=== PATIENT | male | born 1955 | race Caucasian/White ===

== ENCOUNTER 2017-08-04 11:46 | Day surgery (SDC) | payer OTHER ==
[2017-08-02 15:36] VITALS: BMI 43.5
[~2017-08-04 11:46] MED LIST: LACTATED RINGERS 1,000 ML IV SCH
[2017-08-04 12:13] VITALS: RESP 16; TEMP 98.7
--- NOTE | 2017-08-04 13:11 | P.OP ---
Date of Procedure: 08/04/17 Preoperative Diagnosis: Screening. Change in bowel habits. Rectal bleeding. Postoperative Diagnosis: 1 proximal descending colon polyp. 2 Mid ascending colon polyps 2. 3 sigmoid polyp at 50 cm from the anal verge.4 sigmoid polyp at the verge.5 mild internal hemorrhoids. Procedure(s) Performed: Colonoscopy and snare polypectomy 5 Anesthesia: MAC Estimated Blood Loss (ml): 0 Pathology: other (Colon polyps 5) Condition: stable Disposition: same day Indications for Procedure: Screening. Occasional bright red blood per rectum. Constipation. Operative Findings: Descending colon polyp about 3 mm in diameter. Mid ascending colon polyps 2 each about 2 mm in diameter. Sigmoid colon polyp at the 50 cm from the anal verge about 3 mm in diameter. Sigmoid colon polyp at 40 cm from anal verge about 3 mm in diameter. Mild diverticulosis. Mild internal hemorrhoids. Description of Procedure: With the patient in the left lateral position rectal digital examination was normal. There were no palpable masses. No prostatic masses. The video colonoscope was inserted transanally and advanced all the way to the cecum which was entered without visualized as was the ileocecal valve and appendiceal orifice. The mucosa were thoroughly examined. 5. Polyps were encountered as described above and all of which were removed with the snare cautery with good hemostasis. The patient tolerated procedure well without any evident complication. 1. High fiber diet. Follow-up colonoscopy in about 3 years in view of multiple polyps. Conservative Treatment for the hemorrhoids unless he gets more symptomatic.
--- NOTE | 2017-08-04 13:11 | P.DS ---
Providers Attending physician: Bo Tierney Primary care physician: Stated None Plan - Discharge Summary New Discharge Prescriptions: No Action fluvoxaMINE [Luvox] 150 mg PO DAILY [place] Carbonate 300 mg PO TID Lisinopril [Zestril] 20 mg PO DAILY Multivitamins, Thera [Multivitamin (formulary)] 0.5 each PO DAILY Albuterol Inhaler [Ventolin Hfa Inhaler] 1 puff IH DAILY PRN PRN Reason: sob Ibuprofen 400 mg PO DAILY PRN PRN Reason: Pain Discharge Medication List Albuterol Inhaler [Ventolin Hfa Inhaler] 1 puff IH DAILY PRN 08/02/17 [History] Ibuprofen 400 mg PO DAILY PRN 08/02/17 [History] Lisinopril [Zestril] 20 mg PO DAILY 08/02/17 [History] [place] Carbonate 300 mg PO TID 08/02/17 [History] Multivitamins, Thera [Multivitamin (formulary)] 0.5 each PO DAILY 08/02/17 [ History] fluvoxaMINE [Luvox] 150 mg PO DAILY 08/02/17 [History] Follow up Appointment(s)/Referral(s): Bo Tierney MD [STAFF PHYSICIAN] - 08/03/20 Patient Instructions/Handouts: Colonoscopy (DC) Discharge Disposition: HOME SELF-CARE
[2017-08-04 13:41] VITALS: BP 130/76; PULSE 54
== END 2017-08-04 14:03 | disposition home or self-care (01) ==
LOC: ORWHC2ENDO 11:46
PROVIDERS: ATTEND Surgery
DX: D12.2 Benign neoplasm of ascending colon (principal); K63.5 Polyp of colon; K57.30 Diverticulosis of large intestine without perforation or abscess without bleeding; K64.8 Other hemorrhoids; Z80.0 Family history of malignant neoplasm of digestive organs; I10 Essential (primary) hypertension; E78.00 Pure hypercholesterolemia, unspecified; G47.30 Sleep apnea, unspecified; M19.90 Unspecified osteoarthritis, unspecified site; F31.9 Bipolar disorder, unspecified; Z79.899 Other long term (current) drug therapy
CPT/HCPCS: 45385; 88305

== ENCOUNTER → 2019-01-28 | Outpatient (CLI) | payer OTHER ==
--- NOTE | 2019-01-28 17:13 | CT ---
EXAMINATION TYPE: CT thoracic spine wo con DATE OF EXAM: 01/28/2019 COMPARISON: None HISTORY: Parethesia fourth and fifth digits-bilaterally CT DLP: 3562.30 mGycm Automated exposure control for dose reduction was used. FINDINGS: CT of the thorax is performed on a spiral scan at 3 mm thick sections. Bone and soft tissue windows a re performed. Sagittal and coronal reconstructed images are reviewed on the computer. Degenerative disc changes are in the thoracolumbar junction. Vacuum disc phenomenon is present. Thoracic vertebral body heights are preserved. No significant focal disc herniation or significant di sc bulge is evident. No spinal canal stenosis or neural foraminal stenosis is present. Vertebral body heights are preserved. At the upper images include the lower thoracic spine. Posterior endplate spur ring with mild to moderate anterior thecal sac compression is present. Some uncovertebral joint hyper trophy is contributing to severe foraminal narrowing upper cervical spine. Please see CT cervical spi ne same date. IMPRESSION: 1. DEGENERATIVE DISC CHANGES LOWER THORACIC UPPER LUMBAR SPINE. 2. UPPER THORACIC SPINE VISUALIZED APPEARS WITHIN NORMAL LIMITS 3. LOWER CERVICAL SPINE WITH DEGENERATIVE DISC CHANGES AND ENDPLATE CHANGES.
--- NOTE | 2019-01-28 17:16 | CT ---
EXAMINATION TYPE: CT cervical spine wo con DATE OF EXAM: 01/28/2019 COMPARISON: None HISTORY: Parethesia fourth and fifth digits-bilaterally CT DLP: 857.90 mGycm CONTRAST: None CT of the cervical spine is performed in the axial plane at 2 mm thick sections. Reconstructed image s in the coronal, and sagittal plane are reviewed on the computer. No acute fractures are evident. There is a cervical kyphosis present. There is diffuse loss of disc height through the cervical spine greatest at C4-5 C5-6 C6-7. Vertebral body heights are preserved. No spinal canal stenosis is evident There are uncovertebral joint hypertrophy is present C2-C3 on the right with mild foraminal narrowing . Facet degenerative changes are present. Uncovertebral joint hypertrophy is present with moderate ri ght and more severe left foraminal stenosis at C4-5 and C5-6. Some endplate spurring at C5-6 is mild anterior thecal sac compression. Uncovertebral joint hypertrophy and endplate spurring is present C6- 7 with mild to moderate anterior thecal sac compression and severe bilateral foraminal stenosis. IMPRESSIONS: 1. Uncovertebral joint hypertrophy with endplate spurring in the lower cervical spine has severe bi lateral foraminal stenosis C6-7 and to a lesser degree C5-6. Endplate spurring at these levels have a nterior thecal sac compression. 2. More moderate foraminal stenosis due to uncovertebral joint hypertrophy is present C2-3 C4-5 discu ssed above.
== END | disposition home or self-care (01) ==
LOC: RADCTMAIN 14:17
PROVIDERS: ATTEND Family Medicine
DX: M51.35 Other intervertebral disc degeneration, thoracolumbar region (principal); M48.02 Spinal stenosis, cervical region; M50.30 Other cervical disc degeneration, unspecified cervical region
CPT/HCPCS: 72125; 72128

== ENCOUNTER → 2019-03-27 | Outpatient (CLI) | payer OTHER | END | disposition home or self-care (01) | LOC: LABWHC1 17:17 | PROVIDERS: ATTEND Psychiatry & Neurology Psychiatry | DX: Z51.81 Encounter for therapeutic drug level monitoring (principal); Z79.899 Other long term (current) drug therapy | CPT/HCPCS: 36415; 80178 ==

== ENCOUNTER → 2019-04-08 | Outpatient (CLI) | payer OTHER ==
[2019-04-02 15:59] VITALS: BMI 43.6
[2019-04-08 13:50] VITALS: BP 122/56; PULSE 66; RESP 22
--- NOTE | 2019-04-08 15:12 | P.PAINCN ---
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 Denies any change in the bowel movement or urination Past Medical History Past Medical History: Diabetes Mellitus, GERD/Reflux, Hyperlipidemia, Hypertension, Osteoarthritis (OA), Sleep Apnea/CPAP/BIPAP Additional Past Medical History / Comment(s): seizure two yrs ago from major depressive disorder, hermorrhoids, herniated disk, History of Any Multi-Drug Resistant Organisms: None Reported Past Surgical History: Adenoidectomy, Hernia Repair, Tonsillectomy Additional Past Surgical History / Comment(s): . Past Anesthesia/Blood Transfusion Reactions: No Reported Reaction Past Psychological History: Depression Additional Psychological History / Comment(s): "OK now" Smoking Status: Never smoker Past Alcohol Use History: Rare Past Drug Use History: None Reported Additional Drug Use History / Comment(s): no current use - Past Family History Mother Family Medical History: No Reported History Medications and Allergies Home Medications Medication Instructions Recorded Confirmed Type Albuterol Inhaler [Ventolin Hfa 1 puff IH DAILY PRN 08/02/17 04/02/19 History Inhaler] Ibuprofen 400 mg PO DAILY PRN 08/02/17 04/02/19 History Lisinopril [Zestril] 20 mg PO DAILY 08/02/17 04/02/19 History [place] Carbonate 1,200 mg PO HS 08/02/17 04/02/19 History Multivitamins, Thera [Multivitamin 0.5 each PO BID 08/02/17 04/02/19 History (formulary)] fluvoxaMINE [Luvox] 150 mg PO QAM 08/02/17 04/02/19 History metFORMIN HCL [Glucophage] 500 mg PO BID 02/14/18 04/02/19 History Cholecalciferol (Vitamin D3) 5,000 unit PO DAILY 04/02/19 04/02/19 History [Vitamin D3] Docusate [Colace] 100 mg PO TID 04/02/19 04/02/19 History Losartan [Cozaar] 25 mg PO DAILY 04/02/19 04/02/19 History Allergies Allergy/AdvReac Type Severity Reaction Status Date / Time No Known Allergies Allergy Verified 04/02/19 15:42 Physical Exam Vitals: Vital Signs Pulse Resp BP Pulse Ox 04/08/19 13:43 66 22 122/56 95 Physical Examinations : -Constitutiona : Cooperative , not in acute distress . -HEENT : nech : supple , no Lymphadenopathy , normal thyroid size . eyes : no ptosis , no icterus, no photophobia . ENT : normal of hearing , normal oropharynx , no Thrush . - Respiratory : Chest clear to auscultations Bilaterally , no wheezing , no Rhonchi . - Cardiovascula : regular rate and rhythem , S1 , S2 , no S3 , no S4. - Gastrointestina : abdomen soft no tenderness , bowel sounds , no organomegally . - Genitourinary : Defferred . - neurologic : Cranial nerve II to XII intact , no focal neurological deffecit . -psychatric : alert , oriented X 3 , appropriate affect , intact judgment and insight . -Lymphatic : no Lymphadenopathy . - musculoskeltal : Cervical Spine motor stregnth in the deltoid and biceps, normal right side , normal Left side motor stregnth biceps and the wrist extensors normal right side , decreased left side . motor stregnth in the triceps muscle . normal Right side , decreased Left side deep tendon reflexes normal at the biceps , normal at Brachioradialis , normal at triceps. cervical facet loading test: Negative Bilaterally Spurling test negative bilaterally. Neck distraction test negative bilaterally. Nargis sign negative bilaterally. Lumber spine moter stegnth lower extremities ,thigh and legs 5/5 Right side , 5/5 Left side Results Comments: Computed tomography scan of the cervical spine= severe bilateral foraminal stenosis at C5 6 and C6 7, and multilevel uncovertebral joint hypertrophy Assessment and Plan Plan: Assessment and plan=1-cervical radiculopathy. 2-cervical foraminal stenosis. Patient could benefit from cervical epidural steroid injections at C7 T1 levels (left paramedian approach ) Time with Patient: Greater than 30 PQRS Measure Charge Sheet Measure #130: Documentation of Current Meds in Medical Chart: Patient's medications documented in chart Measure #226: Tobacco Use: Screen & Cessation Intervention: Pt not a tobacco user Measure #111: Pneumonia Vaccination: Pneumococcal vaccine NOT administered or previously given Measure #47: Advance Care Plan: Advance care planning discussed & documented, pt chose/unable to give Measure #412: Opioid Treatment Agreement: No documentation of signed opioid treatment agreement Measure #408: Opioid Therapy Follow-up Evaluation: Patient had NO f/u eval minimum every 3 months during opioid therapy Measure #317: Preventitive Care & Scrn High Bld Press & F/U: Normal blood pressure, f/u not required Measure #128: Body Mass Index (BMI) Screening & Follow-up: BMI documented ABOVE normal parameters - f/u documented Measure #131: Pain Assessment & Follow-up: Pain positive & plan documented, Follow-up scheduled Measure #431: Unhealthy Alcohol Use Preventative Care & Scrn: Patient not identified as an unhealthy alcohol user PQRS Narrative: Smoking Status Never smoker Blood Pressure 122/56 Pain Intensity [Left Hand] 0 Scale Used Numeric (1 - 10) Hx Alcohol Use (MH) Yes: occasionally Home Medications: Ambulatory Orders Albuterol Inhaler [Ventolin Hfa Inhaler] 1 puff IH DAILY PRN 08/02/17 Ibuprofen 400 mg PO DAILY PRN 08/02/17 Lisinopril [Zestril] 20 mg PO DAILY 08/02/17 [place] Carbonate 1,200 mg PO HS 08/02/17 Multivitamins, Thera [Multivitamin (formulary)] 0.5 each PO BID 08/02/17 fluvoxaMINE [Luvox] 150 mg PO QAM 08/02/17 metFORMIN HCL [Glucophage] 500 mg PO BID 02/14/18 Cholecalciferol (Vitamin D3) [Vitamin D3] 5,000 unit PO DAILY 04/02/19 Docusate [Colace] 100 mg PO TID 04/02/19 Losartan [Cozaar] 25 mg PO DAILY 04/02/19
== END ==
LOC: PNWHC3 12:51
PROVIDERS: ATTEND Specialist
DX: M48.02 Spinal stenosis, cervical region (principal); M54.12 Radiculopathy, cervical region; E11.9 Type 2 diabetes mellitus without complications; E78.5 Hyperlipidemia, unspecified; K21.9 Gastro-esophageal reflux disease without esophagitis; I10 Essential (primary) hypertension; Z79.899 Other long term (current) drug therapy; Z79.1 Long term (current) use of non-steroidal anti-inflammatories (NSAID); Z79.84 Long term (current) use of oral hypoglycemic drugs
CPT/HCPCS: 99211

== ENCOUNTER 2019-05-07 07:56 | Day surgery (SDC) | payer OTHER ==
[2019-05-06 12:00] VITALS: BMI 43.6
[2019-05-07 08:25] VITALS: TEMP 95.8
[2019-05-07] MEDS ORDERED: LIDOCAINE 1% 20 ML VIAL (10MG/ML) FOR IV START INTRADERMA ONE (08:31)
[2019-05-07 08:34] LABS: Glucose,Whole Blood 118 mg/dL (75-99)
--- NOTE | 2019-05-07 09:03 | P.PCN ---
Date of Procedure: 05/07/19 Procedure(s) Performed: . PROCEDURE 1. Cervical epidural steroid injection under fluoroscopic guidance, C6-7 (fluoroscopy images available in the radiology department ) 2. Cervical epidurogram. PREOPERATIVE DIAGNOSIS: 1- Cervical radiculopathy., 3-cervical spinal stenosis POSTOPERATIVE DIAGNOSIS: : 1- Cervical radiculopathy. 2-,cervical spinal stenosis ANESTHESIA: Local anesthesia with lidocaine 1 % , and moderate sedation, with Versed 2 mg and Fentanyl 50 mcg. EBL 0 PROCEDURE INDICATION: The patient with neck pain and radiculitis unresponsive to conservative treatment consents for procedure. PROCEDURE DESCRIPTION / TECHNIQUE: The patient was seen and identified in the preoperative area. Risks, benefits, complications, including but not limited to infections ,bleeding , allergic reactions to the medications ,and not complete pain releife, and alternatives were discussed with the patient, the patient agreed to proceed with the procedure and signed the consent. Patient was taken to the OR and time out was completed. The patient was placed in the prone position on the procedure table. A pillow was placed under the patients chest to increase the cervical interlaminar space. The cervical area was prepped and draped in the usual sterile fashion. Vital signs were closely monitored during the procedure. Conscious sedation was used during the procedure to decrease patients anxiety. Using anterior-posterior fluoroscopy, the C6-7 interlaminar space was identified and the skin over this site was marked and then infiltrated with 1% lidocaine subcutaneously. Subsequently, a 20-gauge 3-1/2-inch Tuohy epidural needle was inserted and advanced toward the epidural space by means of the ``hanging-drop technique and guided by AP and lateral fluoroscopy. The correct needle position in the epidural space was verified with the injection of 2 mL of the water soluble contrast dye Isovue-200 and observing an excellent epidurogram with the epidural spread of the dye, after negative aspiration for blood and CSF and in the absence of paresthesias. Again after negative aspiration, mixture containing 40 mg Depo-medrol , and 2 ml of preservative-free normal saline injected and a washout of epidurogram was seen. Needle was withdrawn intact, skin was cleansed, and bandages were applied. Complications= none. Disposition= patient was placed in supine position and transferred to the recovery room area in stable condition and there was no evidence of upper or lower extremity motor or sensory deficit after the procedure patient was discharged from recovery room after discharge criteria met and home discharge instructions was given by the staff and patient will follow with the pain clinic in 2-4 weeks
[2019-05-07 09:14] VITALS: RESP 18
[2019-05-07] MEDS ORDERED: LACTATED RINGERS 1,000 ML IV ONE (09:32)
[2019-05-07 09:34] VITALS: BP 130/75; PULSE 60
--- NOTE | 2019-05-07 09:36 | FL ---
EXAMINATION TYPE: FL guided pain mgmt statistic DATE OF EXAM: 05/07/2019 CLINICAL HISTORY: Neck pain. TECHNIQUE: Fluoroscopy. COMPARISON: None. FINDINGS: Fluoroscopic guidance was provided during pain relief procedure performed by Dr. Cunningham . A total of 2 seconds of fluoroscopic time was utilized during the procedure and two spot images ar e acquired. Images acquired shows needle localization of the cervical spine. IMPRESSION: As Above.
== END 2019-05-07 09:53 | disposition home or self-care (01) ==
LOC: ORPAIN 07:56
PROVIDERS: ATTEND Specialist
DX: M48.02 Spinal stenosis, cervical region (principal); M54.12 Radiculopathy, cervical region; F32.9 Major depressive disorder, single episode, unspecified; E11.9 Type 2 diabetes mellitus without complications; E78.5 Hyperlipidemia, unspecified; I10 Essential (primary) hypertension; M19.90 Unspecified osteoarthritis, unspecified site; G47.30 Sleep apnea, unspecified; Z99.89 Dependence on other enabling machines and devices; Z79.84 Long term (current) use of oral hypoglycemic drugs; Z79.899 Other long term (current) drug therapy
CPT/HCPCS: 62321; J2250; J1030; J3010; Q9966

== ENCOUNTER 2019-05-21 07:55 | Day surgery (SDC) | payer OTHER ==
[2019-05-20 10:26] VITALS: BMI 44.5
[2019-05-21 08:13] VITALS: TEMP 97.8
[2019-05-21] MEDS ORDERED: LACTATED RINGERS 1,000 ML IV ONE (08:14)
[2019-05-21] MEDS ORDERED: LIDOCAINE 1% 20 ML VIAL (10MG/ML) FOR IV START INTRADERMA ONE (08:14)
[2019-05-21 08:31] LABS: Glucose,Whole Blood 114 mg/dL (75-99)
--- NOTE | 2019-05-21 09:08 | P.PCN ---
Date of Procedure: 05/21/19 Procedure(s) Performed: PROCEDURE 1. Cervical epidural steroid injection under fluoroscopic guidance, C6-7 (fluoroscopy images available in the radiology department) ( Left paramedial approache ) 2. Cervical epidurogram. PREOPERATIVE DIAGNOSIS: 1- Cervical radiculopathy., 3-cervical spinal stenosis POSTOPERATIVE DIAGNOSIS: : 1- Cervical radiculopathy. 2-,cervical spinal stenosis ANESTHESIA: Local anesthesia with lidocaine 1 % , and moderate sedation, with Versed 2 mg and Fentanyl 50 mcg. EBL 0 PROCEDURE INDICATION: The patient with neck pain and radiculitis unresponsive to conservative treatment consents for procedure. PROCEDURE DESCRIPTION / TECHNIQUE: The patient was seen and identified in the preoperative area. Risks, benefits, complications, including but not limited to infections ,bleeding , allergic reactions to the medications ,and not complete pain releife, and alternatives were discussed with the patient, the patient agreed to proceed with the procedure and signed the consent. Patient was taken to the OR and time out was completed. The patient was placed in the prone position on the procedure table. A pillow was placed under the patients chest to increase the cervical interlaminar space. The cervical area was prepped and draped in the usual sterile fashion. Vital signs were closely monitored during the procedure. Conscious sedation was used during the procedure to decrease patients anxiety. Using anterior-posterior fluoroscopy, the C6-7 interlaminar space was identified and the skin over this site was marked and then infiltrated with 1% lidocaine subcutaneously. Subsequently, a 20-gauge 3-1/2-inch Tuohy epidural needle was inserted and advanced toward the epidural space by means of the ``hanging-drop technique and guided by AP and lateral fluoroscopy. The correct needle position in the epidural space was verified with the injection of 2 mL of the water soluble contrast dye Isovue-200 and observing an excellent epidurogram with the epidural spread of the dye, after negative aspiration for blood and CSF and in the absence of paresthesias. Again after negative aspiration, mixture containing 20 mg Dexamethason , and 2 ml of preservative-free normal saline injected and a washout of epidurogram was seen. Needle was withdrawn intact, skin was cleansed, and bandages were applied. Complications= none. Disposition= patient was placed in supine position and transferred to the recovery room area in stable condition and there was no evidence of upper or lower extremity motor or sensory deficit after the procedure patient was discharged from recovery room after discharge criteria met and home discharge instructions was given by the staff and patient will follow with the pain clinic in 2-4 weeks
[2019-05-21] MEDS ORDERED: IV FLUID CONTINUATION 700 ML IV ONE (09:11)
[2019-05-21 09:15] VITALS: PULSE 66; RESP 16
[2019-05-21 09:28] VITALS: BP 100/52
--- NOTE | 2019-05-21 09:53 | FL ---
Fluoroscopy HISTORY: Pain 4 seconds fluoroscopy time supplied to the referring clinician. 1 intraoperative C-arm images docume nt the procedure. See dictated report from anesthesia.
== END 2019-05-21 09:42 | disposition home or self-care (01) ==
LOC: ORPAIN 07:55
PROVIDERS: ATTEND Specialist
DX: M48.02 Spinal stenosis, cervical region (principal); M54.12 Radiculopathy, cervical region; I10 Essential (primary) hypertension; E11.9 Type 2 diabetes mellitus without complications; R56.9 Unspecified convulsions
CPT/HCPCS: 62321; J2250; J1100; J3010; Q9966

== ENCOUNTER → 2019-08-05 | Outpatient (CLI) | payer OTHER ==
[2019-08-05 12:30] VITALS: BP 103/57; PULSE 72; RESP 20
--- NOTE | 2019-08-07 12:24 | P.PAINPG ---
Subjective Progress Note Date: 08/05/19 This is a follow-up visit for this 64 years old male who was diagnosed with cervical radiculopathy, cervical foraminal stenosis, he underwent cervical epidural steroid injections at C6-7 2 on 05/07/2019 and 05/21/2019. He returns today for follow-up. He reports that he had good benefit following these 2 procedures, he would like to be scheduled for repeat procedure. Pain is rated as 4/10 today, located in primarily in left arm. 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 Denies any change in the bowel movement or urination Review of systems is negative for chest pain, shortness of breath, new onset weakness, numbness/tingling, abdominal pain, malaise, fever, night sweats, chills, homicidal or suicidal ideation, or bowel or bladder incontinence. Physical Exam Physical exam: Vitals: Reviewed in EMR GENERAL: Well appearing, in no acute distress, morbidly obese PSYCH: Mood and affect is appropriate. Awake, alert, and oriented SKIN: Skin color, texture, turgor normal, no rashes or lesions HEENT: Normocephalic, atraumatic. EOM intact CV: No pedal edema RESP: Respirations are unlabored, no audible wheezing GI: Abdomen non-distended MUSCULOSKELETAL: Bilateral upper extremity strength is normal and symmetric. No atrophy or tone abnormalities are noted. Neck: No pain to palpation over the cervical paraspinous muscles. Spurling negative, Axial Loading Test negative, Coffey's sign negative. No pain with neck flexion, extension, or lateral flexion. No obvious deformity or signs of trauma. Normal cervical lordotic curve and normal cervical spine range of motion Extremities: Peripheral joint ROM is full and pain free without obvious instability or laxity in all four extremities. No edema or skin discolorations noted. Gait: Gait is normal NEUR: Bilateral upper extremity coordination and muscle stretch reflexes are physiologic and symmetric. Loss of sensation to light touch noted along left pinky and medial aspect of left ring finger. Results Comments: Computed tomography scan of the cervical spine= severe bilateral foraminal stenosis at C5 6 and C6 7, and multilevel uncovertebral joint hypertrophy Assessment and Plan Plan: Assessment and plan=1-cervical radiculopathy. 2-cervical foraminal stenosis. Patient could benefit from repeat cervical epidural steroid injections at C6-7 levels (left paramedian approach ) Patient was counseled on the importance of weight loss and exercise, he was given a prescription for neck physical therapy with neck traction. PQRS Measure Charge Sheet Measure #130: Documentation of Current Meds in Medical Chart: Patient's medications documented in chart Measure #226: Tobacco Use: Screen & Cessation Intervention: Pt not a tobacco user Measure #111: Pneumonia Vaccination: Pneumococcal vaccine NOT administered or previously given Measure #47: Advance Care Plan: Advance care planning discussed & documented, pt chose/unable to give Measure #412: Opioid Treatment Agreement: No documentation of signed opioid treatment agreement Measure #408: Opioid Therapy Follow-up Evaluation: Patient had NO f/u eval minimum every 3 months during opioid therapy Measure #317: Preventitive Care & Scrn High Bld Press & F/U: Normal blood pressure, f/u not required Measure #128: Body Mass Index (BMI) Screening & Follow-up: BMI documented ABOVE normal parameters - f/u documented Measure #131: Pain Assessment & Follow-up: Pain positive & plan documented, Follow-up scheduled Measure #431: Unhealthy Alcohol Use Preventative Care & Scrn: Patient not identified as an unhealthy alcohol user PQRS Measure Charge Sheet PQRS Narrative: Smoking Status Never smoker Hx Alcohol Use (MH) Yes: occasionally Home Medications: Ambulatory Orders Ibuprofen 400 mg PO DAILY PRN 08/02/17 Lisinopril [Zestril] 20 mg PO DAILY 08/02/17 [place] Carbonate 1,200 mg PO HS 08/02/17 Multivitamins, Thera [Multivitamin (formulary)] 0.5 each PO BID 08/02/17 fluvoxaMINE [Luvox] 150 mg PO QAM 08/02/17 metFORMIN HCL [Glucophage] 1,000 mg PO BID 02/14/18 Cholecalciferol (Vitamin D3) [Vitamin D3] 5,000 unit PO DAILY 04/02/19 Docusate [Colace] 100 mg PO TID 04/02/19 Losartan [Cozaar] 25 mg PO DAILY 04/02/19 Acetaminophen-Codeine 300-30mg [Tylenol w/codeine #3] 1 tab PO BID 08/05/19 Naproxen Sodium [Aleve] 1 tab PO DIRECTED PRN 08/05/19 Controlled Substance Measures - Controlled Substance Measures Is patient prescribed a controlled substance at discharge?: No
== END | disposition home or self-care (01) ==
LOC: PNWHC3 11:39
PROVIDERS: ATTEND Anesthesiology
DX: M54.12 Radiculopathy, cervical region (principal); M48.02 Spinal stenosis, cervical region; Z79.891 Long term (current) use of opiate analgesic; Z79.899 Other long term (current) drug therapy; Z79.84 Long term (current) use of oral hypoglycemic drugs; Z79.52 Long term (current) use of systemic steroids
CPT/HCPCS: 99211

== ENCOUNTER 2019-08-18 14:00 | Emergency (ER) | payer OTHER ==
[2019-08-18] MEDS ORDERED: PIPERACILLIN-TAZOBACTAM 3.375 GM in SODIUM CHLORIDE 0.9% 100 ML IVPB STA (14:36)
[2019-08-18] MEDS ORDERED: DEXAMETHASONE SOD PHOSPHATE 10 MG/ML 1 ML VIAL IV STA (14:36)
[2019-08-18] MEDS ORDERED: VANCOMYCIN IV PER PHARMACY 1 EACH MISC MISCELLANE PRN (14:40)
[2019-08-18] MEDS ORDERED: VANCOMYCIN 2,250 MG in SODIUM CHLORIDE 0.9% 500 ML 500 ML IVPB STA (14:44)
--- NOTE | 2019-08-18 15:03 | ED ---
ENT HPI - General Source: patient, RN notes reviewed, old records reviewed Mode of arrival: ambulatory Limitations: no limitations <Nilda Ramirez - Last Filed: 08/18/19 17:42> <Gabriella Sullivan - Last Filed: 08/20/19 16:46> - General Chief complaint: Dental/Oral Stated complaint: Dental pain Time Seen by Provider: 08/18/19 14:33 - History of Present Illness Initial comments: This Patient is a 64-year-old male who presents emergency department today for evaluation for neck swelling. and difficulty in breathing. He reports that he is currently having infection in his lower teeth. He states that he was completed on antibiotics and finished them approximately 4 days ago. He states he was still worried about having can infection and swelling into his jaw but was unable to restart antibiotics. He was initially started on amoxicillin. Patient reports that his speech seems to be garbled due to the swelling. Patient states that the swelling seems to be acutely worse in his speech having more troubles over the past 8 hours. He denies any specific fever. He reports he does have some redness and swelling extending into the anterior chest wall. He reports that he also does have hyperhidrosis. (Nilda Ramirez) - Related Data Home Medications Medication Instructions Recorded Confirmed Ibuprofen 400 mg PO DAILY PRN 08/02/17 08/05/19 Lisinopril [Zestril] 20 mg PO DAILY 08/02/17 08/05/19 [place] Carbonate 1,200 mg PO HS 08/02/17 08/05/19 Multivitamins, Thera [Multivitamin 0.5 each PO BID 08/02/17 08/05/19 (formulary)] fluvoxaMINE [Luvox] 150 mg PO QAM 08/02/17 08/05/19 metFORMIN HCL [Glucophage] 1,000 mg PO BID 02/14/18 08/05/19 Cholecalciferol (Vitamin D3) 5,000 unit PO DAILY 04/02/19 08/05/19 [Vitamin D3] Docusate [Colace] 100 mg PO TID 04/02/19 08/05/19 Losartan [Cozaar] 25 mg PO DAILY 04/02/19 08/05/19 Acetaminophen-Codeine 300-30mg 1 tab PO BID 08/05/19 08/05/19 [Tylenol w/codeine #3] Naproxen Sodium [Aleve] 1 tab PO DIRECTED PRN 08/05/19 08/05/19 Allergies Allergy/AdvReac Type Severity Reaction Status Date / Time No Known Allergies Allergy Verified 08/05/19 12:12 Review of Systems ROS Other: All systems not noted in ROS Statement are negative. <Nilda Ramirez - Last Filed: 08/18/19 17:42> ROS Other: All systems not noted in ROS Statement are negative. <Gabriella Sullivan - Last Filed: 08/20/19 16:46> ROS Statement: Those systems with pertinent positive or pertinent negative responses have been documented in the HPI. Past Medical History Past Medical History: Diabetes Mellitus, GERD/Reflux, Hyperlipidemia, Hypertension, Osteoarthritis (OA), Sleep Apnea/CPAP/BIPAP Additional Past Medical History / Comment(s): seizure two yrs ago from major depressive disorder, hemorrhoids, herniated disc, TOOTH ACHE AT PRESENT History of Any Multi-Drug Resistant Organisms: None Reported Past Surgical History: Adenoidectomy, Hernia Repair, Tonsillectomy Additional Past Surgical History / Comment(s): epidurals Past Anesthesia/Blood Transfusion Reactions: No Reported Reaction Past Psychological History: Depression Smoking Status: Never smoker Past Alcohol Use History: Rare Past Drug Use History: None Reported - Past Family History Mother Family Medical History: No Reported History <Nilda Ramirez - Last Filed: 08/18/19 17:42> General Exam Limitations: no limitations General appearance: alert, in no apparent distress Head exam: Present: atraumatic, normocephalic, normal inspection Eye exam: Present: normal appearance, PERRL, EOMI. Absent: scleral icterus, conjunctival injection, periorbital swelling ENT exam: Present: normal exam, mucous membranes moist, other (Garbled speech. Patient significant edema from the anterior neck extending into the anterior chest wall around clavicle. Some surrounding erythema to neck and chest. Patient does have swelling underneath his tongue. Unable to swallow secretions. ) Neck exam: Present: normal inspection. Absent: tenderness, meningismus, lymphadenopathy Respiratory exam: Absent: respiratory distress, wheezes, rales, rhonchi, stridor Cardiovascular Exam: Present: regular rate, normal rhythm, normal heart sounds. Absent: systolic murmur, diastolic murmur, rubs, gallop, clicks GI/Abdominal exam: Present: soft, normal bowel sounds. Absent: distended, tenderness, guarding, rebound, rigid Extremities exam: Present: normal inspection, full ROM, normal capillary refill. Absent: tenderness, pedal edema, joint swelling, calf tenderness Back exam: Present: normal inspection Neurological exam: Present: alert, oriented X3, CN II-XII intact Psychiatric exam: Present: normal affect, normal mood Skin exam: Present: warm, dry, intact, normal color. Absent: rash <Nilda Ramirez - Last Filed: 08/18/19 17:42> ENT exam: Present: other. Absent: normal exam <Gabriella Sullivan - Last Filed: 08/20/19 16:46> - General Exam Comments Initial Comments: His is a 64-year-old male. Patient is diaphoretic. Appears in moderate distress. is able to breathe. He does have a suction removing saliva from his mouth. Garbled speech noted. (Nilda Ramirez) Course Vital Signs 08/18/19 08/18/19 08/18/19 14:02 14:55 14:57 Temperature 98.9 F Pulse Rate 94 79 Respiratory 16 24 Rate Blood Pressure 160/66 140/66 O2 Sat by Pulse 98 96 96 Oximetry 08/18/19 08/18/19 08/18/19 15:00 15:04 15:10 Temperature Pulse Rate 80 75 Respiratory 23 21 Rate Blood Pressure 140/66 115/67 O2 Sat by Pulse 94 L 95 95 Oximetry 08/18/19 08/18/19 08/18/19 15:16 15:20 15:25 Temperature Pulse Rate 75 77 84 Respiratory 25 H 18 Rate Blood Pressure 115/52 115/52 O2 Sat by Pulse 100 Oximetry 08/18/19 08/18/19 08/18/19 15:30 15:32 15:40 Temperature Pulse Rate 79 84 85 Respiratory 13 21 Rate Blood Pressure 112/63 120/66 O2 Sat by Pulse 99 98 Oximetry 08/18/19 08/18/19 08/18/19 15:50 16:00 16:10 Temperature Pulse Rate 76 74 73 Respiratory 12 12 12 Rate Blood Pressure 110/60 101/61 101/61 O2 Sat by Pulse 93 L 99 99 Oximetry 08/18/19 08/18/1920 16:20 16:30 16:40 Temperature Pulse Rate 67 Respiratory 16 Rate Blood Pressure 93/57 87/60 87/60 O2 Sat by Pulse 99 Oximetry 08/18/19 08/18/19 08/18/19 17:00 17:10 17:20 Temperature Pulse Rate 69 69 69 Respiratory 16 16 16 Rate Blood Pressure 100/54 97/58 109/64 O2 Sat by Pulse 99 99 99 Oximetry 08/18/19 08/18/19 08/18/19 17:26 17:30 17:34 Temperature 98.7 F Pulse Rate 68 66 Respiratory 16 Rate Blood Pressure 106/63 106/63 O2 Sat by Pulse 100 Oximetry 08/18/19 08/18/19 08/18/19 17:40 17:50 18:00 Temperature Pulse Rate 67 72 68 Respiratory 16 16 15 Rate Blood Pressure 108/64 101/62 107/71 O2 Sat by Pulse 99 98 100 Oximetry 08/18/19 08/18/19 08/18/19 18:10 18:20 18:30 Temperature Pulse Rate 68 70 68 Respiratory 16 10 L 18 Rate Blood Pressure 100/63 120/59 103/60 O2 Sat by Pulse 99 100 98 Oximetry 08/18/19 08/18/19 08/18/19 18:40 18:50 19:00 Temperature Pulse Rate 70 72 70 Respiratory 15 20 15 Rate Blood Pressure 113/69 102/67 104/66 O2 Sat by Pulse 99 99 100 Oximetry 08/18/19 19:10 Temperature 98 F Pulse Rate 72 Respiratory 15 Rate Blood Pressure 106/76 O2 Sat by Pulse 99 Oximetry Medical Decision Making - Lab Data Result diagrams: 08/18/19 14:35 08/18/19 14:35 <Nilda Ramirez - Last Filed: 08/18/19 17:42> - Lab Data Result diagrams: 08/18/19 14:35 08/18/19 14:35 <Gabriella Sullivan - Last Filed: 08/20/19 16:46> - Medical Decision Making 64-year-old male with worsening neck swelling, difficulty in breathing and trouble swallowing over the past 8 hours. This has some garbled speech. Being treated for dental infection but has been off of his antibiotics for 4 days. Is also diabetic. On clinical exam Patient has significant edema of his neck and extending into the chest wall. He does have significant edema underneath his tongue pushing the tongue forward, unable to tolerate secretions. Initial concern for Niraj angina. I consult to Dr. Sullivan right away. Patient started on IV Decadron, and Zosyn and vancomycin. Blood cultures are completed. Dr. Sullivan took over case and will establish airway before complete compromise. Consulted oncall Anesthesia for possible difficult intubation. Dr. Sullivan will proceed with intubating the Patient will get a CT of the neck, and taking over patient care. (Nilda Ramirez) I was called by the nurse practitioner after she quickly evaluated the patient. She was concerned for Niraj angina. I do evaluate the patient and his physical exam is very concerning for this. Peripheral IV had already been established. The patient was already receiving Vanco and Zosyn. We immediately placed the patient in the trauma bay 2. We discussed intubation of the patient prior to his loss of airway. Sister and brother are at bedside. The patient does agree to intubation and signs written consent. I called and discussed the case with Dr. Mueller who presents to the emergency department. Awake fiber- optic intubation was performed without complication by anesthesia. The patient was then sedated with Propofol. Laboratory studies were reviewed which demonstrated white blood for count 26.5. Glucose is 122. Eraxis and clindamycin were added. CT demonstrates subcutaneous emphysema within multiple deep and superficial spaces of the left neck extending into the mediastinum resulting in pneumomediastinum. Pronounced phlegmonous changes and soft tissue swelling at the base of the tongue, shifted trachea and enteric tube to the right. No well-formed abscess. I discussed this with the patient's family. I also discussed it with the buffing machine operator semiautomatic, Dr. Tian and hospitalist, Dr. Lozano. They both agree that the patient requires higher level of care. The patient will be transferred to [facility]. Original call was placed at 1734. I do attempt direct admission however we're unsuccessful. Accepting ER doctor is Dr. Green. The patient will be transported priority one via [facility]. (Gabriella Norton) - Lab Data Lab Results 08/18/19 08/18/19 08/18/19 Range/Units 14:35 14:35 14:35 WBC 26.5 H (3.8-10.6) k/uL RBC 4.38 (4.30-5.90) m/uL Hgb 13.2 (13.0-17.5) gm/dL Hct 41.2 (39.0-53.0) % MCV 94.1 (80.0-100.0) fL MCH 30.1 (25.0-35.0) pg MCHC 32.0 (31.0-37.0) g/dL RDW 13.3 (11.5-15.5) % Plt Count 510 H (150-450) k/uL Neutrophils % 93 % Lymphocytes % 3 % Monocytes % 3 % Eosinophils % 0 % Basophils % 0 % Neutrophils # 24.5 H (1.3-7.7) k/uL Lymphocytes # 0.7 L (1.0-4.8) k/uL Monocytes # 0.8 (0-1.0) k/uL Eosinophils # 0.1 (0-0.7) k/uL Basophils # 0.1 (0-0.2) k/uL PT (9.0-12.0) sec INR (<1.2) APTT (22.0-30.0) sec Sample Site ABG pH (7.35-7.45) ABG pCO2 (35-45) mmHg ABG pO2 (83-108) mmHg ABG HCO3 (21-25) mmol/L ABG Total CO2 (19-24) mmol/L ABG O2 Saturation (94-97) % ABG Base Excess mmol/L Olman Test FiO2 % Sodium 138 (137-145) mmol/L Potassium 4.8 (3.5-5.1) mmol/L Chloride 104 (98-107) mmol/L Carbon Dioxide 25 (22-30) mmol/L Anion Gap 9 mmol/L BUN 21 H (9-20) mg/dL Creatinine 0.84 (0.66-1.25) mg/dL Est GFR (CKD-EPI)AfAm >90 (>60 ml/min/1.73 sqM) Est GFR (CKD-EPI)NonAf >90 (>60 ml/min/1.73 sqM) Glucose 122 H (74-99) mg/dL Plasma Lactic Acid Javier 1.7 (0.7-2.0) mmol/L Calcium 9.1 (8.4-10.2) mg/dL Total Bilirubin 0.9 (0.2-1.3) mg/dL AST 30 (17-59) U/L ALT 21 (4-49) U/L Alkaline Phosphatase 88 (38-126) U/L Total Protein 6.4 (6.3-8.2) g/dL Albumin 3.2 L (3.5-5.0) g/dL 08/18/19 08/18/19 Range/Units 14:35 18:29 WBC (3.8-10.6) k/uL RBC (4.30-5.90) m/uL Hgb (13.0-17.5) gm/dL Hct (39.0-53.0) % MCV (80.0-100.0) fL MCH (25.0-35.0) pg MCHC (31.0-37.0) g/dL RDW (11.5-15.5) % Plt Count (150-450) k/uL Neutrophils % % Lymphocytes % % Monocytes % % Eosinophils % % Basophils % % Neutrophils # (1.3-7.7) k/uL Lymphocytes # (1.0-4.8) k/uL Monocytes # (0-1.0) k/uL Eosinophils # (0-0.7) k/uL Basophils # (0-0.2) k/uL PT 10.3 (9.0-12.0) sec INR 1.0 (<1.2) APTT 28.6 (22.0-30.0) sec Sample Site r rad ABG pH 7.37 (7.35-7.45) ABG pCO2 42 (35-45) mmHg ABG pO2 >400 H (83-108) mmHg ABG HCO3 24 (21-25) mmol/L ABG Total CO2 25 H (19-24) mmol/L ABG O2 Saturation 99.9 H (94-97) % ABG Base Excess -1.4 mmol/L Olman Test Yes FiO2 100 % Sodium (137-145) mmol/L Potassium (3.5-5.1) mmol/L Chloride (98-107) mmol/L Carbon Dioxide (22-30) mmol/L Anion Gap mmol/L BUN (9-20) mg/dL Creatinine (0.66-1.25) mg/dL Est GFR (CKD-EPI)AfAm (>60 ml/min/1.73 sqM) Est GFR (CKD-EPI)NonAf (>60 ml/min/1.73 sqM) Glucose (74-99) mg/dL Plasma Lactic Acid Javier (0.7-2.0) mmol/L Calcium (8.4-10.2) mg/dL Total Bilirubin (0.2-1.3) mg/dL AST (17-59) U/L ALT (4-49) U/L Alkaline Phosphatase (38-126) U/L Total Protein (6.3-8.2) g/dL Albumin (3.5-5.0) g/dL - EKG Data EKG Comments: EKG demonstrates a normal sinus rhythm with a ventricular rate of 83. QRS 86. QTC of 408. No acute ST segment elevations or depressions concerning for ischemic changes. (Gabriella Sullivan) Critical Care Time Critical Care Time: Yes <Gabriella Sullivan - Last Filed: 08/20/19 16:46> Critical Care Time: 76 minutes - critical care time for rapid evaluation of the patient and placement into trauma bay. I discussed the case with SALES ASSISTANT [employer]STIT[employer] and anesthesiologist Dr. Mueller. Patient was directly observed by myself until anesthesia arrived at bedside. I assisted with intubation and updated family multiple times. I discussed the case with buffing machine operator semiautomatic and hospitalist who agreed that patient needed higher level of care. I discussed the case with [facility] who accepted the transferred but requested direct admission. The patient remained in our ER during the delay in transfer, during this time he required close observation and assessments. The propofol caused a drop in blood pressure therefore it was turned off. We performed push doses of versed and fentanyl. Versed drip ordered. We received a call back from [facility] stating that direct admission was refused and the patient needed to go to the ER. He was sent priority one to [facility]. Family updated for a 3rd time as to patients transfer. (Gabriella Sullivan) Disposition <Nilda Ramirez - Last Filed: 08/18/19 17:42> Is patient prescribed a controlled substance at d/c from ED?: No - Out of Hospital Transfer - Req. Specs Out of Hospital Transfer - Requested Specifics: Other Emergency Center ([facility]) <Gabriella Sullivan - Last Filed: 08/20/19 16:46> Clinical Impression: Ludwigs angina, Pneumomediastinum, Dental caries, Dental abscess, Leukocytosis, Ventilator dependent Disposition: DISCH/TRANS TO A [facility] Condition: Critical [facility]errals: [facility] [Primary Care Provider] - 1-2 days
[2019-08-18 15:15] LABS: Basophils # (A) 0.1 k/uL (0-0.2); Basophils % (A) 0 %; Eosinophils # (A) 0.1 k/uL (0-0.7); Eosinophils % (A) 0 %; HCT 41.2 % (39.0-53.0); HGB 13.2 gm/dL (13.0-17.5); Lymphocytes # (A) 0.7 k/uL (1.0-4.8); Lymphocytes % (A) 3 %; MCH 30.1 pg (25.0-35.0); MCV 94.1 fL (80.0-100.0); Mean Platelet Volume 7.4; Monocytes # (A) 0.8 k/uL (0-1.0); Monocytes % (A) 3 %; Neutrophils # (A) 24.5 k/uL (1.3-7.7); Neutrophils % (A) 93 %; Platelet Count 510 k/uL (150-450); RBC 4.38 m/uL (4.30-5.90); RDW 13.3 % (11.5-15.5); WBC 26.5 k/uL (3.8-10.6)
[2019-08-18 15:20] LABS: ALT 21 U/L (4-49); AST 30 U/L (17-59); African American GFR (CKD) >90 (>60 ml/min/1.73 sqM); Albumin 3.2 g/dL (3.5-5.0); Alkaline Phosphatase 88 U/L (38-126); Anion Gap 9 mmol/L; Blood Urea Nitrogen 21 mg/dL (9-20); Calcium 9.1 mg/dL (8.4-10.2); Carbon Dioxide 25 mmol/L (22-30); Chloride 104 mmol/L (98-107); Glucose 122 mg/dL (74-99); Non-African American GFR(CKD) >90 (>60 ml/min/1.73 sqM); Partial Thromboplastin Time 28.6 sec (22.0-30.0); Potassium 4.8 mmol/L (3.5-5.1); Prothrombin Time 10.3 sec (9.0-12.0); Sodium 138 mmol/L (137-145); Total Bilirubin 0.9 mg/dL (0.2-1.3); Total Protein 6.4 g/dL (6.3-8.2)
[2019-08-18] MEDS ORDERED: PROPOFOL 100 ML IV ONE (15:39)
[2019-08-18] MEDS ORDERED: RX INFO: IV CONTRAST WAS GIVEN 1 EACH MISC MISCELLANE PRN (15:48)
[2019-08-18] MEDS ORDERED: fentaNYL (PF) 50 MCG/ML 2 ML AMP ONE (15:48)
[2019-08-18] MEDS ORDERED: fentaNYL (PF) 50 MCG/ML 2 ML AMP IVP STA (16:02)
--- NOTE | 2019-08-18 16:02 | P.PN ---
Progress Note - Text Progress Note Date: 08/18/19 (4403) Called in emergently to help with intubation. Upon arrival, found mr hendrix sitting up in bed with a NRB on. 115/52 75 24 100% NRB. Received pt history of ludwigs angina. Garbled speech. Visible neck reddness and edema. 154kg. D/w patient options and the need for awake fiberoptic intubation. Described the procedure in detail. Consented. Lidocaine updraft ordered. 3cc 4% lidocaine neb. Upon completetion, ovasapian airway was placed. Fiberoptic bronchoscope was then used with a styletted 7.5ett over it to visualize the vocal cords in one attempt. Patient then coughed and I was able to pass the fiberoptic past the vocal cords, 7.5 ett was then passes over the FOB into the trachea in one attempt. ETCO2 confirmed and etomidate 20mg was then pushed. Left in care of the ER physician. VS remained stable and within normal limits A: Airway compromise P: Awake fiberoptic intubation - done
[2019-08-18] MEDS ORDERED: PROPOFOL 1,000 MG in EMPTY BAG 1 BAG IV ONE (16:04)
--- NOTE | 2019-08-18 16:18 | XR ---
EXAMINATION TYPE: XR chest 1V DATE OF EXAM: 08/18/2019 COMPARISON: 06/23/2015 HISTORY: Tube placement TECHNIQUE: Single frontal view of the chest is obtained. FINDINGS: Enteric tube and endotracheal tube have been placed. Distal aspect of the enteric tube is not well seen at the exam is underpenetrated. Endotracheal tuber cephalad in position and could be ad vanced 2 to 3 cm for optimal placement. Left basilar airspace disease is new. IMPRESSION: 1. Cephalad placement of the endotracheal tube that could be advanced 2-3 years for optimal placement . 2. Suboptimal visualization of the enteric tube given exam technique. 3. New left basilar opacity, possible effusion and atelectasis or pneumonia.
[2019-08-18] MEDS ORDERED: MIDAZOLAM 1 MG/ML 5 ML VIAL IV STA (17:10)
--- NOTE | 2019-08-18 17:15 | CT ---
EXAMINATION TYPE: CT neck chest w con DATE OF EXAM: 08/18/2019 4:57 PM COMPARISON: CT cervical spine and thoracic spine dated 01/28/2019 HISTORY: Swelling, dental pain. CT DLP: 2850.1 mGycm Automated exposure control for dose reduction was used. CONTRAST: CT scan of the neck is performed following with IV Contrast, patient injected with 100 mL of Isovue 3 00. Axial images are obtained, coronal and sagittal reformatted images are reviewed. FINDINGS: Airway: Tracheal and esophageal deviation to the right as described below Parotid/submandibular glands: No gross abnormality seen. Carotid/Vascular Structures: There is some fluid surrounding the aortic arch, which can be physiologi c extending upward from the aortic recess. The common carotid arteries appear patent in their cervica l portions. The vertebral arteries are diminutive in caliber in portions but grossly patent. Osseous Structures: Secretions in the nasopharynx from nasogastric tube insertion. Moderate mucosal t hickening in the ethmoid sinuses inferiorly. Reversal of the usual cervical lordosis may be on the ba sis of patient positioning. Small multilevel posterior disc osteophyte complexes. Moderate degenerati ve change of the spine. Grade 1 anterolisthesis of C2 on C3 is likely degenerative as there is facet arthropathy. Other: Laceration is suspected over the left lateral mandible as foci of subcutaneous emphysema are s een in axial image 40 and 41 extending posteriorly on image 38 and 20-L planes and surrounding the mu scles of mastication on the left. Subcutaneous emphysema extends into the fascial planes of the anter ior neck and left lateral neck as well as into the mediastinum left lateral to the aortic arch and de scending thoracic aorta. Soft tissue swelling is seen of the entirety of the neck greater on the left than right. Subcutaneous emphysema is also seen near the left pterygoid musculature and in the carot id space on the left. There is pronounced soft tissue swelling at the tongue base particularly on the left creating rightward tracheal deviation and esophageal deviation as the endotracheal tube and ent nas tubes are shifted to the right of midline. No enhancing abscess is seen. Fat stranding is presen t in the left superficial mucosal space and surrounding the left-sided muscles of mastication. There are bilateral enlarged lymph nodes particularly at level 2 measuring up to 1.2 cm in short axis on axial image 36 left. Enlarged lymph nodes are also seen anterior to the left submandibular gland. There is some mediastinal fat stranding. The lungs demonstrate bibasilar atelectasis and subpleural deposition of fat. Solitary left basilar g ranuloma is seen. The liver is low-attenuation and slightly lobular in contour. Correlate for underly ing hepatocellular disease. Small splenule seen adjacent to the spleen. Heart is mildly enlarged. No sizable pericardial effusion. Redemonstration of pneumomediastinum. Enteric tube should be advanced a pproximately 6 cm for optimal placement. Endotracheal tube is slightly cephalad in position and could be advanced 2 cm. IMPRESSION: 1. Subcutaneous emphysema within multiple deep and superficial spaces of the left neck extending into the mediastinum resulting in pneumomediastinum. Extensive soft tissue swelling of the neck (greater on the left than the right) extending into the mediastinum. Pronounced phlegmonous changes and soft t issue swelling near the base of the tongue shifted trachea and enteric tube to the right. No well-for med abscess. Findings may be posttraumatic or infectious from gas producing organism. Correlate with patient history. 2. Cervical adenopathy is likely reactive. 3. Bibasilar atelectasis. 4. Cephalad placement of the enteric tube, and advancement of approximately 6 cm is recommended and s light cephalad placement of the endotracheal tube, which could be advanced 2 cm.
[2019-08-18] MEDS ORDERED: ANIDULAFUNGIN 200 MG in SODIUM CHLORIDE 0.9% 200 ML IVPB ONE (17:30)
[2019-08-18] MEDS ORDERED: MIDAZOLAM HCL 50 MG in SODIUM CHLORIDE 0.9% 40 ML IV SCH (17:30)
[2019-08-18] MEDS: CLINDAMYCIN 600 MG in DEXTROSE 5% IN WATER 50 ML IVPB STA ×2 (18:12)
[2019-08-18 18:36] LABS: ABG Base Excess -1.4 mmol/L; ABG HCO3 24 mmol/L (21-25); ABG Oxygen Saturation 99.9 % (94-97); ABG PCO2 42 mmHg (35-45); ABG PH 7.37 (7.35-7.45); ABG PO2 >400 mmHg (83-108); ABG TCO2 25 mmol/L (19-24); Allen Test Performed? Yes
[2019-08-18] MEDS ORDERED: fentaNYL (PF) 50 MCG/ML 2 ML AMP IV PRN (19:13)
[2019-08-18 19:21] VITALS: BP 106/76; PULSE 72; RESP 15; TEMP 98
[2019-08-19] MEDS ORDERED: VANCOMYCIN 2,250 MG in SODIUM CHLORIDE 0.9% 500 ML 500 ML IVPB SCH (06:00)
== END 2019-08-18 19:27 ==
LOC: EC 14:00
DX: K12.2 Cellulitis and abscess of mouth (principal); J98.2 Interstitial emphysema; K04.7 Periapical abscess without sinus; K02.9 Dental caries, unspecified; D72.829 Elevated white blood cell count, unspecified; E11.9 Type 2 diabetes mellitus without complications; E78.5 Hyperlipidemia, unspecified; I10 Essential (primary) hypertension; M19.90 Unspecified osteoarthritis, unspecified site; G47.30 Sleep apnea, unspecified; Z99.89 Dependence on other enabling machines and devices; Z90.89 Acquired absence of other organs; Z99.11 Dependence on respirator [ventilator] status; Z79.84 Long term (current) use of oral hypoglycemic drugs; Z79.1 Long term (current) use of non-steroidal anti-inflammatories (NSAID); Z79.899 Other long term (current) drug therapy
CPT/HCPCS: 99291 ×2; 99292 ×2; 31500 ×2; 96365 ×2; 96366 ×3; 96367 ×3; 96368 ×2; 96375 ×2; 36415; 94640; 36600; 93005; 80053; 82805; 83605; 85025; 85610; 85730; 87040; 71045; 70491; 71260; J2543; J3370; J1100; J2250 ×2; J3010; J2704; Q9967; J0348; 94002

== ENCOUNTER → 2019-10-22 | Outpatient (CLI) | payer OTHER ==
[2019-10-22 13:40] VITALS: BP 152/80; PULSE 63; RESP 16; TEMP 98.5
== END | disposition home or self-care (01) ==
LOC: PROCWHC3 13:24
PROVIDERS: ATTEND Nurse Practitioner Family
DX: A41.9 Sepsis, unspecified organism (principal)
CPT/HCPCS: 99213

== ENCOUNTER → 2020-03-27 | Outpatient (CLI) | payer OTHER ==
[2020-03-28 02:01] LABS: ALT 39 U/L (10-49); AST 30 U/L (14-35); African American GFR (CKD) 81.8 (60.0-200.0); Albumin/Globulin Ratio 1.96 (1.60-3.17); Alkaline Phosphatase 66 U/L (41-126); Bilirubin, Conjugated <0.20 mg/dL (0.20-0.40); Globulin 2.3 g/dL (1.6-3.3); Lithium 0.3 mmol/L (0.5-1.2); Non-African American GFR(CKD) 70.6 (60.0-200.0); Total Bilirubin 0.4 mg/dL (0.3-1.2); Total Protein 6.8 g/dL (6.2-8.2)
== END | disposition home or self-care (01) ==
LOC: LABWHC1 15:30
PROVIDERS: ATTEND Psychiatry & Neurology Psychiatry
DX: Z51.81 Encounter for therapeutic drug level monitoring (principal); Z79.899 Other long term (current) drug therapy
CPT/HCPCS: 36415; 80076; 80178; 82565; 84439; 84443; 84520

== ENCOUNTER → 2020-10-13 | Outpatient (CLI) | payer OTHER | END | disposition home or self-care (01) | LOC: LABPAT 15:01 | PROVIDERS: ATTEND Student in an Organized Health Care Education/Training Program | DX: Z01.812 Encounter for preprocedural laboratory examination (principal); Z20.822 Contact with and (suspected) exposure to COVID-19 | CPT/HCPCS: U0003; C9803 ==

== ENCOUNTER 2020-10-20 10:14 | Day surgery (SDC) | payer OTHER ==
[2020-10-16 08:47] VITALS: BMI 44.9
[~2020-10-20 10:14] MED LIST changes: +LIDOCAINE 1% (10MG/ML) FOR IV START INTRADERMA PRN
[2020-10-20 10:45] VITALS: TEMP 93.8
[2020-10-20 11:06] LABS: Glucose,Whole Blood 127 mg/dL (75-99)
[2020-10-20] MEDS ORDERED: fentaNYL (PF) 50 MCG/ML 2 ML AMP ONE (11:09)
[2020-10-20] MEDS ORDERED: PROPOFOL 10 MG/ML 20 ML VIAL IV ONE (11:09)
[2020-10-20] MEDS ORDERED: LIDOCAINE 1% INJ 10MG/ML (20 ML MDV) ONE (11:09)
[2020-10-20] MEDS ORDERED: IV FLUID CONTINUATION 450 ML IV ONE (11:38)
--- NOTE | 2020-10-20 11:40 | P.OP ---
Date of Procedure: 10/20/20 Preoperative Diagnosis: History of polyps screening colonoscopy Postoperative Diagnosis: Descending colon polyp Diverticulosis Poor prep Procedure(s) Performed: Colonoscopy with hot snare polypectomy Anesthesia: JULY Surgeon: Kendell Dodge Estimated Blood Loss (ml): 2 Condition: stable Disposition: PACU Description of Procedure: Patient brought Endo suite placed in left lateral decubitus position and sedation per department of anesthesia timeout performed correct patient correct site verified.Rectal exam was performed no gross abnormalities were noted the scope was passed from the rectum to the cecum with the slowly withdrawn being sure to visualize all jordan of the colon on the way out. There was some poor prep noted approximately two thirds of the colon wall was visible there was a descending colon polyp noted this was removed via hot snare polypectomy. There is no other large polyps or tumors noted. There were sigmoid diverticuli noted the scope was withdrawn to the rectum and no gross abnormalities were noted there the scope was withdrawn and patient tolerated the procedure well no apparent complications plan for repeat colonoscopy in 5 years.
[2020-10-20 11:42] VITALS: BP 119/65; PULSE 58; RESP 16
== END 2020-10-20 12:12 | disposition home or self-care (01) ==
LOC: ORWHC2ENDO 10:14
PROVIDERS: ATTEND Student in an Organized Health Care Education/Training Program
DX: Z12.11 Encounter for screening for malignant neoplasm of colon (principal); D12.4 Benign neoplasm of descending colon; K57.30 Diverticulosis of large intestine without perforation or abscess without bleeding; Z86.010 Personal history of colon polyps; I10 Essential (primary) hypertension; J45.909 Unspecified asthma, uncomplicated; E11.9 Type 2 diabetes mellitus without complications; E07.9 Disorder of thyroid, unspecified; F31.9 Bipolar disorder, unspecified; Z86.718 Personal history of other venous thrombosis and embolism; Z79.84 Long term (current) use of oral hypoglycemic drugs; Z79.01 Long term (current) use of anticoagulants; Z79.899 Other long term (current) drug therapy
CPT/HCPCS: 88305; 45385; J2001; J3010; J2704

== ENCOUNTER → 2021-04-21 | Outpatient (CLI) | payer OTHER ==
[2021-04-21 16:27] LABS: Albumin 4.4 g/dL (3.5-5.0); Globulin 2.6 g/dL
[2021-04-21 16:28] LABS: Albumin/Globulin Ratio 1.7; Bilirubin,Unconjugated 0.3 mg/dL (0.0-1.1); Lithium 0.7 mmol/L; Total Bilirubin 0.6 mg/dL (0.2-1.3)
[2021-04-21 16:44] LABS: T4, Free (Free Thyroxine) 0.98 ng/dL (0.78-2.19)
== END | disposition home or self-care (01) ==
LOC: LABWHC1 15:36
PROVIDERS: ATTEND Psychiatry & Neurology Psychiatry
DX: Z79.899 Other long term (current) drug therapy (principal)
CPT/HCPCS: 36415; 80076; 80178; 82565; 84439; 84443; 84520

== ENCOUNTER 2021-07-22 13:13 | Emergency (ER) | payer OTHER ==
[2021-07-22 13:57] VITALS: BP 130/73; PULSE 74; RESP 22; TEMP 98.2
--- NOTE | 2021-07-22 14:36 | XR ---
EXAMINATION TYPE: XR knee complete LT DATE OF EXAM: 07/22/2021 COMPARISON: None HISTORY: 66-year-old male pain after injury TECHNIQUE: AP, oblique, and lateral views FINDINGS: No knee joint effusion. Mild anterior soft tissue swelling. Extensor mechanism appears intact. A coup le posterior loose bodies measuring up to 8 mm. No acute fracture, subluxation, or dislocation. IMPRESSION: No acute osseous abnormality seen. A couple posterior loose bodies measuring up to 8 mm. Mild anterio r soft tissue swelling.
--- NOTE | 2021-07-22 15:45 | ED ---
Lower Extremity Injury HPI - General Chief Complaint: Extremity Injury, Lower Stated Complaint: lt Knee injury Time Seen by Provider: 07/22/21 15:06 Source: patient, RN notes reviewed Mode of arrival: ambulatory Limitations: no limitations - History of Present Illness Initial Comments: This a 66-year-old male presents emergency Department with chief complaint of left knee pain. Patient states that he stepping up into a bus states he started having some discomfort. He states he felt they may have twisted his knee a pop or any clicking sensation at this time. no prior knee surgeries. he did state that he's been elevating it, has been taking ibuprofen which has been helping. patient states that he has no paresthesias no weakness no hip or ankle pain. Patient offers no complaints. - Related Data Home Medications Medication Instructions Recorded Confirmed Ibuprofen 400 mg PO TID PRN 08/02/17 10/20/20 [place] Carbonate 300 mg PO QAM 08/02/17 10/20/20 fluvoxaMINE [Luvox] 150 mg PO QAM 08/02/17 10/20/20 lisinopriL [Zestril] 20 mg PO DAILY 08/02/17 10/20/20 metFORMIN HCL [Glucophage] 1,000 mg PO BID 02/14/18 10/20/20 Cholecalciferol (Vitamin D3) 5,000 unit PO DAILY 04/02/19 10/20/20 [Vitamin D3] Docusate [Colace] 100 mg PO TID 04/02/19 10/20/20 Losartan [Cozaar] 25 mg PO DAILY 04/02/19 10/20/20 Acetaminophen [Tylenol Extra 500 mg PO DIRECTED PRN 10/16/20 10/20/20 Strength] Apixaban [Eliquis] 5 mg PO BID 10/16/20 10/20/20 [place] Carbonate 600 mg PO HS 10/16/20 10/20/20 Multivit-Min/Folic/Vit K/Lycop 1 each PO DAILY 10/16/20 10/20/20 [Men's Multivitamin Tablet] Allergies Allergy/AdvReac Type Severity Reaction Status Date / Time No Known Allergies Allergy Verified 07/22/21 13:56 Review of Systems ROS Statement: Those systems with pertinent positive or pertinent negative responses have been documented in the HPI. ROS Other: All systems not noted in ROS Statement are negative. Past Medical History Past Medical History: Atrial Fibrillation, Diabetes Mellitus, GERD/Reflux, Hyperlipidemia, Hypertension, Osteoarthritis (OA), Sleep Apnea/CPAP/BIPAP Additional Past Medical History / Comment(s): seizure two yrs ago from major depressive disorder, hemorrhoids, herniated disc, TOOTH ACHE AT PRESENT Cellulitis and abscess of mouth. Mediastinitis secondary to mouth abscess; IV antibiotic therapy History of Any Multi-Drug Resistant Organisms: None Reported Past Surgical History: Adenoidectomy, Hernia Repair, Tonsillectomy Additional Past Surgical History / Comment(s): epidural. Abscessed teeth pulled at [place] 2019. Chest tube drain. Past Anesthesia/Blood Transfusion Reactions: No Reported Reaction Past Psychological History: Depression Smoking Status: Current some day smoker Past Alcohol Use History: Rare Past Drug Use History: None Reported - Past Family History Mother Family Medical History: No Reported History General Exam Limitations: no limitations General appearance: alert, in no apparent distress Head exam: Present: atraumatic, normocephalic, normal inspection Respiratory exam: Present: normal lung sounds bilaterally. Absent: respiratory distress, wheezes, rales, rhonchi, stridor Cardiovascular Exam: Present: regular rate, normal rhythm, normal heart sounds. Absent: systolic murmur, diastolic murmur, rubs, gallop, clicks Extremities exam: Present: other (Left knee there is mild swelling, neurovascular intact no erythema equal pulses full range of motion no laxity) Course Vital Signs 07/22/21 13:53 Temperature 98.2 F Pulse Rate 74 Respiratory 22 Rate Blood Pressure 130/73 O2 Sat by Pulse 96 Oximetry Medical Decision Making - Medical Decision Making X-ray does not show an acute fracture. Patient will be discharged in stable condition patient symptoms already improving was secondary to knee sprain. Disposition Clinical Impression: Left knee sprain Disposition: HOME SELF-CARE Condition: Stable Instructions (If sedation given, give patient instructions): Knee Sprain (ED), Knee Pain (ED) Additional Instructions: Please return to the Emergency Department if symptoms worsen or any other concerns. Is patient prescribed a controlled substance at d/c from ED?: No [facility] - 1-2 days Chase Obrien MD [STAFF PHYSICIAN] - 1-2 days Time of Disposition: 15:45
== END 2021-07-22 16:07 | disposition home or self-care (01) ==
LOC: EC 13:13
DX: S83.92XA Sprain of unspecified site of left knee, initial encounter (principal); I48.91 Unspecified atrial fibrillation; E11.9 Type 2 diabetes mellitus without complications; K21.9 Gastro-esophageal reflux disease without esophagitis; E78.5 Hyperlipidemia, unspecified; I10 Essential (primary) hypertension; M19.90 Unspecified osteoarthritis, unspecified site; F32.A Depression, unspecified; F17.200 Nicotine dependence, unspecified, uncomplicated; Z79.84 Long term (current) use of oral hypoglycemic drugs; Z79.01 Long term (current) use of anticoagulants; X50.0XXA Overexertion from strenuous movement or load, initial encounter
CPT/HCPCS: 99283

== ENCOUNTER → 2022-03-30 | Outpatient (CLI) | payer MEDICARE, OTHER ==
--- NOTE | 2022-03-30 15:17 | XR ---
EXAMINATION TYPE: XR Hip Bilateral Complete DATE OF EXAM: 03/30/2022 3:02 PM INDICATION: Patient age:Male; 66 years old; Reason for study: M25.551, M25.552 Bilateral Pain in Hips; COMPARISON: None. TECHNIQUE: The bilateral hips were examined in the frontal and lateral projections . FINDINGS: Mild osteophyte formation of the acetabulum bilaterally.. No evidence for acute process, rebecca int dislocation or significant soft tissue swelling. Surgical clips project over the right lower abdo men. Multiple pelvic phlebolith are present. IMPRESSION: 1. No acute process. 2. Mild bilateral osteoarthrosis of the hips.
== END | disposition home or self-care (01) ==
LOC: RADXRMAIN 14:43
PROVIDERS: ATTEND Nurse Practitioner
DX: M16.0 Bilateral primary osteoarthritis of hip (principal)
CPT/HCPCS: 73521

== ENCOUNTER → 2022-08-04 | Outpatient (CLI) | payer MEDICARE, OTHER ==
--- NOTE | 2022-08-05 07:17 | XR ---
EXAMINATION TYPE: XR knee complete LT DATE OF EXAM: 08/04/2022 COMPARISON: Left knee radiograph 07/22/2021 HISTORY: Pain TECHNIQUE: 3 views of the left knee are submitted for evaluation. FINDINGS: No acute fracture or dislocation. Increased tricompartmental joint space narrowing with ost eophytosis. Cortical irregularity involving the medial femoral condyle articular surface. Similar pos terior loose bodies measuring up to 6 mm. No joint effusion. Anterior knee subcutaneous edema. IMPRESSION: 1. No evidence for acute fracture. 2. Cortical irregularity involving the medial femoral condyle articular surface and loose bodies whic h could be seen with osteochondral defects. Further evaluation with knee MRI is recommended. 3. Osteoarthritic changes. 4. Anterior knee subcutaneous edema.
== END | disposition home or self-care (01) ==
LOC: RADXRMAIN 16:06
PROVIDERS: ATTEND Nurse Practitioner
DX: M17.12 Unilateral primary osteoarthritis, left knee (principal); M24.19 Other articular cartilage disorders, other specified site; R60.0 Localized edema

== ENCOUNTER → 2022-10-18 | Outpatient (CLI) | payer MEDICARE, OTHER ==
[2022-10-19 01:39] LABS: ALT 37 U/L (10-49); AST 34 U/L (14-35); African American GFR (CKD) 83.8 (60.0-200.0); Albumin 4.4 g/dL (3.8-4.9); Albumin/Globulin Ratio 1.78 (1.60-3.17); Alkaline Phosphatase 65 U/L (41-126); Bilirubin, Conjugated <0.20 mg/dL (0.20-0.40); Blood Urea Nitrogen 18.1 mg/dL (9.0-27.0); Globulin 2.5 g/dL (1.6-3.3); Non-African American GFR(CKD) 72.3 (60.0-200.0); Total Protein 6.9 g/dL (6.2-8.2)
== END | disposition home or self-care (01) ==
LOC: LABWHC1 15:18
PROVIDERS: ATTEND Psychiatry & Neurology Psychiatry
DX: F33.2 Major depressive disorder, recurrent severe without psychotic features (principal); Z79.899 Other long term (current) drug therapy
CPT/HCPCS: 36415; 80076; 80178; 82565; 84443; 84520

== ENCOUNTER → 2022-11-04 | Outpatient (CLI) | payer MEDICARE, OTHER ==
--- NOTE | 2022-11-04 19:15 | MR ---
EXAMINATION TYPE: MR knee LT wo con DATE OF EXAM: 11/04/2022 COMPARISON: None HISTORY: Left knee weak and unsteady, Sprain lt knee 14 mo ago, Pain Lt knee TECHNIQUE: Multiplanar, multisequence imaging of the left knee is performed without IV contrast. FINDINGS: MEDIAL MENISCUS: No normal medial meniscus is identified. LATERAL MENISCUS: Suspect radial tear posterior horn lateral meniscus. Myxoid degeneration anterior h orn. CRUCIATE LIGAMENTS: Marked thinning of the CVL. Tear is difficult to exclude. PCL is intact. COLLATERAL LIGAMENTS: Abnormal signal medial collateral ligament may reflect partial tear or strain. Lateral collateral ligament is intact. EXTENSOR MECHANISM: Visualized quadriceps and patellar tendons are intact. EFFUSION: Small joint effusion noted. POPLITEAL CYST: No popliteal/rodríguez cyst. TRICOMPARTMENT SPACES: Severe narrowing involving the medial tibiofemoral joint space with moderate n arrowing noted involving the lateral tibiofemoral joint space and severe narrowing of the patellofemo ral joint space. Spur formation noted about the margins of the femoral condyles, tibial plateaus, int ercondylar regions and patellar poles. CARTILAGE: Subchondral defect medial tibial plateau anteriorly. Rodríguez's cyst noted measuring 5.3 x 1. 5 cm. BONE MARROW SIGNAL: No focal abnormal marrow signal is appreciated. OTHER: No additional significant abnormality is appreciated. IMPRESSION: 1. Advanced changes of osteoarthritis. 2. Normal-appearing medial meniscus is not visualized. Radial tear posterior horn lateral meniscus. 3. Rodríguez's cyst. 4.Marked subchondral defect medial tibial plateau..
== END | disposition home or self-care (01) ==
LOC: RADMRIMAIN 17:25
PROVIDERS: ATTEND Internal Medicine
DX: M17.12 Unilateral primary osteoarthritis, left knee (principal); S83.282A Other tear of lateral meniscus, current injury, left knee, initial encounter; M71.22 Synovial cyst of popliteal space [Baker], left knee

== ENCOUNTER → 2023-01-31 | Outpatient (CLI) | payer MEDICARE, OTHER ==
--- NOTE | 2023-01-31 16:26 | NM ---
EXAMINATION TYPE: NM stress cardiolite complete DATE OF EXAM: 01/31/2023 COMPARISON: NONE HISTORY: 67-year-old male abnormal EKG TECHNIQUE: After the intravenous administration of 10.7 mCi Tc 99m Sestamibi - Cardiolite resting SP ECT images acquired 45 minutes post injection. The patient received 0.4mg Lexiscan, 25.9 mCi Tc 99m S estamibi - Stress images obtained 45 minutes post injection FINDINGS: Review of stress and rest SPECT images demonstrates fixed decreased perfusion along the anterior and basal jordan though to a greater extent on stress. Gated analysis shows normal wall motion with an est imated left ventricular ejection fraction of 57 %. TID is calculated high at 1.29. IMPRESSION: Patchy decreased perfusion especially along the anterior and inferior jordan though more p ronounced on stress. Given an elevated TID value (which can be seen in the setting of multivessel/gl obal inducible ischemia) further workup and evaluation is recommended.
--- NOTE | 2023-02-01 08:28 | CA ---
Lexiscan Nuclear Stress Test Report Name: Nando Dunn Exam Date: 01/31/2023 10:32 Exam Location: [place] Stress Ht (in): 74 Wt (lb): 340 BSA: 2.72 Ordering Phys: Jayce Donald MD Referring Phys: JAYCE DONALD,, Technologist: Gagan Diop Age: 67 Gender: M : 1955 Procedure CPT: Indications: R94.31 ICD-10 Codes: Patient History: Medications: Meds past 24 hrs: Pretest Chest Pain: STRESS TEST Lexiscan Protocol Exercise Duration (min:sec): 02:[address] Depressions (mm): Angina Score: Orta Score: Resting HR (bpm): 55 Peak HR (bpm): 66 Resting BP (mmHg): 126 / 54 Peak BP (mmHg): 130 / 53 MPHR: 153 Target HR: 130 % MPHR: 43 METS: 1.0 Total Dose: Peak Dose: Atropine: Double Product: 8580 BP Response: Stress Termination: PROTOCOL COMPLETE Stress Symptoms: NO SYMPTOMS Stress Summary: ECG ANALYSIS Resting ECG: Stress ECG: CONCLUSIONS Resting EKG: Normal sinus rhythm with no significant ST or T- wave changes. Heart rate 52 beats a minute Patient recieved IV infusion of Lexiscan 0.4mg and at peak infusion Stress EKG showed: No significant ST or T-wave changes diagnostic for ischemia Arrythmias: No ectopic beats or sustained arrhythmias appreciated during the study Conclusions: 1. Normal resting EKG 2. Normal EKG response to lexiscan infusion 3. For nuclear perfusion imaging is reported separately by the radiology team. Please refer to the report for complete interpretation of the study. Dr Reggie Pelaez (Electronically Signed) Final Date: 31 January 2023 13:21
== END | disposition home or self-care (01) ==
LOC: RADNMMAIN 08:48
PROVIDERS: ATTEND Family Medicine
DX: R94.31 Abnormal electrocardiogram [ECG] [EKG] (principal)
CPT/HCPCS: 93017; 78452; A9500

== ENCOUNTER → 2023-02-20 | Outpatient (CLI) | payer MEDICARE, OTHER ==
[2023-02-20 19:56] LABS: INR <0.93 sec (0.93-1.11); Prothrombin Time 10.2 sec (9.9-11.9)
[2023-02-20 20:09] LABS: Basophils # (A) 0.03 X 10*3/uL (0.00-0.10); Basophils % (A) 0.3 %; Eosinophils # (A) 0.14 X 10*3/uL (0.04-0.35); Eosinophils % (A) 1.5 %; HCT 43.4 % (39.6-50.0); HGB 14.6 d/dL (13.0-17.0); Lymphocytes # (A) 1.48 X 10*3/uL (0.90-5.00); Lymphocytes % (A) 15.6 %; MCH 32.1 pg (27.0-32.0); MCHC 33.6 d/dL (32.0-37.0); MCV 95.4 FL (80.0-97.0); Mean Platelet Volume 10.6 FL (9.5-12.2); Monocytes % (A) 10.6 %; NRBC Per 100 WBC 0 X 10*3/uL (0.00-0.01); Neutrophils # (A) 6.77 X 10*3/uL (1.80-7.70); Neutrophils % (A) 71.5 %; Platelet Count 258 X 10*3/uL (140-440); RBC 4.55 X 10*6/uL (4.40-5.60); RDW 14.1 % (11.5-14.5); WBC 9.47 X 10*3/uL (4.50-10.00)
[2023-02-20 20:56] LABS: BUN/Creat Ratio 18.73 Ratio (12.00-20.00); Blood Urea Nitrogen 20.6 mg/dL (9.0-27.0); Calcium 9.1 mg/dL (8.7-10.3); Carbon Dioxide 24.2 mmol/L (21.6-31.8); Chloride 100 mmol/L (96-109); Glucose 150 mg/dL (70-110); Potassium 4.3 mmol/L (3.5-5.5); Sodium 138 mmol/L (135-145)
== END | disposition home or self-care (01) ==
LOC: LABWHC1 14:09
PROVIDERS: ATTEND Orthopaedic Surgery
DX: Z01.812 Encounter for preprocedural laboratory examination (principal); Z22.322 Carrier or suspected carrier of Methicillin resistant Staphylococcus aureus; M17.12 Unilateral primary osteoarthritis, left knee
CPT/HCPCS: 36415; 80048; 85025; 85610; 87070

== ENCOUNTER → 2023-03-22 | Outpatient (CLI) | payer MEDICARE, OTHER | END | disposition home or self-care (01) | LOC: LABPAT 16:32 | PROVIDERS: ATTEND Orthopaedic Surgery | DX: Z53.9 Procedure and treatment not carried out, unspecified reason (principal) ==

== ENCOUNTER → 2023-03-22 | Outpatient (CLI) | payer MEDICARE, OTHER ==
[2023-03-23 02:28] LABS: Basophils # (A) 0.07 X 10*3/uL (0.00-0.10); Basophils % (A) 0.6 %; Eosinophils # (A) 0.21 X 10*3/uL (0.04-0.35); Eosinophils % (A) 1.7 %; HCT 48.2 % (39.6-50.0); HGB 15.8 d/dL (13.0-17.0); Lymphocytes # (A) 1.95 X 10*3/uL (0.90-5.00); Lymphocytes % (A) 15.9 %; MCH 31.3 pg (27.0-32.0); MCHC 32.8 d/dL (32.0-37.0); MCV 95.4 FL (80.0-97.0); Mean Platelet Volume 10.8 FL (9.5-12.2); Monocytes # (A) 1.18 X 10*3/uL (0.20-1.00); Monocytes % (A) 9.6 %; NRBC Per 100 WBC 0 X 10*3/uL (0.00-0.01); Neutrophils # (A) 8.79 X 10*3/uL (1.80-7.70); Neutrophils % (A) 71.8 %; Platelet Count 309 X 10*3/uL (140-440); RBC 5.05 X 10*6/uL (4.40-5.60); RDW 13.6 % (11.5-14.5); WBC 12.25 X 10*3/uL (4.50-10.00)
[2023-03-23 02:57] LABS: BUN/Creat Ratio 14.57 Ratio (12.00-20.00); Blood Urea Nitrogen 20.4 mg/dL (9.0-27.0); Calcium 9.8 mg/dL (8.7-10.3); Carbon Dioxide 26.1 mmol/L (21.6-31.8); Chloride 101 mmol/L (96-109); Glucose 107 mg/dL (70-110); Potassium 4.3 mmol/L (3.5-5.5); Sodium 141 mmol/L (135-145)
[2023-03-23 03:58] LABS: INR <0.93 sec (0.93-1.11); Prothrombin Time 10.3 sec (9.9-11.9)
== END | disposition home or self-care (01) ==
LOC: LABPAT 16:37
PROVIDERS: ATTEND Orthopaedic Surgery
DX: Z01.812 Encounter for preprocedural laboratory examination (principal); M17.12 Unilateral primary osteoarthritis, left knee
CPT/HCPCS: 80048; 85025; 85610

== ENCOUNTER 2023-03-27 09:42 | Day surgery (SDC) | payer MEDICARE, OTHER ==
--- NOTE | 2023-03-26 23:49 | HP ---
HISTORY AND PHYSICAL DATE OF SURGERY: 03/27/2023. HISTORY OF PRESENT ILLNESS: Nando Dunn is a 67-year-old gentleman seen with symptomatic left knee osteoarthritis. We discussed options for treatment. He elected to proceed with left total knee arthroplasty. Consent regarding the procedure was obtained. Preoperative clearance was provided by Dr. Cooper Donald. PAST MEDICAL HISTORY: Hypertension, hjq-wkqyxay-ukpyomgvf diabetes. SURGICAL HISTORY: Herniorrhaphy, tonsillectomy. DAILY MEDICATIONS: 1. Cozaar. 2. Eliquis. 3. Hydrochlorothiazide. 4. Kasson. 5. Metformin. 6. Motrin. ALLERGIES: None. SOCIAL HISTORY: Denies tobacco use. PHYSICAL EVALUATION OF THE LEFT KNEE: Range of motion is 0 to 125 degrees. Mild effusion. Tenderness, medial joint line. Pain with patellofemoral compression. Crepitus along the medial patellofemoral compartments with range of motion. Genu varum deformity. Ligaments stable. Hip rotation without pain. RADIOGRAPHS: Radiographs of the left knee reveal severe osteoarthritic changes. IMPRESSION: 1. Left knee osteoarthritis. 2. Hypertension. 3. Gma-qzkpvdk-aayjlkoql diabetes. 4. History of deep vein thrombosis. PLAN: Left total knee arthroplasty. MMODL / IJN: [id number] /
[~2023-03-27 09:42] MED LIST changes: +ACETAMINOPHEN TAB 500 MG TAB PO PRN; +DEXAMETHASONE SOD PHOSPHATE 4 MG/ML 1 ML VIAL IV ONE; +HYDROmorphone 0.5 MG/0.5 ML SYRINGE IVP PRN; -LACTATED RINGERS 1,000 ML IV SCH; +MELOXICAM 7.5 MG TAB PO PRN; +MIDAZOLAM 2 MG/2 ML VIAL IV PRN; +TRANEXAMIC 1,000 MG/100ML-NACL 1,000 MG in SALINE 1 100ML.BAG IVPB PRN
[2023-03-27] MEDS: LACTATED RINGERS 1,000 ML IV SCH (10:40)
[2023-03-27 10:43] LABS: Glucose,Whole Blood 119 mg/dL (70-110)
[2023-03-27] MEDS: ONDANSETRON 4 MG/2 ML VIAL IVP ONE ×2 (10:50→18:24)
[2023-03-27] MEDS ORDERED: MIDAZOLAM 2 MG/2 ML VIAL IVP ONE (10:50)
[2023-03-27] MEDS ORDERED: PROPOFOL 10 MG/ML 20 ML VIAL IV ONE (12:25)
[2023-03-27] MEDS ORDERED: TRANEXAMIC 1,000 MG/100ML-NACL PREMIX BAG ONE (12:25)
[2023-03-27] MEDS ORDERED: MIDAZOLAM 2 MG/2 ML VIAL ONE (12:25)
[2023-03-27] MEDS ORDERED: ROPIVACAINE 5 MG/ML 30 ML VIAL ONE (12:25)
[2023-03-27] MEDS ORDERED: SODIUM CHLORIDE 0.9% (PF) 10 ML VIAL ONE (12:25)
[2023-03-27] MEDS ORDERED: DEXAMETHASONE SOD PHOSPHATE 4 MG/ML 1 ML VIAL ONE (12:25)
[2023-03-27] MEDS ORDERED: ceFAZolin 1,000 MG in SODIUM CHLORIDE 0.9% 1,000 ML IRRIGATION ONE (12:57)
[2023-03-27] MEDS ORDERED: ACETAMINOPHEN TAB 325 MG TAB PO PRN (13:25)
[2023-03-27] MEDS ORDERED: NALOXONE 0.4 MG/ML 1 ML VIAL IV PRN (13:25)
[2023-03-27] MEDS ORDERED: HYDROcodone/APAP 10-325MG 1 EACH TAB PO PRN (13:25)
[2023-03-27] MEDS ORDERED: traMADol 50 MG TAB PO PRN (13:25)
[2023-03-27] MEDS ORDERED: HYDROmorphone 0.5 MG/0.5 ML SYRINGE IVP PRN ×2 (13:25)
[2023-03-27] MEDS ORDERED: MAGNESIUM HYDROXIDE 2,400 MG/30 ML CUP PO PRN (13:25)
[2023-03-27] MEDS ORDERED: HYDROcodone/APAP 5-325MG 1 EACH TAB PO PRN (13:25)
[2023-03-27] MEDS ORDERED: HYDROcodone/APAP 7.5-325MG 1 EACH TAB PO PRN (13:25)
[2023-03-27] MEDS ORDERED: ONDANSETRON 4 MG/2 ML VIAL IVP PRN (13:25)
--- NOTE | 2023-03-27 13:40 | P.ANPRN ---
Procedure Note - Anesthesia - Nerve Block Performed Left Adductor Canal Infusion Date of Procedure: 03/27/23 Procedure Start Time: 10:55 Procedure Stop Time: 11:06 Indication: Acute Post-Operative Pain, Requested by Surgeon Sedation Type: Sedate with meaningful contact maintained Preparation: Sterile Prep, Sterile Dressing Position: Supine Catheter: Indwelling Needle Types: Eric Needle Gauge: 18 Ultrasound used to visualize needle placement: Yes Ultrasound used to observe medication spread: Yes Injectate: 0.5% Ropivacaine (see comment for volume) (15 mls+ 10 mls of NS) Blood Aspirated: No Pain Paresthesia on Injection Noted: No Resistance on Injection: Normal
--- NOTE | 2023-03-27 13:43 | P.ANPRN ---
Procedure Note - Anesthesia - Nerve Block Performed Left Teddy Single Date of Procedure: 03/27/23 Procedure Start Time: 10:49 Procedure Stop Time: 10:54 Indication: Requested by Surgeon Sedation Type: Sedate with meaningful contact maintained Preparation: Sterile Prep Position: Supine Needle Types: Facet Needle Gauge: 21 Ultrasound used to visualize needle placement: Yes Ultrasound used to observe medication spread: Yes Injectate: 0.5% Ropivacaine (see comment for volume) Blood Aspirated: No Pain Paresthesia on Injection Noted: No Resistance on Injection: Normal Image Stored and Saved: Yes Events: Uneventful and Well Tolerated (15 mls +10 mls NS+ Decadron 4 mls)
[2023-03-27] MEDS ORDERED: LACTATED RINGERS 1,000 ML IV ONE (14:35)
[2023-03-27] MEDS ORDERED: ROPIVACAINE 1,100 MG, SODIUM CHLORIDE 0.9% 500 ML 330 ML, EMPTY PAIN BALL 1 EACH MISCELLANE PRN ×2 (14:46)
--- NOTE | 2023-03-27 14:47 | P.OP ---
Date of Procedure: 03/27/23 Preoperative Diagnosis: Left knee osteoarthritis Postoperative Diagnosis: Left knee osteoarthritis Procedure(s) Performed: Left total knee arthroplasty Implants: 1. Depuy attune size 8 left cruciate retaining femur 2. Depuy attune size 8 fixed bearing cemented tibial baseplate 3. Depuy attune size 8 fixed bearing cruciate retaining 7 mm polyethylene tibial insert 4. Depuy attune 41 mm all polyethylene cemented patella Anesthesia: regional (Adductor canal catheter, Ipack block), spinal Surgeon: Norman Reynolds Deputy Sheriff [id number] Handler #1: Can Amin Estimated Blood Loss (ml): 40 Pathology: none sent Condition: stable Disposition: PACU Indications for Procedure: 67-year-old patient seen with symptomatic left knee osteoarthritis. After having treatment options discussed, he elected to proceed with total knee arthroplasty. Operative Findings: See description of procedure Description of Procedure: Patient was taken to the operative suite after having an adductor canal catheter placed by the department of anesthesia. Patient underwent a spinal anesthetic by the department of anesthesia. Patient was given preoperative IV intake antibiotics and TXA. A well-padded tourniquet was placed about the left lower extremity. The lower extremity was then prepped and draped in the normal sterile orthopedic fashion. The extremity was elevated, a tourniquet was insufflated to 300. A standard anterior incision was made sharply through skin. Dissection was taken down through the subcutaneous soft tissues down to the extensor mechanism. A medial arthrotomy was performed, patella was everted and knee was flexed. There was advanced osteoarthritis noted. I introduced my distal intramedullary femoral drill. I then introduced the distal femoral cutting jig. Can SPENCE secured the cutting jig with 2 pins. I held retractors in position while Can SPENCE performed the distal femoral resection through the guide area we now removed her distal femoral cutting guide. We now placed our 4-in-1 femoral cutting block and positioned and it was secured with 2 pins by Raymundo SPENCE while I held the block in position. The distal femoral finishing was now completed. A proximal tibial cutting guide was positioned. I held the guide in the appropriate position with both hands while Can SPENCE inserted stabilizing pins into the guide. Proximal tibial cut was made. We now placed a trial femoral component into position, along with an appropriate size tibial tray and insert. We now took the knee through range of motion and had full extension good flexion and good overall soft tissue balance noted. The patella was everted and stabilized with 2 towel clips held by Can SPENCE while I performed a flush with patellar quad tendon utilizing a fresh sawblade. We templated the patella, appropriate drill holes were made. An appropriate trial patella was positioned, knee was taken through full range of motion with the patella tracking very nicely. The trial patella was removed. Drill holes were made through the femoral component. All trial components were removed after marking off the appropriate rotation of the tibia. Retractors were now positioned along the proximal tibia. An appropriate keel punch was made with the appropriate size tibial guide by myself while Can SPENCE assisted by holding retractors. At this point appropriate size implants were chosen and opened. The joint was irrigated copiously with pulse lavage mechanical irrigation. The posterior capsule was infiltrated with local analgesic. The wound was irrigated with pulse lavage mechanical irrigation. We mixed antibiotic methylmethacrylate. We placed the knee into flexion. We placed multiple retractors assisted by Can SPENCE to expose the proximal tibia. Once the methyl methacrylate was ready, the tibial component was cemented into place removing any excess methylmethacrylate form by both myself and Can SPENCE. The femoral component was cemented into place removing the removing any excess methylmethacrylate performed by both myself and Can SPENCE. We then inserted the appropriate size polyethylene tibial insert. We made sure that it was locked into position. We took the knee into full extension, and then back in a flexion making sure we had removed any excess methylmethacrylate. The patellar component was then cemented down and secured with clamp. Excess methylmethacrylate removed. We kept the knee in full extension, patellar clamp in position until methylmethacrylate had hardened. Once it had hardened the patellar clamp was removed. The knee was taken through full range of motion. The patella tracked nicely. There was good soft tissue balancing. The tourniquet was now released. Additional hemostasis was achieved via electrocautery. A second gram of TXA was given. The wound again was irrigated with pulse lavage mechanical irrigation. The extensor mechanism was repaired with Ethibond suture. We checked the repair with range of motion and it was stable. The subcutaneous soft tissues were repaired with Vicryl in layers. The skin was approximated with pernio/Dermabond. Sterile dressings were applied followed by loose web roll and Bienvenido bandage. The patient was transferred to a bed, and taken to recovery in stable and satisfactory condition. Can SPENCE assisted with this complex procedure.
[2023-03-27 15:07] LABS: Glucose,Whole Blood 121 mg/dL (70-110)
--- NOTE | 2023-03-27 16:04 | XR ---
EXAMINATION TYPE: XR knee limited LT DATE OF EXAM: 03/27/2023 3:47 PM INDICATION: Patient age:Male; 67 years old; Reason for study: s/p left total knee arthroplasty; [facility]. COMPARISON: Left knee radiograph 11/16/2022, 08/04/2022 TECHNIQUE: The Left knee(s) was examined in Frontal and crosstable lateral FINDINGS: Postsurgical changes from left knee arthroplasty with distal femoral and proximal tibial co mponents. Hardware appears intact with appropriate alignment. There is associated soft tissue edema a nd gas. No acute fracture or dislocation. IMPRESSION: Postsurgical changes from left knee arthroplasty. Hardware appears intact with appropriate alignment.
[2023-03-27] MEDS: ceFAZolin 3 GM in SODIUM CHLORIDE 0.9% 100 ML IVPB SCH (20:26)
[2023-03-27] MEDS: HYDROmorphone 1 MG/ML 1 ML SYRINGE IVP PRN (20:26)
[2023-03-27] MEDS ORDERED: ceFAZolin 3 GM in SODIUM CHLORIDE 0.9% 100 ML IVPB SCH (20:30)
[2023-03-27] MEDS ORDERED: SENNOSIDES-DOCUSATE SODIUM 1 EACH TAB PO SCH (21:00)
[2023-03-28] MEDS: HYDROmorphone 1 MG/ML 1 ML SYRINGE IVP PRN (01:43)
[2023-03-28] MEDS: LACTATED RINGERS 1,000 ML IV SCH (07:19)
[2023-03-28] MEDS: ceFAZolin 3 GM in SODIUM CHLORIDE 0.9% 100 ML IVPB SCH (07:19)
--- NOTE | 2023-03-28 07:27 | P.PN ---
Progress Note - Text Progress Note Date: 03/28/23 The patient is doing well status post total knee replacement. Pain is well con trolled by a combination of local anesthetic infusion through the adductor canal catheter and oral analgesics. There are no signs of infection around the catheter skin entry site. The local anesthetic infusion will be continued as per protocol.
[2023-03-28 08:19] VITALS: BP 125/74; PULSE 64; RESP 23; TEMP 98.1
[2023-03-28] MEDS ORDERED: APIXABAN 5 MG TAB PO SCH (09:00)
[2023-03-28] MEDS ORDERED: metFORMIN 500 MG TAB PO SCH (09:00)
[2023-03-28] MEDS ORDERED: LITHIUM CARBONATE 300 MG CAP PO SCH ×2 (09:00→21:00)
[2023-03-28] MEDS ORDERED: LOSARTAN 25 MG TAB PO SCH (09:00)
--- NOTE | 2023-03-28 09:29 | P.DS ---
Providers Date of admission: 03/27/2023 Expected date of discharge: 03/28/23 Attending physician: Norman Reynolds Consults: 03/27/23 13:25 Consult Physician Routine Consulting Provider: Cooper Donald Consult Reason/Comments: medical management Do you want consulting provider notified?: Yes Primary care physician: Cooper Donald MD Hospital Course: Date of admission: 03/27/2023 Date of discharge: 03/28/2023 Admission diagnosis: Left knee osteoarthritis Discharge diagnosis: Same Attending physician: Dr. Reynolds Surgical procedures: Left total knee arthroplasty Brief history: Patient is a 67-year-old male with a history of progressive primary left knee osteoarthritis. At this point patient has failed conservative treatment measures and has opted to proceed with a elective left total knee arthroplasty. Hospital course: Details of patient's surgery can be found in operative report. Patient tolerated the procedure well and was subsequently transported to orthopedic floor. Patient's orthopeidc and medical care was provided daily. Patient had daily laboratory tests performed for evaluation of overall blood counts. Patient had daily physical therapy to include strengthening range of motion as well as education with walker ambulation. Patient was treated with Lovenox for their postoperative DVT prophylaxis during their inpatient stay. Patient was noted to have a relatively uneventful postoperative course. Patient reported satisfactory pain control with oral pain medications by postoperative day 1. Patient showed satisfactory progress with physical therapy. Patient moved steadily through the program and had no difficulty meeting the goals by postoperative day 1. Given patient's otherwise satisfactory course and having met physical therapy goals, plan is to discharge patient home with health services on postoperative day 1. Discharge condition/disposition: Patient will be discharged home with health services in stable condition. Discharge medications: Instructions are given on resumption of patient's normal daily medications per primary care recommendation, in addition patient will be prescribed [place]; senna; resume Eliquis 5 mg twice a day once home. Discharge instructions: 1. Wound care and infection precautions, keep incision dry and covered while showering, no lotions, creams, moisturizers. No soaking, tubs, pools, hottubs. Do not scrub over the incision. 2. Weight-bear as tolerated with walker / cane until follow-up. 3. Ice and elevate when necessary. Do not exceed 20 minutes per hour with ice pack. 4. Utilize compression sleeve until seen at first follow up appointment. 5. Visiting nursing care. 6. Home physical therapy including home CPM. 7. Pain meds and anticoagulants per prescription. 8. Pain medication has potential to cause constipation. Increase oral fluid and fiber intake. Contact primary care provider if you have not had a bowel movement within 48 hours after discharge 9. No anti-inflammatory medication until discussed at first post operative visit, this including Motrin, Aleve, Mobic, Diclofenac. 10. Follow up in office at 2 weeks postop with Raymundo oMraes PA-C / Can Amin PA-C 11. Follow up with your primary care doctor 7-10 days after discharge. 12. Contact [facility] with any questions, . Assessment: Left knee osteoarthritis Procedures: Left total knee arthroplasty Patient Condition at Discharge: Good Plan - Discharge Summary Discharge Rx Participant: Yes New Discharge Prescriptions: No Action fluvoxaMINE [Luvox] 150 mg PO QAM [place] Carbonate 300 mg PO QAM Ibuprofen 600 mg PO Q6H PRN PRN Reason: Pain metFORMIN HCL [Glucophage] 1,000 mg PO BID Cholecalciferol (Vitamin D3) [Vitamin D3] 4,000 unit PO QAM Docusate [Colace] 100 mg PO TID PRN PRN Reason: Constipation Acetaminophen [Tylenol Extra Strength] 650 mg PO DIRECTED PRN PRN Reason: Pain Apixaban [Eliquis] 5 mg PO BID Multivit-Min/Folic/Vit K/Lycop [Men's Multivitamin Tablet] 1 each PO QAM hydroCHLOROthiazide [Hydrodiuril] 25 mg PO QAM [place] Carbonate 600 mg PO HS Losartan Potassium [Cozaar] 25 mg PO QAM Fenofibrate 54 mg PO DAILY Discharge Medication List Ibuprofen 600 mg PO Q6H PRN 08/02/17 [History] [place] Carbonate 300 mg PO QAM 08/02/17 [History] fluvoxaMINE [Luvox] 150 mg PO QAM 08/02/17 [History] metFORMIN HCL [Glucophage] 1,000 mg PO BID 02/14/18 [History] Cholecalciferol (Vitamin D3) [Vitamin D3] 4,000 unit PO QAM 04/02/19 [History] Docusate [Colace] 100 mg PO TID PRN 04/02/19 [History] Acetaminophen [Tylenol Extra Strength] 650 mg PO DIRECTED PRN 10/16/20 [History] Apixaban [Eliquis] 5 mg PO BID 10/16/20 [History] [place] Carbonate 600 mg PO HS 10/16/20 [History] Multivit-Min/Folic/Vit K/Lycop [Men's Multivitamin Tablet] 1 each PO QAM 10/16/20 [History] Fenofibrate 54 mg PO DAILY 02/16/23 [History] Losartan Potassium [Cozaar] 25 mg PO QAM 02/16/23 [History] hydroCHLOROthiazide [Hydrodiuril] 25 mg PO QAM 02/16/23 [History] Follow up Appointment(s)/Referral(s): Can Amin, KATHERIN [PHYSICIAN AGRICULTURAL TECHNICIAN] - 2 Weeks Patient Instructions/Handouts: Knee Replacement (DC) Activity/Diet/Wound Care/Special Instructions: Orthopedic Discharge Instructions: 1. Wound care and infection precautions, keep incision dry and covered while showering, no lotions, creams, moisturizers. No soaking, pools, hot tubs. Do not scrub over incision. 2. Weight-bear as tolerated with walker / cane until follow-up. 3. Ice and elevate when necessary. Do not exceed 20 minutes per hour with ice pack. 4. Utilize compression sleeve until seen at first follow up appointment. 5. Pain meds and anticoagulants per prescription. 6. Pain medication has potential to cause constipation. Increase oral fluid and fiber intake. Contact primary care provider if you have not had a bowel movement within 48 hours after discharge. 7. No anti-inflammatory medication until discussed at first post operative visit, this including Motrin, Aleve, Mobic, Diclofenac 8. Follow up in office at 2 weeks postop with Raymundo Moraes PA-C/Can Amin PA-C 9. Follow up with your primary care doctor 7-10 days after discharge. 10. Contact [facility] with any questions, . Wound care instructions: 1. Okay to remove surgical dressing as of 04/03/2023 2. Okay to shower directly over the incision after removal of this
--- NOTE | 2023-03-28 11:02 | P.PN ---
Subjective Progress Note Date: 03/28/23 Principal diagnosis: Left knee osteoarthritis Patient was seen at bedside this morning lying semirecumbent position with dressing over left knee. Patient says he has urinated several times since surgery yesterday. Patient says he hasn't had bowel movement yet, however, patient says he has been passing gas. Patient says she does not have a walker at home. Patient states he has not been up much since surgery. Patient says he is looking forward to working with therapy later this morning. Patient denies any changes. Patient denies chest pain, fever, shortness of breath, nausea, vomiting, change in vision, loss of bowel/bladder control. Objective - Vital Signs Vital signs: Vital Signs Temp 98.1 F 03/28/23 08:00 Pulse 64 03/28/23 08:00 Resp 23 03/28/23 08:00 BP 125/74 03/28/23 08:00 Pulse Ox 95 03/28/23 08:00 FiO2 Intake & Output 03/27/23 03/28/23 03/28/23 18:59 06:59 18:59 Intake Total 1551 Output Total 40 Balance 1511 Weight 148.8 kg Intake: IV 1551 Output: Estimated Blood Loss 40 Other: # Voids 1 - Exam Left knee: Incision is clean, dry, and intact. The silver foam dressing is in good condition. There is minimal soft tissue swelling and ecchymosis surrounding the medial and lateral aspects of the incision. Calf is soft, no tenderness with palpation. Plantar flexion, dorsiflexion, EHL, FHL are intact. Sensory exam to light touch throughout the extremity is intact, dorsal pedis pulses 2+. - Labs Labs: Abnormal Lab Results - Last 24 Hours (Table) 03/27/23 03/27/23 Range/Units 10:38 15:06 POC Glucose (mg/dL) 119 H 121 H (70-110) mg/dL Assessment and Plan Assessment: 1. Left knee osteoarthritis - Postop day 1 status post left total knee arthroplasty Plan: 1. Left knee osteoarthritis - left total knee arthroplasty performed yesterday, 03/27/2023. Patient stable at bedside this morning. Pending evaluation with physical therapy, plan for discharge home today with health services. Prescription for walker was signed. 2. Appreciate medical management 3. Pain management - [place] 4. DVT prophylaxis - Lovenox in hospital. Patient to resume Eliquis 5 minus twice a day once home 5. GI prophylaxis - senna 6. PT/OT - weightbearing as tolerated w/walker 7. Encourage incentive spirometer use 8. Discharge planning - home today with health services Time with Patient: Less than 30
[2023-03-28 11:12] LABS: Glucose,Whole Blood 173 mg/dL (70-110)
[2023-03-28 12:39] VITALS: BMI 42.1
== END 2023-03-28 14:39 | disposition home health service (06) ==
LOC: OR 09:42 → 4SSUR 13:56 → OR 03-28 14:39
PROVIDERS: ATTEND Orthopaedic Surgery
DX: M17.12 Unilateral primary osteoarthritis, left knee (principal); G89.18 Other acute postprocedural pain; I10 Essential (primary) hypertension; E11.9 Type 2 diabetes mellitus without complications; Z79.84 Long term (current) use of oral hypoglycemic drugs; Z90.89 Acquired absence of other organs; Z79.01 Long term (current) use of anticoagulants; Z79.899 Other long term (current) drug therapy; Z86.718 Personal history of other venous thrombosis and embolism
CPT/HCPCS: 73560; 27447; 64448; 64999; J2250; J0690 ×2; J2405; J1170; J2795

== ENCOUNTER → 2023-04-03 | Outpatient (CLI) | payer MEDICARE ==
--- NOTE | 2023-04-03 16:19 | US ---
EXAMINATION TYPE: US venous doppler duplex LE LT DATE OF EXAM: 04/03/2023 4:05 PM COMPARISON: NONE CLINICAL INDICATION: Male, 67 years old with history of M79.662,R22.42 PAIN AND SWELLING; Left knee r eplacement 03/27/23. Pain and edema left leg SIDE PERFORMED: left TECHNIQUE: The lower extremity deep venous system is examined utilizing real time linear array sonog shanell with graded compression, doppler sonography and color-flow sonography. VESSELS IMAGED: Common Femoral Vein Deep Femoral Vein Greater Saphenous Vein * Femoral Vein Popliteal Vein Small Saphenous Vein * Proximal Calf Veins (* superficial vessels) Left Leg: Technical limitations due to patient's body habitus, limited mobility, and bandages, fishman ited evaluation of popliteal vein. no evidence of DVT as visualized IMPRESSION: Grayscale, color doppler, spectral doppler imaging performed of the deep veins of the lo wer extremities. There is normal flow, compressibility, vascular waveforms.
== END | disposition home or self-care (01) ==
LOC: RADUSWWP 15:34
PROVIDERS: ATTEND Family Medicine
DX: M79.662 Pain in left lower leg (principal); R22.42 Localized swelling, mass and lump, left lower limb

== ENCOUNTER → 2024-06-18 | Outpatient (CLI) | payer MEDICARE, OTHER ==
--- NOTE | 2024-06-18 14:35 | CT ---
EXAMINATION TYPE: CT lumbar spine wo con CT DLP: 2672.3 mGycm, Automated exposure control for dose reduction was used. DATE OF EXAM: 06/18/2024 1:39 PM COMPARISON: CT thoracic spine 01/28/2019. CLINICAL INDICATION:Male, 69 years old with history of M54.50 low back pain; PHH, chronic back pain TECHNIQUE: Multiple axial images were obtained from the midportion of T11 through the sacroiliac anil nts. Soft tissue and bone windows in coronal and sagittal planes were obtained and reviewed. Contrast used: none. Oral contrast used: none. FINDINGS: Alignment: There are 5 lumbar type vertebral bodies. Grade 1 anterolisthesis of L3 on L4 with bilater al pars defects. Bone: Multilevel anterior osteophytosis. No evidence of fracture is identified. Benign vertebral kia ngioma involving the L3 vertebral body. Again changes of the bilateral SI joints with anterior bridgi ng. Discs: T12-L1: Broad-based disc bulge with mild effacement of the anterior thecal sac. Bilateral facet arthr opathy. No significant neural foraminal stenosis. L1-L2: Broad-based disc bulge with mild effacement of the anterior thecal sac. Bilateral facet arthro hiram. Mild bilateral neural foraminal stenosis. L2-L3: Minimal broad-based disc bulge without significant effacement of the anterior thecal sac. Bila teral ligament flavum buckling with bilateral facet arthropathy. No significant neural foraminal sten osis. L3-L4: Grade 1 anterolisthesis with uncovering of the disc. No significant spinal canal stenosis. Eduard ateral facet arthropathy with moderate bilateral neuroforaminal stenosis. L4-L5: Broad-based disc bulge and ligamentum flavum buckling and bilateral facet arthropathy contribu te to moderate central canal stenosis. Severe bilateral neuroforaminal stenosis. L5-S1: No spinal canal stenosis is identified. Bilateral facet arthropathy with moderate right and se billy left neural foraminal stenosis. Other: None IMPRESSION: 1. No evidence for acute spinal fracture. 2. Moderate multilevel degenerative disc disease and facet arthropathy as described above. 3. Grade 1 anterolisthesis of L3 on L4 with bilateral pars defects. [facility], , 06/18/2024 2:33 PM
== END | disposition home or self-care (01) ==
LOC: RADCTMAIN 12:57
PROVIDERS: ATTEND Orthopaedic Surgery
DX: M51.16 Intervertebral disc disorders with radiculopathy, lumbar region (principal); M47.26 Other spondylosis with radiculopathy, lumbar region; M43.16 Spondylolisthesis, lumbar region
CPT/HCPCS: 72131

== ENCOUNTER → 2024-06-29 | Outpatient (CLI) | payer MEDICARE, OTHER ==
--- NOTE | 2024-06-30 05:52 | MR ---
EXAMINATION TYPE: MR lumbar spine wo con DATE OF EXAM: 06/29/2024 3:07 PM COMPARISON: CT 06/18/2024 CLINICAL INDICATION: Male, 69 years old with history of M47.816 SPONDYLOSIS W/O MYELOPATHY O M54.16 M 62.81, NO prior MR , prior CT on synapse, hard to walk and weight bear, difficulty with urination and incontinence RLE radiculopathy, no trauma, no sx ,no CA TECHNIQUE: Multiplanar, multisequence images of the lumbar spine were acquired. FINDINGS: Cord ends at the T12-L1 L5-S1: There is loss of disc height at this level. Mild disc bulge has anterior thecal sac contact. N o spinal canal stenosis is present. Moderate left and right foraminal narrowing is present. L4-L5: Disc desiccation is present. No focal disc herniation is evident. Moderate to severe bilateral foraminal narrowing is present. No significant disc bulge. Some facet degenerative change is present . L3-L4: There is a grade 1 spondylolisthesis of L3 anteriorly on L4. Disc narrowing is present. Facet hypertrophy is present with ligamentum flavum laxity. The lateral canal narrowing. Severe right and m oderate to severe left foraminal stenosis is present. Correlate for left L4 radicular symptoms L2-L3: No focal disc herniation or significant disc bulge. No spinal canal stenosis. Neural foramen are patent. L1-L2: Vacuum disc phenomenon may be present. There is disc space narrowing. Mild anterior thecal sac flattening be present. Moderate to severe bilateral foraminal narrowing is present. T12-L1: Mild disc bulge present. No spinal canal stenosis or neural foraminal stenosis evident. Comparison: Findings appear similar to the CT examination results. IMPRESSION: 1. Grade 1 spondylolisthesis of L3 anterior to L4. Disc uncovering is present. 2. Moderate foraminal narrowing bilaterally L5-S1, moderate to severe bilateral foraminal narrowing f rom facet hypertrophy L4-5. Severe right and moderate to severe left foraminal stenosis present at L3 -4. Correlate with radicular symptoms. 3. Degenerative disc change L3-4 and to a lesser degree L1-L4 5 and L5-S1 with vacuum phenomenon. [facility], , 06/30/2024 5:50 AM
[2024-07-01 11:06] LABS: Glucose,Whole Blood 147 mg/dL (70-110)
== END | disposition home or self-care (01) ==
LOC: RADMRIMAIN 13:08
PROVIDERS: ATTEND Orthopaedic Surgery
DX: M47.26 Other spondylosis with radiculopathy, lumbar region (principal); M43.16 Spondylolisthesis, lumbar region; M51.16 Intervertebral disc disorders with radiculopathy, lumbar region; M48.061 Spinal stenosis, lumbar region without neurogenic claudication; M51.17 Intervertebral disc disorders with radiculopathy, lumbosacral region
CPT/HCPCS: 72148

== ENCOUNTER 2024-07-01 06:08 | Inpatient (IN) | payer MEDICARE ==
[2024-07-01] MEDS: PANTOPRAZOLE 40 MG/10 ML VIAL IVP STA (06:33)
--- NOTE | 2024-07-01 06:40 | ED ---
General Adult HPI - General Source: patient, EMS, RN notes reviewed Mode of arrival: EMS Limitations: no limitations <Ar Corona - Last Filed: 07/01/24 07:25> <Roge Rodríguez - Last Filed: 07/01/24 10:53> - General Stated complaint: GI Bleed Time Seen by Provider: 07/01/24 06:12 - History of Present Illness Initial comments: 69-year-old male presents emerged part via EMS chief complaint of nausea vomiting diarrhea. Patient states that around 4 PM last night he started having dark emesis in which she states its brown to blackish in which she states later on he developed stool similar color. Patient states he did have some upset stomach that he noticed. Patient does admit that he has a history of A-fib is on Eliquis along with he takes meloxicam for joint pain. Patient states he has no history of peptic ulcer disease denies any prior GI bleed denies being alcoholic. Patient has noted some exertional dyspnea over the last week or so states been very difficult to go short distances. Patient has no prior history of anemia (Ar Corona) - Related Data Home Medications Medication Instructions Recorded Confirmed [place] Carbonate 1,200 mg PO HS 08/02/17 07/01/24 Apixaban [Eliquis] 5 mg PO BID 10/16/20 07/01/24 Losartan/Hydrochlorothiazide 1 tab PO DAILY 07/01/24 07/01/24 [Hyzaar 100-12.5 Tablet] Meloxicam [Mobic] 15 mg PO DAILY 07/01/24 07/01/24 OLANZapine [ZyPREXA] 7.5 mg PO HS 07/01/24 07/01/24 Venlafaxine HCl [Effexor XR] 225 mg PO DAILY 07/01/24 07/01/24 Allergies Allergy/AdvReac Type Severity Reaction Status Date / Time No Known Allergies Allergy Verified 07/01/24 10:06 Review of Systems ROS Other: All systems not noted in ROS Statement are negative. <Ar Corona - Last Filed: 07/01/24 07:25> ROS Other: All systems not noted in ROS Statement are negative. <Roge Rodríguez - Last Filed: 07/01/24 10:53> ROS Statement: Those systems with pertinent positive or pertinent negative responses have been documented in the HPI. Past Medical History Past Medical History: Atrial Fibrillation, Diabetes Mellitus, GERD/Reflux, Hyperlipidemia, Hypertension, Osteoarthritis (OA), Sleep Apnea/CPAP/BIPAP Additional Past Medical History / Comment(s): seizure two yrs ago from major depressive disorder, hemorrhoids, herniated disc, TOOTH ACHE AT PRESENT Cellulitis and abscess of mouth. Mediastinitis secondary to mouth abscess; IV antibiotic therapy History of Any Multi-Drug Resistant Organisms: None Reported Past Surgical History: Adenoidectomy, Hernia Repair, Tonsillectomy Additional Past Surgical History / Comment(s): epidural. Abscessed teeth pulled at [place] [id number]. Chest tube drain. Past Anesthesia/Blood Transfusion Reactions: No Reported Reaction Past Psychological History: Depression Smoking Status: Current some day smoker Past Alcohol Use History: Rare Past Drug Use History: None Reported - Past Family History Mother Family Medical History: No Reported History <Ar Corona M - Last Filed: 07/01/24 07:25> General Exam Limitations: no limitations General appearance: alert, in no apparent distress Head exam: Present: atraumatic, normocephalic, normal inspection Eye exam: Present: normal appearance, PERRL, EOMI. Absent: scleral icterus, conjunctival injection, periorbital swelling ENT exam: Present: mucous membranes moist Respiratory exam: Present: normal lung sounds bilaterally. Absent: respiratory distress, wheezes, rales, rhonchi, stridor Cardiovascular Exam: Present: tachycardia, irregular rhythm, normal heart sounds. Absent: regular rate, normal rhythm, systolic murmur, diastolic murmur, rubs, gallop, clicks GI/Abdominal exam: Present: soft, normal bowel sounds. Absent: distended, tenderness, guarding, rebound, rigid Neurological exam: Present: alert, oriented X3, CN II-XII intact, reflexes normal. Absent: motor sensory deficit Skin exam: Present: warm, dry, intact. Absent: normal color (pale), rash <Ar Corona - Last Filed: 07/01/24 07:25> Course <Roge Rodríguez - Last Filed: 07/01/24 10:53> Vital Signs 07/01/24 07/01/24 07/01/24 06:19 06:42 06:46 Temperature 95.9 F L Pulse Rate 133 H 100 Respiratory 37 H 16 Rate Blood Pressure 70/46 68/44 O2 Sat by Pulse 100 100 Oximetry 07/01/24 07/01/24 07/01/24 06:55 07:03 07:12 Temperature 96.1 F L 95.5 F L 96.3 F L Pulse Rate 112 H 114 H 130 H Respiratory 16 26 H 24 Rate Blood Pressure 70/48 78/30 89/50 O2 Sat by Pulse 97 98 Oximetry 07/01/24 07/01/24 07/01/24 07:27 07:32 07:45 Temperature 96.6 F L Pulse Rate 119 H 128 H 129 H Respiratory 26 H 24 24 Rate Blood Pressure 93/38 94/49 106/59 O2 Sat by Pulse 98 99 Oximetry 07/01/24 07/01/24 07/01/24 08:01 08:23 08:39 Temperature 96.4 F L 96.8 F L 94.6 F L Pulse Rate 128 H 126 H 134 H Respiratory 24 22 22 Rate Blood Pressure 109/97 92/57 88/62 O2 Sat by Pulse 97 100 97 Oximetry 07/01/24 07/01/24 07/01/24 09:00 09:18 09:32 Temperature 36.1 F L Pulse Rate 125 H 122 H 128 H Respiratory 20 20 20 Rate Blood Pressure 97/54 105/75 106/70 O2 Sat by Pulse 98 97 Oximetry 07/01/24 07/01/24 07/01/24 10:00 10:34 10:43 Temperature 97.9 F 98.1 F Pulse Rate 140 H 135 H 130 H Respiratory 20 20 20 Rate Blood Pressure 114/61 106/54 107/60 O2 Sat by Pulse 96 98 98 Oximetry - Reevaluation(s) Reevaluation #1: 07/01/24 08:04 Patient seen and evaluated the bedside. Briefly, patient 69-year-old male presents with life-threatening GI bleed. He has had coffee-ground emesis and vomiting along with melanotic stool. Vital signs upon arrival shows hypotension. Central venous catheter line was placed in right femoral groin. (Roge Rodríguez) EKG Findings - EKG Comments: EKG Findings:: EKG performed at 6:29 A-fib RVR with a rate of 131 QRS 97 QT/QTc 310/387 - EKG Results: EKG: interpreted by ANDREW <Ar Corona - Last Filed: 07/01/24 07:25> Procedures - Central Line Placement Right Femoral Consent Obtained: verbal consent, emergent situation Patient Placed on Monitor/Pulse Ox: Yes MD Prep: mask, gown, gloves Central Line Prep: Chlorhexidine scrub Ultrasound Used for Placement: Yes Central Line Lumen Inserted: triple Bloods Obtained for Lab: Yes Central Line Position: good blood return, all ports aspirated, flushed, capped, sutured in place with 3-0 nylon Dressing Applied: Tegaderm Patient Tolerated Procedure: well Complications: none - Sepsis Sepsis Focused Exam #1 Time Sepsis Criteria Met: Sepsis Focused Exam Date: 07/01/24 Sepsis Focused Exam Time: Sepsis Focused Exam Complete: Yes Vital Signs & RN Notes Reviewed: Yes Capillary Refill: > 2 Seconds: Fingers, Toes Peripheral Pulses: Weak: Radial (R), Radial (L), Posterior Tibialis (R), Posterior Tibialis (L), Dorsalis Pedis (R), Dorsalis Pedis (L) Skin Color: Pallor Respiratory Exam: normal lung sounds Cardiovascular Exam: tachycardia <Roge Rodríguez - Last Filed: 07/01/24 10:53> Medical Decision Making - Lab Data Result diagrams: 07/01/24 06:22 07/01/24 06:22 <Ar Corona - Last Filed: 07/01/24 07:25> - Lab Data Result diagrams: 07/01/24 06:22 07/01/24 06:22 <Roge Rodríguez - Last Filed: 07/01/24 10:53> - Medical Decision Making Was pt. sent in by a medical professional or institution (, PA, COMMUNITY ENGAGEMENT LEADER, urgent care, hospital, or residential...) When possible be specific @ -No Did you speak to anyone other than the patient for history (EMS, parent, family, police, friend...)? What history was obtained from this source @ -No Did you review nursing and triage notes (agree or disagree)? Why? @ -I reviewed and agree with nursing and triage notes Were old charts reviewed (outside hosp., previous admission, EMS record, old E KG, old radiological studies, urgent care reports/EKG's, residential records)? Report findings @ -No old charts were reviewed Differential Diagnosis (chest pain, altered mental status, abdominal pain women, abdominal pain men, vaginal bleeding, musculoskeletal, weakness, fever, dyspnea, syncope, headache, dizziness, GI bleed, back pain, seizure, CVA, palpatations, mental health)? @ -Differential GI Bleed: Esophageal varices, aortoenteric fistula, Mana-Gautam, gastritis, peptic ulcer disease, diverticulosis, inflammatory bowel disease, hemorrhoids, fissure, colitis, malignancy, Meckel's diverticulum, this is not meant to be an all- inclusive list. EKG interpreted by me (3pts min.). @ -My EKG interpretation: Ventricular rate 131, A-fib with RVR, QRS 97, QTc 3 7. No HI QTC prolongation, no ST or T-wave changes noted. X-rays interpreted by me (1pt min.). @ -Chest x-ray shows basilar acute infiltrate CT interpreted by me (1pt min.). @ -None done U/S interpreted by me (1pt. min.). @ -None done What testing was considered but not performed or refused? (CT, X-rays, U/S, labs)? Why? @ -None What meds were considered but not given or refused? Why? @ -None Was smoking cessation discussed for >3mins.? @ -No Were there social determinants of health that impacted care today? How? (Homelessness, low income, unemployed, alcoholism, drug addiction, transportation, low edu. Level, literacy, decrease access to med. care, fpc, rehab)? @ -No Was there de-escalation of care discussed even if they declined (Discuss DNR or withdrawal of care, Hospice)? DNR status @ -No What co-morbidities impacted this encounter? (DM, HTN, Smoking, COPD, CAD, Cancer, CVA, ARF, Chemo, Hep., AIDS, mental health diagnosis, sleep apnea, morbid obesity)? @ -Meloxicam use, obesity, anticoagulation use Was patient admitted / discharged? Hospital course, mention meds given and route, prescriptions, significant lab abnormalities, going to OR and other pertinent info. @ -69-year-old male presents to the emergency department with GI bleed. This clinical presentation complicated by hypotension and tachycardia and hypothermia. Patient given IV fluids, Protonix. Started on pressors. Chest x- ray shows possible infiltrate given hypotension patient treated with antibiotics. Central venous catheter line was placed in the right femoral groin using ultrasound guidance. Please see procedure note for further detail. Case discussed with public policy professor and hospitalist for admission. Patient denies any alcohol Escobar abuse. No concern for esophageal bleeding. Likely secondary to peptic ulcer. Patient allegedly has been using meloxicam. He also uses anticoagulation medications for A-fib. Given hypotension along with tachycardia and pulmonary filtrate there is concern for pneumonia sepsis. Patient given antibiotics. Patient on pressors. Did you discuss the management of the patient with other professionals (professionals i.e. , PA, COMMUNITY ENGAGEMENT LEADER, lab, RT, psych nurse, social work manager, substance abuse specialist, teacher, field crop technical officer, patient case manager)? Give summary @ -See above Was critical care preformed (if so, how long)? @ -Yes, 77 minutes for management of unstable vital signs Undiagnosed new problem with uncertain prognosis? @ -No Drug Therapy requiring intensive monitoring for toxicity (Heparin, Nitro, Insulin, Cardizem)? @ -No Were any procedures done? @ -No Diagnosis/symptom? Acute, or Chronic, or Acute on Chronic? Uncomplicated (without systemic symptoms) or Complicated (systemic symptoms)? @ -Acute GI bleed, complicated by hypotension and lactic acidosis Side effects of treatment? @ -No Exacerbation, Progression, or Severe Exacerbation? @ -No Poses a threat to life or bodily function? How? (Chest pain, [place], [place], pneumonia, PE, COPD, DKA, ARF, appy, cholecystitis, CVA, Diverticulitis, Homicidal, Suicidal, threat to staff... and all critical care pts) @ -yes (Roge Rodríguez) - Lab Data Lab Results 07/01/24 07/01/24 07/01/24 Range/Units 06:22 06:22 06:22 WBC 21.2 H (3.8-10.6) k/uL RBC 3.14 L (4.30-5.90) m/uL Hgb 10.3 L (13.0-17.5) gm/dL Hct 31.6 L (39.0-53.0) % MCV 100.8 H (80.0-100.0) fL MCH 32.7 (25.0-35.0) pg MCHC 32.5 (31.0-37.0) g/dL RDW 13.8 (11.5-15.5) % Plt Count 273 (150-450) k/uL MPV 9.0 Neutrophils % 85 % Lymphocytes % 9 % Monocytes % 5 % Eosinophils % 0 % Basophils % 0 % Neutrophils # 18.0 H (1.3-7.7) k/uL Lymphocytes # 1.9 (1.0-4.8) k/uL Monocytes # 1.0 (0-1.0) k/uL Eosinophils # 0.1 (0-0.7) k/uL Basophils # 0.0 (0-0.2) k/uL Hypochromasia Slight Macrocytosis Slight PT 12.1 (10.0-12.5) sec INR 1.1 (<1.2) APTT 21.1 L (22.0-30.0) sec Sodium 136 L (137-145) mmol/L Potassium 5.8 H (3.5-5.1) mmol/L Chloride 100 (98-107) mmol/L Carbon Dioxide 20 L (22-30) mmol/L Anion Gap 16 mmol/L BUN 90 H (9-20) mg/dL Creatinine 1.82 H (0.66-1.25) mg/dL Est GFR (CKD-EPI)AfAm 43 (>60 ml/min/1.73 sqM) Est GFR (CKD-EPI)NonAf 37 (>60 ml/min/1.73 sqM) Glucose 189 H (74-99) mg/dL Lactic Ac Sepsis Rflx Plasma Lactic Acid Javier (0.7-2.0) mmol/L Calcium 8.4 (8.4-10.2) mg/dL Magnesium 1.9 (1.6-2.3) mg/dL Total Bilirubin 1.2 (0.2-1.3) mg/dL AST 35 (17-59) U/L ALT 25 (4-49) U/L Alkaline Phosphatase 32 L (38-126) U/L Troponin I (0.000-0.034) ng/mL Total Protein 5.6 L (6.3-8.2) g/dL Albumin 3.4 L (3.5-5.0) g/dL Lipase 45 (23-300) U/L [place] mmol/L Blood Type Blood Type Confirm Blood Type Recheck Bld Type Recheck Status Antibody Screen Crossmatch Spec Expiration Date 07/01/24 07/01/24 07/01/24 Range/Units 06:22 06:22 06:22 WBC (3.8-10.6) k/uL RBC (4.30-5.90) m/uL Hgb (13.0-17.5) gm/dL Hct (39.0-53.0) % MCV (80.0-100.0) fL MCH (25.0-35.0) pg MCHC (31.0-37.0) g/dL RDW (11.5-15.5) % Plt Count (150-450) k/uL MPV Neutrophils % % Lymphocytes % % Monocytes % % Eosinophils % % Basophils % % Neutrophils # (1.3-7.7) k/uL Lymphocytes # (1.0-4.8) k/uL Monocytes # (0-1.0) k/uL Eosinophils # (0-0.7) k/uL Basophils # (0-0.2) k/uL Hypochromasia Macrocytosis PT (10.0-12.5) sec INR (<1.2) APTT (22.0-30.0) sec Sodium (137-145) mmol/L Potassium (3.5-5.1) mmol/L Chloride (98-107) mmol/L Carbon Dioxide (22-30) mmol/L Anion Gap mmol/L BUN (9-20) mg/dL Creatinine (0.66-1.25) mg/dL Est GFR (CKD-EPI)AfAm (>60 ml/min/1.73 sqM) Est GFR (CKD-EPI)NonAf (>60 ml/min/1.73 sqM) Glucose (74-99) mg/dL Lactic Ac Sepsis Rflx Plasma Lactic Acid Javier 7.6 H* (0.7-2.0) mmol/L Calcium (8.4-10.2) mg/dL Magnesium (1.6-2.3) mg/dL Total Bilirubin (0.2-1.3) mg/dL AST (17-59) U/L ALT (4-49) U/L Alkaline Phosphatase (38-126) U/L Troponin I 0.022 (0.000-0.034) ng/mL Total Protein (6.3-8.2) g/dL Albumin (3.5-5.0) g/dL Lipase (23-300) U/L [place] mmol/L Blood Type A Positive Blood Type Confirm Blood Type Recheck No Previous Record Bld Type Recheck Status CABO Indicated Antibody Screen NEGATIVE Crossmatch See Detail Spec Expiration Date 07/04/2024 - 232107/01/24 07/01/24 07/01/24 Range/Units 06:22 07:00 07:12 WBC (3.8-10.6) k/uL RBC (4.30-5.90) m/uL Hgb (13.0-17.5) gm/dL Hct (39.0-53.0) % MCV (80.0-100.0) fL MCH (25.0-35.0) pg MCHC (31.0-37.0) g/dL RDW (11.5-15.5) % Plt Count (150-450) k/uL MPV Neutrophils % % Lymphocytes % % Monocytes % % Eosinophils % % Basophils % % Neutrophils # (1.3-7.7) k/uL Lymphocytes # (1.0-4.8) k/uL Monocytes # (0-1.0) k/uL Eosinophils # (0-0.7) k/uL Basophils # (0-0.2) k/uL Hypochromasia Macrocytosis PT (10.0-12.5) sec INR (<1.2) APTT (22.0-30.0) sec Sodium (137-145) mmol/L Potassium (3.5-5.1) mmol/L Chloride (98-107) mmol/L Carbon Dioxide (22-30) mmol/L Anion Gap mmol/L BUN (9-20) mg/dL Creatinine (0.66-1.25) mg/dL Est GFR (CKD-EPI)AfAm (>60 ml/min/1.73 sqM) Est GFR (CKD-EPI)NonAf (>60 ml/min/1.73 sqM) Glucose (74-99) mg/dL Lactic Ac Sepsis Rflx Y Plasma Lactic Acid Javier (0.7-2.0) mmol/L Calcium (8.4-10.2) mg/dL Magnesium (1.6-2.3) mg/dL Total Bilirubin (0.2-1.3) mg/dL AST (17-59) U/L ALT (4-49) U/L Alkaline Phosphatase (38-126) U/L Troponin I (0.000-0.034) ng/mL Total Protein (6.3-8.2) g/dL Albumin (3.5-5.0) g/dL Lipase (23-300) U/L [place] 0.8 mmol/L Blood Type Blood Type Confirm A Positive Blood Type Recheck Bld Type Recheck Status Antibody Screen Crossmatch Spec Expiration Date Disposition <Ar Corona - Last Filed: 07/01/24 07:25> Decision Time: 08:13 <Roge Rodríguez - Last Filed: 07/01/24 10:53> Clinical Impression: GI bleed, Hypotension Disposition: ADMITTED IP TO THIS HOSP Condition: Critical
--- NOTE | 2024-07-01 06:40 | XR ---
EXAMINATION TYPE: XR chest 1V portable DATE OF EXAM: 07/01/2024 COMPARISON: Chest x-ray and CT chest on August 18, 2019 CLINICAL INDICATION: Male, 69 years old with history of pain; TECHNIQUE: Single AP portable semiupright view of the chest is obtained. FINDINGS: There is suspected left basilar opacity. Right lung is clear. The cardiac silhouette size is upper limits of normal. Mild diffuse tracheal narrowing. The osseous structures are intact. IMPRESSION: Possible left basilar acute infiltrate and/or atelectasis. [facility], , 07/01/2024 6:38 AM
[2024-07-01] MEDS ORDERED: Kcentra / Balfaxar PER PHARMACY 1 EACH MISC MISCELLANE PRN (06:43)
[2024-07-01 06:54] LABS: Basophils % (A) 0 %; Eosinophils # (A) 0.1 k/uL (0-0.7); Eosinophils % (A) 0 %; HCT 31.6 % (39.0-53.0); HGB 10.3 gm/dL (13.0-17.5); Hypochromasia Slight; Lymphocytes # (A) 1.9 k/uL (1.0-4.8); Lymphocytes % (A) 9 %; MCH 32.7 pg (25.0-35.0); MCHC 32.5 g/dL (31.0-37.0); MCV 100.8 fL (80.0-100.0); Macrocytosis Slight; Monocytes % (A) 5 %; Neutrophils % (A) 85 %; Platelet Count 273 k/uL (150-450); RBC 3.14 m/uL (4.30-5.90); RDW 13.8 % (11.5-15.5); WBC 21.2 k/uL (3.8-10.6)
[2024-07-01 06:56] LABS: ALT 25 U/L (4-49); African American GFR (CKD) 43 (>60 ml/min/1.73 sqM); Albumin 3.4 g/dL (3.5-5.0); Anion Gap 16 mmol/L; Blood Urea Nitrogen 90 mg/dL (9-20); Calcium 8.4 mg/dL (8.4-10.2); Carbon Dioxide 20 mmol/L (22-30); Chloride 100 mmol/L (98-107); Glucose 189 mg/dL (74-99); Lipase 45 U/L (23-300); Non-African American GFR(CKD) 37 (>60 ml/min/1.73 sqM); Sodium 136 mmol/L (137-145); Total Bilirubin 1.2 mg/dL (0.2-1.3); Total Protein 5.6 g/dL (6.3-8.2)
[2024-07-01] MEDS: SODIUM CHLORIDE 0.9% 500 ML 500 ML IV ONE ×2 (07:00→07:40)
[2024-07-01 07:05] LABS: INR 1.1 (<1.2); Prothrombin Time 12.1 sec (10.0-12.5)
[2024-07-01] MEDS: HUMAN PROTHROMBN CMPL BALFAXAR IV ONE (07:05)
[2024-07-01 07:12] LABS: Magnesium 1.9 mg/dL (1.6-2.3); Potassium 5.8 mmol/L (3.5-5.1)
[2024-07-01 07:13] LABS: AST 35 U/L (17-59); Alkaline Phosphatase 32 U/L (38-126)
[2024-07-01] MEDS ORDERED: NOREPINEPHRINE 4 MG in SODIUM CHLORIDE 0.9% 250 ML IV SCH (07:30)
[2024-07-01] MEDS: MIDAZOLAM 1 MG/ML 5 ML VIAL IV STA (07:45)
[2024-07-01 07:54] LABS: Partial Thromboplastin Time 21.1 sec (22.0-30.0)
[2024-07-01] MEDS: NOREPINEPHRINE 32 MG in SODIUM CHLORIDE 0.9% 218 ML IV SCH (08:02)
[2024-07-01] MEDS ORDERED: NALOXONE 0.4 MG/ML 1 ML VIAL IV PRN (08:08)
--- NOTE | 2024-07-01 08:25 | XR ---
EXAMINATION TYPE: XR chest 1V confirm line [facility] DATE OF EXAM: 07/01/2024 COMPARISON: 07/01/2024 for earlier in the day. CLINICAL INDICATION: Male, 69 years old with history of NG tube; TECHNIQUE: Single frontal view of the chest is obtained. FINDINGS: NG tube is coiled within the esophagus and must be repositioned. Hyperinflation compatible COPD. Mild elevation left hemidiaphragm. No focal consolidation. IMPRESSION: Reposition NG tube [facility], , 07/01/2024 8:23 AM
[2024-07-01] MEDS: AMPICILLIN-SULBACTAM 3 GM in SODIUM CHLORIDE 0.9% 100 ML IVPB STA (09:08)
[2024-07-01] MEDS: SODIUM CHLORIDE 0.9% 1,000 ML IV SCH (09:09)
[2024-07-01 09:25] LABS: Appearance,Urine Cloudy (Clear); Bilirubin,Urine Negative (Negative); Blood,Urine Negative (Negative); Calcium Oxalate Crystals,Urine Rare /hpf; Color,Urine Light Yellow; Glucose,Urine (UA) Negative (Negative); Hyaline Casts,Urine 6 /lpf (0-2); Ketones,Urine Trace (Negative); Leukocyte Esterase,Urine Small (Negative); Mucus,Urine Rare /hpf; Nitrite,Urine Negative (Negative); Protein,Urine Negative (Negative); RBC,Urine 2 /hpf (0-5); Squamous Epithelial Cell,Urine 1 /hpf (0-4); Urobilinogen,Urine <2.0 mg/dL (<2.0); WBC,Urine 3 /hpf (0-5)
--- NOTE | 2024-07-01 11:01 | XR ---
EXAMINATION TYPE: XR chest 1V confirm line [facility] DATE OF EXAM: 07/01/2024 COMPARISON: 07/01/2024 CLINICAL INDICATION: Male, 69 years old with history of NG repositioned; TECHNIQUE: Single frontal view of the chest is obtained. FINDINGS: Distal portion of the NG tube is not appropriately visualized. IMPRESSION: As above [facility], , 07/01/2024 10:58 AM
--- NOTE | 2024-07-01 12:16 | P.CONS ---
History of Present Illness - Reason for Consult Consult date: 07/01/24 GI bleed Requesting physician: Roge Rodríguez - History of Present Illness This is a pleasant 69-year-old male with a past medical history including atrial fibrillation on Eliquis, diabetes mellitus, GERD, hyperlipidemia, hypertension, osteoarthritis and obstructive sleep apnea who had presented to the emergency department with complaints of nausea and vomiting and black stool. Patient is being seen in the emergency department awaiting a bed in the ICU. He states that he started having nausea and vomiting yesterday afternoon and had coffee- ground emesis. He also was complaining of weakness. He came in for further evaluation with concerns for possible GI bleed. He has no history of previous peptic ulcer disease, no history of GI bleed. He does take 8 Eliquis for his atrial fibrillation last dose was yesterday morning he also reports that he takes meloxicam daily as well as ibuprofen as needed. Last colonoscopy was done in October [address] Dodge for history of colon polyps. He was status post polypectomy also with findings of diverticulosis. On admission patient had a h emoglobin of 10.3 with coffee-ground emesis, NG tube was placed and there is maroon-colored blood in the tubing however nothing in the canister. Patient states he was also having some black stool. He denies any abdominal pain. Patient was hypotensive and was started on pressor support and is waiting a bed for the ICU. Patient is currently getting blood transfusion. Review of Systems REVIEW OF SYSTEMS: CARDIOPULMONARY: No chest pain or shortness of breath. Gastrointestinal: No abdominal pain. Nausea and vomiting with coffee-ground emesis. Black stool. GENITOURINARY: No dysuria or hematuria. MUSCULOSKELETAL: Reports normal range of motion., Joint pain. SKIN: No rashes. No jaundice. ENDOCRINE: No chills, fevers. No excessive weight gain or loss. No polydipsia or polyuria. PSYCHIATRIC: Unremarkable. NEUROLOGY: No change in mental status. Denies dizziness, headache. ENT: Vision unremarkable. CONSTITUTIONAL: No recent weight loss. No fever, chills, night sweats. Past Medical History Past Medical History: Atrial Fibrillation, Diabetes Mellitus, GERD/Reflux, Hyperlipidemia, Hypertension, Osteoarthritis (OA), Sleep Apnea/CPAP/BIPAP Additional Past Medical History / Comment(s): seizure two yrs ago from major depressive disorder, hemorrhoids, herniated disc, TOOTH ACHE AT PRESENT Cellulitis and abscess of mouth. Mediastinitis secondary to mouth abscess; IV antibiotic therapy History of Any Multi-Drug Resistant Organisms: None Reported Past Surgical History: Adenoidectomy, Hernia Repair, Tonsillectomy Additional Past Surgical History / Comment(s): epidural. Abscessed teeth pulled at [facility]. Chest tube drain. Past Anesthesia/Blood Transfusion Reactions: No Reported Reaction Past Psychological History: Depression Smoking Status: Current some day smoker Past Alcohol Use History: Rare Past Drug Use History: None Reported - Past Family History Mother Family Medical History: No Reported History Medications and Allergies Home Medications Medication Instructions Recorded Confirmed Type [place] Carbonate 1,200 mg PO HS 08/02/17 07/01/24 History Apixaban [Eliquis] 5 mg PO BID 10/16/20 07/01/24 History Losartan/Hydrochlorothiazide 1 tab PO DAILY 07/01/24 07/01/24 History [Hyzaar 100-12.5 Tablet] Meloxicam [Mobic] 15 mg PO DAILY 07/01/24 07/01/24 History OLANZapine [ZyPREXA] 7.5 mg PO HS 07/01/24 07/01/24 History Venlafaxine HCl [Effexor XR] 225 mg PO DAILY 07/01/24 07/01/24 History Allergies Allergy/AdvReac Type Severity Reaction Status Date / Time No Known Allergies Allergy Verified 07/01/24 10:06 Physical Exam Vitals: Vital Signs Temp Pulse Resp BP Pulse Ox 07/01/24 08:39 94.6 F L 134 H 22 88/62 97 07/01/24 08:23 96.8 F L 126 H 22 92/57 100 07/01/24 08:01 96.4 F L 128 H 24 109/97 97 07/01/24 07:45 129 H 24 106/59 99 07/01/24 07:32 96.6 F L 128 H 24 94/49 07/01/24 07:27 119 H 26 H 93/38 98 07/01/24 07:12 96.3 F L 130 H 24 89/50 07/01/24 07:03 95.5 F L 114 H 26 H 78/30 98 07/01/24 06:55 96.1 F L 112 H 16 70/48 97 07/01/24 06:46 95.9 F L 07/01/24 06:42 100 16 68/44 100 07/01/24 06:19 133 H 37 H 70/46 100 Intake and Output 06/30/24 07/01/24 07/01/24 22:59 06:59 14:59 Intake Total 0 Output Total 100 Balance -100 Intake: Blood Product 0 Rc As-1 Unit 0 [id number] Output: Urine 100 Uretheral (Telles) 100 Other: Weight 158.757 kg General appearance: The patient is alert, oriented, appears in no acute distress. HET: Head is normocephalic and atraumatic. Conjunctiva pink. Sclera anicteric. Neck: Supple without lymphadenopathy. Trachea midline. Heart: Regular. Lungs: Equal expansion, normal respiratory effort. Abdomen: Soft, nontender, nondistended. Skin: No rashes. No jaundice. Extremities: Normal skin color and turgor. No pedal edema. Neurological: No focal deficits. Alert and oriented x3. Results CBC & Chem 7: 07/01/24 06:22 07/01/24 06:22 Labs: Abnormal Lab Results - Last 24 Hours (Table) 07/01/24 07/01/24 07/01/24 Range/Units 06:22 06:22 06:22 WBC 21.2 H (3.8-10.6) k/uL RBC 3.14 L (4.30-5.90) m/uL Hgb 10.3 L (13.0-17.5) gm/dL Hct 31.6 L (39.0-53.0) % MCV 100.8 H (80.0-100.0) fL Neutrophils # 18.0 H (1.3-7.7) k/uL APTT 21.1 L (22.0-30.0) sec Sodium 136 L (137-145) mmol/L Potassium 5.8 H (3.5-5.1) mmol/L Carbon Dioxide 20 L (22-30) mmol/L BUN 90 H (9-20) mg/dL Creatinine 1.82 H (0.66-1.25) mg/dL Glucose 189 H (74-99) mg/dL Plasma Lactic Acid Javier (0.7-2.0) mmol/L Alkaline Phosphatase 32 L (38-126) U/L Total Protein 5.6 L (6.3-8.2) g/dL Albumin 3.4 L (3.5-5.0) g/dL Crossmatch 07/01/24 07/01/24 Range/Units 06:22 06:22 WBC (3.8-10.6) k/uL RBC (4.30-5.90) m/uL Hgb (13.0-17.5) gm/dL Hct (39.0-53.0) % MCV (80.0-100.0) fL Neutrophils # (1.3-7.7) k/uL APTT (22.0-30.0) sec Sodium (137-145) mmol/L Potassium (3.5-5.1) mmol/L Carbon Dioxide (22-30) mmol/L BUN (9-20) mg/dL Creatinine (0.66-1.25) mg/dL Glucose (74-99) mg/dL Plasma Lactic Acid Javier 7.6 H* (0.7-2.0) mmol/L Alkaline Phosphatase (38-126) U/L Total Protein (6.3-8.2) g/dL Albumin (3.5-5.0) g/dL Crossmatch See Detail Assessment and Plan (1) GI bleed Narrative/Plan: 69-year-old male on Eliquis for atrial fibrillation who also takes meloxicam for chronic back pain as well as ibuprofen as needed presenting with coffee-ground emesis and black stool. Patient with acute kidney injury and elevated BUN. Likely upper GI source need to consider possible peptic ulcer disease, esophagitis, gastritis, AVM or other possible etiologies. Patient with recent colonoscopy in the last 3 years for history of colon polyps. Recommend PPI, keep n.p.o. and will evaluate further with upper endoscopy. Current Visit: Yes Status: Acute Code(s): K92.2 - GASTROINTESTINAL HEMORRHAGE, UNSPECIFIED SNOMED Code(s): 48714139 (2) Symptomatic anemia Current Visit: Yes Status: Acute Code(s): D64.9 - ANEMIA, UNSPECIFIED SNOMED Code(s): 878986241 (3) Hypotension Current Visit: Yes Status: Acute Code(s): I95.9 - HYPOTENSION, UNSPECIFIED SNOMED Code(s): 25595933 (4) Atrial fibrillation Narrative/Plan: Hold Eliquis Current Visit: Yes Status: Acute Code(s): I48.91 - UNSPECIFIED ATRIAL FIBRILLATION SNOMED Code(s): 1955 Plan: 1. Continue symptomatic and supportive care 2. Hold Eliquis 3. Repeat CBC at 1400 4. Daily CBC, transfuse for hemoglobin less than 7 5. Keep NG tube in place 6. Protonix 40 mg twice daily 7. Avoid NSAIDs 8. Will plan for upper endoscopy today 9. 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 Dr. Ben Daniel I agree with the dictator's note, documented as a scribe by Elsi Milton.
--- NOTE | 2024-07-01 12:38 | P.CNPUL ---
History of Present Illness Consult date: 07/01/24 Chief complaint: GI bleeding History of present illness: This is a 69-year-old morbidly obese male patient with a body mass index of 44.9 who has been maintained on anticoagulation and the patient was taking Eliquis on outpatient basis for history of atrial fibrillation. The patient also has diabetes mellitus type 2, hypertension, hyperlipidemia and osteoarthritis for which she was taken anti-inflammatory medications in the form of meloxicam. The patient has obstructive sleep apnea in addition. He presented to the emergency department with hematemesis and passing out dark tarry stool. The patient stated that he was nauseous and he was having emesis and he was coughing up coffee-ground material. In the emergency department, the patient was quite tachycardic. He was also noted to be hypotensive. He was given 1 L normal saline bolus and started on normal saline at rate of 150 cc an hour. He was given a unit of packed RBC and NG tube was also inserted and the output is minimal at this point in time. His heart rate currently is in the 130 range and the patient is in atrial fibrillation with rapid ventricular response. In the emergency, the patient's anticoagulation was reversed and the patient was given Balfaxar. He was started also on IV Protonix. No abdominal pain. Abdominal tenderness. His last colonoscopy was done October 2020 and he was found to have colonic polyps and he has undergone polypectomy and is previous history of diverticulosis. His hemoglobin at time of admission was 10.3. In terms of his blood work, his white cell count is at 21.2 with a hemoglobin 10.3 and a platelet count of 273. Normal coagulation profile. BUN was 19 with a creatinine of 1.8 and a sodium level of 136 and a potassium level is at 5.8. Initial venous lactic acid level was at 7.6 dropped down to 1.5, troponins were negative, LFTs are within normal limits, lipase was 45. UA was essentially negative. He takes lithium for bipolar disorder and the patient's lithium level was at 0.8. He also takes a combination of Effexor and Zyprexa on an outpatient basis. GI services have been consulted. Review of Systems CARDIOPULMONARY: No chest pain or shortness of breath. Gastrointestinal: No abdominal pain. Nausea and vomiting with coffee-ground emesis. Black stool. GENITOURINARY: No dysuria or hematuria. MUSCULOSKELETAL: Reports normal range of motion., Joint pain. SKIN: No rashes. No jaundice. ENDOCRINE: No chills, fevers. No excessive weight gain or loss. No polydipsia or polyuria. PSYCHIATRIC: Unremarkable. NEUROLOGY: No change in mental status. Denies dizziness, headache. ENT: Vision unremarkable. CONSTITUTIONAL: No recent weight loss. No fever, chills, night sweats. Past Medical History Past Medical History: Atrial Fibrillation, Diabetes Mellitus, GERD/Reflux, Hyperlipidemia, Hypertension, Osteoarthritis (OA), Sleep Apnea/CPAP/BIPAP Additional Past Medical History / Comment(s): seizure two yrs ago from major depressive disorder, hemorrhoids, herniated disc, TOOTH ACHE AT PRESENT Cellulitis and abscess of mouth. Mediastinitis secondary to mouth abscess; IV antibiotic therapy History of Any Multi-Drug Resistant Organisms: None Reported Past Surgical History: Adenoidectomy, Hernia Repair, Tonsillectomy Additional Past Surgical History / Comment(s): epidural. Abscessed teeth pulled at [place] [id number]. Chest tube drain. Past Anesthesia/Blood Transfusion Reactions: No Reported Reaction Past Psychological History: Depression Smoking Status: Current some day smoker Past Alcohol Use History: Rare Past Drug Use History: None Reported - Past Family History Mother Family Medical History: No Reported History Medications and Allergies Home Medications Medication Instructions Recorded Confirmed Type [place] Carbonate 1,200 mg PO HS 08/02/17 07/01/24 History Apixaban [Eliquis] 5 mg PO BID 10/16/20 07/01/24 History Losartan/Hydrochlorothiazide 1 tab PO DAILY 07/01/24 07/01/24 History [Hyzaar 100-12.5 Tablet] Meloxicam [Mobic] 15 mg PO DAILY 07/01/24 07/01/24 History OLANZapine [ZyPREXA] 7.5 mg PO HS 07/01/24 07/01/24 History Venlafaxine HCl [Effexor XR] 225 mg PO DAILY 07/01/24 07/01/24 History Allergies Allergy/AdvReac Type Severity Reaction Status Date / Time No Known Allergies Allergy Verified 07/01/24 10:06 Physical Exam Vitals: Vital Signs Temp Pulse Resp BP Pulse Ox 07/01/24 12:15 152 H 20 91/69 94 L 07/01/24 12:00 137 H 22 84/33 98 07/01/24 11:45 140 H 16 95/59 99 07/01/24 11:30 11 L 103/74 98 07/01/24 11:24 98.4 F 134 H 21 96 07/01/24 11:00 99 07/01/24 10:43 130 H 20 107/60 98 07/01/24 10:34 98.1 F 135 H 20 106/54 98 07/01/24 10:00 97.9 F 140 H 20 114/61 96 07/01/24 09:32 36.1 F L 128 H 20 106/70 07/01/24 09:18 122 H 20 105/75 97 07/01/24 09:00 125 H 20 97/54 98 07/01/24 08:39 94.6 F L 134 H 22 88/62 97 07/01/24 08:23 96.8 F L 126 H 22 92/57 100 07/01/24 08:01 96.4 F L 128 H 24 109/97 97 07/01/24 07:45 129 H 24 106/59 99 07/01/24 07:32 96.6 F L 128 H 24 94/49 07/01/24 07:27 119 H 26 H 93/38 98 07/01/24 07:12 96.3 F L 130 H 24 89/50 07/01/24 07:03 95.5 F L 114 H 26 H 78/30 98 07/01/24 06:55 96.1 F L 112 H 16 70/48 97 07/01/24 06:46 95.9 F L 07/01/24 06:42 100 16 68/44 100 07/01/24 06:19 133 H 37 H 70/46 100 Intake and Output 06/30/24 07/01/24 07/01/24 22:59 06:59 14:59 Intake Total 322.887 Output Total 100 Balance 222.887 Intake: Intake, IV Titration 12.887 Amount Norepinephrine 32 mg In 12.887 Sodium Chloride 0.9% 218 ml @ 0.03 MCG/KG/MIN 2. 233 mls/hr IV .Q24H [facility] Rx#:[id number] Blood Product 310 Rc As-1 Unit 310 [id number] Output: Urine 100 Uretheral (Telles) 100 Other: Weight 158.757 kg 158.757 kg The patient appeared well nourished and normally developed. Vital signs as documented. The patient is morbidly obese with a BMI of 44.9. No significant respiratory distress. Head exam is unremarkable. No scleral icterus or corneal arcus noted. Neck is without jugular venous distension, thyromegaly, or carotid bruits. Carotid upstrokes are brisk bilaterally. Lungs are clear to auscultation and percussion. Cardiac exam reveals the PMI to be normally sized and situated. Rhythm is regular. First and second heart sounds normal. No murmurs, rubs or gallops. Abdominal exam reveals normal bowel sounds, no masses, no organomegaly and no aortic enlargement. Patient is obese. Abdomen cannot be accurately palpated. No direct tenderness no rebound tenderness or guarding Extremities are nonedematous and both femoral and pedal pulses are normal. Examination of the skin revealed no evidence of significant rashes, suspicious appearing nevi or other concerning lesions. Neurologically, the patient is awake and alert and the patient does not have any focal neurological deficit. Cranial nerves are essentially intact. Results - Laboratory Findings CBC and BMP: 07/01/24 06:22 07/01/24 06:22 PT/INR, D-dimer PT 12.1 sec (10.0-12.5) 07/01/24 06:22 INR 1.1 (<1.2) 07/01/24 06:22 Abnormal lab findings: Abnormal Labs 07/01/24 07/01/24 07/01/24 06:22 06:22 06:22 WBC 21.2 H RBC 3.14 L Hgb 10.3 L Hct 31.6 L MCV 100.8 H Neutrophils # 18.0 H APTT 21.1 L Sodium 136 L Potassium 5.8 H Carbon Dioxide 20 L BUN 90 H Creatinine 1.82 H Glucose 189 H Plasma Lactic Acid Javier Alkaline Phosphatase 32 L Total Protein 5.6 L Albumin 3.4 L Urine Ketones Ur Leukocyte Esterase Calcium Oxalate Crystal Hyaline Casts Urine Mucus Crossmatch 07/01/24 07/01/24 07/01/24 06:22 06:22 09:00 WBC RBC Hgb Hct MCV Neutrophils # APTT Sodium Potassium Carbon Dioxide BUN Creatinine Glucose Plasma Lactic Acid Javier 7.6 H* Alkaline Phosphatase Total Protein Albumin Urine Ketones Trace H Ur Leukocyte Esterase Small H Calcium Oxalate Crystal Rare H Hyaline Casts 6 H Urine Mucus Rare H Crossmatch See Detail - Diagnostic Findings Chest x-ray: image reviewed Assessment and Plan Plan: Acute GI bleeding, likely of a upper GI source as the patient has been having coffee-ground emesis along with melanotic black tarry stool. The patient has been anticoagulated with Eliquis and the patient has been taking meloxicam on outpatient basis. He is known to have previous history of colonic polyps and has undergone previous polypectomy back in 2020 and is also noted to have diverticulosis. Patient was given Balfaxar and is currently on IV Protonix. Acute hypovolemic hypotension, currently on IV fluids with normal saline at rate of 150s an hour and the patient was given a unit of packed RBC Symptomatic anemia with a hemoglobin of 10.3 at the time of admission Atrial fibrillation with rapid ventricular response secondary to hypovolemia and blood loss. The patient is known to have chronic atrial fibrillation Morbid obesity BMI 44.9 Obstructive sleep apnea Hypertension Hyperlipidemia Diabetes mellitus type 2 History of major depression/bipolar disorder Chronic back pain with herniated disks Acute lactic acidosis, improved with fluid resuscitation Acute leukocytosis, likely reactive Acute kidney injury and the creatinine is up to 1.8 from a normal baseline back in 2022 Plan Keep the patient n.p.o. for now. Patient has NG tube in place which will be attached to low intermittent suction. Monitor hemoglobin every 4 hours Transfuse should there be any drop in the hemoglobin Consult gastroenterology Hold anticoagulation and the patient was given Balfaxar Continue IV Protonix Normal saline at rate of 150 cc an hour Monitor renal function Monitor hemoglobin and the white cell count Hold all form of nonsteroidal anti-inflammatory medications Will monitor this patient in the intensive care unit. EGD as soon as possible to localize site of bleed.
[2024-07-01 13:05] LABS: Basophils % (A) 0 %; Eosinophils % (A) 0 %; HCT 30.9 % (39.0-53.0); HGB 10.2 gm/dL (13.0-17.5); Lymphocytes # (A) 1.6 k/uL (1.0-4.8); Lymphocytes % (A) 7 %; MCH 32.6 pg (25.0-35.0); MCV 98.7 fL (80.0-100.0); Mean Platelet Volume 8.8; Monocytes # (A) 1.2 k/uL (0-1.0); Monocytes % (A) 5 %; Neutrophils # (A) 20.1 k/uL (1.3-7.7); Neutrophils % (A) 87 %; Platelet Count 271 k/uL (150-450); RBC 3.13 m/uL (4.30-5.90); RDW 14.1 % (11.5-15.5); WBC 23.2 k/uL (3.8-10.6)
[2024-07-01] MEDS ORDERED: KETAMINE HCL IN 0.9 % NACL 50 MG/5 ML SYRINGE ONE (13:13)
[2024-07-01] MEDS ORDERED: PROPOFOL 10 MG/ML 20 ML VIAL IV ONE (13:13)
[2024-07-01] MEDS ORDERED: LIDOCAINE HCL/PF 20 MG/ML 10 ML AMP ONE (13:13)
[2024-07-01] MEDS ORDERED: GLYCOPYRROLATE 0.2 MG/ML 2 ML VIAL ONE (13:13)
--- NOTE | 2024-07-01 14:07 | P.PCN ---
Date of Procedure: 07/01/24 Procedure(s) Performed: BRIEF HISTORY: Patient is a 69-year-old, pleasant, white male present to the emergency room with multiple episodes of coffee-ground emesis and melena.. Hemoglobin was 10 g/dL. He has history of A-fib on Eliquis and the last dose was yesterday morning. He was hemodynamically stable hence received 1 unit of PRBC transfusion presently on IV pressors. He is scheduled for an upper endoscopy on an emergency basis in the intensive care unit PROCEDURE PERFORMED: Esophagogastroduodenoscopy biopsy. PREOPERATIVE DIAGNOSIS: Acute upper GI bleed. IV sedation per anesthesia. PROCEDURE: After informed consent was obtained, the patient was brought into the endoscopy unit. IV sedation was administered by Anesthesia under continuous monitoring. Initially the Olympus GIF-140 video endoscope was inserted into the mouth. Esophagus intubated without any difficulty. It was gradually advanced into the stomach and duodenum and carefully examined. The bulb and the second part of the duodenum appeared normal. The scope at this time was withdrawn to the stomach, adequately insufflated with air, and upon careful examination, mucosa of the antrum had 2 nonbleeding antral ulcers measuring 5 mm and 1 cm in size with a clean base and no stigmata of active bleed. Rest of the body, card ia and the fundus appeared normal. There were scattered antral erosions identified. Biopsies were done from this area to evaluate for H. pylori infection. The scope was then withdrawn into the esophagus. The GE junction was located at 39 cm from the incisors. The esophagus appeared normal. There were no erosions or ulcerations seen and the patient tolerated the procedure well. IMPRESSION: 1. 2 nonbleeding antral ulcers measuring between 5 mm and 1 cm in size with a clean base and no stigmata of active bleeding. 2. Antral erosive gastritis. RECOMMENDATIONS: The findings of this examination were discussed with the patient. He will be started on clear liquid diet. Continue with IV Protonix 40 mg to twice daily. Monitor CBC every 6 hours and transfuse as needed. Continue to have hold Eliquis for 2 more days.
--- NOTE | 2024-07-01 15:26 | P.HPIM ---
History of Present Illness H&P Date: 07/01/24 Chief Complaint: Acute GI bleed This is a 69-year-old gentleman with past medical history significant for atrial fibrillation, on Eliquis, diabetes mellitus, gastroesophageal reflux disease, hypertension, hyperlipidemia, osteoarthritis, morbid obesity, obstructive sleep apnea, chronic back pain-takes meloxicam daily as well as as needed ibuprofen ,seizures, major depressive disorder, bipolar disorder ,ongoing nicotine dependence multiple other medical issues presented to the ER with nausea, vomiting, coffee ground emesis and melena stools that began yesterday afternoon. Patient reports on Monday he was not feeling well and by Monday he felt wet and cold, developed nausea and vomiting of coffee ground emesis, developed dark brown/black diarrhea with minimal abdominal pain. On admission hemoglobin 10.3, platelets 273, coffee-ground emesis persisted, NG tube placed. Tachycardic, hypotensive, IV fluid resuscitation, Levophed initiated. Currently receiving 1 unit of packed RBCs. Core temperature on admission 36.1 Fahrenheit, wearing warming blanket. WBC 21.2, MCV 100.8, INR 1.1, sodium 136, potassium 5.8, bicarb 20, BUN 90, creatinine 1.82, glucose 189, lactic acid 7.6, corrected currently 1.5 with IV fluid resuscitation. Magnesium 1.9, alk phos 32, total protein 5.6, albumin 3.4, lipase 45. UA reports negative nitrates, small leukocytes, 3 WBCs, 6 hyaline casts. Pindall level 0.8 (therapeutic level 0.6- 1.2). Chest x-ray reports possible left basilar acute infiltrate and/or atelectasis. Troponin negative x 1, EKG reports atrial fibrillation with RVR. Review of Systems ROS Statement: Those systems with pertinent positive or pertinent negative responses have been documented in the HPI. ROS Other: All systems not noted in ROS Statement are negative. Past Medical History Past Medical History: Atrial Fibrillation, Diabetes Mellitus, GERD/Reflux, Hyperlipidemia, Hypertension, Osteoarthritis (OA), Sleep Apnea/CPAP/BIPAP Additional Past Medical History / Comment(s): seizure two yrs ago from major d epressive disorder, hemorrhoids, herniated disc, TOOTH ACHE AT PRESENT Cellulitis and abscess of mouth. Mediastinitis secondary to mouth abscess; IV antibiotic therapy History of Any Multi-Drug Resistant Organisms: None Reported Past Surgical History: Adenoidectomy, Hernia Repair, Tonsillectomy Additional Past Surgical History / Comment(s): epidural. Abscessed teeth pulled at [place] [id number]. Chest tube drain. Past Anesthesia/Blood Transfusion Reactions: No Reported Reaction Past Psychological History: Depression Smoking Status: Current some day smoker Past Alcohol Use History: Rare Past Drug Use History: None Reported - Past Family History Mother Family Medical History: No Reported History Medications and Allergies Home Medications Medication Instructions Recorded Confirmed Type Pindall Carbonate 1,200 mg PO HS 08/02/17 07/01/24 History Apixaban [Eliquis] 5 mg PO BID 10/16/20 07/01/24 History Losartan/Hydrochlorothiazide 1 tab PO DAILY 07/01/24 07/01/24 History [Hyzaar 100-12.5 Tablet] Meloxicam [Mobic] 15 mg PO DAILY 07/01/24 07/01/24 History OLANZapine [ZyPREXA] 7.5 mg PO HS 07/01/24 07/01/24 History Venlafaxine HCl [Effexor XR] 225 mg PO DAILY 07/01/24 07/01/24 History Allergies Allergy/AdvReac Type Severity Reaction Status Date / Time No Known Allergies Allergy Verified 07/01/24 10:06 Physical Exam Vitals: Vital Signs Temp Pulse Resp BP Pulse Ox 07/01/24 13:00 128 H 12 102/58 98 07/01/24 12:45 140 H 22 117/76 99 07/01/24 12:30 113 H 9 L 97/64 99 07/01/24 12:15 152 H 20 91/69 94 L 07/01/24 12:00 137 H 22 84/33 98 07/01/24 11:45 140 H 16 95/59 99 07/01/24 11:30 11 L 103/74 98 07/01/24 11:24 98.4 F 134 H 21 96 07/01/24 11:00 99 07/01/24 10:43 130 H 20 107/60 98 07/01/24 10:34 98.1 F 135 H 20 106/54 98 07/01/24 10:00 97.9 F 140 H 20 114/61 96 07/01/24 09:32 36.1 F L 128 H 20 106/70 07/01/24 09:18 122 H 20 105/75 97 07/01/24 09:00 125 H 20 97/54 98 07/01/24 08:39 94.6 F L 134 H 22 88/62 97 07/01/24 08:23 96.8 F L 126 H 22 92/57 100 07/01/24 08:01 96.4 F L 128 H 24 109/97 97 07/01/24 07:45 129 H 24 106/59 99 07/01/24 07:32 96.6 F L 128 H 24 94/49 07/01/24 07:27 119 H 26 H 93/38 98 07/01/24 07:12 96.3 F L 130 H 24 89/50 07/01/24 07:03 95.5 F L 114 H 26 H 78/30 98 07/01/24 06:55 96.1 F L 112 H 16 70/48 97 07/01/24 06:46 95.9 F L 07/01/24 06:42 100 16 68/44 100 07/01/24 06:19 133 H 37 H 70/46 100 Intake and Output 06/30/24 07/01/24 07/01/24 22:59 06:59 14:59 Intake Total 772.887 Output Total 425 Balance 347.887 Intake: IV 450 Sodium Chloride 0.9% 1, 450 000 ml @ 150 mls/hr IV . Q6H40M [facility]ES Rx#:[id number] Intake, IV Titration 12.887 Amount Norepinephrine 32 mg In 12.887 Sodium Chloride 0.9% 218 ml @ 0.03 MCG/KG/MIN 2. 233 mls/hr IV .Q24H [facility]ES Rx#:[id number] Blood Product 310 Rc As-1 Unit 310 [id number] Output: Urine 425 Uretheral (Telles) 100 Other: Weight 158.757 kg 158.757 kg PHYSICAL EXAM: VITAL SIGNS: [Reviewed] GENERAL: Alert and oriented x 3, obese, no acute distress. HEENT: Normocephalic, atraumatic, conjunctivae normal. eyes normal. Sclera icteric. NECK: Supple, no JVD. No thyroid enlargement. No LNs CARDIOVASCULAR: S1, S2 regular.. No murmur RESPIRATION: Unlabored, equal air entry, clear to auscultation , bilateral bases diminished. ABDOMEN: Soft, obese, nondistended, nontender . No guarding. No rebound tenderness. LEGS: No edema. no swelling NERVOUS SYSTEM: Cranial N 2-12 grossly normal. No focal deficits. Skin: No rash noted. Results CBC & Chem 7: 07/01/24 12:38 07/01/24 12:38 Labs: Abnormal Lab Results - Last 24 Hours (Table) 07/01/24 07/01/24 07/01/24 Range/Units 06:22 06:22 06:22 WBC 21.2 H (3.8-10.6) k/uL RBC 3.14 L (4.30-5.90) m/uL Hgb 10.3 L (13.0-17.5) gm/dL Hct 31.6 L (39.0-53.0) % MCV 100.8 H (80.0-100.0) fL Neutrophils # 18.0 H (1.3-7.7) k/uL Monocytes # (0-1.0) k/uL APTT 21.1 L (22.0-30.0) sec Sodium 136 L (137-145) mmol/L Potassium 5.8 H (3.5-5.1) mmol/L Carbon Dioxide 20 L (22-30) mmol/L BUN 90 H (9-20) mg/dL Creatinine 1.82 H (0.66-1.25) mg/dL Glucose 189 H (74-99) mg/dL Plasma Lactic Acid Javier (0.7-2.0) mmol/L Alkaline Phosphatase 32 L (38-126) U/L Total Protein 5.6 L (6.3-8.2) g/dL Albumin 3.4 L (3.5-5.0) g/dL Urine Ketones (Negative) Ur Leukocyte Esterase (Negative) Calcium Oxalate Crystal (None) /hpf Hyaline Casts (0-2) /lpf Urine Mucus (None) /hpf Crossmatch 07/01/24 07/01/24 07/01/24 Range/Units 06:22 06:22 09:00 WBC (3.8-10.6) k/uL RBC (4.30-5.90) m/uL Hgb (13.0-17.5) gm/dL Hct (39.0-53.0) % MCV (80.0-100.0) fL Neutrophils # (1.3-7.7) k/uL Monocytes # (0-1.0) k/uL APTT (22.0-30.0) sec Sodium (137-145) mmol/L Potassium (3.5-5.1) mmol/L Carbon Dioxide (22-30) mmol/L BUN (9-20) mg/dL Creatinine (0.66-1.25) mg/dL Glucose (74-99) mg/dL Plasma Lactic Acid Javier 7.6 H* (0.7-2.0) mmol/L Alkaline Phosphatase (38-126) U/L Total Protein (6.3-8.2) g/dL Albumin (3.5-5.0) g/dL Urine Ketones Trace H (Negative) Ur Leukocyte Esterase Small H (Negative) Calcium Oxalate Crystal Rare H (None) /hpf Hyaline Casts 6 H (0-2) /lpf Urine Mucus Rare H (None) /hpf Crossmatch See Detail 07/01/24 Range/Units 12:38 WBC 23.2 H (3.8-10.6) k/uL RBC 3.13 L (4.30-5.90) m/uL Hgb 10.2 L (13.0-17.5) gm/dL Hct 30.9 L (39.0-53.0) % MCV (80.0-100.0) fL Neutrophils # 20.1 H (1.3-7.7) k/uL Monocytes # 1.2 H (0-1.0) k/uL APTT (22.0-30.0) sec Sodium (137-145) mmol/L Potassium (3.5-5.1) mmol/L Carbon Dioxide (22-30) mmol/L BUN (9-20) mg/dL Creatinine (0.66-1.25) mg/dL Glucose (74-99) mg/dL Plasma Lactic Acid Javier (0.7-2.0) mmol/L Alkaline Phosphatase (38-126) U/L Total Protein (6.3-8.2) g/dL Albumin (3.5-5.0) g/dL Urine Ketones (Negative) Ur Leukocyte Esterase (Negative) Calcium Oxalate Crystal (None) /hpf Hyaline Casts (0-2) /lpf Urine Mucus (None) /hpf Crossmatch Thrombosis Risk Factor Assmnt - Choose All That Apply Each Factor Represents 1 point: Abnormal pulmonary function (COPD), Heart failure (<1month), Medical pt on bed rest, Obesity (BMI >25), Sepsis (< 1month), Swollen legs (current) Each Risk Factor Represents 2 Points: Age 61-74 years Thrombosis Risk Factor Assessment Total Risk Factor Score: 8 Thrombosis Risk Factor Assessment Level: High Risk Assessment and Plan Assessment: Acute GI bleed, coffee-ground emesis breath melena stools, in a patient with history of diverticulosis, on Eliquis, suspect upper GI source, EGD pending Symptomatic anemia Hypothermia on bear hugger Hypovolemic hypotension Acute renal failure, baseline creat 1.4 Acute lactic acidosis, resolved with fluid resuscitation Acute on chronic atrial fibrillation with RVR secondary to all the above Morbid obesity, BMI 45 Obstructive sleep apnea Hypertension Hyperlipidemia History of bipolar disorder, major depressive disorder Chronic back pain on Mobic's and as needed NSAIDs Plan: Continue on current medication regimen ,monitoring and symptomatic treatment. Eliquis on hold. No NSAIDs. GI prophylaxis with IV PPI twice daily ordered. Serial CBCs. Maintain NG tube, scheduled for EGD today with GI. ICU management/pressor support as per ticker wirer. The impression and plan of care has been dictated as directed. : I performed a history and examination of this patient, discussed the same with the dictator. I agree with the dictator's note ,documented as a scribe. Any additional findings or plans will be noted.
[2024-07-01] MEDS: DEXTROSE 5% IN WATER 100 ML with AMIODARONE 150 MG IV ONE (16:06)
[2024-07-01] MEDS: AMIODARONE 360 MG in DEXTROSE 5% IN WATER 200 ML IV ONE (16:37)
[2024-07-01 16:38] LABS: ABG Base Excess 2.7 mmol/L; ABG HCO3 27 mmol/L (21-25); ABG Oxygen Saturation 97.1 % (94-97); ABG PCO2 39 mmHg (35-45); ABG PH 7.45 (7.35-7.45); ABG PO2 83 mmHg (83-108); ABG TCO2 28 mmol/L (19-24); Allen Test Performed? Yes
[2024-07-01 16:56] LABS: Glucose,Whole Blood 172 mg/dL (70-110)
[2024-07-01] MEDS ORDERED: ZINC OXIDE PASTE (Z-GUARD) 1 APPLIC TOPICAL PRN (17:49)
[2024-07-01] MEDS: PANTOPRAZOLE 40 MG/10 ML VIAL IVP SCH (20:24)
[2024-07-01] MEDS: AMIODARONE 450 MG in DEXTROSE 5% IN WATER 250 ML IV SCH (22:12)
[2024-07-02 00:14] LABS: Glucose,Whole Blood 160 mg/dL (70-110)
[2024-07-02] MEDS: MELATONIN 5 MG TABLET PO SCH (00:26)
[2024-07-02 05:55] LABS: Glucose,Whole Blood 191 mg/dL (70-110)
[2024-07-02 06:18] LABS: Basophils % (A) 0 %; Eosinophils # (A) 0.1 k/uL (0-0.7); Eosinophils % (A) 0 %; HCT 26.8 % (39.0-53.0); HGB 8.9 gm/dL (13.0-17.5); Lymphocytes # (A) 1.2 k/uL (1.0-4.8); Lymphocytes % (A) 8 %; MCH 33.1 pg (25.0-35.0); MCHC 33.3 g/dL (31.0-37.0); MCV 99.6 fL (80.0-100.0); Macrocytosis Slight; Mean Platelet Volume 8.7; Monocytes # (A) 0.8 k/uL (0-1.0); Monocytes % (A) 5 %; Neutrophils # (A) 11.8 k/uL (1.3-7.7); Neutrophils % (A) 84 %; Platelet Count 213 k/uL (150-450); RDW 14.2 % (11.5-15.5)
[2024-07-02 06:38] LABS: ALT 21 U/L (4-49); AST 23 U/L (17-59); African American GFR (CKD) 80 (>60 ml/min/1.73 sqM); Albumin 2.8 g/dL (3.5-5.0); Alkaline Phosphatase 56 U/L (38-126); Anion Gap 2 mmol/L; Blood Urea Nitrogen 58 mg/dL (9-20); Calcium 7.9 mg/dL (8.4-10.2); Carbon Dioxide 31 mmol/L (22-30); Chloride 108 mmol/L (98-107); Glucose 163 mg/dL (74-99); Non-African American GFR(CKD) 69 (>60 ml/min/1.73 sqM); Potassium 4.5 mmol/L (3.5-5.1); Sodium 141 mmol/L (137-145); Total Bilirubin 0.6 mg/dL (0.2-1.3); Total Protein 4.8 g/dL (6.3-8.2)
[2024-07-02] MEDS: VENLAFAXINE HCL ER 75 MG CAP PO SCH (10:07)
[2024-07-02] MEDS: METOPROLOL TARTRATE 25 MG TAB PO SCH (10:15)
--- NOTE | 2024-07-02 11:57 | P.PN ---
Subjective Progress Note Date: 07/02/24 Principal diagnosis: GI bleed This is a pleasant 69-year-old male with a past medical history including atrial fibrillation on Eliquis, diabetes mellitus, GERD, hyperlipidemia, hypertension, osteoarthritis and obstructive sleep apnea who had presented to the emergency department with complaints of nausea and vomiting and black stool. Patient is being seen in the emergency department awaiting a bed in the ICU. He states that he started having nausea and vomiting yesterday afternoon and had coffee- ground emesis. He also was complaining of weakness. He came in for further evaluation with concerns for possible GI bleed. He has no history of previous peptic ulcer disease, no history of GI bleed. He does take 8 Eliquis for his atrial fibrillation last dose was yesterday morning he also reports that he takes meloxicam daily as well as ibuprofen as needed. Last colonoscopy was done in October [address] Dodge for history of colon polyps. He was status post polypectomy also with findings of diverticulosis. On admission patient had a hemoglobin of 10.3 with coffee-ground emesis, NG tube was placed and there is maroon-colored blood in the tubing however nothing in the canister. Patient states he was also having some black stool. He denies any abdominal pain. Patient was hypotensive and was started on pressor support and is waiting a bed for the ICU. Patient is currently getting blood transfusion. 07/02/2024 Patient seen and examined today as a follow-up. Yesterday he underwent an upper endoscopy with findings of 2 nonbleeding antral ulcers and antral erosive gastritis. Patient denies any bowel movements today no further coffee-ground emesis or hematemesis. He denies any abdominal pain. Hemoglobin stable at 8.9. BUN improving 58 down from 90 creatinine 1.09 Objective - Vital Signs Vital signs: Vital Signs Temp 99.3 F 07/02/24 04:00 Pulse 122 H 07/02/24 07:00 Resp 11 L 07/02/24 07:00 BP 97/62 07/02/24 07:00 Pulse Ox 98 07/02/24 07:00 FiO2 Intake & Output 07/01/24 07/02/24 07/02/24 18:59 06:59 18:59 Intake Total 2143.929 8575.030 91.66 Output Total 1650 2105 150 Balance 106.068 -471.970 -58.34 Weight 158.757 kg 157 kg Intake: IV 1399 1615.28 91.66 Amiodarone 360 mg In 99 132 Dextrose 5% in Water 200 ml @ 1 MG/MIN 33.333 mls/ hr IV .Q6H ONE Rx#: [id number] Amiodarone 450 mg In 0 133.28 16.66 Dextrose 5% in Water 250 ml @ 0.5 MG/MIN 16.667 mls/hr IV .Q15H [facility] Rx#: [id number] Dextrose 5% in Water 100 100 ml @ 618 mls/hr IV .Q10M ONE with Amiodarone 150 mg Rx#:[id number] Sodium Chloride 0.9% 1, 1200 1350 75 000 ml @ 75 mls/hr IV . [id number] [facility] Rx#:[id number] Intake, IV Titration 47.068 17.750 Amount Norepinephrine 32 mg In 47.068 17.750 Sodium Chloride 0.9% 218 ml @ 0.03 MCG/KG/MIN 2. 233 mls/hr IV .Q24H [facility] Rx#:[id number] Blood Product 310 Rc As-1 Unit 310 [id number] Output: Urine 1650 2105 150 Uretheral (Telles) 100 Other: # Bowel Movements 1 - Exam General appearance: The patient is alert, oriented, appears in no acute distress. Morbidly obese. HET: Head is normocephalic and atraumatic. Conjunctiva pink. Sclera anicteric. Neck: Supple without lymphadenopathy. Abdomen: Soft, nontender, nondistended. Extremities: Normal skin color and turgor. No pedal edema Skin: No rashes, no jaundice Neurological: No focal deficits. Alert and oriented. - Labs CBC & Chem 7: 07/02/24 05:23 07/02/24 05:23 Labs: Abnormal Lab Results - Last 24 Hours (Table) 07/01/24 07/01/24 07/01/24 Range/Units 06:22 09:00 12:38 WBC 23.2 H (3.8-10.6) k/uL RBC 3.13 L (4.30-5.90) m/uL Hgb 10.2 L (13.0-17.5) gm/dL Hct 30.9 L (39.0-53.0) % Neutrophils # 20.1 H (1.3-7.7) k/uL Monocytes # 1.2 H (0-1.0) k/uL ABG HCO3 (21-25) mmol/L ABG Total CO2 (19-24) mmol/L ABG O2 Saturation (94-97) % Hemoglobin (13.0-17.5) gm/dL Chloride (98-107) mmol/L Carbon Dioxide (22-30) mmol/L BUN (9-20) mg/dL Glucose (74-99) mg/dL POC Glucose (mg/dL) (70-110) mg/dL Calcium (8.4-10.2) mg/dL Total Protein (6.3-8.2) g/dL Albumin (3.5-5.0) g/dL Urine Ketones Trace H (Negative) Ur Leukocyte Esterase Small H (Negative) Calcium Oxalate Crystal Rare H (None) /hpf Hyaline Casts 6 H (0-2) /lpf Urine Mucus Rare H (None) /hpf Crossmatch See Detail 07/01/24 07/01/24 07/02/24 Range/Units 16:35 16:55 00:12 WBC (3.8-10.6) k/uL RBC (4.30-5.90) m/uL Hgb (13.0-17.5) gm/dL Hct (39.0-53.0) % Neutrophils # (1.3-7.7) k/uL Monocytes # (0-1.0) k/uL ABG HCO3 27 H (21-25) mmol/L ABG Total CO2 28 H (19-24) mmol/L ABG O2 Saturation 97.1 H (94-97) % Hemoglobin 10.2 L (13.0-17.5) gm/dL Chloride (98-107) mmol/L Carbon Dioxide (22-30) mmol/L BUN (9-20) mg/dL Glucose (74-99) mg/dL POC Glucose (mg/dL) 172 H 160 H (70-110) mg/dL Calcium (8.4-10.2) mg/dL Total Protein (6.3-8.2) g/dL Albumin (3.5-5.0) g/dL Urine Ketones (Negative) Ur Leukocyte Esterase (Negative) Calcium Oxalate Crystal (None) /hpf Hyaline Casts (0-2) /lpf Urine Mucus (None) /hpf Crossmatch 07/02/24 07/02/24 07/02/24 Range/Units 05:23 05:23 05:53 WBC 14.0 H (3.8-10.6) k/uL RBC 2.70 L (4.30-5.90) m/uL Hgb 8.9 L (13.0-17.5) gm/dL Hct 26.8 L (39.0-53.0) % Neutrophils # 11.8 H (1.3-7.7) k/uL Monocytes # (0-1.0) k/uL ABG HCO3 (21-25) mmol/L ABG Total CO2 (19-24) mmol/L ABG O2 Saturation (94-97) % Hemoglobin (13.0-17.5) gm/dL Chloride 108 H (98-107) mmol/L Carbon Dioxide 31 H (22-30) mmol/L BUN 58 H (9-20) mg/dL Glucose 163 H (74-99) mg/dL POC Glucose (mg/dL) 191 H (70-110) mg/dL Calcium 7.9 L (8.4-10.2) mg/dL Total Protein 4.8 L (6.3-8.2) g/dL Albumin 2.8 L (3.5-5.0) g/dL Urine Ketones (Negative) Ur Leukocyte Esterase (Negative) Calcium Oxalate Crystal (None) /hpf Hyaline Casts (0-2) /lpf Urine Mucus (None) /hpf Crossmatch Assessment and Plan (1) GI bleed Narrative/Plan: 69-year-old male on Eliquis for atrial fibrillation who also takes meloxicam for chronic back pain as well as ibuprofen as needed presenting with coffee-ground emesis and black stool. Patient with acute kidney injury and elevated BUN. Likely upper GI source need to consider possible peptic ulcer disease, esophagitis, gastritis, AVM or other possible etiologies. Patient with recent colonoscopy in the last 3 years for history of colon polyps. Patient is status post upper endoscopy with findings of 2 nonbleeding antral ulcers and antral erosive gastritis. Recommend Protonix twice daily. Continue to hold Eliquis. May resume Eliquis 07/04/2024 if no further bleeding. Current Visit: Yes Status: Acute Code(s): K92.2 - GASTROINTESTINAL HEMORRHAGE, UNSPECIFIED SNOMED Code(s): 66237892 (2) Symptomatic anemia Current Visit: Yes Status: Acute Code(s): D64.9 - ANEMIA, UNSPECIFIED SNOMED Code(s): 629538496 (3) Hypotension Current Visit: Yes Status: Acute Code(s): I95.9 - HYPOTENSION, UNSPECIFIED SNOMED Code(s): 39854429 (4) Atrial fibrillation Narrative/Plan: Hold Eliquis Current Visit: Yes Status: Acute Code(s): I48.91 - UNSPECIFIED ATRIAL FIBRILLATION SNOMED Code(s): 03977908 Plan: 1. Continue symptomatic and supportive care 2. Continue to hold Eliquis, may resume 07/04/2024 if no further bleeding 3. Daily CBC, transfuse for hemoglobin less than 7 4. May advance to full liquid diet 6. Protonix 40 mg twice daily 7. Avoid NSAIDs. This was discussed with patient to avoid NSAIDs secondary to risk of ulcers. Patient verbalized understanding. 8. Patient is status post upper endoscopy 9. Rest of medical management per ICU manager technical support/primary medical team Thank you for this consultation, we will continue to follow. Dr. Ben Daniel I agree with the dictator's note, documented as a scribe by Elsi Milton.
--- NOTE | 2024-07-02 16:33 | P.PN ---
Subjective Progress Note Date: 07/02/24 This is a 69-year-old morbidly obese male patient with a body mass index of 44.9 who has been maintained on anticoagulation and the patient was taking Eliquis on outpatient basis for history of atrial fibrillation. The patient also has diabetes mellitus type 2, hypertension, hyperlipidemia and osteoarthritis for which she was taken anti-inflammatory medications in the form of meloxicam. The patient has obstructive sleep apnea in addition. He presented to the emergency department with hematemesis and passing out dark tarry stool. The patient stated that he was nauseous and he was having emesis and he was coughing up coffee-ground material. In the emergency department, the patient was quite tachycardic. He was also noted to be hypotensive. He was given 1 L normal saline bolus and started on normal saline at rate of 150 cc an hour. He was given a unit of packed RBC and NG tube was also inserted and the output is minimal at this point in time. His heart rate currently is in the 130 range and the patient is in atrial fibrillation with rapid ventricular response. In the emergency, the patient's anticoagulation was reversed and the patient was given Balfaxar. He was started also on IV Protonix. No abdominal pain. Abdominal tenderness. His last colonoscopy was done October 2020 and he was found to have colonic polyps and he has undergone polypectomy and is previous history of diverticulosis. His hemoglobin at time of admission was 10.3. In terms of his blood work, his white cell count is at 21.2 with a hemoglobin 10.3 and a platelet count of 273. Normal coagulation profile. BUN was 19 with a creatinine of 1.8 and a sodium level of 136 and a potassium level is at 5.8. Initial venous lactic acid level was at 7.6 dropped down to 1.5, troponins were negative, LFTs are within normal limits, lipase was 45. UA was essentially negative. He takes lithium for bipolar disorder and the patient's lithium level was at 0.8. He also takes a combination of Effexor and Zyprexa on an outpatient basis. GI services have been consulted. On 07/02/2024, the patient is being seen for a follow-up. The patient was hospitalized for an acute GI bleed thought to be an upper GI bleeding. Noted the patient was taking anticoagulation with Eliquis and the patient was treated with Balfaxar and the patient received a total of 1 unit of packed RBC. Patient was also started on IV Protonix. The patient underwent a EGD by gastroenterology yesterday and the patient was found to have 2 nonbleeding antral ulcers measuring between 5 mm to 1 cm in size with a clean base and no stigmata for an active bleeding. There is also evidence of antral erosive russ ritis. Subsequently, overnight, the patient had 3 additional bowel movements that were bloody and the hemoglobin is currently down to 8.9. The patient denies having any nausea vomiting. No coffee-ground emesis for now. No reported abdominal pain. Hemodynamically, the patient is less tachycardic. The patient remains on IV fluids with normal saline at rate of 75 cc an hour. The creatinine is down to 1.09 and the BUN is down to 58. Rest of the electrolytes are stable and within normal limits. 1 seconds down to 14 and the most recent hemoglobin level is at 8.9. Platelet count is at 213. He remains atrial fibrillation. Remains on amiodarone drip at 0.5 mg/min for rate control. No anticoagulants for now. Will be started also on metoprolol for rate control. Patient is currently on no pressors. GI services remain on the case. Will continue the supportive care for now. Objective - Vital Signs Vital signs: Vital Signs Temp 99.3 F 07/02/24 04:00 Pulse 111 H 07/02/24 09:00 Resp 21 07/02/24 09:00 BP 106/91 07/02/24 09:00 Pulse Ox 100 07/02/24 09:00 FiO2 Intake & Output 07/01/24 07/02/24 07/02/24 18:59 06:59 18:59 Intake Total 2795.484 3410.030 91.66 Output Total 1650 2105 150 Balance 106.068 -471.970 -58.34 Weight 158.757 kg 157 kg Intake: IV 1399 1615.28 91.66 Amiodarone 360 mg In 99 132 Dextrose 5% in Water 200 ml @ 1 MG/MIN 33.333 mls/ hr IV .Q6H ONE Rx#: [id number] Amiodarone 450 mg In 0 133.28 16.66 Dextrose 5% in Water 250 ml @ 0.5 MG/MIN 16.667 mls/hr IV .Q15H ARIES Rx#: [id number] Dextrose 5% in Water 100 100 ml @ 618 mls/hr IV .Q10M ONE with Amiodarone 150 mg Rx#:[id number] Sodium Chloride 0.9% 1, 1200 1350 75 000 ml @ 75 mls/hr IV . [id number] [facility]ES Rx#:[id number] Intake, IV Titration 47.068 17.750 Amount Norepinephrine 32 mg In 47.068 17.750 Sodium Chloride 0.9% 218 ml @ 0.03 MCG/KG/MIN 2. 233 mls/hr IV .Q24H [facility]ES Rx#:[id number] Blood Product 310 Rc As-1 Unit 310 [id number] Output: Urine 1650 2105 150 Uretheral (Telles) 100 Other: # Bowel Movements 1 - Exam The patient appeared well nourished and normally developed. Vital signs as documented. The patient is morbidly obese with a BMI of 44.9. No significant respiratory distress. Head exam is unremarkable. No scleral icterus or corneal arcus noted. Neck is without jugular venous distension, thyromegaly, or carotid bruits. Carotid upstrokes are brisk bilaterally. Lungs are clear to auscultation and percussion. Cardiac exam reveals the PMI to be normally sized and situated. Irregular rhythm consistent with atrial fibrillation, rate is under better control . First and second heart sounds normal. No murmurs, rubs or gallops. Abdominal exam reveals normal bowel sounds, no masses, no organomegaly and no aortic enlargement. Patient is obese. Abdomen cannot be accurately palpated. No direct tenderness no rebound tenderness or guarding Extremities are nonedematous and both femoral and pedal pulses are normal. Examination of the skin revealed no evidence of significant rashes, suspicious appearing nevi or other concerning lesions. Neurologically, the patient is awake and alert and the patient does not have any focal neurological deficit. Cranial nerves are essentially intact. - Labs CBC & Chem 7: 07/02/24 05:23 07/02/24 05:23 Labs: Abnormal Lab Results - Last 24 Hours (Table) 07/01/24 07/01/24 07/01/24 Range/Units 06:22 09:00 12:38 WBC 23.2 H (3.8-10.6) k/uL RBC 3.13 L (4.30-5.90) m/uL Hgb 10.2 L (13.0-17.5) gm/dL Hct 30.9 L (39.0-53.0) % Neutrophils # 20.1 H (1.3-7.7) k/uL Monocytes # 1.2 H (0-1.0) k/uL ABG HCO3 (21-25) mmol/L ABG Total CO2 (19-24) mmol/L ABG O2 Saturation (94-97) % Hemoglobin (13.0-17.5) gm/dL Chloride (98-107) mmol/L Carbon Dioxide (22-30) mmol/L BUN (9-20) mg/dL Glucose (74-99) mg/dL POC Glucose (mg/dL) (70-110) mg/dL Calcium (8.4-10.2) mg/dL Total Protein (6.3-8.2) g/dL Albumin (3.5-5.0) g/dL Urine Ketones Trace H (Negative) Ur Leukocyte Esterase Small H (Negative) Calcium Oxalate Crystal Rare H (None) /hpf Hyaline Casts 6 H (0-2) /lpf Urine Mucus Rare H (None) /hpf Crossmatch See Detail 07/01/24 07/01/24 07/02/24 Range/Units 16:35 16:55 00:12 WBC (3.8-10.6) k/uL RBC (4.30-5.90) m/uL Hgb (13.0-17.5) gm/dL Hct (39.0-53.0) % Neutrophils # (1.3-7.7) k/uL Monocytes # (0-1.0) k/uL ABG HCO3 27 H (21-25) mmol/L ABG Total CO2 28 H (19-24) mmol/L ABG O2 Saturation 97.1 H (94-97) % Hemoglobin 10.2 L (13.0-17.5) gm/dL Chloride (98-107) mmol/L Carbon Dioxide (22-30) mmol/L BUN (9-20) mg/dL Glucose (74-99) mg/dL POC Glucose (mg/dL) 172 H 160 H (70-110) mg/dL Calcium (8.4-10.2) mg/dL Total Protein (6.3-8.2) g/dL Albumin (3.5-5.0) g/dL Urine Ketones (Negative) Ur Leukocyte Esterase (Negative) Calcium Oxalate Crystal (None) /hpf Hyaline Casts (0-2) /lpf Urine Mucus (None) /hpf Crossmatch 07/02/24 07/02/24 07/02/24 Range/Units 05:23 05:23 05:53 WBC 14.0 H (3.8-10.6) k/uL RBC 2.70 L (4.30-5.90) m/uL Hgb 8.9 L (13.0-17.5) gm/dL Hct 26.8 L (39.0-53.0) % Neutrophils # 11.8 H (1.3-7.7) k/uL Monocytes # (0-1.0) k/uL ABG HCO3 (21-25) mmol/L ABG Total CO2 (19-24) mmol/L ABG O2 Saturation (94-97) % Hemoglobin (13.0-17.5) gm/dL Chloride 108 H (98-107) mmol/L Carbon Dioxide 31 H (22-30) mmol/L BUN 58 H (9-20) mg/dL Glucose 163 H (74-99) mg/dL POC Glucose (mg/dL) 191 H (70-110) mg/dL Calcium 7.9 L (8.4-10.2) mg/dL Total Protein 4.8 L (6.3-8.2) g/dL Albumin 2.8 L (3.5-5.0) g/dL Urine Ketones (Negative) Ur Leukocyte Esterase (Negative) Calcium Oxalate Crystal (None) /hpf Hyaline Casts (0-2) /lpf Urine Mucus (None) /hpf Crossmatch Assessment and Plan Plan: Acute GI bleeding, likely of a upper GI source as the patient has been having coffee-ground emesis along with melanotic black tarry stool. The patient has been anticoagulated with Eliquis and the patient has been taking meloxicam on outpatient basis. He is known to have previous history of colonic polyps and has undergone previous polypectomy back in 2020 and is also noted to have diverticulosis. Patient was given Balfaxar and is currently on IV Protonix. The patient is status post EGD that was done on 07/01/2024 and the patient was found to have antral gastritis and small 5 to 10 mm antral ulcers with clean base without evidence of any acute bleeding. Blood loss anemia and hemoglobin is down to 8.9. The patient received a total of 1 unit of packed RBC during this current hospital admission. Acute hypovolemic hypotension, improved and the patient remains on normal saline at rate of 75 cc an hour Atrial fibrillation with rapid ventricular response secondary to hypovolemia and blood loss. The patient is known to have chronic atrial fibrillation. Rate is under better control. Morbid obesity BMI 44.9 Obstructive sleep apnea Hypertension Hyperlipidemia Diabetes mellitus type 2 History of major depression/bipolar disorder Chronic back pain with herniated disks Acute lactic acidosis, improved with fluid resuscitation Acute leukocytosis, likely reactive, improving Acute kidney injury and the creatinine is improving Plan Clear liquid diet NG tube has been removed Monitor hemoglobin Transfuse should there be any drop in the hemoglobin Hold anticoagulation and the patient was given Balfaxar Continue IV Protonix Normal saline at rate of 75 cc an hour Start the patient on metoprolol and discontinue the amiodarone drip Renal function is improving White cell count is improving Hold all form of nonsteroidal anti-inflammatory medications Will monitor this patient in the intensive care unit. Consider an RBC tagged scan should there be any recurrent GI bleed The patient will be monitored.
[2024-07-02] MEDS: LITHIUM CARBONATE 300 MG CAP PO SCH (20:26)
[2024-07-02] MEDS: OLANZapine 7.5 MG TAB PO SCH (20:26)
[2024-07-02 23:34] LABS: Glucose,Whole Blood 153 mg/dL (70-110)
[2024-07-03 05:59] LABS: Basophils % (A) 0 %; Eosinophils # (A) 0.2 k/uL (0-0.7); Eosinophils % (A) 2 %; HGB 8.7 gm/dL (13.0-17.5); Hypochromasia Moderate; Lymphocytes # (A) 1.2 k/uL (1.0-4.8); Lymphocytes % (A) 12 %; MCHC 33.3 g/dL (31.0-37.0); Macrocytosis Slight; Monocytes # (A) 0.6 k/uL (0-1.0); Monocytes % (A) 7 %; Neutrophils # (A) 7.2 k/uL (1.3-7.7); Neutrophils % (A) 77 %; Platelet Count 179 k/uL (150-450); RBC 2.55 m/uL (4.30-5.90); RDW 14.3 % (11.5-15.5); WBC 9.4 k/uL (3.8-10.6)
[2024-07-03 06:07] LABS: Glucose,Whole Blood 182 mg/dL (70-110)
[2024-07-03 06:21] LABS: African American GFR (CKD) >90 (>60 ml/min/1.73 sqM); Anion Gap -2 mmol/L; Blood Urea Nitrogen 32 mg/dL (9-20); Calcium 8.2 mg/dL (8.4-10.2); Carbon Dioxide 29 mmol/L (22-30); Chloride 111 mmol/L (98-107); Glucose 124 mg/dL (74-99); Non-African American GFR(CKD) >90 (>60 ml/min/1.73 sqM); Potassium 4.5 mmol/L (3.5-5.1); Sodium 138 mmol/L (137-145)
[2024-07-03] MEDS: METOPROLOL TARTRATE 50 MG TAB PO SCH (11:47)
[2024-07-03 11:48] LABS: Glucose,Whole Blood 194 mg/dL (70-110)
--- NOTE | 2024-07-03 11:59 | P.PN ---
Subjective Progress Note Date: 07/03/24 Principal diagnosis: GI bleed This is a pleasant 69-year-old male with a past medical history including atrial fibrillation on Eliquis, diabetes mellitus, GERD, hyperlipidemia, hypertension, osteoarthritis and obstructive sleep apnea who had presented to the emergency department with complaints of nausea and vomiting and black stool. Patient is being seen in the emergency department awaiting a bed in the ICU. He states that he started having nausea and vomiting yesterday afternoon and had coffee- ground emesis. He also was complaining of weakness. He came in for further evaluation with concerns for possible GI bleed. He has no history of previous peptic ulcer disease, no history of GI bleed. He does take 8 Eliquis for his atrial fibrillation last dose was yesterday morning he also reports that he takes meloxicam daily as well as ibuprofen as needed. Last colonoscopy was done in October [address] Dodge for history of colon polyps. He was status post polypectomy also with findings of diverticulosis. On admission patient had a hemoglobin of 10.3 with coffee-ground emesis, NG tube was placed and there is maroon-colored blood in the tubing however nothing in the canister. Patient states he was also having some black stool. He denies any abdominal pain. Patient was hypotensive and was started on pressor support and is waiting a bed for the ICU. Patient is currently getting blood transfusion. 07/02/2024 Patient seen and examined today as a follow-up. Yesterday he underwent an upper endoscopy with findings of 2 nonbleeding antral ulcers and antral erosive gastritis. Patient denies any bowel movements today no further coffee-ground emesis or hematemesis. He denies any abdominal pain. Hemoglobin stable at 8.9. BUN improving 58 down from 90 creatinine 1.09 07/03/2024 Patient seen and examined today as a follow-up. He has been tolerating his full liquid diet. Hemoglobin stable at 8.7. No reported bleeding. Denies any abdominal pain, nausea or vomiting. Objective - Vital Signs Vital signs: Vital Signs Temp 97.9 F 07/03/24 04:00 Pulse 110 H 07/03/24 07:00 Resp 14 07/03/24 07:00 BP 117/76 07/03/24 07:00 Pulse Ox 100 07/03/24 07:00 FiO2 Intake & Output 12/07/03/24 07/03/24 18:59 06:59 18:59 Intake Total 2138.60 1300 75 Output Total 1325 1160 Balance 813.60 140 75 Weight 154.2 kg Intake: IV 1066.60 900 75 Amiodarone 450 mg In 166.60 Dextrose 5% in Water 250 ml @ 0.5 MG/MIN 16.667 mls/hr IV .Q15H [facility] Rx#: [id number] Sodium Chloride 0.9% 1, 900 900 75 000 ml @ 75 mls/hr IV . [id number] [facility] Rx#:[id number] Intake, IV Titration 250 Amount Amiodarone 450 mg In 250 Dextrose 5% in Water 250 ml @ 0.5 MG/MIN 16.667 mls/hr IV .Q15H [facility] Rx#: [id number] Oral 822 400 Output: Urine 1325 1160 - Exam General appearance: The patient is alert, oriented, appears in no acute distress. Morbidly obese. HET: Head is normocephalic and atraumatic. Conjunctiva pink. Sclera anicteric. Neck: Supple without lymphadenopathy. Abdomen: Soft, nontender, nondistended. Extremities: Normal skin color and turgor. No pedal edema Skin: No rashes, no jaundice Neurological: No focal deficits. Alert and oriented. - Labs CBC & Chem 7: 07/03/24 05:13 07/03/24 05:13 Labs: Abnormal Lab Results - Last 24 Hours (Table) 07/02/24 07/03/24 07/03/24 Range/Units 23:32 05:13 05:13 RBC 2.55 L (4.30-5.90) m/uL Hgb 8.7 L (13.0-17.5) gm/dL Hct 26.0 L (39.0-53.0) % MCV 102.0 H (80.0-100.0) fL Chloride 111 H (98-107) mmol/L BUN 32 H (9-20) mg/dL Glucose 124 H (74-99) mg/dL POC Glucose (mg/dL) 153 H (70-110) mg/dL Calcium 8.2 L (8.4-10.2) mg/dL 07/03/24 Range/Units 06:06 RBC (4.30-5.90) m/uL Hgb (13.0-17.5) gm/dL Hct (39.0-53.0) % MCV (80.0-100.0) fL Chloride (98-107) mmol/L BUN (9-20) mg/dL Glucose (74-99) mg/dL POC Glucose (mg/dL) 182 H (70-110) mg/dL Calcium (8.4-10.2) mg/dL Microbiology - Last 24 Hours (Table) 07/01/24 09:05 Blood Culture - Preliminary Blood Assessment and Plan (1) GI bleed Narrative/Plan: 69-year-old male on Eliquis for atrial fibrillation who also takes meloxicam for chronic back pain as well as ibuprofen as needed presenting with coffee-ground e mesis and black stool. Patient with acute kidney injury and elevated BUN. Likely upper GI source need to consider possible peptic ulcer disease, esophagitis, gastritis, AVM or other possible etiologies. Patient with recent colonoscopy in the last 3 years for history of colon polyps. Patient is status post upper endoscopy with findings of 2 nonbleeding antral ulcers and antral erosive gastritis. Recommend Protonix twice daily. Continue to hold Eliquis. May resume Eliquis 07/04/2024 if no further bleeding. Current Visit: Yes Status: Acute Code(s): K92.2 - GASTROINTESTINAL HEMORRHAGE, UNSPECIFIED SNOMED Code(s): 82378319 (2) Symptomatic anemia Current Visit: Yes Status: Acute Code(s): D64.9 - ANEMIA, UNSPECIFIED SNOMED Code(s): 483708832 (3) Hypotension Current Visit: Yes Status: Acute Code(s): I95.9 - HYPOTENSION, UNSPECIFIED SNOMED Code(s): 60872591 (4) Atrial fibrillation Narrative/Plan: Hold Eliquis Current Visit: Yes Status: Acute Code(s): I48.91 - UNSPECIFIED ATRIAL FIBRILLATION SNOMED Code(s): 42608121 Plan: 1. Continue symptomatic and supportive care 2. Continue to hold Eliquis, may resume tomorrow 3. Daily CBC, transfuse for hemoglobin less than 7 4. Advance to regular diet 6. Protonix 40 mg twice daily 7. Avoid NSAIDs. This was discussed with patient to avoid NSAIDs secondary to risk of ulcers. Patient verbalized understanding. 8. Patient is status post upper endoscopy 9. Patient is cleared for discharge from gastroenterology once otherwise medically cleared. Thank you for this consultation, we will continue to follow. Dr. Ben Daniel I agree with the dictator's note, documented as a scribe by Elsi Milton.
[2024-07-03] MEDS ORDERED: DEXTROSE 50% SYRINGE 50 ML IVP PRN ×2 (13:41)
[2024-07-03] MEDS: INSULIN ASPART (NovoLOG) 100 UNIT/ML VIAL SQ SCH (13:48)
--- NOTE | 2024-07-03 15:03 | P.PN ---
Subjective Progress Note Date: 07/03/24 This is a 69-year-old morbidly obese male patient with a body mass index of 44.9 who has been maintained on anticoagulation and the patient was taking Eliquis on outpatient basis for history of atrial fibrillation. The patient also has diabetes mellitus type 2, hypertension, hyperlipidemia and osteoarthritis for which she was taken anti-inflammatory medications in the form of meloxicam. The patient has obstructive sleep apnea in addition. He presented to the emergency department with hematemesis and passing out dark tarry stool. The patient stated that he was nauseous and he was having emesis and he was coughing up coffee-ground material. In the emergency department, the patient was quite tachycardic. He was also noted to be hypotensive. He was given 1 L normal saline bolus and started on normal saline at rate of 150 cc an hour. He was given a unit of packed RBC and NG tube was also inserted and the output is minimal at this point in time. His heart rate currently is in the 130 range and the patient is in atrial fibrillation with rapid ventricular response. In the emergency, the patient's anticoagulation was reversed and the patient was given Balfaxar. He was started also on IV Protonix. No abdominal pain. Abdominal tenderness. His last colonoscopy was done October 2020 and he was found to have colonic polyps and he has undergone polypectomy and is previous history of diverticulosis. His hemoglobin at time of admission was 10.3. In terms of his blood work, his white cell count is at 21.2 with a hemoglobin 10.3 and a platelet count of 273. Normal coagulation profile. BUN was 19 with a creatinine of 1.8 and a sodium level of 136 and a potassium level is at 5.8. Initial venous lactic acid level was at 7.6 dropped down to 1.5, troponins were negative, LFTs are within normal limits, lipase was 45. UA was essentially negative. He takes lithium for bipolar disorder and the patient's lithium level was at 0.8. He also takes a combination of Effexor and Zyprexa on an outpatient basis. GI services have been consulted. On 07/02/2024, the patient is being seen for a follow-up. The patient was hospitalized for an acute GI bleed thought to be an upper GI bleeding. Noted the patient was taking anticoagulation with Eliquis and the patient was treated with Balfaxar and the patient received a total of 1 unit of packed RBC. Patient was also started on IV Protonix. The patient underwent a EGD by gastroenterology yesterday and the patient was found to have 2 nonbleeding antral ulcers measuring between 5 mm to 1 cm in size with a clean base and no stigmata for an active bleeding. There is also evidence of antral erosive russ ritis. Subsequently, overnight, the patient had 3 additional bowel movements that were bloody and the hemoglobin is currently down to 8.9. The patient denies having any nausea vomiting. No coffee-ground emesis for now. No reported abdominal pain. Hemodynamically, the patient is less tachycardic. The patient remains on IV fluids with normal saline at rate of 75 cc an hour. The creatinine is down to 1.09 and the BUN is down to 58. Rest of the electrolytes are stable and within normal limits. 1 seconds down to 14 and the most recent hemoglobin level is at 8.9. Platelet count is at 213. He remains atrial fibrillation. Remains on amiodarone drip at 0.5 mg/min for rate control. No anticoagulants for now. Will be started also on metoprolol for rate control. Patient is currently on no pressors. GI services remain on the case. Will continue the supportive care for now. 07/03/2024, patient is being seen for a follow-up. No further episodes of GI bleeding. The patient's hemoglobin stable at 8.7. The patient is a normal saline at rate of 75 cc an hour. The patient is on 3 L of oxygen by nasal cannula. IV fluids are KVO. Remains in atrial fibrillation. Slightly tachycar dic and the patient is on metoprolol 25 mg p.o. twice a day. Psychiatric medications have been resumed. White cell count of 9.4, platelet count is at 179, BUN 32 with a creatinine of 0.77 and sodium levels at 138 and a potassium level is at 4.5. Awake and alert and communicating. Denies having any shortness of breath. No nausea vomiting or emesis. Objective - Vital Signs Vital signs: Vital Signs Temp 98.8 F 07/03/24 08:00 Pulse 101 H 07/03/24 09:00 Resp 16 07/03/24 09:00 BP 109/79 07/03/24 09:00 Pulse Ox 100 07/03/24 09:00 FiO2 Intake & Output 07/02/24 07/03/24 07/03/24 18:59 06:59 18:59 Intake Total 2138.60 1300 225 Output Total 1325 1160 Balance 813.60 140 225 Weight 154.2 kg Intake: IV 1066.60 900 225 Amiodarone 450 mg In 166.60 Dextrose 5% in Water 250 ml @ 0.5 MG/MIN 16.667 mls/hr IV .Q15H [facility] Rx#: [id number] Sodium Chloride 0.9% 1, 900 900 225 000 ml @ 75 mls/hr IV . [id number] [facility] Rx#:[id number] Intake, IV Titration 250 Amount Amiodarone 450 mg In 250 Dextrose 5% in Water 250 ml @ 0.5 MG/MIN 16.667 mls/hr IV .Q15H [facility] Rx#: [id number] Oral 822 400 Output: Urine 1325 1160 - Exam The patient appeared well nourished and normally developed. Vital signs as documented. The patient is morbidly obese with a BMI of 44.9. No significant respiratory distress. Head exam is unremarkable. No scleral icterus or corneal arcus noted. Neck is without jugular venous distension, thyromegaly, or carotid bruits. Carotid upstrokes are brisk bilaterally. Lungs are clear to auscultation and percussion. Cardiac exam reveals the PMI to be normally sized and situated. Irregular rhythm consistent with atrial fibrillation, rate is under better control . First and second heart sounds normal. No murmurs, rubs or gallops. Abdominal exam reveals normal bowel sounds, no masses, no organomegaly and no a ortic enlargement. Patient is obese. Abdomen cannot be accurately palpated. No direct tenderness no rebound tenderness or guarding Extremities are nonedematous and both femoral and pedal pulses are normal. Examination of the skin revealed no evidence of significant rashes, suspicious appearing nevi or other concerning lesions. Neurologically, the patient is awake and alert and the patient does not have any focal neurological deficit. Cranial nerves are essentially intact. - Labs CBC & Chem 7: 07/03/24 05:13 07/03/24 05:13 Labs: Abnormal Lab Results - Last 24 Hours (Table) 07/02/24 07/03/24 07/03/24 Range/Units 23:32 05:13 05:13 RBC 2.55 L (4.30-5.90) m/uL Hgb 8.7 L (13.0-17.5) gm/dL Hct 26.0 L (39.0-53.0) % MCV 102.0 H (80.0-100.0) fL Chloride 111 H (98-107) mmol/L BUN 32 H (9-20) mg/dL Glucose 124 H (74-99) mg/dL POC Glucose (mg/dL) 153 H (70-110) mg/dL Calcium 8.2 L (8.4-10.2) mg/dL 07/03/24 Range/Units 06:06 RBC (4.30-5.90) m/uL Hgb (13.0-17.5) gm/dL Hct (39.0-53.0) % MCV (80.0-100.0) fL Chloride (98-107) mmol/L BUN (9-20) mg/dL Glucose (74-99) mg/dL POC Glucose (mg/dL) 182 H (70-110) mg/dL Calcium (8.4-10.2) mg/dL Microbiology - Last 24 Hours (Table) 07/01/24 09:05 Blood Culture - Preliminary Blood Assessment and Plan Plan: Acute GI bleeding, likely of a upper GI source as the patient has been having coffee-ground emesis along with melanotic black tarry stool. The patient has been anticoagulated with Eliquis and the patient has been taking meloxicam on outpatient basis. He is known to have previous history of colonic polyps and has undergone previous polypectomy back in 2020 and is also noted to have diverticulosis. Patient was given Balfaxar and is currently on IV Protonix. The patient is status post EGD that was done on 07/01/2024 and the patient was found to have antral gastritis and small 5 to 10 mm antral ulcers with clean base without evidence of any acute bleeding. No ongoing GI bleed over the past 24 hours and the patient's hemoglobin is stable for now at 8.7 Blood loss anemia and hemoglobin is down to 8.7, stable and the patient has received a unit of packed RBC during this current hospitalization Acute hypovolemic hypotension, improved and the patient remains on normal saline at rate of 75 cc an hour Atrial fibrillation with rapid ventricular response secondary to hypovolemia and blood loss. The patient is known to have chronic atrial fibrillation. Rate is under better control. Remains slightly tachycardic and the patient remains off anticoagulants. Morbid obesity BMI 44.9 Obstructive sleep apnea Hypertension Hyperlipidemia Diabetes mellitus type 2 History of major depression/bipolar disorder Chronic back pain with herniated disks Acute lactic acidosis, improved with fluid resuscitation Acute leukocytosis, likely reactive, improving Acute kidney injury and the creatinine is improving Plan Advance diet as tolerated Monitor hemoglobin Hold anticoagulation and the patient was given Balfaxar Continue IV Protonix Normal saline at rate of 75 cc an hour Increase the metoprolol to 50 mg p.o. twice a day Renal function is improving White cell count is improving Hold all form of nonsteroidal anti-inflammatory medications Will monitor this patient in the intensive care unit. The patient will be monitored. And the patient will be transferred out of the intensive care unit today.
[2024-07-03 16:51] LABS: Glucose,Whole Blood 151 mg/dL (70-110)
[2024-07-03 20:35] LABS: Glucose,Whole Blood 123 mg/dL (70-110)
[2024-07-04 06:25] LABS: Glucose,Whole Blood 112 mg/dL (70-110)
[2024-07-04 09:39] LABS: African American GFR (CKD) >90 (>60 ml/min/1.73 sqM); Anion Gap 1 mmol/L; Blood Urea Nitrogen 22 mg/dL (9-20); Calcium 8.7 mg/dL (8.4-10.2); Carbon Dioxide 34 mmol/L (22-30); Chloride 104 mmol/L (98-107); Glucose 114 mg/dL (74-99); Non-African American GFR(CKD) >90 (>60 ml/min/1.73 sqM); Potassium 4.1 mmol/L (3.5-5.1); Sodium 139 mmol/L (137-145)
--- NOTE | 2024-07-04 10:08 | P.PN ---
Subjective Progress Note Date: 07/02/24 H&P Date: 07/01/24 Chief Complaint: Acute GI bleed This is a 69-year-old gentleman with past medical history significant for atrial fibrillation, on Eliquis, diabetes mellitus, gastroesophageal reflux disease, hypertension, hyperlipidemia, osteoarthritis, morbid obesity, obstructive sleep apnea, chronic back pain-takes meloxicam daily as well as as needed ibuprofen ,seizures, major depressive disorder, bipolar disorder ,ongoing nicotine dependence multiple other medical issues presented to the ER with nausea, vomiting, coffee ground emesis and melena stools that began yesterday afternoon. Patient reports on Monday he was not feeling well and by Monday he felt wet and cold, developed nausea and vomiting of coffee ground emesis, developed dark brown/black diarrhea with minimal abdominal pain. On admission hemoglobin 10.3, platelets 273, coffee-ground emesis persisted, NG tube placed. Tachycardic, hypotensive, IV fluid resuscitation, Levophed initiated. Currently receiving 1 unit of packed RBCs. Core temperature on admission 36.1 Fahrenheit, wearing warming blanket. WBC 21.2, MCV 100.8, INR 1.1, sodium 136, potassium 5.8, bicarb 20, BUN 90, creatinine 1.82, glucose 189, lactic acid 7.6, corrected currently 1.5 with IV fluid resuscitation. Magnesium 1.9, alk phos 32, total protein 5.6, albumin 3.4, lipase 45. UA reports negative nitrates, small leukocytes, 3 WBCs, 6 hyaline casts. [place] level 0.8 (therapeutic level 0.6- 1.2). Chest x-ray reports possible left basilar acute infiltrate and/or atelectasis. Troponin negative x 1, EKG reports atrial fibrillation with RVR. 07/02/2024 maintained in ICU .completed EGD yesterday revealing 2 nonbleeding antral ulcers measuring between 5 mm to 1 cm in size with clean base, no stigmata of active bleeding, antral erosive gastritis. Eliquis remains on hold. Continues on PPI twice daily .tolerated procedure well. Denies no further bleeding, no nausea ,no vomiting. No bowel movement. Tolerating clear liquid diet .denies abdominal pain .hemoglobin stable 8.9. Renal function improving, decreased to 1.09. Currently on amiodarone drip, IV fluids of normal saline at 75 mL/h, blood pressure soft, Levophed weaned off. Telemetry atrial fibrillation with rate better controlled. Objective - Vital Signs Vital signs: Vital Signs Temp 97.4 F L 07/02/24 12:30 Pulse 102 H 07/02/24 17:00 Resp 16 07/02/24 17:00 BP 96/73 07/02/24 17:00 Pulse Ox 98 07/02/24 17:00 FiO2 Intake & Output 07/01/24 07/02/24 07/02/24 18:59 06:59 18:59 Intake Total 8029.579 9306.030 1863.60 Output Total 1650 2105 1225 Balance 106.068 -471.970 638.60 Weight 158.757 kg 157 kg Intake: IV 1399 1615.28 991.60 Amiodarone 360 mg In 99 132 Dextrose 5% in Water 200 ml @ 1 MG/MIN 33.333 mls/ hr IV .Q6H [facility] Rx#: [id number] Amiodarone 450 mg In 0 133.28 166.60 Dextrose 5% in Water 250 ml @ 0.5 MG/MIN 16.667 mls/hr IV .Q15H [facility] Rx#: [id number] Dextrose 5% in Water 100 100 ml @ 618 mls/hr IV .Q10M [facility] with Amiodarone 150 mg Rx#:[id number] Sodium Chloride 0.9% 1, 1200 1350 825 000 ml @ 75 mls/hr IV . [id number] [facility] Rx#:[id number] Intake, IV Titration 47.068 17.750 250 Amount Amiodarone 450 mg In 250 Dextrose 5% in Water 250 ml @ 0.5 MG/MIN 16.667 mls/hr IV .Q15H [facility] Rx#: [id number] Norepinephrine 32 mg In 47.068 17.750 Sodium Chloride 0.9% 218 ml @ 0.03 MCG/KG/MIN 2. 233 mls/hr IV .Q24H [facility] Rx#:[id number] Oral 622 Blood Product 310 Rc As-1 Unit 310 [id number] Output: Urine 1650 2105 1225 Uretheral ([place]) 100 Other: # Bowel Movements 1 - Exam PHYSICAL EXAM: VITAL SIGNS: [Reviewed] GENERAL: Morbidly obese, sitting up in bed, alert and oriented x 2, disoriented to time, no acute distress. HEENT: Normocephalic, atraumatic, conjunctivae normal. eyes normal. Sclera ict nas. NECK: Supple, no JVD. CARDIOVASCULAR: S1, S2. Irregular rhythm. no murmur RESPIRATION: Unlabored, equal air entry, clear to auscultation , bilateral bases diminished. ABDOMEN: Soft, obese, nondistended, nontender . No guarding. Positive bowel sounds LEGS: No edema. no swelling NERVOUS SYSTEM: Cranial N 2-12 grossly normal. No focal deficits. Skin: No rash noted. - Labs CBC & Chem 7: 07/03/24 05:13 07/04/24 07:46 Labs: Abnormal Lab Results - Last 24 Hours (Table) 07/02/24 07/02/24 07/02/24 Range/Units 00:12 05:23 05:23 WBC 14.0 H (3.8-10.6) k/uL RBC 2.70 L (4.30-5.90) m/uL Hgb 8.9 L (13.0-17.5) gm/dL Hct 26.8 L (39.0-53.0) % Neutrophils # 11.8 H (1.3-7.7) k/uL Chloride 108 H (98-107) mmol/L Carbon Dioxide 31 H (22-30) mmol/L BUN 58 H (9-20) mg/dL Glucose 163 H (74-99) mg/dL POC Glucose (mg/dL) 160 H (70-110) mg/dL Calcium 7.9 L (8.4-10.2) mg/dL Total Protein 4.8 L (6.3-8.2) g/dL Albumin 2.8 L (3.5-5.0) g/dL 07/02/24 Range/Units 05:53 WBC (3.8-10.6) k/uL RBC (4.30-5.90) m/uL Hgb (13.0-17.5) gm/dL Hct (39.0-53.0) % Neutrophils # (1.3-7.7) k/uL Chloride (98-107) mmol/L Carbon Dioxide (22-30) mmol/L BUN (9-20) mg/dL Glucose (74-99) mg/dL POC Glucose (mg/dL) 191 H (70-110) mg/dL Calcium (8.4-10.2) mg/dL Total Protein (6.3-8.2) g/dL Albumin (3.5-5.0) g/dL Microbiology - Last 24 Hours (Table) 07/01/24 09:05 Blood Culture - Preliminary Blood Assessment and Plan Assessment: Acute GI bleed, coffee-ground emesis breath melena stools, in a patient with history of diverticulosis, on Eliquis, suspect upper GI source, status post EGD reporting 2 nonbleeding antral ulcers and antral erosive gastritis. Symptomatic blood loss anemia secondary to the above status post 1 unit of packed RBCs Hypothermia on bear hugger Hypovolemic hypotension, post pressor support Acute renal failure, baseline creat 1.4 Acute lactic acidosis, resolved with fluid resuscitation Acute on chronic atrial fibrillation with RVR secondary to all the above, anticoagulation on hold Morbid obesity, BMI 45 Obstructive sleep apnea Hypertension Hyperlipidemia History of bipolar disorder, major depressive disorder Chronic back pain on Mobic's and as needed NSAIDs Plan: Continue on current medication regimen ,monitoring and symptomatic treatment. Continue holding Eliquis. Maintain PPI twice daily . Antiarrhythmics. close monitoring of CBC. ICU management/pressor support as per captain airline pilot. The impression and plan of care has been dictated as directed. : I performed a history and examination of this patient, discussed the same with the dictator. I agree with the dictator's note ,documented as a scribe. Any additional findings or plans will be noted.
[2024-07-04 10:19] LABS: HCT 25.7 % (39.0-53.0); HGB 8.4 gm/dL (13.0-17.5); Hypochromasia Slight; MCH 33.4 pg (25.0-35.0); MCHC 32.8 g/dL (31.0-37.0); MCV 101.7 fL (80.0-100.0); Macrocytosis Slight; Mean Platelet Volume 9.9; Platelet Count 173 k/uL (150-450); RBC 2.53 m/uL (4.30-5.90); RDW 14.1 % (11.5-15.5); WBC 8.1 k/uL (3.8-10.6)
[2024-07-04 11:44] LABS: Glucose,Whole Blood 145 mg/dL (70-110)
--- NOTE | 2024-07-04 14:12 | P.PN ---
Subjective Progress Note Date: 07/04/24 Principal diagnosis: GI bleed This is a pleasant 69-year-old male with a past medical history including atrial fibrillation on Eliquis, diabetes mellitus, GERD, hyperlipidemia, hypertension, osteoarthritis and obstructive sleep apnea who had presented to the emergency department with complaints of nausea and vomiting and black stool. Patient is being seen in the emergency department awaiting a bed in the ICU. He states that he started having nausea and vomiting yesterday afternoon and had coffee- ground emesis. He also was complaining of weakness. He came in for further evaluation with concerns for possible GI bleed. He has no history of previous peptic ulcer disease, no history of GI bleed. He does take 8 Eliquis for his atrial fibrillation last dose was yesterday morning he also reports that he takes meloxicam daily as well as ibuprofen as needed. Last colonoscopy was done in October [address] Dodge for history of colon polyps. He was status post polypectomy also with findings of diverticulosis. On admission patient had a hemoglobin of 10.3 with coffee-ground emesis, NG tube was placed and there is maroon-colored blood in the tubing however nothing in the canister. Patient states he was also having some black stool. He denies any abdominal pain. Patient was hypotensive and was started on pressor support and is waiting a bed for the ICU. Patient is currently getting blood transfusion. 07/02/2024 Patient seen and examined today as a follow-up. Yesterday he underwent an upper endoscopy with findings of 2 nonbleeding antral ulcers and antral erosive gastritis. Patient denies any bowel movements today no further coffee-ground emesis or hematemesis. He denies any abdominal pain. Hemoglobin stable at 8.9. BUN improving 58 down from 90 creatinine 1.09 07/03/2024 Patient seen and examined today as a follow-up. He has been tolerating his full liquid diet. Hemoglobin stable at 8.7. No reported bleeding. Denies any abdominal pain, nausea or vomiting. Of 1923 Patient seen and examined today as a follow-up. Tolerating regular diet. Hemoglobin stable. No further reported bleeding. Denies abdominal pain, nausea or vomiting. Objective - Vital Signs Vital signs: Vital Signs Temp 97.8 F 07/04/24 08:17 Pulse 105 H 07/04/24 08:17 Resp 20 07/04/24 08:17 BP 115/73 07/04/24 08:17 Pulse Ox 97 07/04/24 08:17 FiO2 Intake & Output 07/03/24 07/04/24 07/04/24 18:59 06:59 18:59 Intake Total 285 720 138 Output Total 705 600 Balance -420 120 138 Weight 154.5 kg Intake: IV 285 20 Invasive Line 1 10 Invasive Line 2 10 Sodium Chloride 0.9% 1, 285 000 ml @ 20 mls/hr IV . Q24H [facility] Rx#:[id number] Oral 720 118 Output: Urine 705 600 Other: Voiding Method Indwelling Catheter Indwelling Catheter # Bowel Movements 1 - Exam General appearance: The patient is alert, oriented, appears in no acute distress. Morbidly obese. HET: Head is normocephalic and atraumatic. Conjunctiva pink. Sclera anicteric. Neck: Supple without lymphadenopathy. Abdomen: Soft, nontender, nondistended. Extremities: Normal skin color and turgor. No pedal edema Skin: No rashes, no jaundice Neurological: No focal deficits. Alert and oriented. - Labs CBC & Chem 7: 07/04/24 10:03 07/04/24 07:46 Labs: Abnormal Lab Results - Last 24 Hours (Table) 07/03/24 07/03/24 07/03/24 Range/Units 11:47 16:50 20:32 Carbon Dioxide (22-30) mmol/L BUN (9-20) mg/dL Glucose (74-99) mg/dL POC Glucose (mg/dL) 194 H 151 H 123 H (70-110) mg/dL 07/04/24 07/04/24 Range/Units 06:17 07:46 Carbon Dioxide 34 H (22-30) mmol/L BUN 22 H (9-20) mg/dL Glucose 114 H (74-99) mg/dL POC Glucose (mg/dL) 112 H (70-110) mg/dL Microbiology - Last 24 Hours (Table) 07/01/24 09:05 Blood Culture - Preliminary Blood Assessment and Plan (1) GI bleed Narrative/Plan: 69-year-old male on Eliquis for atrial fibrillation who also takes meloxicam for chronic back pain as well as ibuprofen as needed presenting with coffee-ground emesis and black stool. Patient with acute kidney injury and elevated BUN. Likely upper GI source need to consider possible peptic ulcer disease, esophagitis, gastritis, AVM or other possible etiologies. Patient with recent colonoscopy in the last 3 years for history of colon polyps. Patient is status post upper endoscopy with findings of 2 nonbleeding antral ulcers and antral erosive gastritis. Recommend Protonix twice daily. Continue to hold Eliquis. May resume Eliquis 07/04/2024 if no further bleeding. Current Visit: Yes Status: Acute Code(s): K92.2 - GASTROINTESTINAL HEMORRHAGE, UNSPECIFIED SNOMED Code(s): 61011192 (2) Symptomatic anemia Current Visit: Yes Status: Acute Code(s): D64.9 - ANEMIA, UNSPECIFIED SNOMED Code(s): 392146846 (3) Hypotension Current Visit: Yes Status: Acute Code(s): I95.9 - HYPOTENSION, UNSPECIFIED SNOMED Code(s): 00628142 (4) Atrial fibrillation Narrative/Plan: May resume Eliquis Current Visit: Yes Status: Acute Code(s): I48.91 - UNSPECIFIED ATRIAL FIBRILLATION SNOMED Code(s): 68540961 Plan: 1. Continue symptomatic and supportive care 2. May resume Eliquis 3. Daily CBC, transfuse for hemoglobin less than 7 4. Advance to regular diet 6. Protonix 40 mg twice daily 7. Avoid NSAIDs. This was discussed with patient to avoid NSAIDs secondary to risk of ulcers. Patient verbalized understanding. 8. Patient is status post upper endoscopy 9. Patient is cleared for discharge from gastroenterology once otherwise m edically cleared. Thank you for this consultation, we will sign off at this time. Dr. Ben Daniel I agree with the dictator's note, documented as a scribe by Elsi Milton.
--- NOTE | 2024-07-04 14:51 | P.PN ---
Subjective Progress Note Date: 07/03/24 H&P Date: 07/01/24 Chief Complaint: Acute GI bleed This is a 69-year-old gentleman with past medical history significant for atrial fibrillation, on Eliquis, diabetes mellitus, gastroesophageal reflux disease, hypertension, hyperlipidemia, osteoarthritis, morbid obesity, obstructive sleep apnea, chronic back pain-takes meloxicam daily as well as as needed ibuprofen ,seizures, major depressive disorder, bipolar disorder ,ongoing nicotine dependence multiple other medical issues presented to the ER with nausea, vomiting, coffee ground emesis and melena stools that began yesterday afternoon. Patient reports on Monday he was not feeling well and by Monday he felt wet and cold, developed nausea and vomiting of coffee ground emesis, developed dark brown/black diarrhea with minimal abdominal pain. On admission hemoglobin 10.3, platelets 273, coffee-ground emesis persisted, NG tube placed. Tachycardic, hypotensive, IV fluid resuscitation, Levophed initiated. Currently receiving 1 unit of packed RBCs. Core temperature on admission 36.1 Fahrenheit, wearing warming blanket. WBC 21.2, MCV 100.8, INR 1.1, sodium 136, potassium 5.8, bicarb 20, BUN 90, creatinine 1.82, glucose 189, lactic acid 7.6, corrected currently 1.5 with IV fluid resuscitation. Magnesium 1.9, alk phos 32, total protein 5.6, albumin 3.4, lipase 45. UA reports negative nitrates, small leukocytes, 3 WBCs, 6 hyaline casts. [place] level 0.8 (therapeutic level 0.6- 1.2). Chest x-ray reports possible left basilar acute infiltrate and/or atelectasis. Troponin negative x 1, EKG reports atrial fibrillation with RVR. 07/02/2024 maintained in ICU .completed EGD yesterday revealing 2 nonbleeding antral ulcers measuring between 5 mm to 1 cm in size with clean base, no stigmata of active bleeding, antral erosive gastritis. Eliquis remains on hold. Continues on PPI twice daily .tolerated procedure well. Denies no further bleeding, no nausea ,no vomiting. No bowel movement. Tolerating clear liquid diet .denies abdominal pain .hemoglobin stable 8.9. Renal function improving, decreased to 1.09. Currently on amiodarone drip, IV fluids of normal saline at 75 mL/h, blood pressure soft, Levophed weaned off. Telemetry atrial fibrillation with rate better controlled. 07/03/2024 sitting up in bed, not yet been up in chair. IVS KVO'd.tolerating full liquid diet. Denies nausea, vomiting or diarrhea. Denies abdominal pain. Hemoglobin 8.7, platelets 179. Electrolytes stable. Renal function continues improving, bicarb 29, BUN 32, creatinine decreased to 0.77. Amiodarone drip discontinued yesterday, beta-rosanna initiated with telemetry atrial fibrilla tion, mild tachycardia. denies chest pain, palpitations or shortness of breath. Maintaining O2 sats in the high 90s on 3 L nasal cannula. Normal WBC. Denies lightheadedness, dizziness or focal deficits. Denies headache. Objective - Vital Signs Vital signs: Vital Signs Temp 98.8 F 07/03/24 08:00 Pulse 103 H 07/03/24 13:00 Resp 18 07/03/24 13:00 BP 120/76 07/03/24 13:00 Pulse Ox 100 07/03/24 13:00 FiO2 Intake & Output 07/02/24 07/03/24 07/03/24 18:59 06:59 18:59 Intake Total 2138.60 1300 265 Output Total 1325 1160 525 Balance 813.60 140 -260 Weight 154.2 kg Intake: IV 1066.60 900 265 Amiodarone 450 mg In 166.60 Dextrose 5% in Water 250 ml @ 0.5 MG/MIN 16.667 mls/hr IV .Q15H [facility] Rx#: [id number] Sodium Chloride 0.9% 1, 900 900 265 000 ml @ 20 mls/hr IV . Q24H [facility] Rx#:[id number] Intake, IV Titration 250 Amount Amiodarone 450 mg In 250 Dextrose 5% in Water 250 ml @ 0.5 MG/MIN 16.667 mls/hr IV .[facility] Rx#: [id number] Oral 822 400 Output: Urine 1325 1160 525 Other: Voiding Method Indwelling Catheter - Exam PHYSICAL EXAM: VITAL SIGNS: [Reviewed] GENERAL: Morbidly obese, sitting up in bed, alert and oriented x 3, no acute distress HEENT: Normocephalic, atraumatic, conjunctivae normal. eyes normal. Sclera icteric. NECK: Supple, no JVD. CARDIOVASCULAR: S1, S2. Irregular rhythm. no murmur RESPIRATION: Unlabored, equal air entry, clear to auscultation , bilateral bases diminished. ABDOMEN: Soft, obese, nondistended, nontender . No guarding. Positive bowel sounds LEGS: No edema. no swelling NERVOUS SYSTEM: Cranial N 2-12 grossly normal. No focal deficits. Skin: No rash noted. - Labs CBC & Chem 7: 07/04/24 10:03 07/04/24 07:46 Labs: Abnormal Lab Results - Last 24 Hours (Table) 07/02/24 07/03/24 07/03/24 Range/Units 23:32 05:13 05:13 RBC 2.55 L (4.30-5.90) m/uL Hgb 8.7 L (13.0-17.5) gm/dL Hct 26.0 L (39.0-53.0) % MCV 102.0 H (80.0-100.0) fL Chloride 111 H (98-107) mmol/L BUN 32 H (9-20) mg/dL Glucose 124 H (74-99) mg/dL POC Glucose (mg/dL) 153 H (70-110) mg/dL Calcium 8.2 L (8.4-10.2) mg/dL 07/03/24 07/03/24 Range/Units 06:06 11:47 RBC (4.30-5.90) m/uL Hgb (13.0-17.5) gm/dL Hct (39.0-53.0) % MCV (80.0-100.0) fL Chloride (98-107) mmol/L BUN (9-20) mg/dL Glucose (74-99) mg/dL POC Glucose (mg/dL) 182 H 194 H (70-110) mg/dL Calcium (8.4-10.2) mg/dL Microbiology - Last 24 Hours (Table) 07/01/24 09:05 Blood Culture - Preliminary Blood Assessment and Plan Assessment: Acute GI bleed, coffee-ground emesis breath melena stools, in a patient with history of diverticulosis, on Eliquis, suspect upper GI source, status post EGD reporting 2 nonbleeding antral ulcers and antral erosive gastritis. Symptomatic blood loss anemia secondary to the above status post 1 unit of packed RBCs Hypothermia on bear hugger Hypovolemic hypotension, post pressor support Acute renal failure, baseline creat 1.4 Acute lactic acidosis, resolved with fluid resuscitation Acute on chronic atrial fibrillation with RVR secondary to all the above, anticoagulation on hold Morbid obesity, BMI 45 Obstructive sleep apnea Hypertension Hyperlipidemia History of bipolar disorder, major depressive disorder Chronic back pain on Mobic's and as needed NSAIDs Plan: Continue on current medication regimen ,monitoring and symptomatic treatment. Continue holding Eliquis. Maintain beta-rosanna. PPI, close monitoring of CBC, renal function with repeat labs ordered for a.m. Cleared for transfer out of ICU. The impression and plan of care has been dictated as directed. : I performed a history and examination of this patient, discussed the same with the dictator. I agree with the dictator's note ,documented as a scribe. Any additional findings or plans will be noted.
--- NOTE | 2024-07-04 15:03 | P.PN ---
Subjective Progress Note Date: 07/04/24 H&P Date: 07/01/24 Chief Complaint: Acute GI bleed This is a 69-year-old gentleman with past medical history significant for atrial fibrillation, on Eliquis, diabetes mellitus, gastroesophageal reflux disease, hypertension, hyperlipidemia, osteoarthritis, morbid obesity, obstructive sleep apnea, chronic back pain-takes meloxicam daily as well as as needed ibuprofen ,seizures, major depressive disorder, bipolar disorder ,ongoing nicotine dependence multiple other medical issues presented to the ER with nausea, vomiting, coffee ground emesis and melena stools that began yesterday afternoon. Patient reports on Monday he was not feeling well and by Monday he felt wet and cold, developed nausea and vomiting of coffee ground emesis, developed dark brown/black diarrhea with minimal abdominal pain. On admission hemoglobin 10.3, platelets 273, coffee-ground emesis persisted, NG tube placed. Tachycardic, hypotensive, IV fluid resuscitation, Levophed initiated. Currently receiving 1 unit of packed RBCs. Core temperature on admission 36.1 Fahrenheit, wearing warming blanket. WBC 21.2, MCV 100.8, INR 1.1, sodium 136, potassium 5.8, bicarb 20, BUN 90, creatinine 1.82, glucose 189, lactic acid 7.6, corrected currently 1.5 with IV fluid resuscitation. Magnesium 1.9, alk phos 32, total protein 5.6, albumin 3.4, lipase 45. UA reports negative nitrates, small leukocytes, 3 WBCs, 6 hyaline casts. [place] level 0.8 (therapeutic level 0.6- 1.2). Chest x-ray reports possible left basilar acute infiltrate and/or atelectasis. Troponin negative x 1, EKG reports atrial fibrillation with RVR. 07/02/2024 maintained in ICU .completed EGD yesterday revealing 2 nonbleeding antral ulcers measuring between 5 mm to 1 cm in size with clean base, no stigmata of active bleeding, antral erosive gastritis. Eliquis remains on hold. Continues on PPI twice daily .tolerated procedure well. Denies no further bleeding, no nausea ,no vomiting. No bowel movement. Tolerating clear liquid diet .denies abdominal pain .hemoglobin stable 8.9. Renal function improving, decreased to 1.09. Currently on amiodarone drip, IV fluids of normal saline at 75 mL/h, blood pressure soft, Levophed weaned off. Telemetry atrial fibrillation with rate better controlled. 07/03/2024 sitting up in bed, not yet been up in chair. IVS KVO'd.tolerating full liquid diet. Denies nausea, vomiting or diarrhea. Denies abdominal pain. Hemoglobin 8.7, platelets 179. Electrolytes stable. Renal function continues improving, bicarb 29, BUN 32, creatinine decreased to 0.77. Amiodarone drip discontinued yesterday, beta-rosanna initiated with telemetry atrial fibrilla tion, mild tachycardia. denies chest pain, palpitations or shortness of breath. Maintaining O2 sats in the high 90s on 3 L nasal cannula. Normal WBC. Denies lightheadedness, dizziness or focal deficits. Denies headache. 07/04/2024 transferred out of ICU currently on stepdown unit. Denies chest p ain, palpitations or shortness of breath. Maintaining O2 sats in the 90s on 2 L nasal cannula. Denies further bleeding. hemoglobin stable, 8.4. Afebrile, normal WBC. Renal function stable. Tolerating consistent carb/heart healthy regular diet. Denies nausea vomiting or diarrhea. Has not yet ambulated or been up in chair. Objective - Vital Signs Vital signs: Vital Signs Temp 97.8 F 07/04/24 11:34 Pulse 118 H 07/04/24 11:34 Resp 18 07/04/24 11:34 BP 126/79 07/04/24 11:34 Pulse Ox 96 07/04/24 11:34 FiO2 Intake & Output 07/03/24 07/04/24 07/04/24 18:59 06:59 18:59 Intake Total 285 720 596 Output Total 705 600 350 Balance -420 120 246 Weight 154.5 kg Intake: IV 285 20 Invasive Line 1 10 Invasive Line 2 10 Sodium Chloride 0.9% 1, 285 000 ml @ 20 mls/hr IV . [facility] Rx#:[id number] Oral 720 576 Output: Urine 705 600 350 Other: Voiding Method Indwelling Catheter Indwelling Catheter Urinal Diaper # Bowel Movements 1 - Exam PHYSICAL EXAM: VITAL SIGNS: [Reviewed] GENERAL: Morbidly obese, sitting up in bed, alert and oriented x 3, no acute distress HEENT: Normocephalic, atraumatic, conjunctivae normal. eyes normal. Sclera icteric. NECK: Supple, no JVD. CARDIOVASCULAR: S1, S2. Irregular rhythm. no murmur RESPIRATION: Unlabored, equal air entry, clear to auscultation , bilateral bases diminished. ABDOMEN: Soft, nondistended, nontender. No guarding. Positive bowel sounds LEGS: No edema. no swelling, no calf tenderness. NERVOUS SYSTEM: Cranial N 2-12 grossly normal. No focal deficits. Skin: No rash noted. - Labs CBC & Chem 7: 07/04/24 10:03 07/04/24 07:46 Labs: Abnormal Lab Results - Last 24 Hours (Table) 07/03/24 07/03/24 07/04/24 Range/Units 16:50 20:32 06:17 RBC (4.30-5.90) m/uL Hgb (13.0-17.5) gm/dL Hct (39.0-53.0) % MCV (80.0-100.0) fL Carbon Dioxide (22-30) mmol/L BUN (9-20) mg/dL Glucose (74-99) mg/dL POC Glucose (mg/dL) 151 H 123 H 112 H (70-110) mg/dL Hemoglobin A1c (<=6.0) % 07/04/24 07/04/24 07/04/24 Range/Units 07:46 07:46 10:03 RBC 2.53 L (4.30-5.90) m/uL Hgb 8.4 L (13.0-17.5) gm/dL Hct 25.7 L (39.0-53.0) % MCV 101.7 H (80.0-100.0) fL Carbon Dioxide 34 H (22-30) mmol/L BUN 22 H (9-20) mg/dL Glucose 114 H (74-99) mg/dL POC Glucose (mg/dL) (70-110) mg/dL Hemoglobin A1c 6.4 H (<=6.0) % 07/04/24 Range/Units 11:43 RBC (4.30-5.90) m/uL Hgb (13.0-17.5) gm/dL Hct (39.0-53.0) % MCV (80.0-100.0) fL Carbon Dioxide (22-30) mmol/L BUN (9-20) mg/dL Glucose (74-99) mg/dL POC Glucose (mg/dL) 145 H (70-110) mg/dL Hemoglobin A1c (<=6.0) % Microbiology - Last 24 Hours (Table) 07/01/24 09:05 Blood Culture - Preliminary Blood Assessment and Plan Assessment: Acute GI bleed, coffee-ground emesis breath melena stools, in a patient with history of diverticulosis, on Eliquis, suspect upper GI source, status post EGD reporting 2 nonbleeding antral ulcers and antral erosive gastritis. Symptomatic blood loss anemia secondary to the above status post 1 unit of packed RBCs Hypothermia on bear hugger Hypovolemic hypotension, post pressor support Acute renal failure, baseline creat 1.4 Acute lactic acidosis, resolved with fluid resuscitation Acute on chronic atrial fibrillation with RVR secondary to all the above, anticoagulation on hold Morbid obesity, BMI 45 Obstructive sleep apnea Hypertension Hyperlipidemia History of bipolar disorder, major depressive disorder Chronic back pain on Mobic's and as needed NSAIDs. Plan: Continue on current medication regimen ,monitoring and symptomatic treatment. Maintain beta-rosanna. No further bleeding, will resume Eliquis. PPI, close monitoring of CBC, renal function with repeat labs ordered for a.m. increase ambulation, up in chair for meals. PT/OT consulted. The impression and plan of care has been dictated as directed. : I performed a history and examination of this patient, discussed the same with the dictator. I agree with the dictator's note ,documented as a scribe. Any additional findings or plans will be noted.
[2024-07-04 16:40] LABS: Glucose,Whole Blood 145 mg/dL (70-110)
--- NOTE | 2024-07-04 18:51 | P.PN ---
Subjective Progress Note Date: 07/04/24 This is a 69-year-old morbidly obese male patient with a body mass index of 44.9 who has been maintained on anticoagulation and the patient was taking Eliquis on outpatient basis for history of atrial fibrillation. The patient also has diabetes mellitus type 2, hypertension, hyperlipidemia and osteoarthritis for which she was taken anti-inflammatory medications in the form of meloxicam. The patient has obstructive sleep apnea in addition. He presented to the emergency department with hematemesis and passing out dark tarry stool. The patient stated that he was nauseous and he was having emesis and he was coughing up coffee-ground material. In the emergency department, the patient was quite tachycardic. He was also noted to be hypotensive. He was given 1 L normal saline bolus and started on normal saline at rate of 150 cc an hour. He was given a unit of packed RBC and NG tube was also inserted and the output is minimal at this point in time. His heart rate currently is in the 130 range and the patient is in atrial fibrillation with rapid ventricular response. In the emergency, the patient's anticoagulation was reversed and the patient was given Balfaxar. He was started also on IV Protonix. No abdominal pain. Abdominal tenderness. His last colonoscopy was done October 2020 and he was found to have colonic polyps and he has undergone polypectomy and is previous history of diverticulosis. His hemoglobin at time of admission was 10.3. In terms of his blood work, his white cell count is at 21.2 with a hemoglobin 10.3 and a platelet count of 273. Normal coagulation profile. BUN was 19 with a creatinine of 1.8 and a sodium level of 136 and a potassium level is at 5.8. Initial venous lactic acid level was at 7.6 dropped down to 1.5, troponins were negative, LFTs are within normal limits, lipase was 45. UA was essentially negative. He takes lithium for bipolar disorder and the patient's lithium level was at 0.8. He also takes a combination of Effexor and Zyprexa on an outpatient basis. GI services have been consulted. On 07/02/2024, the patient is being seen for a follow-up. The patient was hospitalized for an acute GI bleed thought to be an upper GI bleeding. Noted the patient was taking anticoagulation with Eliquis and the patient was treated with Balfaxar and the patient received a total of 1 unit of packed RBC. Patient was also started on IV Protonix. The patient underwent a EGD by gastroenterology yesterday and the patient was found to have 2 nonbleeding antral ulcers measuring between 5 mm to 1 cm in size with a clean base and no stigmata for an active bleeding. There is also evidence of antral erosive russ ritis. Subsequently, overnight, the patient had 3 additional bowel movements that were bloody and the hemoglobin is currently down to 8.9. The patient denies having any nausea vomiting. No coffee-ground emesis for now. No reported abdominal pain. Hemodynamically, the patient is less tachycardic. The patient remains on IV fluids with normal saline at rate of 75 cc an hour. The creatinine is down to 1.09 and the BUN is down to 58. Rest of the electrolytes are stable and within normal limits. 1 seconds down to 14 and the most recent hemoglobin level is at 8.9. Platelet count is at 213. He remains atrial fibrillation. Remains on amiodarone drip at 0.5 mg/min for rate control. No anticoagulants for now. Will be started also on metoprolol for rate control. Patient is currently on no pressors. GI services remain on the case. Will continue the supportive care for now. 07/03/2024, patient is being seen for a follow-up. No further episodes of GI bleeding. The patient's hemoglobin stable at 8.7. The patient is a normal saline at rate of 75 cc an hour. The patient is on 3 L of oxygen by nasal cannula. IV fluids are KVO. Remains in atrial fibrillation. Slightly tachycar dic and the patient is on metoprolol 25 mg p.o. twice a day. Psychiatric medications have been resumed. White cell count of 9.4, platelet count is at 179, BUN 32 with a creatinine of 0.77 and sodium levels at 138 and a potassium level is at 4.5. Awake and alert and communicating. Denies having any shortness of breath. No nausea vomiting or emesis. On 07/04/2024, patient is being seen for a follow-up. Patient got transferred out of the intensive care unit and the patient is currently on the medical floor. Hemoglobin remained stable at 8.4. No evidence of any bleeding and the patient is status post endoscopy and EGD and details were discussed earlier. The patient is advancing his diet as tolerated. Clearance was obtained to restart anticoagulation when the patient was restarted on anticoagulation with Eliquis. He has chronic atrial fibrillation. Rate is slightly tachycardic. The patient remains on metoprolol 50 mg p.o. twice daily. Objective - Vital Signs Vital signs: Vital Signs Temp 97.8 F 07/04/24 08:17 Pulse 105 H 07/04/24 08:17 Resp 20 07/04/24 08:17 BP 115/73 07/04/24 08:17 Pulse Ox 97 07/04/24 08:17 FiO2 Intake & Output 07/03/24 07/04/24 07/04/24 18:59 06:59 18:59 Intake Total 285 720 478 Output Total 705 600 Balance -420 120 478 Weight 154.5 kg Intake: IV 285 20 Invasive Line 1 10 Invasive Line 2 10 Sodium Chloride 0.9% 1, 285 000 ml @ 20 mls/hr IV . Q24H [facility] Rx#:[id number] Oral 720 458 Output: Urine 705 600 Other: Voiding Method Indwelling Catheter Indwelling Catheter # Bowel Movements 1 - Exam The patient appeared well nourished and normally developed. Vital signs as documented. The patient is morbidly obese with a BMI of 44.9. No significant respiratory distress. Head exam is unremarkable. No scleral icterus or corneal arcus noted. Neck is without jugular venous distension, thyromegaly, or carotid bruits. Carot id upstrokes are brisk bilaterally. Lungs are clear to auscultation and percussion. Cardiac exam reveals the PMI to be normally sized and situated. Irregular rhythm consistent with atrial fibrillation, rate is under better control . First and second heart sounds normal. No murmurs, rubs or gallops. Abdominal exam reveals normal bowel sounds, no masses, no organomegaly and no aortic enlargement. Patient is obese. Abdomen cannot be accurately palpated. No direct tenderness no rebound tenderness or guarding Extremities are nonedematous and both femoral and pedal pulses are normal. Examination of the skin revealed no evidence of significant rashes, suspicious appearing nevi or other concerning lesions. Neurologically, the patient is awake and alert and the patient does not have any focal neurological deficit. Cranial nerves are essentially intact. - Labs CBC & Chem 7: 07/04/24 10:03 07/04/24 07:46 Labs: Abnormal Lab Results - Last 24 Hours (Table) 07/03/24 07/03/24 07/03/24 Range/Units 11:47 16:50 20:32 RBC (4.30-5.90) m/uL Hgb (13.0-17.5) gm/dL Hct (39.0-53.0) % MCV (80.0-100.0) fL Carbon Dioxide (22-30) mmol/L BUN (9-20) mg/dL Glucose (74-99) mg/dL POC Glucose (mg/dL) 194 H 151 H 123 H (70-110) mg/dL Hemoglobin A1c (<=6.0) % 07/04/24 07/04/24 07/04/24 Range/Units 06:17 07:46 07:46 RBC (4.30-5.90) m/uL Hgb (13.0-17.5) gm/dL Hct (39.0-53.0) % MCV (80.0-100.0) fL Carbon Dioxide 34 H (22-30) mmol/L BUN 22 H (9-20) mg/dL Glucose 114 H (74-99) mg/dL POC Glucose (mg/dL) 112 H (70-110) mg/dL Hemoglobin A1c 6.4 H (<=6.0) % 07/04/24 Range/Units 10:03 RBC 2.53 L (4.30-5.90) m/uL Hgb 8.4 L (13.0-17.5) gm/dL Hct 25.7 L (39.0-53.0) % MCV 101.7 H (80.0-100.0) fL Carbon Dioxide (22-30) mmol/L BUN (9-20) mg/dL Glucose (74-99) mg/dL POC Glucose (mg/dL) (70-110) mg/dL Hemoglobin A1c (<=6.0) % Microbiology - Last 24 Hours (Table) 07/01/24 09:05 Blood Culture - Preliminary Blood Assessment and Plan Plan: Acute GI bleeding, likely of a upper GI source as the patient has been having coffee-ground emesis along with melanotic black tarry stool. The patient has been anticoagulated with Eliquis and the patient has been taking meloxicam on outpatient basis. He is known to have previous history of colonic polyps and has undergone previous polypectomy back in 2020 and is also noted to have diverticulosis. Patient was given Balfaxar and is currently on IV Protonix. The patient is status post EGD that was done on 07/01/2024 and the patient was found to have antral gastritis and small 5 to 10 mm antral ulcers with clean base without evidence of any acute bleeding. No ongoing GI bleed over the past 48 hours and the patient's hemoglobin stable at 8.4 Blood loss anemia and hemoglobin is stable at 8.4 Acute hypovolemic hypotension, improved and the patient remains on normal saline at rate 20 cc an hour Atrial fibrillation with rapid ventricular response secondary to hypovolemia and blood loss. The patient is known to have chronic atrial fibrillation. Rate is under better control. Remains slightly tachycardic and the patient remains will be started back on anticoagulants Morbid obesity BMI 44.9 Obstructive sleep apnea Hypertension Hyperlipidemia Diabetes mellitus type 2 History of major depression/bipolar disorder Chronic back pain with herniated disks Acute lactic acidosis, improved with fluid resuscitation Acute leukocytosis, likely reactive, improving Acute kidney injury and the creatinine is improving Plan Advance diet as tolerated Monitor hemoglobin Will restart anticoagulation with Eliquis Continue IV Protonix Normal saline at rate of 20 cc an hour Increase the metoprolol to 50 mg p.o. twice a day Renal function is improving White cell count is improving Hold all form of nonsteroidal anti-inflammatory medications The patient will be monitored.
[2024-07-04 20:11] LABS: Glucose,Whole Blood 140 mg/dL (70-110)
[2024-07-04] MEDS: APIXABAN 5 MG TAB PO SCH (20:55)
[2024-07-05 05:59] LABS: Glucose,Whole Blood 136 mg/dL (70-110)
[2024-07-05 08:27] LABS: Basophils % (A) 0 %; Eosinophils # (A) 0.2 k/uL (0-0.7); Eosinophils % (A) 3 %; HCT 25.9 % (39.0-53.0); HGB 8.4 gm/dL (13.0-17.5); Hypochromasia Slight; Lymphocytes # (A) 1.1 k/uL (1.0-4.8); Lymphocytes % (A) 15 %; MCHC 32.4 g/dL (31.0-37.0); MCV 101.9 fL (80.0-100.0); Macrocytosis Slight; Mean Platelet Volume 8.2; Monocytes # (A) 0.4 k/uL (0-1.0); Monocytes % (A) 6 %; Neutrophils # (A) 5.6 k/uL (1.3-7.7); Neutrophils % (A) 74 %; Platelet Count 177 k/uL (150-450); RBC 2.54 m/uL (4.30-5.90); RDW 14.6 % (11.5-15.5); WBC 7.5 k/uL (3.8-10.6)
[2024-07-05 08:36] LABS: African American GFR (CKD) >90 (>60 ml/min/1.73 sqM); Anion Gap -1 mmol/L; Blood Urea Nitrogen 18 mg/dL (9-20); Calcium 8.5 mg/dL (8.4-10.2); Carbon Dioxide 38 mmol/L (22-30); Chloride 101 mmol/L (98-107); Glucose 114 mg/dL (74-99); Non-African American GFR(CKD) 89 (>60 ml/min/1.73 sqM); Potassium 3.8 mmol/L (3.5-5.1); Sodium 138 mmol/L (137-145)
[2024-07-05 09:05] VITALS: TEMP 97.8
--- NOTE | 2024-07-05 11:03 | P.DS ---
Providers Date of admission: 07/01/24 08:08 Expected date of discharge: 07/05/24 Attending physician: Cooper Donald MD Consults: 07/01/24 08:08 Consult Physician Stat Consulting Provider: Kayleigh Cuevas Consult Reason/Comments: hypotension, gi bleed Do you want consulting provider notified?: Already Contacted Primary care physician: Cooper Donald MD Hospital Course: Final Diagnosis: Acute GI bleed, coffee-ground emesis breath melena stools, in a patient with history of diverticulosis, on Eliquis, suspect upper GI source, status post EGD reporting 2 nonbleeding antral ulcers and antral erosive gastritis. Symptomatic blood loss anemia secondary to the above status post 1 unit of packed RBCs Hypothermia on bear hugger Hypovolemic hypotension, post pressor support Acute renal failure, baseline creat 1.4, returned to baseline Acute lactic acidosis, resolved with fluid resuscitation Acute on chronic atrial fibrillation with RVR secondary to all the above, anti coagulation on hold Morbid obesity, BMI 45 Obstructive sleep apnea Hypertension Hyperlipidemia History of bipolar disorder, major depressive disorder Chronic back pain on Mobic's and as needed NSAIDs. Hospital course:This is a 69-year-old gentleman with past medical history significant for atrial fibrillation, on Eliquis, diabetes mellitus, gastroesophageal reflux disease, hypertension, hyperlipidemia, osteoarthritis, morbid obesity, obstructive sleep apnea, chronic back pain-takes meloxicam daily as well as as needed ibuprofen ,seizures, major depressive disorder, bipolar disorder ,ongoing nicotine dependence multiple other medical issues presented to the ER with nausea, vomiting, coffee ground emesis and melena stools that began yesterday afternoon. Patient reports on Monday he was not feeling well and by Monday he felt wet and cold, developed nausea and vomiting of coffee ground emesis, developed dark brown/black diarrhea with minimal abdominal pain. On admission hemoglobin 10.3, platelets 273, coffee-ground emesis persisted, NG tube placed. Tachycardic, hypotensive, IV fluid resuscitation, Levophed initiated. Currently receiving 1 unit of packed RBCs. Core temperature on admission 36.1 Fahrenheit, wearing warming blanket. WBC 21.2, MCV 100.8, INR 1.1, sodium 136, potassium 5.8, bicarb 20, BUN 90, creatinine 1.82, glucose 189, lactic acid 7.6, corrected currently 1.5 with IV fluid resuscitation. Magnesium 1.9, alk phos 32, total protein 5.6, albumin 3.4, lipase 45. UA reports negative nitrates, small leukocytes, 3 WBCs, 6 hyaline casts. Dousman level 0.8 (therapeutic level 0.6-1.2). Chest x-ray reports possible left basilar acute infiltrate and/or atelectasis. Troponin negative x 1, EKG reports atrial fibrillation with RVR. 07/02/2024 maintained in ICU .completed EGD yesterday revealing 2 nonbleeding antral ulcers measuring between 5 mm to 1 cm in size with clean base, no stigmata of active bleeding, antral erosive gastritis. Eliquis remains on hold. Continues on PPI twice daily .tolerated procedure well. Denies no further bleeding, no nausea ,no vomiting. No bowel movement. Tolerating clear liquid diet .denies abdominal pain .hemoglobin stable 8.9. Renal function improving, decreased to 1.09. Currently on amiodarone drip, IV fluids of normal saline at 75 mL/h, blood pressure soft, Levophed weaned off. Telemetry atrial fi brillation with rate better controlled. 07/03/2024 sitting up in bed, not yet been up in chair. IVS KVO'd.tolerating full liquid diet. Denies nausea, vomiting or diarrhea. Denies abdominal pain. Hemoglobin 8.7, platelets 179. Electrolytes stable. Renal function continues improving, bicarb 29, BUN 32, creatinine decreased to 0.77. Amiodarone drip discontinued yesterday, beta-rosanna initiated with telemetry atrial fibrillation, mild tachycardia. denies chest pain, palpitations or shortness of breath. Maintaining O2 sats in the high 90s on 3 L nasal cannula. Normal WBC. Denies lightheadedness, dizziness or focal deficits. Denies headache. 07/04/2024 transferred out of ICU currently on stepdown unit. Denies chest pain, palpitations or shortness of breath. Maintaining O2 sats in the 90s on 2 L nasal cannula. Denies further bleeding. hemoglobin stable, 8.4. Afebrile, normal WBC. Renal function stable. Tolerating consistent carb/heart healthy regular diet. Denies nausea vomiting or diarrhea. Has not yet ambulated or been up in chair. 07/05/2024 Eliquis resumed yesterday. Hemoglobin stable, remains at 8.4, platelets 177. Afebrile, normal WBC. BUN 18, creatinine 0.85 .sitting up at bedside, eating breakfast, tolerating heart healthy/consistent carb diet with no nausea, vomiting or diarrhea. Positive bowel movement this morning. Denies chest pain, palpitations or shortness of breath. Denies lightheadedness, dizziness or focal deficits. Patient will be discharged to [facility] subacute rehab today in a stable condition with guarded prognosis pending final DC recommendations and clearance per pulmonary. The impression and plan of care has been dictated as directed. : I performed a history and examination of this patient, discussed the same with the dictator. I agree with the dictator's note ,documented as a scribe. Any additional findings or plans will be noted. Patient Condition at Discharge: Stable Plan - Discharge Summary Discharge Rx Participant: No New Discharge Prescriptions: New Pantoprazole Sodium [Protonix] 40 mg PO BID #60 tab Metoprolol Tartrate [Lopressor] 50 mg PO BID tab Melatonin 5 mg PO HS tab Continue Dousman Carbonate 1,200 mg PO HS Apixaban [Eliquis] 5 mg PO BID Venlafaxine HCl [Effexor XR] 225 mg PO DAILY OLANZapine [ZyPREXA] 7.5 mg PO HS Discontinued Losartan/Hydrochlorothiazide [Hyzaar 100-12.5 Tablet] 1 tab PO DAILY Meloxicam [Mobic] 15 mg PO DAILY Discharge Medication List Dousman Carbonate 1,200 mg PO HS 08/02/17 [History] Apixaban [Eliquis] 5 mg PO BID 10/16/20 [History] OLANZapine [ZyPREXA] 7.5 mg PO HS 07/01/24 [History] Venlafaxine HCl [Effexor XR] 225 mg PO DAILY 07/01/24 [History] Melatonin 5 mg PO HS tab 07/05/24 [Rx] Metoprolol Tartrate [Lopressor] 50 mg PO BID tab 07/05/24 [Rx] Pantoprazole Sodium [Protonix] 40 mg PO BID #60 tab 07/05/24 [Rx] Follow up Appointment(s)/Referral(s): Kathie Daniel MD [STAFF PHYSICIAN] - 1 Week (Call office for biopsy results) Cooper Donald MD [Primary Care Provider] - 1 Week (After DC from subacute rehab) Activity/Diet/Wound Care/Special Instructions: EBER KAUR, BMP in 3 days
[2024-07-05 11:32] LABS: Glucose,Whole Blood 163 mg/dL (70-110)
[2024-07-05 12:44] VITALS: BP 100/64; PULSE 106; RESP 22
--- NOTE | 2024-07-05 14:48 | P.PN ---
Subjective Progress Note Date: 07/05/24 This is a 69-year-old morbidly obese male patient with a body mass index of 44.9 who has been maintained on anticoagulation and the patient was taking Eliquis on outpatient basis for history of atrial fibrillation. The patient also has diabetes mellitus type 2, hypertension, hyperlipidemia and osteoarthritis for which she was taken anti-inflammatory medications in the form of meloxicam. The patient has obstructive sleep apnea in addition. He presented to the emergency department with hematemesis and passing out dark tarry stool. The patient stated that he was nauseous and he was having emesis and he was coughing up coffee-ground material. In the emergency department, the patient was quite tachycardic. He was also noted to be hypotensive. He was given 1 L normal saline bolus and started on normal saline at rate of 150 cc an hour. He was given a unit of packed RBC and NG tube was also inserted and the output is minimal at this point in time. His heart rate currently is in the 130 range and the patient is in atrial fibrillation with rapid ventricular response. In the emergency, the patient's anticoagulation was reversed and the patient was given Balfaxar. He was started also on IV Protonix. No abdominal pain. Abdominal tenderness. His last colonoscopy was done October 2020 and he was found to have colonic polyps and he has undergone polypectomy and is previous history of diverticulosis. His hemoglobin at time of admission was 10.3. In terms of his blood work, his white cell count is at 21.2 with a hemoglobin 10.3 and a platelet count of 273. Normal coagulation profile. BUN was 19 with a creatinine of 1.8 and a sodium level of 136 and a potassium level is at 5.8. Initial venous lactic acid level was at 7.6 dropped down to 1.5, troponins were negative, LFTs are within normal limits, lipase was 45. UA was essentially negative. He takes lithium for bipolar disorder and the patient's lithium level was at 0.8. He also takes a combination of Effexor and Zyprexa on an outpatient basis. GI services have been consulted. On 07/02/2024, the patient is being seen for a follow-up. The patient was hospitalized for an acute GI bleed thought to be an upper GI bleeding. Noted the patient was taking anticoagulation with Eliquis and the patient was treated with Balfaxar and the patient received a total of 1 unit of packed RBC. Patient was also started on IV Protonix. The patient underwent a EGD by gastroenterology yesterday and the patient was found to have 2 nonbleeding antral ulcers measuring between 5 mm to 1 cm in size with a clean base and no stigmata for an active bleeding. There is also evidence of antral erosive russ ritis. Subsequently, overnight, the patient had 3 additional bowel movements that were bloody and the hemoglobin is currently down to 8.9. The patient denies having any nausea vomiting. No coffee-ground emesis for now. No reported abdominal pain. Hemodynamically, the patient is less tachycardic. The patient remains on IV fluids with normal saline at rate of 75 cc an hour. The creatinine is down to 1.09 and the BUN is down to 58. Rest of the electrolytes are stable and within normal limits. 1 seconds down to 14 and the most recent hemoglobin level is at 8.9. Platelet count is at 213. He remains atrial fibrillation. Remains on amiodarone drip at 0.5 mg/min for rate control. No anticoagulants for now. Will be started also on metoprolol for rate control. Patient is currently on no pressors. GI services remain on the case. Will continue the supportive care for now. 07/03/2024, patient is being seen for a follow-up. No further episodes of GI bleeding. The patient's hemoglobin stable at 8.7. The patient is a normal saline at rate of 75 cc an hour. The patient is on 3 L of oxygen by nasal cannula. IV fluids are KVO. Remains in atrial fibrillation. Slightly tachycar dic and the patient is on metoprolol 25 mg p.o. twice a day. Psychiatric medications have been resumed. White cell count of 9.4, platelet count is at 179, BUN 32 with a creatinine of 0.77 and sodium levels at 138 and a potassium level is at 4.5. Awake and alert and communicating. Denies having any shortness of breath. No nausea vomiting or emesis. On 07/04/2024, patient is being seen for a follow-up. Patient got transferred out of the intensive care unit and the patient is currently on the medical floor. Hemoglobin remained stable at 8.4. No evidence of any bleeding and the patient is status post endoscopy and EGD and details were discussed earlier. The patient is advancing his diet as tolerated. Clearance was obtained to restart anticoagulation when the patient was restarted on anticoagulation with Eliquis. He has chronic atrial fibrillation. Rate is slightly tachycardic. The patient remains on metoprolol 50 mg p.o. twice daily. On 07/05/2024, the patient is sitting up in a chair. No evidence of any GI bleeding. Anticoagulation was resumed regarding his ongoing atrial fibrillation. Hemoglobin stable at 8.4. No nausea. No emesis. No abdominal pain. No bright red blood per rectum. The white cell count is 7.5, platelet count is 177. Serum bicarbonate 38, BUN is 18 with a creatinine of 0.85. The patient is currently on KVO IV fluids. No other significant events overnight. No altered mentation. No chest pain. No respiratory distress. Objective - Vital Signs Vital signs: Vital Signs Temp 97.8 F 07/05/24 09:04 Pulse 107 H 07/05/24 09:04 Resp 18 07/05/24 09:04 BP 132/67 07/05/24 09:04 Pulse Ox 90 L 07/05/24 09:04 FiO2 Intake & Output 07/04/24 07/05/24 07/05/24 18:59 06:59 18:59 Intake Total 1040 260 Output Total 350 575 Balance 690 -575 260 Weight 157.3 kg Intake: IV 20 20 Invasive Line 1 10 10 Invasive Line 2 10 10 Oral 1020 240 Output: Urine 350 575 Other: Voiding Method Urinal Urinal Diaper Diaper - Exam The patient appeared well nourished and normally developed. Vital signs as documented. The patient is morbidly obese with a BMI of 44.9. No significant respiratory distress. Head exam is unremarkable. No scleral icterus or corneal arcus noted. Neck is without jugular venous distension, thyromegaly, or carotid bruits. Carotid upstrokes are brisk bilaterally. Lungs are clear to auscultation and percussion. Cardiac exam reveals the PMI to be normally sized and situated. Irregular rhythm consistent with atrial fibrillation, rate is under better control . First and second heart sounds normal. No murmurs, rubs or gallops. Abdominal exam reveals normal bowel sounds, no masses, no organomegaly and no aortic enlargement. Patient is obese. Abdomen cannot be accurately palpated. No direct tenderness no rebound tenderness or guarding Extremities are nonedematous and both femoral and pedal pulses are normal. Examination of the skin revealed no evidence of significant rashes, suspicious appearing nevi or other concerning lesions. Neurologically, the patient is awake and alert and the patient does not have any focal neurological deficit. Cranial nerves are essentially intact. - Labs CBC & Chem 7: 07/05/24 07:57 07/05/24 07:57 Labs: Abnormal Lab Results - Last 24 Hours (Table) 07/04/24 07/04/24 07/05/24 Range/Units 16:38 20:10 05:58 RBC (4.30-5.90) m/uL Hgb (13.0-17.5) gm/dL Hct (39.0-53.0) % MCV (80.0-100.0) fL Carbon Dioxide (22-30) mmol/L Glucose (74-99) mg/dL POC Glucose (mg/dL) 145 H 140 H 136 H (70-110) mg/dL 07/05/24 07/05/24 07/05/24 Range/Units 07:57 07:57 11:30 RBC 2.54 L (4.30-5.90) m/uL Hgb 8.4 L (13.0-17.5) gm/dL Hct 25.9 L (39.0-53.0) % MCV 101.9 H (80.0-100.0) fL Carbon Dioxide 38 H (22-30) mmol/L Glucose 114 H (74-99) mg/dL POC Glucose (mg/dL) 163 H (70-110) mg/dL Microbiology - Last 24 Hours (Table) 07/01/24 09:05 Blood Culture - Preliminary Blood Assessment and Plan Plan: Acute GI bleeding, likely of a upper GI source as the patient has been having coffee-ground emesis along with melanotic black tarry stool. The patient has been anticoagulated with Eliquis and the patient has been taking meloxicam on outpatient basis. He is known to have previous history of colonic polyps and has undergone previous polypectomy back in 2020 and is also noted to have diverticulosis. Patient was given Balfaxar and is currently on IV Protonix. The patient is status post EGD that was done on 07/01/2024 and the patient was found to have antral gastritis and small 5 to 10 mm antral ulcers with clean base without evidence of any acute bleeding. No ongoing GI bleed over the past 48 hours and the patient's hemoglobin stable at 8.4. Anticoagulation was restarted Blood loss anemia and hemoglobin is stable at 8.4 Acute hypovolemic hypotension, improved and the patient remains on normal saline at rate 20 cc an hour Atrial fibrillation with rapid ventricular response secondary to hypovolemia and blood loss. The patient is known to have chronic atrial fibrillation. Rate is under better control. Remains slightly tachycardic and the patient remains will be started back on anticoagulants Morbid obesity BMI 44.9 Obstructive sleep apnea Hypertension Hyperlipidemia Diabetes mellitus type 2 History of major depression/bipolar disorder Chronic back pain with herniated disks Acute lactic acidosis, improved with fluid resuscitation Acute leukocytosis, likely reactive, improving Acute kidney injury and the creatinine is improving Plan Patient on room air oxygen Tolerating diet Monitor hemoglobin and is stable at 8.4 Anticoagulation with Eliquis was resumed Continue IV Protonix Normal saline at rate of 20 cc an hour Increase the metoprolol to 50 mg p.o. twice a day Renal function is improving White cell count is improving Hold all form of nonsteroidal anti-inflammatory medications The patient will be monitored.
--- NOTE | 2024-07-08 20:53 | CDI ---
Documentation Clarification Form Date: 07/08/2024 07:45:59 PM From: Britt Damon Phone: Admit Date: 07/01/2024 08:08:00 AM Patient Name: Nando Dunn Visit Number: [id number] Discharge Date: 07/05/2024 03:55:00 PM ATTENTION: The Clinical Documentation Specialists (CDI) and [facility] Coding Staff appreciate your assistance in clarifying documentation. Please respond to the clarification below the line at the bottom and electronically sign. The CDI & [facility] Coding staff will review the response and follow-up if needed. Please note: Queries are made part of the Legal Health Record. If you have any questions, please contact the author of this message via ITS. Doctor/Provider: Kayleigh Cuevas Your patient is receiving the following: Insulin, Rapid Acting. Please clarify what condition/diagnosis is being treated. History/Risk Factors: 69yo M, Antralerosive gastritis w ulcers & bleeding, A/CBLA, hypothermia, HANNY, HTN, HLS, BPD, hypovolemic,hypotension, ARF, acutelactic acidosis,AC A Fib, morbid obesity,CBP Clinical indicators: Glucose: 07/01 189 07/02 160-191 07/03 124-194 07/04 112-194 A1C: 6.4 Treatment: Insulin, Rapid Acting What diagnosis are you treating with Insulin, Rapid Acting? [ x ] Type 2 diabetes mellitus without complications [ ] Type 2 diabetes mellitus with hyperglycemia [ ] No additional diagnosis [ ] Other, please specify [ ] Unable to determine (Template Last Reviewed: August 2020) [id number]
== END 2024-07-05 15:55 | DRG 378 ==
LOC: EC 06:08 → 2SICU 08:08 → 3SCARD 07-03 18:32
PROVIDERS: ADMIT Family Medicine; ATTEND Family Medicine
PROC: 30233N1 Transfusion of Nonautologous Red Blood Cells into Peripheral Vein, Percutaneous Approach (ICD-10-PCS; 2024-07-01)
PROC: 3E043XZ Introduction of Vasopressor into Central Vein, Percutaneous Approach (ICD-10-PCS; 2024-07-01)
PROC: 0DB78ZX Excision of Stomach, Pylorus, Via Natural or Artificial Opening Endoscopic, Diagnostic (ICD-10-PCS; 2024-07-01)
PROC: 06HY33Z Insertion of Infusion Device into Lower Vein, Percutaneous Approach (ICD-10-PCS; principal; 2024-07-01 07:55)
DX: K29.01 Acute gastritis with bleeding (principal); E87.21 Acute metabolic acidosis; I48.20 Chronic atrial fibrillation, unspecified; N17.9 Acute kidney failure, unspecified; Z68.42 Body mass index [BMI] 45.0-49.9, adult; E66.01 Morbid (severe) obesity due to excess calories; F31.9 Bipolar disorder, unspecified; R68.0 Hypothermia, not associated with low environmental temperature; D50.0 Iron deficiency anemia secondary to blood loss (chronic); I10 Essential (primary) hypertension; D72.828 Other elevated white blood cell count; E86.1 Hypovolemia; F17.210 Nicotine dependence, cigarettes, uncomplicated; I95.9 Hypotension, unspecified; E78.5 Hyperlipidemia, unspecified; G47.33 Obstructive sleep apnea (adult) (pediatric); G89.29 Other chronic pain; M54.9 Dorsalgia, unspecified; Z79.01 Long term (current) use of anticoagulants; Z79.1 Long term (current) use of non-steroidal anti-inflammatories (NSAID); Z79.899 Other long term (current) drug therapy; Z86.0100 Personal history of colon polyps, unspecified; E11.9 Type 2 diabetes mellitus without complications
CPT/HCPCS: 36415; 36430; 36600; 43239; 71045; 80048; 80053; 80178; 81001; 82272; 82805; 83036; 83605; 83690; 83735; 84132; 84484; 85025; 85027; 85610; 85730; 86850; 86900; 86901; 86920; 87040; 88305; 93005; 94760; 96361; 96365; 96366; 96368; 96375; 99291; 99292

== ENCOUNTER → 2024-09-10 | Outpatient (CLI) | payer MEDICARE | LOC: CPPFTMAIN 12:13 | PROVIDERS: ATTEND Internal Medicine Critical Care Medicine | DX: I10 Essential (primary) hypertension (principal) | CPT/HCPCS: 94060; 94726; 94729 ==

== ENCOUNTER 2024-09-14 22:03 | Inpatient (IN) | payer MEDICARE ==
[2024-09-14] MEDS ORDERED: VANCOMYCIN IV PER PHARMACY 1 EACH MISC MISCELLANE PRN (22:23)
--- NOTE | 2024-09-14 22:31 | ED ---
General Adult HPI - General Chief complaint: Extremity Problem,Nontraumatic Stated complaint: Extremity issue Time Seen by Provider: 09/14/24 22:06 Source: patient Mode of arrival: EMS Limitations: no limitations - History of Present Illness Initial comments: Patient is a pleasant 69-year-old gentleman past medical history atrial fibrillation on Eliquis, diabetes, hyperlipidemia, hypertension presenting today for generalized weakness and "feeling like his left knee gave out from him". States had left knee replacement a year and a half ago by Dr. Robles. Has had a wound on his distal left lower extremity ongoing for about 1 month. Today patient was walking through his home when he felt like his left knee gave out from under him. He was able to bring himself to the ground without falling or injury however was unable to get back up secondary to weakness. Patient states he has been seeing a wound clinic for the wound on his left lower extremity, dressing was changed about 5 days ago. States he did feel feverish and chilled this afternoon. Endorses 1 out of 10 pain in the left knee. Endorses cough x 3 weeks and shortness of breath with associated bilateral lower extremity swelling. Denies any chest pain, abdominal pain, nausea, vomiting, melena or hematochezia. Denies numbness. No recent antibiotic use. - Related Data Home Medications Medication Instructions Recorded Confirmed [place] Carbonate 1,200 mg PO HS 08/02/17 09/15/24 Apixaban [Eliquis] 5 mg PO BID 10/16/20 09/15/24 OLANZapine [ZyPREXA] 7.5 mg PO HS 07/01/24 09/15/24 Venlafaxine HCl [Effexor XR] 225 mg PO DAILY 07/01/24 09/15/24 Glucosam/Max-Msm1/C/Conor/Bosw 1 tab PO DAILY 09/15/24 09/15/24 [Glucosamine-Chondroitin Tablet] Krill/Om-3/Dha/Epa/Phospho/Ast 1 cap PO DAILY 09/15/24 09/15/24 [Krill Oil 600 mg Softgel] Losartan/Hydrochlorothiazide 1 tab PO DAILY 09/15/24 09/15/24 [Hyzaar 100-12.5 Tablet] Turmeric Root Extract [Turmeric] 500 mg PO DAILY 09/15/24 09/15/24 Allergies Allergy/AdvReac Type Severity Reaction Status Date / Time No Known Allergies Allergy Verified 09/15/24 10:04 Review of Systems ROS Statement: Those systems with pertinent positive or pertinent negative responses have been documented in the HPI. ROS Other: All systems not noted in ROS Statement are negative. Past Medical History Past Medical History: Atrial Fibrillation, Diabetes Mellitus, GERD/Reflux, Hyperlipidemia, Hypertension, Osteoarthritis (OA), Sleep Apnea/CPAP/BIPAP Additional Past Medical History / Comment(s): seizure two yrs ago from major depressive disorder, hemorrhoids, herniated disc, TOOTH ACHE AT PRESENT Cellulitis and abscess of mouth. Mediastinitis secondary to mouth abscess; IV antibiotic therapy History of Any Multi-Drug Resistant Organisms: None Reported Past Surgical History: Adenoidectomy, Hernia Repair, Tonsillectomy Additional Past Surgical History / Comment(s): epidural. Abscessed teeth pulled at [place] [id number]. Chest tube drain. Past Anesthesia/Blood Transfusion Reactions: No Reported Reaction Past Psychological History: Depression Smoking Status: Current some day smoker Past Alcohol Use History: Rare Past Drug Use History: None Reported - Past Family History Mother Family Medical History: No Reported History General Exam - General Exam Comments Initial Comments: PE: CONSTITUTIONAL: No apparent distress, well appearing SKIN: Warm, dry, no jaundice, hives or petechiae. 5 cm diameter erythematous superficial ulcerative wound with scasnt yellow exudate and mild erythema at the left distal medial lower extremity, mild erythema extending up to knee, erythema does not circumference the knee EYES: Pupils are equally round, extraocular movements intact without nystagmus, clear conjunctiva, non-icteric sclera HENT: Normocephalic, atraumatic, moist mucus membranes, oropharynx clear without exudates NECK: , Full range of motion, normal appearance PULMONARY: Clear to auscultation without wheezes, rhonchi, or rales, normal excursion, no accessory muscle use and no stridor, exam is limited by body habitus CARDIOVASCULAR: Cardia, irregularly irregular rate and rhythm normal S1 and S2. No appreciated murmurs, rubs or gallops. Strong radial pulses with intact distal perfusion. 2+ bilateral lower extremity pitting edema GASTROINTESTINAL: Soft, active bowel sounds throughout, non-tender, non- distended, no palpable masses, no rebound or guarding. No hepatosplenomegaly MUSCULOSKELETAL: Extremities have no gross deformity, knee is nontender to palpation and without joint effusion or deformity,distal left extremity is warm to the touch NEUROLOGIC:_a/o x 3, GCS 15, normal mentation and speech. Moves all extremities x 4 without motor or sensory deficit PSYCHIATRIC:_normal mood and affect, thought process is clear and linear Limitations: no limitations Course Vital Signs 09/14/24 09/14/24 09/15/24 22:06 23:53 00:24 Temperature 98.2 F Pulse Rate 117 H 108 H 128 H Pulse Rate [ Pulse Oximetery ] Respiratory 18 18 Rate Blood Pressure 107/69 104/51 Blood Pressure [Left Arm] O2 Sat by Pulse 93 L 96 Oximetry 09/15/24 09/15/24 09/15/24 02:31 04:52 06:15 Temperature Pulse Rate 110 H 94 105 H Pulse Rate [ Pulse Oximetery ] Respiratory 18 18 18 Rate Blood Pressure 95/65 104/60 90/65 Blood Pressure [Left Arm] O2 Sat by Pulse 95 Oximetry 09/15/24 09/15/24 09/15/24 08:14 11:01 12:42 Temperature 98.9 F Pulse Rate 115 H 106 H 82 Pulse Rate [ Pulse Oximetery ] Respiratory 120 H 18 18 Rate Blood Pressure 115/71 110/76 111/76 Blood Pressure [Left Arm] O2 Sat by Pulse 95 100 98 Oximetry 09/15/24 09/15/24 09/15/24 14:49 17:13 18:14 Temperature 98.1 F 98.5 F Pulse Rate 105 H 101 H 108 H Pulse Rate [ Pulse Oximetery ] Respiratory 18 18 18 Rate Blood Pressure 103/72 110/66 Blood Pressure [Left Arm] O2 Sat by Pulse 97 95 Oximetry 09/15/24 09/15/24 09/16/24 21:45 22:19 00:54 Temperature 97.7 F Pulse Rate 98 Pulse Rate [ 94 Pulse Oximetery ] Respiratory 18 20 Rate Blood Pressure 99/64 Blood Pressure 129/61 [Left Arm] O2 Sat by Pulse 88 L 94 L 94 L Oximetry 09/16/24 09/16/24 09/16/24 05:28 06:32 08:14 Temperature 97.8 F Pulse Rate Pulse Rate [ 116 H 94 Pulse Oximetery ] Respiratory 22 Rate Blood Pressure Blood Pressure 108/71 [Left Arm] O2 Sat by Pulse 95 95 Oximetry - Reevaluation(s) Reevaluation #1: Pt HR remained 130 despite fluids and pain control, unsure if took home metoprolol tonight, ordered dose 50 mg home metoprolol 09/15/24 00:04 EKG Findings - EKG Comments: EKG Findings:: Atrial fibrillation with RVR, rate 117 bpm QT/QTc 335/4 4 ms, normal axis, no ST elevations or depressions, no STEMI Medical Decision Making - Medical Decision Making Was pt. sent in by a medical professional or institution (, PA, LOCOMOTIVE CRANE OPERATOR HELPER, urgent care, hospital, or longterm...) When possible be specific @ -No Did you speak to anyone other than the patient for history (EMS, parent, family, police, friend...)? What history was obtained from this source @ -No Did you review nursing and triage notes (agree or disagree)? Why? @ -I reviewed nursing and triage notes Were old charts reviewed (outside hosp., previous admission, EMS record, old EKG, old radiological studies, urgent care reports/EKG's, longterm records)? Report findings @ -Medical records reviewed- Patient had a pulmonary function test performed on 09/10/2024 which report states conclusion was moderate airway obstruction, diffusion defect and reduced lung volume suggestive of an early parenchymal process, Differential Diagnosis (chest pain, altered mental status, abdominal pain women, abdominal pain men, vaginal bleeding, weakness, fever, dyspnea, syncope, headache, dizziness, GI bleed, back pain, seizure, CVA, palpatations, mental hea lth, musculoskeletal)? @Differential Musculoskeletal Muscular strain, contusion, ligament sprain, fracture, arthritis, septic arthritis, bursitis, cellulitis, muscle spasm, nerve compression, DVT .... This is not meant to be in all inclusive list Differential Weakness: Hypoglycemia, shock, sepsis, hyponatremia, anemia, infection, ACS, chronic debility, adverse medicine reaction this is not meant to be an all-inclusive list. EKG interpreted by me (3pts min.). @ -As above X-rays interpreted by me (1pt min.). @I personally review XR knee, I see no evidence of fracture or malalignment, Radiologist notes "soft tissue swelling/edema, moderate joint effusion and uncomplicated total knee arthroplasty without evidence of acute fracture or dislocation, no hardware complication", I agree with radiologist interpretation; I personally reviewed chest x-ray, on my review appears to show cardiomegaly, radiologist interpretation states no acute process of the chest though probable cardiomegaly noted CT interpreted by me (1pt min.). @ -None done U/S interpreted by me (1pt. min.). @ -None done What testing was considered but not performed or refused? (CT, X-rays, U/S, labs)? Why? US LE was considered however edema is equivalent in both LE and LLE exam consistent with cellulitis, additionally pt is anticoagulated on eliquis. Additionally arthrocentesis of the knee was considered however erythema appears to be extending upwards from distal LE/ region of wound towards the knee but does not circumference the knee, there does not appear to be a focal area of swelling of the left knee compared to right, exam more consistent with cellulitis What meds were considered but not given or refused? Why? @ -None Did you discuss the management of the patient with other professionals (professionals i.e. , PA, LOCOMOTIVE CRANE OPERATOR HELPER, lab, RT, psych nurse, 7th grade social studies teacher, customer solutions specialist, teacher, ammunition officer, disease case manager)? Give summary @ -No Was smoking cessation discussed for >3mins.? @ -No Was critical care preformed (if so, how long)? @Yes 35 minutes Were there social determinants of health that impacted care today? How? (Homelessness, low income, unemployed, alcoholism, drug addiction, transportation, low edu. Level, literacy, decrease access to med. care, prison, rehab)? @No Was there de-escalation of care discussed even if they declined (Discuss DNR or withdrawal of care, Hospice)? @ -No What co-morbidities impacted this encounter? (DM, HTN, Smoking, COPD, CAD, Cancer, CVA, ARF, Chemo, Hep., AIDS, mental health diagnosis, sleep apnea, morbid obesity)? @Diabetes, hypertension, hyperlipidemia Was patient admitted / discharged? Hospital course, mention meds given and route, prescriptions, significant lab abnormalities, going to OR and other pertinent info. @ -Admission-This is a pleasant 69-year-old gentleman, past medical issue diabetes, hypertension presenting today for generalized weakness, felt like his left knee gave out from under him, left lower extremity wound. Patient is seen and assessed on arrival, he is overall well-appearing no acute distress, calm awake alert pleasant. He is tachycardic, blood pressure stable, afebrile. Noted erythematous wound to distal LLE and erythema consistent with cellulitis extending up towards knee but does not circumference it. Given apparent cellu litis and wound on the left lower extremity and tachycardia blood cultures and sepsis workup were initiated. A full 30 cc/kg bolus was not ordered due to lower extremity edema and concerns for exacerbating any potential fluid overload. Broad-spectrum antibiotics, x-ray of the knee, Tylenol ordered as well as basic labs. Pt was tachycardic despite small fluid bolus, unsure if he took his home m etoprolol tonight, so this was ordered. Labs significant for white blood count 32,000, neutrophils 30.5%, lactic of 3.8, CRP minimally elevated at 5.9, BNP 3850, despite elevated BNP, will give IV m aintenance fluids due to elevated lactic, a full 30 cc/kg bolus again was not given to the patient in order to avoid fluid overload. On reassessment HR is controlled, ~104, vitals stable. Discussed with pt resulted labs and imaging and plan for admission, agreeable with POC. Admit to [facility], case discussed with So [facility], kindly accepts pt for admisson. Undiagnosed new problem with uncertain prognosis? @ -No Drug Therapy requiring intensive monitoring for toxicity (Heparin, Nitro, Insulin, Cardizem)? @ -No Were any procedures done? @ -No Diagnosis/symptom? Weakness, cellulitis, sepsis Acute, or Chronic, or Acute on Chronic? @acute Uncomplicated (without systemic symptoms) or Complicated (systemic symptoms)? complicated Side effects of treatment? @ -No Exacerbation, Progression, or Severe Exacerbation? @ -No Poses a threat to life or bodily function? How? (Chest pain, USA, DC, pneumonia, PE, COPD, DKA, ARF, appy, cholecystitis, CVA, Diverticulitis, Homicidal, Suicidal, threat to staff... and all critical care pts) @ Yes if left unaddressed could lead to septic shock and - Lab Data Result diagrams: 09/19/24 07:36 09/19/24 07:36 Lab Results 09/14/24 09/14/24 09/14/24 Range/Units 22:56 22:56 22:56 WBC 32.2 H (3.8-10.6) k/uL RBC 4.02 L (4.30-5.90) m/uL Hgb 9.3 L (13.0-17.5) gm/dL Hct 32.1 L (39.0-53.0) % MCV 79.8 L (80.0-100.0) fL MCH 23.1 L (25.0-35.0) pg MCHC 28.9 L (31.0-37.0) g/dL RDW 19.9 H (11.5-15.5) % Plt Count 418 (150-450) k/uL MPV 7.5 Neutrophils % 95 % Lymphocytes % 1 % Monocytes % 4 % Eosinophils % 0 % Basophils % 0 % Neutrophils # 30.5 H (1.3-7.7) k/uL Lymphocytes # 0.3 L (1.0-4.8) k/uL Monocytes # 1.2 H (0-1.0) k/uL Eosinophils # 0.1 (0-0.7) k/uL Basophils # 0.1 (0-0.2) k/uL Manual Slide Review Performed Toxic Granulation Present Toxic Vacuolation Present Hypochromasia Marked Poikilocytosis Slight Anisocytosis Slight Microcytosis Slight ESR (0-20) mm/Hr PT 14.1 H (10.0-12.5) sec INR 1.3 H (<1.2) APTT 25.0 (22.0-30.0) sec Sodium 138 (137-145) mmol/L Potassium 4.0 (3.5-5.1) mmol/L Chloride 100 (98-107) mmol/L Carbon Dioxide 29 (22-30) mmol/L Anion Gap 9 mmol/L BUN 15 (9-20) mg/dL Creatinine 1.19 (0.66-1.25) mg/dL Est GFR (CKD-EPI)AfAm 72 (>60 ml/min/1.73 sqM) Est GFR (CKD-EPI)NonAf 62 (>60 ml/min/1.73 sqM) Glucose 76 (74-99) mg/dL Plasma Lactic Acid Javier (0.7-2.0) mmol/L Calcium 8.6 (8.4-10.2) mg/dL Magnesium 2.0 (1.6-2.3) mg/dL Total Bilirubin 1.4 H (0.2-1.3) mg/dL AST 40 (17-59) U/L ALT 15 (4-49) U/L Alkaline Phosphatase 63 (38-126) U/L Troponin I (0.000-0.034) ng/mL C-Reactive Protein 5.9 H (<1.0) mg/dL NT-Pro-B Natriuret Pep 3850 pg/mL Total Protein 6.3 (6.3-8.2) g/dL Albumin 3.6 (3.5-5.0) g/dL Influenza Type A (PCR) (Not Detectd) Influenza Type B (PCR) (Not Detectd) RSV (PCR) (Not Detectd) SARS-CoV-2 (PCR) (Not Detectd) 09/14/24 09/14/24 09/14/24 Range/Units 22:56 22:56 22:56 WBC (3.8-10.6) k/uL RBC (4.30-5.90) m/uL Hgb (13.0-17.5) gm/dL Hct (39.0-53.0) % MCV (80.0-100.0) fL MCH (25.0-35.0) pg MCHC (31.0-37.0) g/dL RDW (11.5-15.5) % Plt Count (150-450) k/uL MPV Neutrophils % % Lymphocytes % % Monocytes % % Eosinophils % % Basophils % % Neutrophils # (1.3-7.7) k/uL Lymphocytes # (1.0-4.8) k/uL Monocytes # (0-1.0) k/uL Eosinophils # (0-0.7) k/uL Basophils # (0-0.2) k/uL Manual Slide Review Toxic Granulation Toxic Vacuolation Hypochromasia Poikilocytosis Anisocytosis Microcytosis ESR (0-20) mm/Hr PT (10.0-12.5) sec INR (<1.2) APTT (22.0-30.0) sec Sodium (137-145) mmol/L Potassium (3.5-5.1) mmol/L Chloride (98-107) mmol/L Carbon Dioxide (22-30) mmol/L Anion Gap mmol/L BUN (9-20) mg/dL Creatinine (0.66-1.25) mg/dL Est GFR (CKD-EPI)AfAm (>60 ml/min/1.73 sqM) Est GFR (CKD-EPI)NonAf (>60 ml/min/1.73 sqM) Glucose (74-99) mg/dL Plasma Lactic Acid Javier 3.8 H* (0.7-2.0) mmol/L Calcium (8.4-10.2) mg/dL Magnesium (1.6-2.3) mg/dL Total Bilirubin (0.2-1.3) mg/dL AST (17-59) U/L ALT (4-49) U/L Alkaline Phosphatase (38-126) U/L Troponin I <0.012 (0.000-0.034) ng/mL C-Reactive Protein (<1.0) mg/dL NT-Pro-B Natriuret Pep pg/mL Total Protein (6.3-8.2) g/dL Albumin (3.5-5.0) g/dL Influenza Type A (PCR) Not Detected (Not Detectd) Influenza Type B (PCR) Not Detected (Not Detectd) RSV (PCR) Not Detected (Not Detectd) SARS-CoV-2 (PCR) Not Detected (Not Detectd) 09/14/24 Range/Units 23:40 WBC (3.8-10.6) k/uL RBC (4.30-5.90) m/uL Hgb (13.0-17.5) gm/dL Hct (39.0-53.0) % MCV (80.0-100.0) fL MCH (25.0-35.0) pg MCHC (31.0-37.0) g/dL RDW (11.5-15.5) % Plt Count (150-450) k/uL MPV Neutrophils % % Lymphocytes % % Monocytes % % Eosinophils % % Basophils % % Neutrophils # (1.3-7.7) k/uL Lymphocytes # (1.0-4.8) k/uL Monocytes # (0-1.0) k/uL Eosinophils # (0-0.7) k/uL Basophils # (0-0.2) k/uL Manual Slide Review Toxic Granulation Toxic Vacuolation Hypochromasia Poikilocytosis Anisocytosis Microcytosis ESR 7 (0-20) mm/Hr PT (10.0-12.5) sec INR (<1.2) APTT (22.0-30.0) sec Sodium (137-145) mmol/L Potassium (3.5-5.1) mmol/L Chloride (98-107) mmol/L Carbon Dioxide (22-30) mmol/L Anion Gap mmol/L BUN (9-20) mg/dL Creatinine (0.66-1.25) mg/dL Est GFR (CKD-EPI)AfAm (>60 ml/min/1.73 sqM) Est GFR (CKD-EPI)NonAf (>60 ml/min/1.73 sqM) Glucose (74-99) mg/dL Plasma Lactic Acid Javier (0.7-2.0) mmol/L Calcium (8.4-10.2) mg/dL Magnesium (1.6-2.3) mg/dL Total Bilirubin (0.2-1.3) mg/dL AST (17-59) U/L ALT (4-49) U/L Alkaline Phosphatase (38-126) U/L Troponin I (0.000-0.034) ng/mL C-Reactive Protein (<1.0) mg/dL NT-Pro-B Natriuret Pep pg/mL Total Protein (6.3-8.2) g/dL Albumin (3.5-5.0) g/dL Influenza Type A (PCR) (Not Detectd) Influenza Type B (PCR) (Not Detectd) RSV (PCR) (Not Detectd) SARS-CoV-2 (PCR) (Not Detectd) Disposition Clinical Impression: Cellulitis, Wound of lower extremity, Generalized weakness Disposition: ADMITTED IP TO THIS HOSP Condition: Stable
[2024-09-14] MEDS: ACETAMINOPHEN TAB 325 MG TAB PO STA (23:48)
[2024-09-14] MEDS: CEFEPIME 2 GM in SODIUM CHLORIDE 0.9% 100 ML IVPB STA (23:49)
[2024-09-14] MEDS: SODIUM CHLORIDE 0.9% 500 ML 500 ML IV STA (23:49)
[2024-09-14 23:50] LABS: Anisocytosis Slight; Basophils # (A) 0.1 k/uL (0-0.2); Basophils % (A) 0 %; Eosinophils # (A) 0.1 k/uL (0-0.7); Eosinophils % (A) 0 %; HCT 32.1 % (39.0-53.0); HGB 9.3 gm/dL (13.0-17.5); Hypochromasia Marked; Lymphocytes # (A) 0.3 k/uL (1.0-4.8); Lymphocytes % (A) 1 %; MCH 23.1 pg (25.0-35.0); MCHC 28.9 g/dL (31.0-37.0); MCV 79.8 fL (80.0-100.0); Mean Platelet Volume 7.5; Microcytosis Slight; Monocytes # (A) 1.2 k/uL (0-1.0); Monocytes % (A) 4 %; Neutrophils # (A) 30.5 k/uL (1.3-7.7); Neutrophils % (A) 95 %; Platelet Count 418 k/uL (150-450); Poikilocytosis Slight; RBC 4.02 m/uL (4.30-5.90); RDW 19.9 % (11.5-15.5); WBC 32.2 k/uL (3.8-10.6)
[2024-09-14 23:56] LABS: INR 1.3 (<1.2); Prothrombin Time 14.1 sec (10.0-12.5)
[2024-09-15 00:06] LABS: ALT 15 U/L (4-49); AST 40 U/L (17-59); African American GFR (CKD) 72 (>60 ml/min/1.73 sqM); Albumin 3.6 g/dL (3.5-5.0); Alkaline Phosphatase 63 U/L (38-126); Anion Gap 9 mmol/L; Blood Urea Nitrogen 15 mg/dL (9-20); C Reactive Protein 5.9 mg/dL (<1.0); Calcium 8.6 mg/dL (8.4-10.2); Carbon Dioxide 29 mmol/L (22-30); Chloride 100 mmol/L (98-107); Glucose 76 mg/dL (74-99); Non-African American GFR(CKD) 62 (>60 ml/min/1.73 sqM); Sodium 138 mmol/L (137-145); Total Bilirubin 1.4 mg/dL (0.2-1.3); Total Protein 6.3 g/dL (6.3-8.2)
[2024-09-15 00:12] LABS: NT-Pro-B-Type Natriuretic Pept 3850 pg/mL
[2024-09-15 00:14] LABS: Influenza A Not Detected (Not Detectd); Influenza B Not Detected (Not Detectd); RSV Not Detected (Not Detectd)
[2024-09-15] MEDS ORDERED: MAG HYDROX/AL HYDROX/SIMETH 30 ML CUP PO PRN (00:26)
[2024-09-15] MEDS ORDERED: MORPHINE SULFATE 4 MG/ML SYRINGE IV PRN (00:26)
[2024-09-15] MEDS ORDERED: NALOXONE 0.4 MG/ML 1 ML VIAL IV PRN (00:26)
[2024-09-15] MEDS ORDERED: CALCIUM CARBONATE 500 MG CHEWABLE PO PRN (00:26)
[2024-09-15] MEDS ORDERED: ONDANSETRON 4 MG/2 ML VIAL IVP PRN (00:26)
[2024-09-15] MEDS: METOPROLOL TARTRATE 50 MG TAB PO STA (00:28)
[2024-09-15] MEDS: VANCOMYCIN 2,250 MG in SODIUM CHLORIDE 0.9% 500 ML 500 ML IVPB ONE (00:29)
[2024-09-15 01:22] LABS: Toxic Granulation Present; Toxic Vacuolation Present
--- NOTE | 2024-09-15 01:35 | XR ---
EXAM: XR Left Knee, 3 Views CLINICAL HISTORY: ITS.REASON XR Reason: prior knee replace. felt give out TECHNIQUE: Three views of the left knee. COMPARISON: No relevant prior studies available. FINDINGS: Bones/joints: Moderate joint effusion. Radiographically uncomplicated total knee arthroplasty without evidence of acute fracture or dislocation. No hardware complication. Soft tissues: Diffuse soft tissue swelling/edema. IMPRESSION: 1. Diffuse soft tissue swelling/edema. 2. Moderate joint effusion. 3. Radiographically uncomplicated total knee arthroplasty without evidence of acute fracture or dislocation. No hardware complication.
--- NOTE | 2024-09-15 01:37 | XR ---
EXAM: XR Chest, 2 Views CLINICAL HISTORY: ITS.REASON XR Reason: Weakness, shortness of breath TECHNIQUE: Frontal and lateral views of the chest. COMPARISON: No relevant prior studies available. FINDINGS: Limitations: Body habitus. Lungs: No consolidation. Pleural space: No pleural effusion or pneumothorax. Heart: Probable cardiomegaly, though appearance accentuated on AP projection. Bones/joints: No acute fracture. No dislocation. IMPRESSION: No acute findings in the chest.
[2024-09-15] MEDS: SODIUM CHLORIDE 0.9% 1,000 ML IV SCH (02:25)
[2024-09-15] MEDS: MELATONIN 5 MG TABLET PO SCH (02:30)
[2024-09-15] MEDS: APIXABAN 5 MG TAB PO SCH (08:19)
[2024-09-15] MEDS: METOPROLOL TARTRATE 50 MG TAB PO SCH (08:19)
[2024-09-15] MEDS: VENLAFAXINE HCL ER 75 MG CAP PO SCH (08:19)
[2024-09-15] MEDS: PANTOPRAZOLE 40 MG TABLET PO SCH (08:19)
[2024-09-15] MEDS: FAMOTIDINE 20 MG TAB PO SCH (08:19)
[2024-09-15] MEDS ORDERED: DEXTROSE 50% SYRINGE 50 ML IVP PRN ×2 (11:21)
--- NOTE | 2024-09-15 11:28 | P.HPIM ---
History of Present Illness 69-year-old male came in because he is unable to take care of himself and infection and legs patient has a wound in the left mid dunlap area which appeared to be infected and also cellulitis of the right lower extremity denied any history of MRSA in the past patient does have history of atrial fibrillation patient was hypotensive patient has swelling in bilateral lower extremities but chest x-ray is within normal limits does not appear to be in CHF patient has elevated BNP of 3200 does have history of atrial fibrillation on anticoagulation with Eliquis. Patient lives by himself lately he is unable to take care of himself patient was started on vancomycin here. Patient is obese with history of sleep apnea. Using his CPAP machine presently on oxygen does not usually use any oxygen. REVIEW OF SYSTEMS: All other systems are negative except those mentioned in the HPI PHYSICAL EXAMINATION: GENERAL: The patient is alert and oriented x3, not in any acute distress. Well developed, well nourished. Morbidly obese HEENT: Pupils are round and equally reacting to light. EOMI. No scleral icterus. No conjunctival pallor. Normocephalic, atraumatic. No pharyngeal erythema. No thyromegaly. CARDIOVASCULAR: S1 and S2 present. No murmurs, rubs, or gallops. PULMONARY: Chest is clear to auscultation, no wheezing or crackles. ABDOMEN: Soft, nontender, nondistended, normoactive bowel sounds. No palpable organomegaly. MUSCULOSKELETAL: No joint swelling or deformity. EXTREMITIES: No cyanosis, clubbing, . NEUROLOGICAL: Gross neurological examination did not reveal any focal deficits. SKIN: Bilateral lower extremity edema with a circumferential cellulitis in the right lower extremity involving the lower leg and left to there is an ulcer below the mid dunlap area which appear to be infected. Assessment and plan Secondary to cellulitis of the right lower extremity and infected wound of left lower extremity continue vancomycin infectious disease been consulted will obtain wound cultures -Hypertension probably secondary to sepsis continue with IV fluids -Bilateral lower extremity edema appears to be pretty moderate in CHF patient will continue on fluids for now because of hypotension and lactic acidosis -Morbid obesity obstructive sleep apnea patient will continue on CPAP machine. -History of atrial fibrillation paroxysmal presently rate controlled on anticoagulation rate control medications and anticoagulation with medications resumed -Type 2 diabetes mellitus: On sliding scale insulin Generalized weakness: PT and OT evaluation DVT prophylaxis:lovenox Past Medical History Past Medical History: Atrial Fibrillation, Diabetes Mellitus, GERD/Reflux, Hyperlipidemia, Hypertension, Osteoarthritis (OA), Sleep Apnea/CPAP/BIPAP Additional Past Medical History / Comment(s): seizure two yrs ago from major depressive disorder, hemorrhoids, herniated disc, TOOTH ACHE AT PRESENT Cellulitis and abscess of mouth. Mediastinitis secondary to mouth abscess; IV antibiotic therapy History of Any Multi-Drug Resistant Organisms: None Reported Past Surgical History: Adenoidectomy, Hernia Repair, Tonsillectomy Additional Past Surgical History / Comment(s): epidural. Abscessed teeth pulled at [place] [id number]. Chest tube drain. Past Anesthesia/Blood Transfusion Reactions: No Reported Reaction Past Psychological History: Depression Smoking Status: Current some day smoker Past Alcohol Use History: Rare Past Drug Use History: None Reported - Past Family History Mother Family Medical History: No Reported History Medications and Allergies Home Medications Medication Instructions Recorded Confirmed Type [place] Carbonate 1,200 mg PO HS 08/02/17 09/15/24 History Apixaban [Eliquis] 5 mg PO BID 10/16/20 09/15/24 History OLANZapine [ZyPREXA] 7.5 mg PO HS 07/01/24 09/15/24 History Venlafaxine HCl [Effexor XR] 225 mg PO DAILY 07/01/24 09/15/24 History Glucosam/Max-Msm1/C/Conor/Bosw 1 tab PO DAILY 09/15/24 09/15/24 History [Glucosamine-Chondroitin Tablet] Krill/Om-3/Dha/Epa/Phospho/Ast 1 cap PO DAILY 09/15/24 09/15/24 History [Krill Oil 600 mg Softgel] Losartan/Hydrochlorothiazide 1 tab PO DAILY 09/15/24 09/15/24 History [Hyzaar 100-12.5 Tablet] Turmeric Root Extract [Turmeric] 500 mg PO DAILY 09/15/24 09/15/24 History Allergies Allergy/AdvReac Type Severity Reaction Status Date / Time No Known Allergies Allergy Verified 09/15/24 10:04 Physical Exam Vitals: Vital Signs Temp Pulse Resp BP Pulse Ox 09/15/24 11:01 106 H 18 110/76 100 09/15/24 08:14 98.9 F 115 H 120 H 115/71 95 09/15/24 06:15 105 H 18 90/65 03/02/25 04:52 94 18 104/60 09/15/24 02:31 110 H 18 95/65 95 09/15/24 00:24 128 H 09/14/24 23:53 108 H 18 104/51 96 09/14/24 22:06 98.2 F 117 H 18 107/69 93 L Intake and Output 09/14/24 09/15/24 09/15/24 22:59 06:59 14:59 Other: Weight 158.757 kg Results CBC & Chem 7: 09/14/24 22:56 09/14/24 22:56 Labs: Abnormal Lab Results - Last 24 Hours (Table) 09/14/24 09/14/24 09/14/24 Range/Units 22:56 22:56 22:56 WBC 32.2 H (3.8-10.6) k/uL RBC 4.02 L (4.30-5.90) m/uL Hgb 9.3 L (13.0-17.5) gm/dL Hct 32.1 L (39.0-53.0) % MCV 79.8 L (80.0-100.0) fL MCH 23.1 L (25.0-35.0) pg MCHC 28.9 L (31.0-37.0) g/dL RDW 19.9 H (11.5-15.5) % Neutrophils # 30.5 H (1.3-7.7) k/uL Lymphocytes # 0.3 L (1.0-4.8) k/uL Monocytes # 1.2 H (0-1.0) k/uL PT 14.1 H (10.0-12.5) sec INR 1.3 H (<1.2) Plasma Lactic Acid Javier (0.7-2.0) mmol/L Total Bilirubin 1.4 H (0.2-1.3) mg/dL C-Reactive Protein 5.9 H (<1.0) mg/dL 09/14/24 09/15/24 Range/Units 22:56 04:04 WBC (3.8-10.6) k/uL RBC (4.30-5.90) m/uL Hgb (13.0-17.5) gm/dL Hct (39.0-53.0) % MCV (80.0-100.0) fL MCH (25.0-35.0) pg MCHC (31.0-37.0) g/dL RDW (11.5-15.5) % Neutrophils # (1.3-7.7) k/uL Lymphocytes # (1.0-4.8) k/uL Monocytes # (0-1.0) k/uL PT (10.0-12.5) sec INR (<1.2) Plasma Lactic Acid Javier 3.8 H* 2.7 H* (0.7-2.0) mmol/L Total Bilirubin (0.2-1.3) mg/dL C-Reactive Protein (<1.0) mg/dL
[2024-09-15 12:30] LABS: Glucose,Whole Blood 324 mg/dL (70-110)
[2024-09-15] MEDS: INSULIN LISPRO (HumaLOG) 100 UNIT/ML 10 mL VL SQ SCH (12:48)
[2024-09-15] MEDS: VANCOMYCIN 2,250 MG in SODIUM CHLORIDE 0.9% 500 ML 500 ML IVPB SCH (14:57)
[2024-09-15 18:13] LABS: Glucose,Whole Blood 109 mg/dL (70-110)
[2024-09-15 21:48] LABS: Glucose,Whole Blood 120 mg/dL (70-110)
--- NOTE | 2024-09-15 21:48 | P.CONS ---
History of Present Illness - Reason for Consult Consult date: 09/15/24 Left knee cellulitis Requesting physician: Gila Gibson - Chief Complaint Left knee gave out and pain x 2 days - History of Present Illness Patient is a 69-year-old male with a past medical history significant for diabetes mellitus hypertension hyperlipidemia osteoarthritis atrial fibrillation he did have a left knee replacement about a year and a half ago by Dr. Reynolds. now presenting to the hospital concerning for his left knee gave out on him and has been complaining of more pain and swelling to left knee area for about 2 days patient has been dealing with a wound to the left lower leg area currently being treated by his primary care physician for almost a month patient mention not have been on antibiotic patient denies high-grade fever or a ny chills though has been complaining of feeling weak and no energy denies any chest pain or shortness with occasional cough no nausea vomiting no abdominal pain no diarrhea pain to to the knee has been mostly dull aching moderate intensity without radiation currently no point wound or drainage to the knee area patient on presentation to hospital was afebrile he was tachycardic but not hypotensive mildly hypoxic currently on 2 L nasal cannula oxygen patient did have elevated lactic acid white count of 32.2 with a left shift creatinine is 1.19 liver isms are normal influenza RSV COVID testing negative blood cultures currently pending patient did have a chest x-ray no acute finding in the chest he did have any x-ray diffuse soft tissue swelling edema moderate joint effusion no evidence of fracture or dislocation patient was started on vancomycin infectious disease consulted for further management of antibiotic therapy Review of Systems Positive point and negatives has been mentioned in the HPI, complete review of systems was performed and all other systems are negative Past Medical History Past Medical History: Atrial Fibrillation, Diabetes Mellitus, GERD/Reflux, Hyperlipidemia, Hypertension, Osteoarthritis (OA), Sleep Apnea/CPAP/BIPAP Additional Past Medical History / Comment(s): seizure two yrs ago from major depressive disorder, hemorrhoids, herniated disc, TOOTH ACHE AT PRESENT Ce llulitis and abscess of mouth. Mediastinitis secondary to mouth abscess; IV antibiotic therapy History of Any Multi-Drug Resistant Organisms: None Reported Past Surgical History: Adenoidectomy, Hernia Repair, Tonsillectomy Additional Past Surgical History / Comment(s): epidural. Abscessed teeth pulled at [place] [facility]. Chest tube drain. Past Anesthesia/Blood Transfusion Reactions: No Reported Reaction Past Psychological History: Depression Smoking Status: Current some day smoker Past Alcohol Use History: Rare Past Drug Use History: None Reported - Past Family History Mother Family Medical History: No Reported History Medications and Allergies Home Medications Medication Instructions Recorded Confirmed Type [place] Carbonate 1,200 mg PO HS 08/02/17 09/15/24 History Apixaban [Eliquis] 5 mg PO BID 10/16/20 09/15/24 History OLANZapine [ZyPREXA] 7.5 mg PO HS 07/01/24 09/15/24 History Venlafaxine HCl [Effexor XR] 225 mg PO DAILY 07/01/24 09/15/24 History Glucosam/Max-Msm1/C/Conor/Bosw 1 tab PO DAILY 09/15/24 09/15/24 History [Glucosamine-Chondroitin Tablet] Krill/Om-3/Dha/Epa/Phospho/Ast 1 cap PO DAILY 09/15/24 09/15/24 History [Krill Oil 600 mg Softgel] Losartan/Hydrochlorothiazide 1 tab PO DAILY 09/15/24 09/15/24 History [Hyzaar 100-12.5 Tablet] Turmeric Root Extract [Turmeric] 500 mg PO DAILY 09/15/24 09/15/24 History Allergies Allergy/AdvReac Type Severity Reaction Status Date / Time No Known Allergies Allergy Verified 09/15/24 10:04 Physical Exam Vitals: Vital Signs Temp Pulse Resp BP Pulse Ox 09/15/24 11:01 106 H 18 110/76 100 09/15/24 08:14 98.9 F 115 H 120 H 115/71 95 09/15/24 06:15 105 H 18 90/65 09/15/24 04:52 94 18 104/60 09/15/24 02:31 110 H 18 95/65 95 09/15/24 00:24 128 H 09/14/24 23:53 108 H 18 104/51 96 09/14/24 22:06 98.2 F 117 H 18 107/69 93 L Intake and Output 09/14/24 09/15/24 09/15/24 22:59 06:59 14:59 Other: Weight 158.757 kg GENERAL DESCRIPTION: Elderly male lying in bed, no distress. No tachypnea or accessory muscle of respiration use. HEENT: Shows Pallor , no scleral icterus. Oral mucous membrane is dry. No pharyngeal erythema or thrush NECK: Trachea central, no thyromegaly. LUNGS: Unlabored breathing. Clear to auscultation anteriorly. No wheeze or crackle. HEART: S1, S2, regular rate and rhythm. No loud murmur ABDOMEN: Soft, no tenderness , guarding or rigidity, no organomegaly EXTREMITIES: Diffuse swelling redness and warmth to the left knee area with superficial wound to the left lower leg but no drainage SKIN: No rash, no masses palpable. NEUROLOGICAL: The patient is awake, alert, oriented x3, mood and affect normal. Results CBC & Chem 7: 09/14/24 22:56 09/14/24 22:56 Labs: Abnormal Lab Results - Last 24 Hours (Table) 09/14/24 09/14/24 09/14/24 Range/Units 22:56 22:56 22:56 WBC 32.2 H (3.8-10.6) k/uL RBC 4.02 L (4.30-5.90) m/uL Hgb 9.3 L (13.0-17.5) gm/dL Hct 32.1 L (39.0-53.0) % MCV 79.8 L (80.0-100.0) fL MCH 23.1 L (25.0-35.0) pg MCHC 28.9 L (31.0-37.0) g/dL RDW 19.9 H (11.5-15.5) % Neutrophils # 30.5 H (1.3-7.7) k/uL Lymphocytes # 0.3 L (1.0-4.8) k/uL Monocytes # 1.2 H (0-1.0) k/uL PT 14.1 H (10.0-12.5) sec INR 1.3 H (<1.2) POC Glucose (mg/dL) (70-110) mg/dL Plasma Lactic Acid Javier (0.7-2.0) mmol/L Total Bilirubin 1.4 H (0.2-1.3) mg/dL C-Reactive Protein 5.9 H (<1.0) mg/dL 09/14/24 09/15/24 09/15/24 Range/Units 22:56 04:04 12:28 WBC (3.8-10.6) k/uL RBC (4.30-5.90) m/uL Hgb (13.0-17.5) gm/dL Hct (39.0-53.0) % MCV (80.0-100.0) fL MCH (25.0-35.0) pg MCHC (31.0-37.0) g/dL RDW (11.5-15.5) % Neutrophils # (1.3-7.7) k/uL Lymphocytes # (1.0-4.8) k/uL Monocytes # (0-1.0) k/uL PT (10.0-12.5) sec INR (<1.2) POC Glucose (mg/dL) 324 H (70-110) mg/dL Plasma Lactic Acid Javier 3.8 H* 2.7 H* (0.7-2.0) mmol/L Total Bilirubin (0.2-1.3) mg/dL C-Reactive Protein (<1.0) mg/dL Assessment and Plan (1) Sepsis Current Visit: Yes Status: Acute Code(s): A41.9 - SEPSIS, UNSPECIFIED ORGANISM SNOMED Code(s): 23282976 (2) Cellulitis Current Visit: Yes Status: Acute Code(s): L03.90 - CELLULITIS, UNSPECIFIED SNOMED Code(s): 237318802 Plan: 1patient presented hospital with sepsis in this patient who did have tachycardia elevated white count elevated lactic acid meeting criteria for SIRS source is likely left knee cellulitis and concern for possible left knee septic arthritis likely from gram-positive skin justin 2patient benefit from orthopedic evaluation for aspiration of the left knee to confirm the diagnosis followed by surgical intervention 3check inflammatory marker blood culture has been obtained results will be followed 4local wound care to the wound to the left leg with dry Aquacel dressing change q. 48-hour 5vancomycin pharmacy to dose target trough of 15 while watching kidney function and Vanco trough closely We will follow on clinical condition and cultures to further adjust medication if needed Thank you for this consultation we will follow the patient along with you Dictation was produced using [employer] software. please excuse any grammatical, word or spelling errors. Time with Patient: Greater than 30
[2024-09-15] MEDS: OLANZapine 7.5 MG TAB PO SCH (22:18)
[2024-09-15] MEDS: LITHIUM CARBONATE 300 MG CAP PO SCH (22:18)
[2024-09-16] MEDS: ACETAMINOPHEN TAB 325 MG TAB PO PRN (05:27)
[2024-09-16 06:28] LABS: Glucose,Whole Blood 122 mg/dL (70-110)
[2024-09-16 08:49] LABS: African American GFR (CKD) >90 (>60 ml/min/1.73 sqM); Anion Gap 5 mmol/L; Blood Urea Nitrogen 27 mg/dL (9-20); Calcium 8.2 mg/dL (8.4-10.2); Carbon Dioxide 31 mmol/L (22-30); Chloride 97 mmol/L (98-107); Glucose 123 mg/dL (74-99); Magnesium 2.4 mg/dL (1.6-2.3); Non-African American GFR(CKD) 80 (>60 ml/min/1.73 sqM); Sodium 133 mmol/L (137-145)
[2024-09-16] MEDS ORDERED: ENOXAPARIN 40 MG/0.4 ML SYRINGE SQ SCH (09:00)
[2024-09-16 09:26] LABS: C Reactive Protein 32.5 mg/dL (<1.0)
[2024-09-16 10:26] LABS: HCT 32.3 % (39.6-50.0); HGB 8.9 g/dL (13.0-17.0); MCH 22.5 pg (27.0-32.0); MCHC 27.6 g/dL (32.0-37.0); MCV 81.8 FL (80.0-97.0); Mean Platelet Volume 10.1 FL (9.5-12.2); NRBC Per 100 WBC 0 X 10*3/uL (0.00-0.01); Platelet Count 443 X 10*3/uL (140-440); RBC 3.95 X 10*6/uL (4.40-5.60); RDW 21.4 % (11.5-14.5); WBC 29.33 X 10*3/uL (4.50-10.00)
[2024-09-16 11:55] LABS: Erythrocyte Sedimentation Rate 30 mm/Hr (0-20)
[2024-09-16 12:18] LABS: Glucose,Whole Blood 134 mg/dL (70-110)
--- NOTE | 2024-09-16 15:36 | P.PN ---
Subjective Progress Note Date: 09/16/24 Principal diagnosis: Reason for follow-up is left knee cellulitis and bacteremia 1Patient is a 69-year-old male with a past medical history significant for diabetes mellitus hypertension hyperlipidemia osteoarthritis atrial fibrillation he did have a left knee replacement about a year and a half ago by Dr. Reynolds. now presenting to the hospital concerning for his left knee gave out on him and has been complaining of more pain and swelling to left knee area patient has been in the hospital with cellulitis blood cultures are coming back positive with Streptococcus agalactiae On today's evaluation that is 09/16/2024, patient has been afebrile, patient is breathing comfortably and is currently on 3 L current oxygen patient denies having any significant cough no chest pain, patient denies nausea vomiting or diarrhea and no abdominal pain still complaining of pain discomfort of the left knee and leg area. Patient white count slightly down to 29.33 sed rate is 30 creatinine 0.97 CRP is 32.5 blood culture with Streptococcus agalactiae Objective - Vital Signs Vital signs: Vital Signs Temp 97.5 F L 09/16/24 12:07 Pulse 119 H 09/16/24 12:07 Resp 22 09/16/24 12:07 BP 110/67 09/16/24 12:07 Pulse Ox 94 L 09/16/24 12:07 FiO2 Intake & Output 09/15/24 09/16/24 09/16/24 18:59 06:59 18:59 Intake Total 1250 Output Total 200 Balance 1050 Weight 158.757 kg Intake: Intake, IV Titration 1250 Amount Sodium Chloride 0.9% 1, 1200 000 ml @ 100 mls/hr IV . Q10H [facility] Rx#:[id number] ceFAZolin 2 gm In Sodium 50 Chloride 0.9% 50 ml @ 100 mls/hr IVPB Q8HR [facility] Rx# :[id number] Output: Urine 200 Other: Voiding Method External Catheter Urinal # Voids 1 - Exam GENERAL DESCRIPTION: An elderly male up in bed in no distress RESPIRATORY SYSTEM: Unlabored breathing , decreased breath sounds at bases HEART: S1 S2 regular rate and rhythm , ABDOMEN: Soft , no tenderness EXTREMITIES: Left knee swelling versus redness slightly decreased no drainage from the wound to the left leg - Labs CBC & Chem 7: 09/16/24 08:08 09/16/24 08:08 Labs: Abnormal Lab Results - Last 24 Hours (Table) 09/15/24 09/16/24 09/16/24 Range/Units 21:46 06:27 08:08 WBC (4.50-10.00) X 10*3/uL RBC (4.40-5.60) X 10*6/uL Hgb (13.0-17.0) g/dL Hct (39.6-50.0) % MCH (27.0-32.0) pg MCHC (32.0-37.0) g/dL RDW (11.5-14.5) % Plt Count (140-440) X 10*3/uL ESR (0-20) mm/Hr Sodium (137-145) mmol/L Chloride (98-107) mmol/L Carbon Dioxide (22-30) mmol/L BUN (9-20) mg/dL Glucose (74-99) mg/dL POC Glucose (mg/dL) 120 H 122 H (70-110) mg/dL Hemoglobin A1c 6.9 H (<=6.0) % Calcium (8.4-10.2) mg/dL Magnesium (1.6-2.3) mg/dL C-Reactive Protein (<1.0) mg/dL 09/16/24 09/16/24 09/16/24 Range/Units 08:08 08:08 12:17 WBC 29.33 H (4.50-10.00) X 10*3/uL RBC 3.95 L (4.40-5.60) X 10*6/uL Hgb 8.9 L (13.0-17.0) g/dL Hct 32.3 L (39.6-50.0) % MCH 22.5 L (27.0-32.0) pg MCHC 27.6 L (32.0-37.0) g/dL RDW 21.4 H (11.5-14.5) % Plt Count 443 H (140-440) X 10*3/uL ESR 30 H (0-20) mm/Hr Sodium 133 L (137-145) mmol/L Chloride 97 L (98-107) mmol/L Carbon Dioxide 31 H (22-30) mmol/L BUN 27 H (9-20) mg/dL Glucose 123 H (74-99) mg/dL POC Glucose (mg/dL) 134 H (70-110) mg/dL Hemoglobin A1c (<=6.0) % Calcium 8.2 L (8.4-10.2) mg/dL Magnesium 2.4 H (1.6-2.3) mg/dL C-Reactive Protein 32.5 H (<1.0) mg/dL Microbiology - Last 24 Hours (Table) 09/15/24 11:30 Gram Stain - Preliminary Leg - Left 09/14/24 22:45 Blood Culture Gram Stain - Preliminary Blood Blood Culture - Preliminary Strep agalactiae - (group b) Molecular ID Assessment and Plan (1) Sepsis Current Visit: Yes Status: Acute Code(s): A41.9 - SEPSIS, UNSPECIFIED ORGANISM SNOMED Code(s): 96690121 (2) Cellulitis Current Visit: Yes Status: Acute Code(s): L03.90 - CELLULITIS, UNSPECIFIED SNOMED Code(s): 289564819 (3) Bacteremia Current Visit: Yes Status: Acute Code(s): R78.81 - BACTEREMIA SNOMED Code(s): 3367755 Plan: 1patient presented hospital with sepsis in this patient who did have tachycardia elevated white count elevated lactic acid meeting criteria for SIRS source is likely left knee cellulitis and concern for possible left knee septic arthritis likely from gram-positive skin justin 2patient benefit from orthopedic evaluation for aspiration of the left knee to confirm the diagnosis followed by surgical intervention 3patient did have elevated flu markers and blood culture positive for Streptococcus agalactiae 4local wound care to the wound to the left leg with dry Aquacel dressing change q. 48-hour 5patient antibiotic has been adjusted to cefazolin dose will be up to 3 g every 8 hour keeping in mind his weight await Ortho evaluation Dictation was produced using [employer] dictation software. please excuse any grammatical, word or spelling errors. Time with Patient: Less than 30
[2024-09-16 17:13] LABS: Glucose,Whole Blood 174 mg/dL (70-110)
[2024-09-16] MEDS: ceFAZolin 3 GM in SODIUM CHLORIDE 0.9% 100 ML IVPB SCH (17:25)
[2024-09-16 20:10] LABS: Glucose,Whole Blood 188 mg/dL (70-110)
[2024-09-16] MEDS: traMADol 50 MG TAB PO PRN (20:37)
--- NOTE | 2024-09-17 01:08 | P.PN ---
Subjective Progress Note Date: 09/16/24 69-year-old male came in because he is unable to take care of himself and infection and legs patient has a wound in the left mid dunlap area which appeared to be infected and also cellulitis of the right lower extremity denied any history of MRSA in the past patient does have history of atrial fibrillation patient was hypotensive patient has swelling in bilateral lower extremities but chest x-ray is within normal limits does not appear to be in CHF patient has elevated BNP of 3200 does have history of atrial fibrillation on anticoagulation with Eliquis. Patient lives by himself lately he is unable to take care of himself patient was started on vancomycin here. Patient is obese with history of sleep apnea. Using his CPAP machine presently on oxygen does not usually use any oxygen. 09/16/2024 Patient is seen in follow-up today with no acute overnight issues noted. Infectious disease following and patient is maintained on antibiotics in the form of cefazolin 3 g every 8 hours.. Blood cultures positive for Streptococcus and there is concerns of significant knee swelling and possible septic arthritis. Will consult orthopedics and appreciate input and recommendations. If undergoing needle aspiration, strongly recommend sending for cultures. Patient is afebrile although white count remains elevated at 29, slightly improved from yesterday. Will follow-up on repeat labs. Patient with significant weakness recommend PT/OT therapy evaluation. Patient will likely need ECF on discharge. Review of systems: Constitutional: No reports of fatigue, fever, or chills Cardiovascular: No reports of chest pain or palpitations Respiratory:reports of shortness of breath or cough GI: No reports of nausea, vomiting, or diarrhea : No reports of dysuria or retention Neurovascular: reports of generalized weakness and difficulty ambulating All medications have been reviewed REVIEW OF SYSTEMS: All other systems are negative except those mentioned in the HPI PHYSICAL EXAMINATION: GENERAL: The patient is alert and oriented x3, not in any acute distress. Well developed, well nourished. Morbidly obese HEENT: Pupils are round and equally reacting to light. EOMI. No scleral icterus. No conjunctival pallor. Normocephalic, atraumatic. No pharyngeal erythema. No thyromegaly. CARDIOVASCULAR: S1 and S2 p muffled PULMONARY: Diminished breath sounds bilaterally otherwise chest is clear to auscultation, no wheezing or crackles. ABDOMEN: Soft, morbidly obese nontender, nondistended, normoactive bowel sounds. No palpable organomegaly. MUSCULOSKELETAL: No joint swelling or deformity. EXTREMITIES: No cyanosis, clubbing, . Bilateral lower extremity swelling, left knee swelling noted NEUROLOGICAL: Gross neurological examination did not reveal any focal deficits. Diffusely weak SKIN: Bilateral lower extremity edema with a circumferential cellulitis in the right lower extremity involving the lower leg and left to there is an ulcer below the mid dunlap area which appear to be infected. Assessment and plan Secondary to cellulitis of the right lower extremity and infected wound of left lower extremity infectious disease following and wound cultures preliminary showing presumptive MRSA. Blood cultures are positive for Streptococcus -Hypertension probably secondary to sepsis continue with IV fluids -Bilateral lower extremity edema appears to be pretty moderate in CHF patient will continue on fluids for now because of hypotension and lactic acidosis -Morbid obesity obstructive sleep apnea patient will continue on CPAP machine. -History of atrial fibrillation paroxysmal presently rate controlled on anticoagulation rate control medications and anticoagulation with medications resumed -Type 2 diabetes mellitus uncontrolled with hyper and hypoglycemia: Continue on sliding scale insulin Generalized weakness: PT and OT evaluation DVT prophylaxis:lovenox Plan: Patient being followed by infectious disease and will consult orthopedics and appreciate input and recommendations for continued knee swelling and may need aspiration to determine discharge antibiotics Wound cultures preliminary showing presumptive MRSA and has been transitioned to IV cefazolin per ID recommendations. Blood cultures positive for Streptococcus and awaiting repeat blood cultures to monitor for clearance of bacteremia Patient with his significant weakness evaluated by physical therapy recommending rehab and patient is agreeable. Case management/social work following and will discuss with infectious disease once we have finalized cultures and would benefit from cultures from the knee with orthopedics to determine if this is the source of bacteremia Encouraged increase activity as tolerated and sitting up in the chair more often Continue monitoring Accu-Cheks before meals and at bedtime and will continue with sliding scale and also add long-acting. Adjust accordingly The impression and plan of care has been dictated by So Tian, Nurse Practitioner as directed. Dr. Paige MD I have performed a history and examination and MDM of this patient, discussed th e with the dictator, and agree with the dictator's assessment and plan as written ,documented as a scribe. Based on total visit time, I have performed more than 50% of the visit. Objective - Vital Signs Vital signs: Vital Signs Temp 98.7 F 09/16/24 09:08 Pulse 107 H 09/16/24 09:08 Resp 22 09/16/24 09:08 BP 94/52 09/16/24 09:08 Pulse Ox 93 L 09/16/24 09:08 FiO2 Intake & Output 09/15/24 09/16/24 09/16/24 18:59 06:59 18:59 Intake Total 1250 Output Total 200 Balance 1050 Weight 158.757 kg Intake: Intake, IV Titration 1250 Amount Sodium Chloride 0.9% 1, 1200 000 ml @ 100 mls/hr IV . Q10H [facility] Rx#:[id number] ceFAZolin 2 gm In Sodium 50 Chloride 0.9% 50 ml @ 100 mls/hr IVPB Q8HR [facility] Rx# :[id number] Output: Urine 200 Other: Voiding Method External Catheter # Voids 1 - Labs CBC & Chem 7: 09/16/24 08:08 09/16/24 08:08 Labs: Abnormal Lab Results - Last 24 Hours (Table) 09/15/24 09/15/24 09/16/24 Range/Units 12:28 21:46 06:27 WBC (4.50-10.00) X 10*3/uL RBC (4.40-5.60) X 10*6/uL Hgb (13.0-17.0) g/dL Hct (39.6-50.0) % MCH (27.0-32.0) pg MCHC (32.0-37.0) g/dL RDW (11.5-14.5) % Plt Count (140-440) X 10*3/uL Sodium (137-145) mmol/L Chloride (98-107) mmol/L Carbon Dioxide (22-30) mmol/L BUN (9-20) mg/dL Glucose (74-99) mg/dL POC Glucose (mg/dL) 324 H 120 H 122 H (70-110) mg/dL Calcium (8.4-10.2) mg/dL Magnesium (1.6-2.3) mg/dL C-Reactive Protein (<1.0) mg/dL 09/16/24 09/16/24 Range/Units 08:08 08:08 WBC 29.33 H (4.50-10.00) X 10*3/uL RBC 3.95 L (4.40-5.60) X 10*6/uL Hgb 8.9 L (13.0-17.0) g/dL Hct 32.3 L (39.6-50.0) % MCH 22.5 L (27.0-32.0) pg MCHC 27.6 L (32.0-37.0) g/dL RDW 21.4 H (11.5-14.5) % Plt Count 443 H (140-440) X 10*3/uL Sodium 133 L (137-145) mmol/L Chloride 97 L (98-107) mmol/L Carbon Dioxide 31 H (22-30) mmol/L BUN 27 H (9-20) mg/dL Glucose 123 H (74-99) mg/dL POC Glucose (mg/dL) (70-110) mg/dL Calcium 8.2 L (8.4-10.2) mg/dL Magnesium 2.4 H (1.6-2.3) mg/dL C-Reactive Protein 32.5 H (<1.0) mg/dL Microbiology - Last 24 Hours (Table) 09/14/24 22:45 Blood Culture Gram Stain - Preliminary Blood Blood Culture - Preliminary Strep agalactiae - (group b) Molecular ID
[2024-09-17 07:36] LABS: Glucose,Whole Blood 143 mg/dL (70-110)
[2024-09-17 10:50] LABS: Basophils # (A) 0.04 X 10*3/uL (0.00-0.10); Basophils % (A) 0.2 %; Eosinophils # (A) 0.02 X 10*3/uL (0.04-0.35); Eosinophils % (A) 0.1 %; HGB 8.8 g/dL (13.0-17.0); Lymphocytes # (A) 0.89 X 10*3/uL (0.90-5.00); Lymphocytes % (A) 4.4 %; MCHC 28.4 g/dL (32.0-37.0); MCV 81.2 FL (80.0-97.0); Mean Platelet Volume 10.4 FL (9.5-12.2); Monocytes # (A) 1.36 X 10*3/uL (0.20-1.00); Monocytes % (A) 6.8 %; NRBC Per 100 WBC 0.03 X 10*3/uL (0.00-0.01); Neutrophils # (A) 17.63 X 10*3/uL (1.80-7.70); Neutrophils % (A) 87.6 %; Platelet Count 386 X 10*3/uL (140-440); RBC 3.82 X 10*6/uL (4.40-5.60); RDW 21.3 % (11.5-14.5); WBC 20.13 X 10*3/uL (4.50-10.00)
[2024-09-17 11:28] LABS: ALT 20 U/L (10-49); AST 36 U/L (14-35); Albumin 3.3 g/dL (3.8-4.9); Albumin/Globulin Ratio 1.18 Ratio (1.60-3.17); Alkaline Phosphatase 124 U/L (41-126); BUN/Creat Ratio 22.67 Ratio (12.00-20.00); Blood Urea Nitrogen 20.4 mg/dL (9.0-27.0); Calcium 8.2 mg/dL (8.7-10.3); Carbon Dioxide 28.3 mmol/L (21.6-31.8); Chloride 106 mmol/L (96-109); Globulin 2.8 g/dL (1.6-3.3); Glucose 132 mg/dL (70-110); Magnesium 2.2 mg/dL (1.5-2.4); Potassium 5.1 mmol/L (3.5-5.5); Sodium 144 mmol/L (135-145); Total Bilirubin 0.4 mg/dL (0.3-1.2); Total Protein 6.1 g/dL (6.2-8.2)
--- NOTE | 2024-09-17 12:12 | P.CNOR ---
History of Present Illness - HPI Consult date: 09/17/24 Consult reason: other (Left knee swelling, concern for possible infection, history of left total knee arthroplasty) History of present illness: Patient is a 69-year-old male who initially presented to [facility] ER on 09/14/2024 after having an issue with his left lower extremity. Apparently the left knee gave out on him, he had a very difficult time with ambulating and EMS was called and brought patient to the hospital. Since being in the hospital patient has significantly declined as determined patient was septic, he did have positive bacteremia. Patient has been dealing with wounds to the left lower extremity, he been following up with wound care with regards to these. Patient has a history of a left total knee arthroplasty that was done by Dr. Reynolds in March 2023, patient's last visit in the outpatient setting was July 2023, at that time he was doing very well he was ambulating under his own power and returning to work. Patient was evaluated today at bedside, patient was very lethargic and seemed very out of it. It was very difficult to achieve a HPI or ROS regarding his current issue. When reviewing other specialty notes, apparently the patient has had a very difficult time taking care of himself. Patient was actually scheduled for back surgery with Dr. Brenner in our practice in July 2024 but this was canceled due to the bilateral lower extremity wounds. I did speak with nursing regarding the patient, over the last few days he has been very lethargic and sleeping most of the days. He remains on IV antibiotics, he is being followed by infectious disease also. Review of Systems Constitutional: Reports as per HPI Past Medical History Past Medical History: Atrial Fibrillation, Diabetes Mellitus, GERD/Reflux, Hyperlipidemia, Hypertension, Osteoarthritis (OA), Sleep Apnea/CPAP/BIPAP Additional Past Medical History / Comment(s): seizure two yrs ago from major depressive disorder, hemorrhoids, herniated disc, TOOTH ACHE AT PRESENT Celluli tis and abscess of mouth. Mediastinitis secondary to mouth abscess; IV antibiotic therapy History of Any Multi-Drug Resistant Organisms: None Reported Past Surgical History: Adenoidectomy, Hernia Repair, Tonsillectomy Additional Past Surgical History / Comment(s): epidural. Abscessed teeth pulled at [place] [facility]. Chest tube drain. Past Anesthesia/Blood Transfusion Reactions: No Reported Reaction Past Psychological History: Depression Smoking Status: Current some day smoker Past Alcohol Use History: Rare Past Drug Use History: None Reported - Past Family History Mother Family Medical History: No Reported History Medications and Allergies Home Medications Medication Instructions Recorded Confirmed Type [place] Carbonate 1,200 mg PO HS 08/02/17 09/15/24 History Apixaban [Eliquis] 5 mg PO BID 10/16/20 09/15/24 History OLANZapine [ZyPREXA] 7.5 mg PO HS 07/01/24 09/15/24 History Venlafaxine HCl [Effexor XR] 225 mg PO DAILY 07/01/24 09/15/24 History Glucosam/Max-Msm1/C/Conor/Bosw 1 tab PO DAILY 09/15/24 09/15/24 History [Glucosamine-Chondroitin Tablet] Krill/Om-3/Dha/Epa/Phospho/Ast 1 cap PO DAILY 09/15/24 09/15/24 History [Krill Oil 600 mg Softgel] Losartan/Hydrochlorothiazide 1 tab PO DAILY 09/15/24 09/15/24 History [Hyzaar 100-12.5 Tablet] Turmeric Root Extract [Turmeric] 500 mg PO DAILY 09/15/24 09/15/24 History Allergies Allergy/AdvReac Type Severity Reaction Status Date / Time No Known Allergies Allergy Verified 09/15/24 10:04 Physical Examination Left lower extremity: Incision over the anterior aspect of the knee is well-healed, there is no areas of erythema or skin openings. There is a significant effusion present. He does have bandaging to the bilateral lower extremities. Patient has significant skin breakdown between the toes, he has significant breakdown of his toenails. Patient has generalized pain with palpation surrounding the knee. Patient finds most comfort flex to about 40 degrees. Passive and active range of motion of the extremity reproduce significant pain. Patient is very weak on exam, he is unable to straight leg raise. Plantarflexion, dorsiflexion, EHL, FHL are intact. Sensory exam to light touch is intact throughout the extremity, skin is warm to touch Results - Labs Labs: Abnormal Lab Results - Last 24 Hours (Table) 09/16/24 09/16/24 09/16/24 Range/Units 12:17 17:12 20:05 WBC (4.50-10.00) X 10*3/uL RBC (4.40-5.60) X 10*6/uL Hgb (13.0-17.0) g/dL Hct (39.6-50.0) % MCH (27.0-32.0) pg MCHC (32.0-37.0) g/dL RDW (11.5-14.5) % Immature Gran # (0.00-0.04) X 10*3/uL Neutrophils # (1.80-7.70) X 10*3/uL Lymphocytes # (0.90-5.00) X 10*3/uL Monocytes # (0.20-1.00) X 10*3/uL Eosinophils # (0.04-0.35) X 10*3/uL NRBC/100 WBC Diff (0.00-0.01) X 10*3/uL BUN/Creatinine Ratio (12.00-20.00) Ratio Glucose (70-110) mg/dL POC Glucose (mg/dL) 134 H 174 H 188 H (70-110) mg/dL Calcium (8.7-10.3) mg/dL AST (14-35) U/L Total Protein (6.2-8.2) g/dL Albumin (3.8-4.9) g/dL Albumin/Globulin Ratio (1.60-3.17) Ratio 09/17/24 09/17/24 09/17/24 Range/Units 06:30 06:30 07:25 WBC 20.13 H (4.50-10.00) X 10*3/uL RBC 3.82 L (4.40-5.60) X 10*6/uL Hgb 8.8 L (13.0-17.0) g/dL Hct 31.0 L (39.6-50.0) % MCH 23.0 L (27.0-32.0) pg MCHC 28.4 L (32.0-37.0) g/dL RDW 21.3 H (11.5-14.5) % Immature Gran # 0.19 H (0.00-0.04) X 10*3/uL Neutrophils # 17.63 H (1.80-7.70) X 10*3/uL Lymphocytes # 0.89 L (0.90-5.00) X 10*3/uL Monocytes # 1.36 H (0.20-1.00) X 10*3/uL Eosinophils # 0.02 L (0.04-0.35) X 10*3/uL NRBC/100 WBC Diff 0.03 H (0.00-0.01) X 10*3/uL BUN/Creatinine Ratio 22.67 H (12.00-20.00) Ratio Glucose 132 H (70-110) mg/dL POC Glucose (mg/dL) 143 H (70-110) mg/dL Calcium 8.2 L (8.7-10.3) mg/dL AST 36 H (14-35) U/L Total Protein 6.1 L (6.2-8.2) g/dL Albumin 3.3 L (3.8-4.9) g/dL Albumin/Globulin Ratio 1.18 L (1.60-3.17) Ratio Microbiology - Last 24 Hours (Table) 09/14/24 22:45 Blood Culture Gram Stain - Final Blood Blood Culture - Final Strep agalactiae - (group b) Molecular ID 09/15/24 11:30 Gram Stain - Preliminary Leg - Left Wound Culture - Preliminary Presumptive Staph aureus H & H 09/14/24 09/16/24 09/17/24 Range/Units 22:56 08:08 06:30 Hgb 9.3 L 8.9 L 8.8 L (13.0-17.5) gm/dL Hct 32.1 L 32.3 L 31.0 L (39.0-53.0) % Coagulation 09/14/24 Range/Units 22:56 INR 1.3 H (<1.2) Result Diagrams: 09/17/24 06:30 09/17/24 06:30 - Diagnostic results Knee x-ray: report reviewed, image reviewed (Multi views of the left knee were reviewed from 09/15/2024 at [facility]. Images demonstrate no acute fractures or dislocations. The total knee arthroplasty components appear stable with no obvious lucencies) Assessment and Plan Assessment: Left knee pain History of left total knee arthroplasty Left knee periprosthetic infection Bacteremia with sepsis Bilateral lower extremity wounds Morbid obesity Multiple medical comorbidities Plan: I was able to discuss the case, this to include both physical exam findings and imaging studies my attending Dr. Brenner our orthopedic spine surgeon. An aspiration of the left knee was performed at bedside, consent form was obtained prior to the procedure, nursing was available to witness this. Aspiration did reveal significant purulent fluid from the left knee. Please see procedure note for further detail. At this time I have no general orthopedic surgical coverage, this is a rather urgent matter take any consideration the patient's current medical state. Patient will likely need a I&D procedure with hardware removal and antibiotic spacer placement. I am recommending transfer to tertiary care facility with orthopedic coverage for treatment. I was able to discuss my recommendations with our internal medicine group Left knee joint fluid was sent to the lab with multiple orders, this to include anaerobic, aerobic and fungal cultures, crystal analysis, cell, and Gram stain. Please contact our service with any further question regarding this patient Time with Patient: Less than 30
--- NOTE | 2024-09-17 12:15 | P.PCN ---
Date of Procedure: 09/17/24 Preoperative Diagnosis: Concern for left knee periprosthetic infection Postoperative Diagnosis: Periprosthetic septic left knee arthropathy Procedure(s) Performed: Left knee aspiration Anesthesia: none Surgeon: Adrien Moraes Pathology: none sent Condition: stable Disposition: no change Indications for Procedure: Sepsis, left knee swelling and pain Description of Procedure: Patient has been admitted to [facility] with positive bacteremia, sepsis and concerns for a left knee periprosthetic infection. Risk and benefits of the aspiration were discussed with the patient today at bedside, he was in good understanding. A consent form was obtained prior to the procedure, a timeout was also performed at bedside prior to the procedure. Patient was in the supine position, the knee was prepped with 1 iodine swab and 3 alcohol swabs. A 20-gauge needle was used to aspirate over 100 cc of purulent joint fluid via the suprapatellar approach. Bandage was placed after aspiration. Joint fluid was sent to lab for analysis, this to include anaerobic, aerobic and fungal cultures, cell count and synovial crystal evaluation, and Gram stain. Patient tolerated the procedure well
[2024-09-17 12:30] LABS: Glucose,Whole Blood 166 mg/dL (70-110)
--- NOTE | 2024-09-17 15:04 | P.PN ---
Subjective Progress Note Date: 09/17/24 Principal diagnosis: Reason for follow-up is left knee cellulitis and bacteremia 1Patient is a 69-year-old male with a past medical history significant for diabetes mellitus hypertension hyperlipidemia osteoarthritis atrial fibrillation he did have a left knee replacement about a year and a half ago by Dr. Reynolds. now presenting to the hospital concerning for his left knee gave out on him and has been complaining of more pain and swelling to left knee area patient has been in the hospital with cellulitis blood cultures are coming back positive with Streptococcus agalactiae On today's evaluation that is 09/17/2024, Patient is afebrile this morning patient did have some shortness of breath denies any chest pain no cough still complaining of pain to the left lower extremity especially knee area which has been aspirated by orthopedic this morning patient is currently on 3 L current oxygen. Patient white count is down to 20,000, creatinine 0.9 blood culture positive for Streptococcus agalactiae Objective - Vital Signs Vital signs: Vital Signs Temp 97.9 F 09/17/24 07:29 Pulse 110 H 09/17/24 07:29 Resp 20 09/17/24 07:29 BP 124/79 09/17/24 07:29 Pulse Ox 95 09/17/24 07:29 FiO2 Intake & Output 09/16/24 09/17/24 09/17/24 18:59 06:59 18:59 Intake Total 2440 Output Total 200 600 Balance -200 1840 Intake: Intake, IV Titration 2200 Amount Sodium Chloride 0.9% 1, 2000 000 ml @ 100 mls/hr IV . Q10H [facility] Rx#:[id number] ceFAZolin 3 gm In Sodium 200 Chloride 0.9% 100 ml @ 200 mls/hr IVPB Q8H [facility] Rx#:[id number] Oral 240 Output: Urine 200 600 Other: Voiding Method Urinal Urinal External Catheter External Catheter - Exam GENERAL DESCRIPTION: An elderly male up in bed in no distress RESPIRATORY SYSTEM: Unlabored breathing , decreased breath sounds at bases HEART: S1 S2 regular rate and rhythm , ABDOMEN: Soft , no tenderness EXTREMITIES: Left knee swelling versus redness slightly decreased no drainage f rom the wound to the left leg - Labs CBC & Chem 7: 09/17/24 06:30 09/17/24 06:30 Labs: Abnormal Lab Results - Last 24 Hours (Table) 09/16/24 09/16/24 09/16/24 Range/Units 08:08 12:17 17:12 WBC (4.50-10.00) X 10*3/uL RBC (4.40-5.60) X 10*6/uL Hgb (13.0-17.0) g/dL Hct (39.6-50.0) % MCH (27.0-32.0) pg MCHC (32.0-37.0) g/dL RDW (11.5-14.5) % Immature Gran # (0.00-0.04) X 10*3/uL Neutrophils # (1.80-7.70) X 10*3/uL Lymphocytes # (0.90-5.00) X 10*3/uL Monocytes # (0.20-1.00) X 10*3/uL Eosinophils # (0.04-0.35) X 10*3/uL NRBC/100 WBC Diff (0.00-0.01) X 10*3/uL ESR 30 H (0-20) mm/Hr POC Glucose (mg/dL) 134 H 174 H (70-110) mg/dL 09/16/24 09/17/24 09/17/24 Range/Units 20:05 06:30 07:25 WBC 20.13 H (4.50-10.00) X 10*3/uL RBC 3.82 L (4.40-5.60) X 10*6/uL Hgb 8.8 L (13.0-17.0) g/dL Hct 31.0 L (39.6-50.0) % MCH 23.0 L (27.0-32.0) pg MCHC 28.4 L (32.0-37.0) g/dL RDW 21.3 H (11.5-14.5) % Immature Gran # 0.19 H (0.00-0.04) X 10*3/uL Neutrophils # 17.63 H (1.80-7.70) X 10*3/uL Lymphocytes # 0.89 L (0.90-5.00) X 10*3/uL Monocytes # 1.36 H (0.20-1.00) X 10*3/uL Eosinophils # 0.02 L (0.04-0.35) X 10*3/uL NRBC/100 WBC Diff 0.03 H (0.00-0.01) X 10*3/uL ESR (0-20) mm/Hr POC Glucose (mg/dL) 188 H 143 H (70-110) mg/dL Microbiology - Last 24 Hours (Table) 09/14/24 22:45 Blood Culture Gram Stain - Final Blood Blood Culture - Final Strep agalactiae - (group b) Molecular ID 09/15/24 11:30 Gram Stain - Preliminary Leg - Left Wound Culture - Preliminary Presumptive Staph aureus Assessment and Plan (1) Sepsis Current Visit: Yes Status: Acute Code(s): A41.9 - SEPSIS, UNSPECIFIED ORGANISM SNOMED Code(s): 62110797 (2) Cellulitis Current Visit: Yes Status: Acute Code(s): L03.90 - CELLULITIS, UNSPECIFIED SNOMED Code(s): 680305258 (3) Bacteremia Current Visit: Yes Status: Acute Code(s): R78.81 - BACTEREMIA SNOMED Code(s): 9876296 (4) Septic arthritis Current Visit: Yes Status: Acute Code(s): M00.9 - PYOGENIC ARTHRITIS, UNSPECIFIED SNOMED Code(s): 902953583 Plan: 1patient presented hospital with sepsis in this patient who did have tachycardia elevated white count elevated lactic acid meeting criteria for SIRS source is likely left knee cellulitis and concern for possible left knee septic arthritis likely from gram-positive skin justin 2patient has been evaluated by orthopedic and did have aspiration of purulent material concerning for septic arthritis cultures obtained await further recommendation 3patient did have elevated inflammatory markers and blood culture positive for Streptococcus agalactiae 4local wound care to the wound to the left leg with dry Aquacel dressing change q. 48-hour 5patient currently being treated with cefazolin 3 g every 8 hour and monitor clinical course closely Dictation was produced using [employer] dictation software. please excuse any grammatical, word or spelling errors.
[2024-09-17 15:22] LABS: Appearance,BF Cloudy; Color,BF Yellow
[2024-09-17 15:28] LABS: Nucleated Cells, Body Fluid 21500 /uL; RBC, Body Fluid 1222 /uL
[2024-09-17 15:31] LABS: Mononuclear WBC,Body Fluid 17 %; Polynuclear WBC,Body Fluid 83 %; Total Cells Counted,Body Fluid 100
[2024-09-17 17:17] LABS: Glucose,Whole Blood 103 mg/dL (70-110)
[2024-09-17 19:38] LABS: Synovial Fld Crystals Monosod Urate (None Seen)
[2024-09-17 20:30] LABS: Glucose,Whole Blood 140 mg/dL (70-110)
[2024-09-18 04:34] LABS: Glucose,Whole Blood 165 mg/dL (70-110)
--- NOTE | 2024-09-18 05:09 | P.PN ---
Subjective Progress Note Date: 09/17/24 69-year-old male came in because he is unable to take care of himself and infection and legs patient has a wound in the left mid dunlap area which appeared to be infected and also cellulitis of the right lower extremity denied any history of MRSA in the past patient does have history of atrial fibrillation patient was hypotensive patient has swelling in bilateral lower extremities but chest x-ray is within normal limits does not appear to be in CHF patient has elevated BNP of 3200 does have history of atrial fibrillation on anticoagulation with Eliquis. Patient lives by himself lately he is unable to take care of himself patient was started on vancomycin here. Patient is obese with history of sleep apnea. Using his CPAP machine presently on oxygen does not usually use any oxygen. 09/16/2024 Patient is seen in follow-up today with no acute overnight issues noted. Infectious disease following and patient is maintained on antibiotics in the form of cefazolin 3 g every 8 hours.. Blood cultures positive for Streptococcus and there is concerns of significant knee swelling and possible septic arthritis. Will consult orthopedics and appreciate input and recommendations. If undergoing needle aspiration, strongly recommend sending for cultures. Patient is afebrile although white count remains elevated at 29, slightly improved from yesterday. Will follow-up on repeat labs. Patient with significant weakness recommend PT/OT therapy evaluation. Patient will likely need ECF on discharge. 09/17/2024 Patient is seen in follow-up today being continued on IV antibiotics with infectious disease following. Awaiting orthopedics evaluation with concerns of left knee swelling and possible source of infection. Orthopedics did evaluate and is status post aspiration of the left knee and was noted to be significantly purulent and was sent to the lab. Currently there is no orthopedic that would be able to provide surgical intervention and recommending tertiary transfer. Patient is agreeable if necessary and transfer was initiated to [facility]. Patient was accepted currently awaiting a bed. Patient is afebrile and white count remains elevated although trending down. Will follow-up on repeat labs. Eliquis on hold and will continue heparin subcu. Review of systems: Constitutional: No reports of fatigue, fever, or chills Cardiovascular: No reports of chest pain or palpitations Respiratory:reports of shortness of breath or cough GI: No reports of nausea, vomiting, or diarrhea : No reports of dysuria or retention Neurovascular: reports of generalized weakness and difficulty ambulating All medications have been reviewed REVIEW OF SYSTEMS: All other systems are negative except those mentioned in the HPI PHYSICAL EXAMINATION: GENERAL: The patient is alert and oriented x3, not in any acute distress. Well developed, well nourished. Morbidly obese HEENT: Pupils are round and equally reacting to light. EOMI. No scleral icterus. No conjunctival pallor. Normocephalic, atraumatic. No pharyngeal erythema. No thyromegaly. CARDIOVASCULAR: S1 and S2 p muffled PULMONARY: Diminished breath sounds bilaterally otherwise chest is clear to auscultation, no wheezing or crackles. ABDOMEN: Soft, morbidly obese nontender, nondistended, normoactive bowel sounds. No palpable organomegaly. MUSCULOSKELETAL: No joint swelling or deformity. EXTREMITIES: No cyanosis, clubbing, . Bilateral lower extremity swelling, left knee swelling noted NEUROLOGICAL: Gross neurological examination did not reveal any focal deficits. Diffusely weak SKIN: Bilateral lower extremity edema with a circumferential cellulitis in the right lower extremity involving the lower leg and left to there is an ulcer below the mid dunlap area which appear to be infected. Assessment: Bilateral lower extremity wounds with cellulitis, present on admission of the right lower extremity and infected wound of left lower extremity infectious disease following and wound cultures preliminary showing presumptive MRSA. Blood cultures are positive for Streptococcus and will repeat blood cultures to monitor for bacteremia clearance -Hypertension probably secondary to sepsis continue with IV fluids -Bilateral lower extremity edema appears to be pretty moderate in CHF patient will continue on fluids for now because of hypotension and lactic acidosis -Morbid obesity obstructive sleep apnea patient will continue on CPAP machine. -History of atrial fibrillation paroxysmal presently rate controlled on an ticoagulation rate control medications and anticoagulation with medications resumed -Type 2 diabetes mellitus uncontrolled with hyper and hypoglycemia: Continue on sliding scale insulin Generalized weakness: PT and OT evaluation DVT prophylaxis: Heparin subcu and will hold Eliquis per transfer team in the event patient requiring surgical intervention Plan: Patient being followed by infectious disease and orthopedics evaluated recommending tertiary transfer for possible surgical intervention of the left knee. Needle aspiration was done of copious amounts of purulent drainage and was sent to the lab for analysis. Unfortunately there is no orthopedic surgeon covering at this time and recommending transfer for tertiary treatment and possible surgical intervention of the left knee. Transfer was initiated and patient was accepted by Dr. Arrington of [facility] in [place]. Currently awaitin g a bed and transfer team will contact the unit once a bed is available. Wound cultures preliminary showing presumptive MRSA and has been transitioned to IV cefazolin per ID recommendations. Blood cultures positive for Streptococcus and awaiting repeat blood cultures to monitor for clearance of bacteremia Encouraged increase activity as tolerated and sitting up in the chair more often Continue monitoring Accu-Cheks before meals and at bedtime and will continue with sliding scale and also add long-acting. Adjust accordingly The impression and plan of care has been dictated by So Tian, Nurse Practitioner as directed. Dr. Paige MD I have performed a history and examination and MDM of this patient, discussed the same with the dictator, and agree with the dictator's assessment and plan as written ,documented as a scribe. Based on total visit time, I have performed more than 50% of the visit. Objective - Vital Signs Vital signs: Vital Signs Temp 97.9 F 09/17/24 07:29 Pulse 110 H 09/17/24 07:29 Resp 20 09/17/24 07:29 BP 124/79 09/17/24 07:29 Pulse Ox 95 09/17/24 07:29 FiO2 Intake & Output 09/16/24 09/17/24 09/17/24 18:59 06:59 18:59 Intake Total 2440 Output Total 200 600 Balance -200 1840 Intake: Intake, IV Titration 2200 Amount Sodium Chloride 0.9% 1, 2000 000 ml @ 100 mls/hr IV . Q10H [facility] Rx#:[id number] ceFAZolin 3 gm In Sodium 200 Chloride 0.9% 100 ml @ 200 mls/hr IVPB Q8H [facility] Rx#:[id number] Oral 240 Output: Urine 200 600 Other: Voiding Method Urinal Urinal External Catheter - Labs CBC & Chem 7: 09/17/24 06:30 09/17/24 06:30 Labs: Abnormal Lab Results - Last 24 Hours (Table) 09/16/24 09/16/24 09/16/24 Range/Units 08:08 08:08 12:17 WBC 29.33 H (4.50-10.00) X 10*3/uL RBC 3.95 L (4.40-5.60) X 10*6/uL Hgb 8.9 L (13.0-17.0) g/dL Hct 32.3 L (39.6-50.0) % MCH 22.5 L (27.0-32.0) pg MCHC 27.6 L (32.0-37.0) g/dL RDW 21.4 H (11.5-14.5) % Plt Count 443 H (140-440) X 10*3/uL ESR 30 H (0-20) mm/Hr POC Glucose (mg/dL) 134 H (70-110) mg/dL Hemoglobin A1c 6.9 H (<=6.0) % 09/16/24 09/16/24 09/17/24 Range/Units 17:12 20:05 07:25 WBC (4.50-10.00) X 10*3/uL RBC (4.40-5.60) X 10*6/uL Hgb (13.0-17.0) g/dL Hct (39.6-50.0) % MCH (27.0-32.0) pg MCHC (32.0-37.0) g/dL RDW (11.5-14.5) % Plt Count (140-440) X 10*3/uL ESR (0-20) mm/Hr POC Glucose (mg/dL) 174 H 188 H 143 H (70-110) mg/dL Hemoglobin A1c (<=6.0) % Microbiology - Last 24 Hours (Table) 09/14/24 22:45 Blood Culture Gram Stain - Final Blood Blood Culture - Final Strep agalactiae - (group b) Molecular ID 09/15/24 11:30 Gram Stain - Preliminary Leg - Left Wound Culture - Preliminary Presumptive Staph aureus
[2024-09-18 07:29] LABS: Glucose,Whole Blood 110 mg/dL (70-110)
[2024-09-18] MEDS: HEPARIN SODIUM,PORCINE 5,000 UNIT/ML 1 ML VIAL SQ SCH (08:03)
[2024-09-18 09:21] LABS: BUN/Creat Ratio 20.43 Ratio (12.00-20.00); Blood Urea Nitrogen 14.3 mg/dL (9.0-27.0); Calcium 8.4 mg/dL (8.7-10.3); Carbon Dioxide 30.8 mmol/L (21.6-31.8); Chloride 102 mmol/L (96-109); Glucose 117 mg/dL (70-110); Potassium 5.1 mmol/L (3.5-5.5); Sodium 140 mmol/L (135-145)
[2024-09-18 09:24] LABS: Basophils # (A) 0.03 X 10*3/uL (0.00-0.10); Basophils % (A) 0.2 %; Eosinophils # (A) 0.04 X 10*3/uL (0.04-0.35); Eosinophils % (A) 0.3 %; HCT 31.1 % (39.6-50.0); HGB 8.6 g/dL (13.0-17.0); Lymphocytes # (A) 0.69 X 10*3/uL (0.90-5.00); Lymphocytes % (A) 4.9 %; MCH 22.5 pg (27.0-32.0); MCHC 27.7 g/dL (32.0-37.0); MCV 81.4 FL (80.0-97.0); Mean Platelet Volume 10.5 FL (9.5-12.2); Monocytes % (A) 7.9 %; NRBC Per 100 WBC 0.02 X 10*3/uL (0.00-0.01); Neutrophils # (A) 11.86 X 10*3/uL (1.80-7.70); Neutrophils % (A) 85.1 %; Platelet Count 381 X 10*3/uL (140-440); RBC 3.82 X 10*6/uL (4.40-5.60); RDW 21.2 % (11.5-14.5); WBC 13.94 X 10*3/uL (4.50-10.00)
--- NOTE | 2024-09-18 11:13 | XR ---
EXAMINATION TYPE: XR chest 1V portable DATE OF EXAM: 09/18/2024 11:04 AM COMPARISON: Chest radiographs from 07/01/2024 TECHNIQUE: XR chest 1V portable Portable AP radiograph of the chest. CLINICAL INDICATION:Male, 69 years old with history of ams; FINDINGS: Lungs/Pleura: Blunting of the left costophrenic angle. Diffuse interstitial prominence. Left basilar airspace opacities. Heart/mediastinum: Cardiomediastinal silhouette is enlarged and stable. Atherosclerotic calcificatio ns are seen in the aorta. Musculoskeletal: No acute osseous pathology. IMPRESSION: Small left pleural effusion with left basilar airspace opacities. Cardiomegaly with diffuse interstit ial prominence. Correlate for CHF exacerbation. Superimposed pneumonia is not excluded. [facility], , 09/18/2024 11:11 AM
[2024-09-18 11:59] LABS: Glucose,Whole Blood 132 mg/dL (70-110)
--- NOTE | 2024-09-18 12:10 | P.PN ---
Subjective Progress Note Date: 09/18/24 Principal diagnosis: Reason for follow-up is left knee cellulitis and bacteremia 1Patient is a 69-year-old male with a past medical history significant for diabetes mellitus hypertension hyperlipidemia osteoarthritis atrial fibrillation he did have a left knee replacement about a year and a half ago by Dr. Reynolds. now presenting to the hospital concerning for his left knee gave out on him and has been complaining of more pain and swelling to left knee area patient has been in the hospital with cellulitis blood cultures are coming back positive with Streptococcus agalactiae On today's evaluation that is 09/18/2024,the patient denies any fever or any chills, did have episode of shortness of breath this morning and is currently on 3 L, oxygen to be denies chest pain no cough no abdominal pain diarrhea or any worsening pain to the left knee area. Patient white count is down to 13.94, creatinine 0.7 blood culture repeat currently pending Objective - Vital Signs Vital signs: Vital Signs Temp 98.3 F 09/18/24 05:54 Pulse 115 H 09/18/24 05:54 Resp 20 09/18/24 05:54 BP 119/75 09/18/24 05:54 Pulse Ox 93 L 09/18/24 05:54 FiO2 Intake & Output 09/17/24 09/18/24 09/18/24 18:59 06:59 18:59 Intake Total 1440 240 Output Total 700 Balance 740 240 Intake: Intake, IV Titration 1200 Amount Sodium Chloride 0.9% 1, 1000 000 ml @ 75 mls/hr IV . [id number] [facility] Rx#:[id number] ceFAZolin 3 gm In Sodium 200 Chloride 0.9% 100 ml @ 200 mls/hr IVPB Q8H [facility] Rx#:[id number] Oral 240 240 Output: Urine 700 Other: Voiding Method External Catheter Urinal External Catheter External Catheter - Exam GENERAL DESCRIPTION: An elderly male up in bed in no distress RESPIRATORY SYSTEM: Unlabored breathing , decreased breath sounds at bases HEART: S1 S2 regular rate and rhythm , ABDOMEN: Soft , no tenderness EXTREMITIES: Left knee swelling versus redness slightly decreased no drainage from the wound to the left leg - Labs CBC & Chem 7: 09/18/24 05:22 09/18/24 05:22 Labs: Abnormal Lab Results - Last 24 Hours (Table) 09/17/24 09/17/24 09/17/24 Range/Units 06:30 11:40 12:16 WBC (4.50-10.00) X 10*3/uL RBC (4.40-5.60) X 10*6/uL Hgb (13.0-17.0) g/dL Hct (39.6-50.0) % MCH (27.0-32.0) pg MCHC (32.0-37.0) g/dL RDW (11.5-14.5) % Immature Gran # (0.00-0.04) X 10*3/uL Neutrophils # (1.80-7.70) X 10*3/uL Lymphocytes # (0.90-5.00) X 10*3/uL Monocytes # (0.20-1.00) X 10*3/uL NRBC/100 WBC Diff (0.00-0.01) X 10*3/uL BUN/Creatinine Ratio 22.67 H (12.00-20.00) Ratio Glucose 132 H (70-110) mg/dL POC Glucose (mg/dL) 166 H (70-110) mg/dL Calcium 8.2 L (8.7-10.3) mg/dL AST 36 H (14-35) U/L Total Protein 6.1 L (6.2-8.2) g/dL Albumin 3.3 L (3.8-4.9) g/dL Albumin/Globulin Ratio 1.18 L (1.60-3.17) Ratio Synovial Crystals Monosod Urate A (None Seen) 09/17/24 09/18/24 09/18/24 Range/Units 20:28 04:22 05:22 WBC 13.94 H (4.50-10.00) X 10*3/uL RBC 3.82 L (4.40-5.60) X 10*6/uL Hgb 8.6 L (13.0-17.0) g/dL Hct 31.1 L (39.6-50.0) % MCH 22.5 L (27.0-32.0) pg MCHC 27.7 L (32.0-37.0) g/dL RDW 21.2 H (11.5-14.5) % Immature Gran # 0.22 H (0.00-0.04) X 10*3/uL Neutrophils # 11.86 H (1.80-7.70) X 10*3/uL Lymphocytes # 0.69 L (0.90-5.00) X 10*3/uL Monocytes # 1.10 H (0.20-1.00) X 10*3/uL NRBC/100 WBC Diff 0.02 H (0.00-0.01) X 10*3/uL BUN/Creatinine Ratio (12.00-20.00) Ratio Glucose (70-110) mg/dL POC Glucose (mg/dL) 140 H 165 H (70-110) mg/dL Calcium (8.7-10.3) mg/dL AST (14-35) U/L Total Protein (6.2-8.2) g/dL Albumin (3.8-4.9) g/dL Albumin/Globulin Ratio (1.60-3.17) Ratio Synovial Crystals (None Seen) 09/18/24 Range/Units 05:22 WBC (4.50-10.00) X 10*3/uL RBC (4.40-5.60) X 10*6/uL Hgb (13.0-17.0) g/dL Hct (39.6-50.0) % MCH (27.0-32.0) pg MCHC (32.0-37.0) g/dL RDW (11.5-14.5) % Immature Gran # (0.00-0.04) X 10*3/uL Neutrophils # (1.80-7.70) X 10*3/uL Lymphocytes # (0.90-5.00) X 10*3/uL Monocytes # (0.20-1.00) X 10*3/uL NRBC/100 WBC Diff (0.00-0.01) X 10*3/uL BUN/Creatinine Ratio 20.43 H (12.00-20.00) Ratio Glucose 117 H (70-110) mg/dL POC Glucose (mg/dL) (70-110) mg/dL Calcium 8.4 L (8.7-10.3) mg/dL AST (14-35) U/L Total Protein (6.2-8.2) g/dL Albumin (3.8-4.9) g/dL Albumin/Globulin Ratio (1.60-3.17) Ratio Synovial Crystals (None Seen) Microbiology - Last 24 Hours (Table) 09/17/24 11:40 Gram Stain - Preliminary Knee - Left Body Fluid Culture - Preliminary 09/15/24 11:30 Gram Stain - Final Leg - Left Wound Culture - Final Staphylococcus aureus 09/16/24 08:08 Blood Culture - Preliminary Blood 09/14/24 22:45 Blood Culture Gram Stain - Final Blood Blood Culture - Final Strep agalactiae - (group b) Molecular ID Assessment and Plan (1) Sepsis Current Visit: Yes Status: Acute Code(s): A41.9 - SEPSIS, UNSPECIFIED ORGANISM SNOMED Code(s): 09626431 (2) Cellulitis Current Visit: Yes Status: Acute Code(s): L03.90 - CELLULITIS, UNSPECIFIED SNOMED Code(s): 111175324 (3) Bacteremia Current Visit: Yes Status: Acute Code(s): R78.81 - BACTEREMIA SNOMED Code(s): 2528345 (4) Septic arthritis Current Visit: Yes Status: Acute Code(s): M00.9 - PYOGENIC ARTHRITIS, UNSPECIFIED SNOMED Code(s): 354886673 Plan: 1patient presented hospital with sepsis in this patient who did have tachycardia elevated white count elevated lactic acid meeting criteria for SIRS source is likely left knee cellulitis and concern for possible left knee septic arthritis likely from gram-positive skin justin 2patient has been evaluated by orthopedic and did have aspiration of purulent material concerning for septic arthritis cultures obtained, orthopedic is recommended transfer to tertiary care 3patient did have elevated inflammatory markers and blood culture positive for Streptococcus agalactiae 4local wound care to the wound to the left leg with dry Aquacel dressing change q. 48-hour 5patient white count is trending down blood culture repeat so far negative patient will be treated with cefazolin and will monitor clinical course closely Dictation was produced using [employer] dictation software. please excuse any grammatical, word or spelling errors. Time with Patient: Less than 30
--- NOTE | 2024-09-18 12:22 | P.PN ---
Subjective Progress Note Date: 09/18/24 Principal diagnosis: Left knee pain, history of left total knee arthroplasty, bacteremia, bilateral lower extremity wounds Patient was examined at bedside, he was very confused and lethargic on exam. Patient still complains of left knee pain. Objective - Vital Signs Vital signs: Vital Signs Temp 97.4 F L 09/18/24 11:03 Pulse 114 H 09/18/24 11:03 Resp 20 09/18/24 11:03 BP 135/89 09/18/24 11:03 Pulse Ox 94 L 09/18/24 11:03 FiO2 Intake & Output 09/17/24 09/18/24 09/18/24 18:59 06:59 18:59 Intake Total 1440 240 Output Total 700 Balance 740 240 Intake: Intake, IV Titration 1200 Amount Sodium Chloride 0.9% 1, 1000 000 ml @ 75 mls/hr IV . [id number] [facility] Rx#:[id number] ceFAZolin 3 gm In Sodium 200 Chloride 0.9% 100 ml @ 200 mls/hr IVPB Q8H [facility] Rx#:[id number] Oral 240 240 Output: Urine 700 Other: Voiding Method External Catheter Urinal External Catheter External Catheter - Exam Left lower extremity: Incision over the anterior aspect of the knee is well-healed, there is no areas of erythema or skin openings. There is a significant effusion present. He does have bandaging to the bilateral lower extremities. Patient has significant skin breakdown between the toes, he has significant breakdown of his toenails. Patient has generalized pain with palpation surrounding the knee. Patient finds most comfort flex to about 40 degrees. Passive range of motion of the knee does reproduce discomfort, this seems improved compared to yesterday. Patient is very weak on exam, he is unable to straight leg raise. Plantarflexion, dorsiflexion, EHL, FHL are intact. Sensory exam to light touch is intact t hroughout the extremity, skin is warm to touch - Labs CBC & Chem 7: 09/18/24 05:22 09/18/24 05:22 Labs: Abnormal Lab Results - Last 24 Hours (Table) 09/17/24 09/17/24 09/17/24 Range/Units 11:40 12:16 20:28 WBC (4.50-10.00) X 10*3/uL RBC (4.40-5.60) X 10*6/uL Hgb (13.0-17.0) g/dL Hct (39.6-50.0) % MCH (27.0-32.0) pg MCHC (32.0-37.0) g/dL RDW (11.5-14.5) % Immature Gran # (0.00-0.04) X 10*3/uL Neutrophils # (1.80-7.70) X 10*3/uL Lymphocytes # (0.90-5.00) X 10*3/uL Monocytes # (0.20-1.00) X 10*3/uL NRBC/100 WBC Diff (0.00-0.01) X 10*3/uL BUN/Creatinine Ratio (12.00-20.00) Ratio Glucose (70-110) mg/dL POC Glucose (mg/dL) 166 H 140 H (70-110) mg/dL Calcium (8.7-10.3) mg/dL Synovial Crystals Monosod Urate A (None Seen) 09/18/24 09/18/24 09/18/24 Range/Units 04:22 05:22 05:22 WBC 13.94 H (4.50-10.00) X 10*3/uL RBC 3.82 L (4.40-5.60) X 10*6/uL Hgb 8.6 L (13.0-17.0) g/dL Hct 31.1 L (39.6-50.0) % MCH 22.5 L (27.0-32.0) pg MCHC 27.7 L (32.0-37.0) g/dL RDW 21.2 H (11.5-14.5) % Immature Gran # 0.22 H (0.00-0.04) X 10*3/uL Neutrophils # 11.86 H (1.80-7.70) X 10*3/uL Lymphocytes # 0.69 L (0.90-5.00) X 10*3/uL Monocytes # 1.10 H (0.20-1.00) X 10*3/uL NRBC/100 WBC Diff 0.02 H (0.00-0.01) X 10*3/uL BUN/Creatinine Ratio 20.43 H (12.00-20.00) Ratio Glucose 117 H (70-110) mg/dL POC Glucose (mg/dL) 165 H (70-110) mg/dL Calcium 8.4 L (8.7-10.3) mg/dL Synovial Crystals (None Seen) 09/18/24 Range/Units 11:58 WBC (4.50-10.00) X 10*3/uL RBC (4.40-5.60) X 10*6/uL Hgb (13.0-17.0) g/dL Hct (39.6-50.0) % MCH (27.0-32.0) pg MCHC (32.0-37.0) g/dL RDW (11.5-14.5) % Immature Gran # (0.00-0.04) X 10*3/uL Neutrophils # (1.80-7.70) X 10*3/uL Lymphocytes # (0.90-5.00) X 10*3/uL Monocytes # (0.20-1.00) X 10*3/uL NRBC/100 WBC Diff (0.00-0.01) X 10*3/uL BUN/Creatinine Ratio (12.00-20.00) Ratio Glucose (70-110) mg/dL POC Glucose (mg/dL) 132 H (70-110) mg/dL Calcium (8.7-10.3) mg/dL Synovial Crystals (None Seen) Microbiology - Last 24 Hours (Table) 09/17/24 11:40 Gram Stain - Preliminary Knee - Left Body Fluid Culture - Preliminary 09/15/24 11:30 Gram Stain - Final Leg - Left Wound Culture - Final Staphylococcus aureus 09/16/24 08:08 Blood Culture - Preliminary Blood 09/14/24 22:45 Blood Culture Gram Stain - Final Blood Blood Culture - Final Strep agalactiae - (group b) Molecular ID Assessment and Plan Assessment: Left knee pain History of left total knee arthroplasty Possible periprosthetic left knee infectionn Possible gouty arthropathy left knee Bacteremia with sepsis Bilateral lower extremity wounds Morbid obesity Multiple medical comorbidities Plan: Reviewing patient's initial synovial fluid analysis demonstrated monosodium urate on crystal examination, nucleated cells 21,500. Anaerobic and aerobic cultures are pending Initial evaluation of the fluid I was very concerned for periprosthetic infection involving the left knee, initial fluid analysis is suggestive of a gouty arthropathy. Still concerning for a septic arthropathy taking into consideration patient's bilateral leg wounds, recent bacteremia and his current medical state Discussed with internal medicine holding transfer for further orthopedic managem ent, general orthopedic coverage for our practice is still currently limited. Await anaerobic and aerobic cultures for left knee synovial fluid We will continue to follow patient during hospital stay Time with Patient: Less than 30
--- NOTE | 2024-09-18 12:42 | CT ---
EXAMINATION TYPE: CT brain wo con CT DLP: 1205.70 mGycm, Automated exposure control for dose reduction was used. DATE OF EXAM: 09/18/2024 12:37 PM COMPARISON: CT brain 06/12/2015, 06/13/2015 CLINICAL INDICATION:Male, 69 years old with history of ams, AMS TECHNIQUE: Brain: Multiple axial CT images of the brain were obtained without IV contrast. . Coronal and sagitta l reformats reviewed. FINDINGS: Brain: Extra-axial spaces: No abnormal extra-axial fluid collections. Ventricular system: Within normal limits Cerebral parenchyma: No acute intraparenchymal hemorrhage or mass effect. The hudson-white junction is well differentiated. Scattered hypoattenuating areas are seen within the periventricular white matte r. Cerebellum: Unremarkable. Mass effect: No evidence of midline shift. Intracranial vasculature: Atherosclerotic calcifications of the intracranial vessels. Soft tissues: Normal. Calvarium/osseous structures: No depressed skull fracture. Paranasal sinuses and mastoid air cells: Clear Visualized orbits: Orbital contents are intact. IMPRESSION: 1. No acute intracranial process. 2. Nonspecific minimal white matter changes, likely secondary to chronic small vessel ischemic diseas e. [facility], , 09/18/2024 12:40 PM
[2024-09-18] MEDS: FUROSEMIDE 10 MG/ML 4 ML VIAL IV STA (14:27)
[2024-09-18] MEDS: HALOPERIDOL LACTATE 5 MG/ML 1 ML VIAL IM STA (14:40)
[2024-09-18 15:46] LABS: Glucose,Whole Blood 161 mg/dL (70-110)
[2024-09-18 16:42] LABS: Glucose,Whole Blood 147 mg/dL (70-110)
[2024-09-18] MEDS: ACETAMINOPHEN IV (For NPO) 1,000 MG in EMPTY BAG 1 BAG IVPB SCH (18:01)
[2024-09-18] MEDS ORDERED: ONDANSETRON 4 MG/2 ML VIAL IVP PRN (20:49)
[2024-09-18 20:51] LABS: Glucose,Whole Blood 146 mg/dL (70-110)
[2024-09-18] MEDS: HALOPERIDOL LACTATE 5 MG/ML 1 ML VIAL IM PRN (20:51)
[2024-09-18] MEDS: PANTOPRAZOLE 40 MG/10 ML VIAL IVP SCH (20:52)
[2024-09-18] MEDS: QUEtiapine 25 MG TAB PO SCH (20:52)
--- NOTE | 2024-09-19 01:59 | P.CNPUL ---
History of Present Illness Consult date: 09/19/24 Requesting physician: So Tian Reason for consult: other (ICU evaluation, sepsis) Chief complaint: Altered mental status History of present illness: Patient is a 69-year-old male with past medical history significant for atrial fibrillation, hypertension, hyperlipidemia, diabetes mellitus, obesity, obstructive sleep apnea, GI bleed, seizures, bipolar/depression, and left knee total arthroplasty. Hospitalized back on 09/14/2024 with left leg weakness and cellulitis. Left knee x-ray does not show any knee hardware complication. There is moderate joint effusion and diffuse soft tissue swelling/edema. Did undergo left knee aspiration. Left knee joint aspirate not showing growth at 24 hours. Cultures positive for MSSA from chronic left leg wound and strep group B bacteremia. Patient currently covered on cefazolin. Infectious disease is on board. Most recent labs from yesterday includes a CBC with an improvement in his WBC count down to 14, hemoglobin 8.6 g/dL, platelets 381. CMP: Sodium 140, potassium 5.1, chloride 103, serum bicarb 31, BUN 14.3, creatinine 0.7, glucose 117. NT proBNP 3176. Viral screen done on admission negative for influenza, RSV, COVID. Previous chest x-ray did not show any acute cardiopulmonary process. Rapid response was called yesterday afternoon for worsening mentation and agitation. Did receive a dose of Haldol 2 mg once. He is refusing his psych meds. Brain CT did not show any acute intracranial bleeding or mass effect. Patient was transferred to the cardiac stepdown unit. An ICU consult was placed for evaluation concerning his worsening mentation and sepsis. Patient is currently being evaluated on the cardiac stepdown unit. He is alert and oriented. He is impulsive and attempts to get out of bed. A bedside sitter is present. He is tachycardic and diaphoretic. He did refuse his medications earlier, including metoprolol. Blood pressure is normotensive. Afebrile. Normal saline infusing at 75 mm/h. Bilateral lower extremities are wrapped. Good range of motion of left knee, without pain, crepitus, erythema, edema. I did speak to him about the importance of medication adherence, and he is agreeable to take his medications now. Current vital signs: Temperature 97.7 F, heart rate 131 bpm, blood pressure 132/80 mmHg, nontachypneic, SpO2 recorded as 96% on 3 L/min nasal cannula. Review of Systems Constitutional: Denies chills, Denies fatigue, Denies fever, Denies poor appetite, Denies weight gain, Denies weight loss Ears, nose, mouth and throat: Denies headache, Denies nasal congestion, Denies nasal discharge, Denies post-nasal drip, Denies sinus pain, Denies sinus pressure, Denies sore throat Cardiovascular: Reports leg edema, Denies chest pain, Denies lightheadedness, Denies orthopnea, Denies palpitations, Denies paroxysmal nocturnal dyspnea, Denies shortness of breath, Denies syncope Respiratory: Denies cough, Denies dyspnea, Denies hemoptysis Gastrointestinal: Denies abdominal pain, Denies diarrhea, Denies hematemesis, Denies melena, Denies nausea, Denies vomiting Genitourinary: Denies dysuria, Denies hematuria Musculoskeletal: Reports gait dysfunction, Denies leg numbness/tingling, Denies limitation of motion, Denies low back pain, Denies muscle weakness, Denies shooting leg pain Integumentary: Reports wounds, Denies rash Neurological: Denies headaches, Denies numbness, Denies paralysis, Denies paresthesias, Denies syncope Psychiatric: Reports depression, Denies anxiety, Denies suicidal ideation Past Medical History Past Medical History: Atrial Fibrillation, Diabetes Mellitus, GERD/Reflux, Hyperlipidemia, Hypertension, Osteoarthritis (OA), Sleep Apnea/CPAP/BIPAP Additional Past Medical History / Comment(s): seizure two yrs ago from major depressive disorder, hemorrhoids, herniated disc, TOOTH ACHE AT PRESENT Cellulitis and abscess of mouth. Mediastinitis secondary to mouth abscess; IV antibiotic therapy History of Any Multi-Drug Resistant Organisms: None Reported Past Surgical History: Adenoidectomy, Hernia Repair, Tonsillectomy Additional Past Surgical History / Comment(s): epidural. Abscessed teeth pulled at [facility] 2019. Chest tube drain. Past Anesthesia/Blood Transfusion Reactions: No Reported Reaction Past Psychological History: Depression Smoking Status: Current some day smoker Past Alcohol Use History: Rare Past Drug Use History: None Reported - Past Family History Mother Family Medical History: No Reported History Medications and Allergies Home Medications Medication Instructions Recorded Confirmed Type [place] Carbonate 1,200 mg PO HS 08/02/17 09/15/24 History Apixaban [Eliquis] 5 mg PO BID 10/16/20 09/15/24 History OLANZapine [ZyPREXA] 7.5 mg PO HS 07/01/24 09/15/24 History Venlafaxine HCl [Effexor XR] 225 mg PO DAILY 07/01/24 09/15/24 History Glucosam/Max-Msm1/C/Conor/Bosw 1 tab PO DAILY 09/15/24 09/15/24 History [Glucosamine-Chondroitin Tablet] Krill/Om-3/Dha/Epa/Phospho/Ast 1 cap PO DAILY 09/15/24 09/15/24 History [Krill Oil 600 mg Softgel] Losartan/Hydrochlorothiazide 1 tab PO DAILY 09/15/24 09/15/24 History [Hyzaar 100-12.5 Tablet] Turmeric Root Extract [Turmeric] 500 mg PO DAILY 09/15/24 09/15/24 History Allergies Allergy/AdvReac Type Severity Reaction Status Date / Time No Known Allergies Allergy Verified 09/15/24 10:04 Physical Exam Vitals: Vital Signs Temp Pulse Resp BP BP Pulse Ox 09/18/24 23:09 97.7 F 131 H 20 132/80 96 09/18/24 19:26 98.0 F 128 H 16 137/81 96 09/18/24 17:00 98.1 F 126 H 20 124/93 95 09/18/24 12:18 97.9 F 120 H 24 132/85 94 L 09/18/24 11:03 97.4 F L 114 H 20 135/89 94 L 09/18/24 05:54 98.3 F 115 H 20 119/75 93 L 09/18/24 02:00 97.6 F 76 14 127/74 92 L Intake and Output 09/18/24 09/18/24 09/19/24 14:59 22:59 06:59 Intake Total 240 10 Output Total 3000 Balance -2760 10 Intake: IV 10 Invasive Line 5 10 Oral 240 Output: Urine 3000 Other: Voiding Method External Catheter External Catheter GENERAL EXAM: Alert, morbidly obese 69-year-old male, diaphoretic, restless and attempting to get a bed, sitter is present at bedside. HEAD: Normocephalic and atraumatic EYES: Normal reaction of pupils, equal size. NOSE: Clear with pink turbinates. THROAT: No erythema or exudates. NECK: No masses, no JVD. CHEST: No chest wall deformity. LUNGS: Equal air entry with no crackles, wheeze, rhonchi or dullness. On 3 L/min nasal cannula. No conversational dyspnea or accessory muscle use.. CVS: S1 and S2 normal with no audible murmur, irregular rhythm. No extra heart sounds. Tachycardic. ABDOMEN: No hepatosplenomegaly, active bowel sounds, no guarding or rigidity. SPINE: No scoliosis or deformity SKIN: No rashes CENTRAL NERVOUS SYSTEM: No focal deficits, tone is normal in all 4 extremities. EXTREMITIES: Bilateral lower extremity pitting edema, 1+. Bilateral lower extremities are wrapped. No clubbing or cyanosis. Peripheral pulses are intact. Results - Laboratory Findings CBC and BMP: 09/18/24 05:22 09/18/24 05:22 PT/INR, D-dimer PT 14.1 sec (10.0-12.5) H 09/14/24 22:56 INR 1.3 (<1.2) H 09/14/24 22:56 Abnormal lab findings: Abnormal Labs 09/14/24 09/14/24 09/14/24 22:56 22:56 22:56 WBC 32.2 H RBC 4.02 L Hgb 9.3 L Hct 32.1 L MCV 79.8 L MCH 23.1 L MCHC 28.9 L RDW 19.9 H Plt Count Immature Gran # Neutrophils # 30.5 H Lymphocytes # 0.3 L Monocytes # 1.2 H Eosinophils # NRBC/100 WBC Diff ESR PT 14.1 H INR 1.3 H Sodium Chloride Carbon Dioxide BUN BUN/Creatinine Ratio Glucose POC Glucose (mg/dL) Hemoglobin A1c Plasma Lactic Acid Javier Calcium Magnesium Total Bilirubin 1.4 H AST C-Reactive Protein 5.9 H NT-Pro-B Natriuret Pep Total Protein Albumin Albumin/Globulin Ratio Synovial Crystals 09/14/24 09/15/24 09/15/24 22:56 04:04 12:28 WBC RBC Hgb Hct MCV MCH MCHC RDW Plt Count Immature Gran # Neutrophils # Lymphocytes # Monocytes # Eosinophils # NRBC/100 WBC Diff ESR PT INR Sodium Chloride Carbon Dioxide BUN BUN/Creatinine Ratio Glucose POC Glucose (mg/dL) 324 H Hemoglobin A1c Plasma Lactic Acid Javier 3.8 H* 2.7 H* Calcium Magnesium Total Bilirubin AST C-Reactive Protein NT-Pro-B Natriuret Pep Total Protein Albumin Albumin/Globulin Ratio Synovial Crystals 09/15/24 09/16/24 09/16/24 21:46 06:27 08:08 WBC RBC Hgb Hct MCV MCH MCHC RDW Plt Count Immature Gran # Neutrophils # Lymphocytes # Monocytes # Eosinophils # NRBC/100 WBC Diff ESR PT INR Sodium Chloride Carbon Dioxide BUN BUN/Creatinine Ratio Glucose POC Glucose (mg/dL) 120 H 122 H Hemoglobin A1c 6.9 H Plasma Lactic Acid Javier Calcium Magnesium Total Bilirubin AST C-Reactive Protein NT-Pro-B Natriuret Pep Total Protein Albumin Albumin/Globulin Ratio Synovial Crystals 09/16/24 09/16/24 09/16/24 08:08 08:08 12:17 WBC 29.33 H RBC 3.95 L Hgb 8.9 L Hct 32.3 L MCV MCH 22.5 L MCHC 27.6 L RDW 21.4 H Plt Count 443 H Immature Gran # Neutrophils # Lymphocytes # Monocytes # Eosinophils # NRBC/100 WBC Diff ESR 30 H PT INR Sodium 133 L Chloride 97 L Carbon Dioxide 31 H BUN 27 H BUN/Creatinine Ratio Glucose 123 H POC Glucose (mg/dL) 134 H Hemoglobin A1c Plasma Lactic Acid Javier Calcium 8.2 L Magnesium 2.4 H Total Bilirubin AST C-Reactive Protein 32.5 H NT-Pro-B Natriuret Pep Total Protein Albumin Albumin/Globulin Ratio Synovial Crystals 09/16/24 09/16/24 09/17/24 17:12 20:05 06:30 WBC 20.13 H RBC 3.82 L Hgb 8.8 L Hct 31.0 L MCV MCH 23.0 L MCHC 28.4 L RDW 21.3 H Plt Count Immature Gran # 0.19 H Neutrophils # 17.63 H Lymphocytes # 0.89 L Monocytes # 1.36 H Eosinophils # 0.02 L NRBC/100 WBC Diff 0.03 H ESR PT INR Sodium Chloride Carbon Dioxide BUN BUN/Creatinine Ratio Glucose POC Glucose (mg/dL) 174 H 188 H Hemoglobin A1c Plasma Lactic Acid Javier Calcium Magnesium Total Bilirubin AST C-Reactive Protein NT-Pro-B Natriuret Pep Total Protein Albumin Albumin/Globulin Ratio Synovial Crystals 09/17/24 09/17/24 09/17/24 06:30 07:25 11:40 WBC RBC Hgb Hct MCV MCH MCHC RDW Plt Count Immature Gran # Neutrophils # Lymphocytes # Monocytes # Eosinophils # NRBC/100 WBC Diff ESR PT INR Sodium Chloride Carbon Dioxide BUN BUN/Creatinine Ratio 22.67 H Glucose 132 H POC Glucose (mg/dL) 143 H Hemoglobin A1c Plasma Lactic Acid Javier Calcium 8.2 L Magnesium Total Bilirubin AST 36 H C-Reactive Protein NT-Pro-B Natriuret Pep Total Protein 6.1 L Albumin 3.3 L Albumin/Globulin Ratio 1.18 L Synovial Crystals Monosod Urate A 09/17/24 09/17/24 09/18/24 12:16 20:28 04:22 WBC RBC Hgb Hct MCV MCH MCHC RDW Plt Count Immature Gran # Neutrophils # Lymphocytes # Monocytes # Eosinophils # NRBC/100 WBC Diff ESR PT INR Sodium Chloride Carbon Dioxide BUN BUN/Creatinine Ratio Glucose POC Glucose (mg/dL) 166 H 140 H 165 H Hemoglobin A1c Plasma Lactic Acid Javier Calcium Magnesium Total Bilirubin AST C-Reactive Protein NT-Pro-B Natriuret Pep Total Protein Albumin Albumin/Globulin Ratio Synovial Crystals 09/18/24 09/18/24 09/18/24 05:22 05:22 05:22 WBC 13.94 H RBC 3.82 L Hgb 8.6 L Hct 31.1 L MCV MCH 22.5 L MCHC 27.7 L RDW 21.2 H Plt Count Immature Gran # 0.22 H Neutrophils # 11.86 H Lymphocytes # 0.69 L Monocytes # 1.10 H Eosinophils # NRBC/100 WBC Diff 0.02 H ESR PT INR Sodium Chloride Carbon Dioxide BUN BUN/Creatinine Ratio 20.43 H Glucose 117 H POC Glucose (mg/dL) Hemoglobin A1c Plasma Lactic Acid Javier Calcium 8.4 L Magnesium Total Bilirubin AST C-Reactive Protein NT-Pro-B Natriuret Pep 3176 H Total Protein Albumin Albumin/Globulin Ratio Synovial Crystals 09/18/24 09/18/24 09/18/24 11:58 15:45 16:40 WBC RBC Hgb Hct MCV MCH MCHC RDW Plt Count Immature Gran # Neutrophils # Lymphocytes # Monocytes # Eosinophils # NRBC/100 WBC Diff ESR PT INR Sodium Chloride Carbon Dioxide BUN BUN/Creatinine Ratio Glucose POC Glucose (mg/dL) 132 H 161 H 147 H Hemoglobin A1c Plasma Lactic Acid Javier Calcium Magnesium Total Bilirubin AST C-Reactive Protein NT-Pro-B Natriuret Pep Total Protein Albumin Albumin/Globulin Ratio Synovial Crystals 09/18/24 20:49 WBC RBC Hgb Hct MCV MCH MCHC RDW Plt Count Immature Gran # Neutrophils # Lymphocytes # Monocytes # Eosinophils # NRBC/100 WBC Diff ESR PT INR Sodium Chloride Carbon Dioxide BUN BUN/Creatinine Ratio Glucose POC Glucose (mg/dL) 146 H Hemoglobin A1c Plasma Lactic Acid Javier Calcium Magnesium Total Bilirubin AST C-Reactive Protein NT-Pro-B Natriuret Pep Total Protein Albumin Albumin/Globulin Ratio Synovial Crystals - Diagnostic Findings Chest x-ray: image reviewed Assessment and Plan Assessment: Left leg cellulitis, wound culture positive for MSSA Group B strep bacteremia Meet SIRS/sepsis criteria Rule out septic arthritis, preliminary left knee aspirate/cultures showing no growth at 24 hours Acute leukocytosis, improving Atrial fibrillation, with rapid ventricular response Anemia, monitor for acute blood loss Acute hypoxemic respiratory failure on 3 L/min nasal cannula, follow-up chest x- ray shows cardiomegaly, interstitial prominence and a probable left basilar pleural effusion with left basilar opacity or atelectasis. Hypertension History of hyperlipidemia Diabetes mellitus type 2 Morbid obesity with a BMI of 44.9 kg/m History of obstructive sleep apnea History of GI bleed History of gastritis History of seizure Bipolar/depression Plan: Patient's medications, labs, chest x-ray reviewed Continue supplemental oxygen to maintain action saturation of 92% or greater Previously received a one-time dose of IV Lasix 40 mg Antibiotics are being directed by infectious disease Continue bedside sitter Patient agreeable to take his medications Continue beta-rosanna and Eliquis Continue psych medication Hemodynamics appear stable No need for ICU transfer at this time, we will continue to closely follow I have personally seen and examined the patient, performed the documentation and the assessment and plan as written. Number of minutes spent on the visit:20 This dictation was produced using [employer] dictation software please excuse grammatical errors Time with Patient: Greater than 30
--- NOTE | 2024-09-19 06:34 | P.PN ---
Subjective Progress Note Date: 09/18/24 69-year-old male came in because he is unable to take care of himself and infection and legs patient has a wound in the left mid dunlap area which appeared to be infected and also cellulitis of the right lower extremity denied any history of MRSA in the past patient does have history of atrial fibrillation patient was hypotensive patient has swelling in bilateral lower extremities but chest x-ray is within normal limits does not appear to be in CHF patient has elevated BNP of 3200 does have history of atrial fibrillation on anticoagulation with Eliquis. Patient lives by himself lately he is unable to take care of himself patient was started on vancomycin here. Patient is obese with history of sleep apnea. Using his CPAP machine presently on oxygen does not usually use any oxygen. 09/16/2024 Patient is seen in follow-up today with no acute overnight issues noted. Infectious disease following and patient is maintained on antibiotics in the form of cefazolin 3 g every 8 hours.. Blood cultures positive for Streptococcus and there is concerns of significant knee swelling and possible septic arthritis. Will consult orthopedics and appreciate input and recommendations. If undergoing needle aspiration, strongly recommend sending for cultures. Patient is afebrile although white count remains elevated at 29, slightly improved from yesterday. Will follow-up on repeat labs. Patient with significant weakness recommend PT/OT therapy evaluation. Patient will likely need ECF on discharge. 09/17/2024 Patient is seen in follow-up today being continued on IV antibiotics with infectious disease following. Awaiting orthopedics evaluation with concerns of left knee swelling and possible source of infection. Orthopedics did evaluate and is status post aspiration of the left knee and was noted to be significantly purulent and was sent to the lab. Currently there is no orthopedic that would be able to provide surgical intervention and recommending tertiary transfer. Patient is agreeable if necessary and transfer was initiated to [facility]. Patient was accepted currently awaiting a bed. Patient is afebrile and white count remains elevated although trending down. Will follow-up on repeat labs. Eliquis on hold and will continue heparin subcu. 09/18/2024 Patient is seen in follow-up this morning continues on IV antibiotics with infectious disease following. On exam patient is diaphoretic and confused is following commands and answering some questions appropriately although mentation is definitely of concern. Ct brain ordered and negative for acute process. Patient with sepsis and concerns for lower extremity cellulitis as well as left knee septic arthritis. Limited coverage for orthopedics at this time, although did undergo left knee aspiration and was noted to have crystals concerning for gout. Patient is pending a transfer to [facility] for tertiary treatment given our limited coverage. No bed available. Patient is also wearing oxygen and continues to remove nasal cannula with concerns of hypoxia. Pulmonary consulted for possible ICU eval although stable and will be moved to [address] [place] [address] for closer monitoring. Patient is trying to get out of bed and is at increased risk of falls. Recommend abg although patient is refusing. Review of systems: unable to completely assess given mentation All medications have been reviewed PHYSICAL EXAMINATION: GENERAL: The patient is alert and oriented x1, confused, anxious, restless. Well developed, well nourished. Morbidly obese HEENT: Pupils are round and equally reacting to light. EOMI. No scleral icterus. No conjunctival pallor. Normocephalic, atraumatic. No pharyngeal erythema. No thyromegaly. CARDIOVASCULAR: S1 and S2 muffled PULMONARY: Diminished breath sounds bilaterally, faint crackles noted. ABDOMEN: Soft, morbidly obese nontender, nondistended, normoactive bowel sounds. No palpable organomegaly. MUSCULOSKELETAL: left knee joint swelling , no deformity. EXTREMITIES: No cyanosis, clubbing, . Bilateral lower extremity swelling, left knee swelling noted NEUROLOGICAL: Gross neurological examination did not reveal any focal deficits. Diffusely weak, confused and anxious today SKIN: Bilateral lower extremity edema with a circumferential cellulitis in the left lower extremity , and left lower leg ulcer below the mid dunlap area which appear to be infected. Assessment: -Bilateral lower extremity wounds with cellulitis, present on admission of the right lower extremity and infected wound of left lower extremity infectious disease following and wound cultures preliminary showing presumptive MRSA. Blood cultures are positive for Streptococcus and will repeat blood cultures to monitor for bacteremia clearance -Hypertension probably secondary to sepsis continue with IV fluids -Bilateral lower extremity edema appears to be pretty moderate in CHF patient will continue on fluids for now because of hypotension and lactic acidosis -Morbid obesity with obstructive sleep apnea patient will continue on CPAP machine. -History of atrial fibrillation paroxysmal, presently rate controlled on anticoagulation and rate control medications , eliquis held per transfer team in the event of surgery, will continue hep subq -Type 2 diabetes mellitus uncontrolled with hyper and hypoglycemia: Continue on sliding scale insulin Generalized weakness: PT and OT evaluation DVT prophylaxis: Heparin subcu and will hold Eliquis per transfer team in the event patient requiring surgical intervention full code Plan: Patient being followed by infectious disease and orthopedics evaluated recommending tertiary transfer for possible surgical intervention of the left knee. Needle aspiration was done of copious amounts of purulent drainage and was sent to the lab for analysis. Unfortunately there is no orthopedic surgeon covering at this time and recommending transfer for tertiary treatment and poss ible surgical intervention of the left knee. Transfer was initiated and patient was accepted by Dr. Arrington of [facility] in [place]. Currently awaiting a bed and transfer team will contact the unit once a bed is available. No bed available today. Will call daily. Wound cultures preliminary showing presumptive MRSA and has been transitioned to IV cefazolin per ID recommendations. Blood cultures positive for Streptococcus and awaiting repeat blood cultures to monitor for clearance of bacteremia Patient is confused and anxious today attempting to get out of bed. Will move to [address] [place] [address] for closer monitoring. consult pulm and cardio for afib and resp distress. Ateam called and going to [address] [place] [address], no need for ICU at this time. continue manager drug safety. Haldol IM given and will make PRN. Patient refusing seroquel. Continue monitoring Accu-Cheks before meals and at bedtime and will continue with sliding scale and also add long-acting. Adjust accordingly Will discuss with orthopedics, Dr. Guido if still having no bed at [facility] by 09/19 and he will evaluate the patient. The impression and plan of care has been dictated by So Tian, Nurse Practitioner as directed. Dr. Paige MD I have performed a history and examination and MDM of this patient, discussed the same with the dictator, and agree with the dictator's assessment and plan as written ,documented as a scribe. Based on total visit time, I have performed more than 50% of the visit. Objective - Vital Signs Vital signs: Vital Signs Temp 98.5 F 09/19/24 03:50 Pulse 116 H 09/19/24 03:50 Resp 16 09/19/24 03:50 BP 106/61 09/19/24 03:50 Pulse Ox 97 09/19/24 03:50 FiO2 Intake & Output 09/18/24 09/18/24 09/19/24 06:59 18:59 06:59 Intake Total 240 250 Output Total 3000 Balance 240 -3000 250 Intake: IV 10 Invasive Line 5 10 Oral 240 240 Output: Urine 3000 Other: Voiding Method Urinal External Catheter External Catheter External Catheter - Labs CBC & Chem 7: 09/18/24 05:22 09/18/24 05:22 Labs: Abnormal Lab Results - Last 24 Hours (Table) 09/18/24 09/18/24 09/18/24 Range/Units 05:22 05:22 05:22 WBC 13.94 H (4.50-10.00) X 10*3/uL RBC 3.82 L (4.40-5.60) X 10*6/uL Hgb 8.6 L (13.0-17.0) g/dL Hct 31.1 L (39.6-50.0) % MCH 22.5 L (27.0-32.0) pg MCHC 27.7 L (32.0-37.0) g/dL RDW 21.2 H (11.5-14.5) % Immature Gran # 0.22 H (0.00-0.04) X 10*3/uL Neutrophils # 11.86 H (1.80-7.70) X 10*3/uL Lymphocytes # 0.69 L (0.90-5.00) X 10*3/uL Monocytes # 1.10 H (0.20-1.00) X 10*3/uL NRBC/100 WBC Diff 0.02 H (0.00-0.01) X 10*3/uL BUN/Creatinine Ratio 20.43 H (12.00-20.00) Ratio Glucose 117 H (70-110) mg/dL POC Glucose (mg/dL) (70-110) mg/dL Calcium 8.4 L (8.7-10.3) mg/dL NT-Pro-B Natriuret Pep 3176 H (0-125) pg/mL 09/18/24 09/18/24 09/18/24 Range/Units 11:58 15:45 16:40 WBC (4.50-10.00) X 10*3/uL RBC (4.40-5.60) X 10*6/uL Hgb (13.0-17.0) g/dL Hct (39.6-50.0) % MCH (27.0-32.0) pg MCHC (32.0-37.0) g/dL RDW (11.5-14.5) % Immature Gran # (0.00-0.04) X 10*3/uL Neutrophils # (1.80-7.70) X 10*3/uL Lymphocytes # (0.90-5.00) X 10*3/uL Monocytes # (0.20-1.00) X 10*3/uL NRBC/100 WBC Diff (0.00-0.01) X 10*3/uL BUN/Creatinine Ratio (12.00-20.00) Ratio Glucose (70-110) mg/dL POC Glucose (mg/dL) 132 H 161 H 147 H (70-110) mg/dL Calcium (8.7-10.3) mg/dL NT-Pro-B Natriuret Pep (0-125) pg/mL 09/18/24 Range/Units 20:49 WBC (4.50-10.00) X 10*3/uL RBC (4.40-5.60) X 10*6/uL Hgb (13.0-17.0) g/dL Hct (39.6-50.0) % MCH (27.0-32.0) pg MCHC (32.0-37.0) g/dL RDW (11.5-14.5) % Immature Gran # (0.00-0.04) X 10*3/uL Neutrophils # (1.80-7.70) X 10*3/uL Lymphocytes # (0.90-5.00) X 10*3/uL Monocytes # (0.20-1.00) X 10*3/uL NRBC/100 WBC Diff (0.00-0.01) X 10*3/uL BUN/Creatinine Ratio (12.00-20.00) Ratio Glucose (70-110) mg/dL POC Glucose (mg/dL) 146 H (70-110) mg/dL Calcium (8.7-10.3) mg/dL NT-Pro-B Natriuret Pep (0-125) pg/mL Microbiology - Last 24 Hours (Table) 09/16/24 08:08 Blood Culture - Preliminary Blood 09/17/24 11:40 Gram Stain - Preliminary Knee - Left Body Fluid Culture - Preliminary
[2024-09-19 06:37] LABS: Glucose,Whole Blood 108 mg/dL (70-110)
[2024-09-19 07:52] LABS: Anisocytosis Slight; Basophils % (A) 0 %; Eosinophils % (A) 1 %; HCT 30.9 % (39.0-53.0); HGB 8.4 gm/dL (13.0-17.5); Hypochromasia Marked; Lymphocytes # (A) 0.6 k/uL (1.0-4.8); Lymphocytes % (A) 7 %; MCHC 27.3 g/dL (31.0-37.0); MCV 80.7 fL (80.0-100.0); Mean Platelet Volume 8.2; Microcytosis Slight; Monocytes # (A) 0.7 k/uL (0-1.0); Monocytes % (A) 7 %; Neutrophils # (A) 7.9 k/uL (1.3-7.7); Neutrophils % (A) 83 %; Platelet Count 361 k/uL (150-450); Poikilocytosis Slight; RBC 3.83 m/uL (4.30-5.90); RDW 19.8 % (11.5-15.5); WBC 9.5 k/uL (3.8-10.6)
[2024-09-19 08:11] LABS: ALT 19 U/L (4-49); AST 36 U/L (17-59); African American GFR (CKD) >90 (>60 ml/min/1.73 sqM); Albumin 2.8 g/dL (3.5-5.0); Alkaline Phosphatase 154 U/L (38-126); Anion Gap 1 mmol/L; Blood Urea Nitrogen 17 mg/dL (9-20); Carbon Dioxide 39 mmol/L (22-30); Chloride 100 mmol/L (98-107); Glucose 105 mg/dL (74-99); Magnesium 2.1 mg/dL (1.6-2.3); Non-African American GFR(CKD) >90 (>60 ml/min/1.73 sqM); Potassium 4.4 mmol/L (3.5-5.1); Sodium 140 mmol/L (137-145); Total Bilirubin 0.6 mg/dL (0.2-1.3); Total Protein 5.8 g/dL (6.3-8.2)
--- NOTE | 2024-09-19 10:07 | P.CRDCN ---
History of Present Illness Consult date: 09/19/24 History of present illness: HISTORY OF PRESENTING ILLNESS: 69-year-old with past medical history of atrial fibrillation hypertension dyslipidemia diabetes obesity, obstructive sleep apnea, GI bleeding, bipolar disorder, seizure disorder. Left knee arthroplasty. He was hospitalized 1 week ago with left leg weakness and cellulitis. There was moderate joint effusion. He did undergo left knee aspiration. There is also some concerns of possible left leg cellulitis with MSSA and strep B bacteremia. He has been treated for sepsis and metabolic encephalopathy along with hypoxic respiratory failure. Cardiology was consulted for atrial fibrillation with RVR which was noticed yesterday on 09/18/2024 evening. At the time of evaluation today at bedside he is in somewhat appropriately controlled atrial fibrillation with heart rate ranging around 100 110 bpm. He is otherwise hemodynamically stable. Denies any chest pain chest pressure. Appears to be confused, EKG from admission shows atrial fibrillation. It is unclear if patient was on anticoagulation prior to the admission. His home medication does list Eliquis as one of the medications. Prior cardiac testing: Stress test from 2022 shows mild reversibility in anterior inferior wall with stress. REVIEW OF SYSTEMS: 14 point review of system is negative except what is mentioned above in HPI. PHYSICAL EXAMINATION: Lungs: Diminished breath sounds with poor inspiratory effort, mild crackles bilateral bases Heart: Irregularly irregular, S1-S2, , mild systolic murmur audible Abdomen: Soft nontender, positive bowel sounds. Extremities: 1+ pitting edema bilateral legs, left knee swelling Neuro: Drowsy, not following commands at this time, appears confused detailed neuro exam was not performed. ASSESSMENT: # Atrial fibrillation with RVR. History of chronic atrial fibrillation # Left leg cellulitis with MSSA # S/p left knee aspiration, concerns of septic arthritis # Metabolic encephalopathy, multifactorial because of above # Anemia, prior history of GI bleeding # Acute hypoxic respiratory failure # Hypertension # Type 2 diabetes # Morbid obesity # HANNY PLAN: Give 2 g of magnesium sulfate over next 2 hours. After 3 hours give 3 g of magnesium sulfate over 6 hours. Continue metoprolol 50 mg twice daily Gentle diuresis. Once appropriate to discontinue fluids, consider adding torsemide 10 mg daily. His blood pressure is stable, I will discontinue IV fluids today. Resume Eliquis 5 mg twice daily and see if hemoglobin drops. Continue Protonix 40 mg twice daily Obtain iron levels and ferritin levels, if low, consider IV iron Monitor QTc as patient is on Seroquel. 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 Feel free to reach out in case of any followup questions. Past Medical History Past Medical History: Atrial Fibrillation, Diabetes Mellitus, GERD/Reflux, Hyperlipidemia, Hypertension, Osteoarthritis (OA), Sleep Apnea/CPAP/BIPAP Additional Past Medical History / Comment(s): seizure two yrs ago from major depressive disorder, hemorrhoids, herniated disc, TOOTH ACHE AT PRESENT Cellulitis and abscess of mouth. Mediastinitis secondary to mouth abscess; IV antibiotic therapy History of Any Multi-Drug Resistant Organisms: None Reported Past Surgical History: Adenoidectomy, Hernia Repair, Tonsillectomy Additional Past Surgical History / Comment(s): epidural. Abscessed teeth pulled at [facility] 2019. Chest tube drain. Past Anesthesia/Blood Transfusion Reactions: No Reported Reaction Past Psychological History: Depression Smoking Status: Current some day smoker Past Alcohol Use History: Rare Past Drug Use History: None Reported - Past Family History Mother Family Medical History: No Reported History Medications and Allergies Home Medications Medication Instructions Recorded Confirmed Type [place] Carbonate 1,200 mg PO HS 08/02/17 09/15/24 History Apixaban [Eliquis] 5 mg PO BID 10/16/20 09/15/24 History OLANZapine [ZyPREXA] 7.5 mg PO HS 07/01/24 09/15/24 History Venlafaxine HCl [Effexor XR] 225 mg PO DAILY 07/01/24 09/15/24 History Glucosam/Max-Msm1/C/Conor/Bosw 1 tab PO DAILY 09/15/24 09/15/24 History [Glucosamine-Chondroitin Tablet] Krill/Om-3/Dha/Epa/Phospho/Ast 1 cap PO DAILY 09/15/24 09/15/24 History [Krill Oil 600 mg Softgel] Losartan/Hydrochlorothiazide 1 tab PO DAILY 09/15/24 09/15/24 History [Hyzaar 100-12.5 Tablet] Turmeric Root Extract [Turmeric] 500 mg PO DAILY 09/15/24 09/15/24 History Allergies Allergy/AdvReac Type Severity Reaction Status Date / Time No Known Allergies Allergy Verified 09/15/24 10:04 Physical Exam Vitals: Vital Signs Temp Pulse Resp BP BP Pulse Ox 09/19/24 09:05 98.5 F 113 H 20 116/72 99 09/19/24 07:55 99 09/19/24 03:50 98.5 F 116 H 16 106/61 97 09/18/24 23:09 97.7 F 131 H 20 132/80 96 09/18/24 19:26 98.0 F 128 H 16 137/81 96 09/18/24 17:00 98.1 F 126 H 20 124/93 95 09/18/24 12:18 97.9 F 120 H 24 132/85 94 L 09/18/24 11:03 97.4 F L 114 H 20 135/89 94 L Intake and Output 09/18/24 09/19/24 09/19/24 22:59 06:59 14:59 Intake Total 240 10 Output Total 3000 Balance -2760 10 Intake: IV 10 Invasive Line 5 10 Oral 240 Output: Urine 3000 Other: Voiding Method External Catheter External Catheter Weight 160 kg Results 09/19/24 07:36 09/19/24 07:36 Cardiac Enzymes 09/19/24 Range/Units 07:36 AST 36 (17-59) U/L CBC 09/19/24 Range/Units 07:36 WBC 9.5 (3.8-10.6) k/uL RBC 3.83 L (4.30-5.90) m/uL Hgb 8.4 L (13.0-17.5) gm/dL Hct 30.9 L (39.0-53.0) % Plt Count 361 (150-450) k/uL Comprehensive Metabolic Panel 09/19/24 Range/Units 07:36 Sodium 140 (137-145) mmol/L Potassium 4.4 (3.5-5.1) mmol/L Chloride 100 (98-107) mmol/L Carbon Dioxide 39 H (22-30) mmol/L BUN 17 (9-20) mg/dL Creatinine 0.65 L (0.66-1.25) mg/dL Glucose 105 H (74-99) mg/dL Calcium 8.0 L (8.4-10.2) mg/dL AST 36 (17-59) U/L ALT 19 (4-49) U/L Alkaline Phosphatase 154 H (38-126) U/L Total Protein 5.8 L (6.3-8.2) g/dL Albumin 2.8 L (3.5-5.0) g/dL Current Medications Generic Name Dose Route Start Last Admin Trade Name Freq PRN Reason Stop Dose Admin Acetaminophen 650 mg 09/15/24 04:26 09/16/24 17:57 Acetaminophen Tab 325 Mg Tab PO 650 mg Q6HR PRN Administration Mild Pain or Fever > 100.5 Al Hydroxide/Mg Hydroxide 15 ml 09/15/24 00:26 Mag Hydrox/Al Hydrox/Simeth 30 Ml Cup PO Q6HR PRN Indigestion Calcium Carbonate/Glycine 1,000 mg 09/15/24 00:26 Calcium Carbonate 500 Mg Chewable PO Q4HR PRN Dyspepsia Dextrose/Water 25 ml 09/15/24 11:21 Dextrose 50% Syringe 50 Ml IVP PER PROTOCOL PRN Hypoglycemia Protocol Dextrose/Water 50 ml 09/15/24 11:21 Dextrose 50% Syringe 50 Ml IVP PER PROTOCOL PRN Hypoglycemia Protocol Famotidine 20 mg 09/15/24 09:00 09/19/24 00:16 Famotidine 20 Mg Tab PO 20 mg BID ARIES Administration Haloperidol Lactate 2 mg 09/18/24 20:45 09/18/24 20:51 Haloperidol Lactate 5 Mg/Ml 1 Ml Vial IM 2 mg Q4HR PRN Administration Agitation or Acute Psychosis Heparin Sodium (Porcine) 5,000 unit 09/18/24 09:00 09/19/24 00:08 Heparin Sodium,Porcine 5,000 Unit/Ml 1 Ml Vial SQ 5,000 unit Q12HR ARIES Administration Sodium Chloride 1,000 mls @ 75 mls/hr 09/15/24 02:15 09/19/24 02:09 Saline 0.9% IV 75 mls/hr .[id number] ARIES Administration Cefazolin Sodium 3 gm/ Sodium 100 mls @ 200 mls/hr 09/16/24 18:00 09/19/24 09:11 Chloride IVPB 200 mls/hr Q8H ARIES Administration Acetaminophen 1,000 mg/ IV 100 mls @ 400 mls/hr 09/18/24 16:00 09/19/24 06:37 Solution IVPB 09/19/24 10:14 400 mls/hr Q6H ARIES Administration Magnesium Sulfate/Dextrose 1 100 mls @ 100 mls/hr 09/19/24 09:30 gm/ IV Solution IVPB 09/19/24 11:29 Q1H ARIES Magnesium Sulfate/Dextrose 1 100 mls @ 100 mls/hr 09/19/24 10:30 gm/ IV Solution IVPB 09/19/24 15:29 Q2H ARIES Insulin Human Lispro 0 unit 09/15/24 12:30 09/19/24 06:36 Insulin Lispro (Humalog) 100 Unit/Ml 10 Ml Vl SQ Not Given ACHS ARIES Protocol [place] Carbonate 1,200 mg 09/15/24 21:00 09/19/24 00:12 [place] Carbonate 300 Mg Cap PO 1,200 mg HS ARIES Administration Melatonin 5 mg 09/15/24 00:45 09/19/24 00:13 Melatonin 5 Mg Tablet PO 5 mg HS ARIES Administration Metoprolol Tartrate 50 mg 09/15/24 09:00 09/19/24 00:11 Metoprolol Tartrate 50 Mg Tab PO 50 mg BID ARIES Administration Naloxone HCl 0.2 mg 09/15/24 00:26 Naloxone 0.4 Mg/Ml 1 Ml Vial IV Q2M PRN Opioid Reversal Olanzapine 7.5 mg 09/15/24 21:00 09/19/24 00:13 Olanzapine 7.5 Mg Tab PO 7.5 mg HS AIRES Administration Ondansetron HCl 4 mg 09/18/24 20:49 Ondansetron 4 Mg/2 Ml Vial IVP Q6H PRN Nausea And Vomiting Pantoprazole Sodium 40 mg 09/18/24 21:00 09/19/24 09:11 Pantoprazole 40 Mg/10 Ml Vial IVP 40 mg BID ARIES Administration Quetiapine Fumarate 25 mg 09/18/24 21:00 09/19/24 00:11 Quetiapine 25 Mg Tab PO 25 mg HS ARIES Administration Intake and Output 09/18/24 09/19/24 09/19/24 22:59 06:59 14:59 Intake Total 240 10 Output Total 3000 Balance -6410 10 Intake: IV 10 Invasive Line 5 10 Oral 240 Output: Urine 3000 Other: Voiding Method External Catheter External Catheter Weight 160 kg 09/19/24 07:36 09/19/24 07:36
[2024-09-19] MEDS: MAGNESIUM SULFATE-D5W PMX 1 GM in DEXTROSE/WATER 1 100ML.BAG IVPB SCH ×2 (10:34→11:37)
[2024-09-19 11:15] LABS: Glucose,Whole Blood 135 mg/dL (70-110)
--- NOTE | 2024-09-19 13:48 | P.PN ---
Subjective Progress Note Date: 09/19/24 Principal diagnosis: Left knee pain, history of left total knee arthroplasty, bacteremia, bilateral lower extremity wounds Patient was examined at bedside, he was transferred to the cardiac stepdown yesterday due to A-fib with RVR. There was possible concern for admission ICU, he was evaluated by both pulmonology and cardiology and felt stable enough for cardiac stepdown unit. At bedside today, he is alert and oriented, he is awake and answers all my questions accurately. Patient denies any significant pain to the left knee at this time. Active range of motion of her reproduces no pain. Nursing did reassess the bilateral extremity wounds today and did rewrap those. There was no notable erythema to the left knee. Patient is being followed by internal medicine, cardiology, pulmonology and infectious disease at this time. Patient has not been out of bed to work with physical therapy at this time due to his previous medical/mental state. Objective - Vital Signs Vital signs: Vital Signs Temp 98.5 F 09/19/24 09:05 Pulse 120 H 09/19/24 11:28 Resp 20 09/19/24 11:28 BP 131/76 09/19/24 11:28 Pulse Ox 95 09/19/24 11:28 FiO2 Intake & Output 09/18/24 09/19/24 09/19/24 18:59 06:59 18:59 Intake Total 250 480 Output Total 3000 350 Balance -3000 250 130 Weight 160 kg Intake: IV 10 Invasive Line 5 10 Oral 240 480 Output: Urine 3000 350 Other: Voiding Method External Catheter External Catheter External Catheter # Bowel Movements 1 - Exam Left lower extremity: Incision over the anterior aspect of the knee is well-healed, there is no areas of erythema or skin openings. Effusion present on the left knee. No significant tenderness with palpation along the medial and lateral joint line into the suprapatellar region. Passive range of motion of the knee with extension and flexion reproduces essentially no pain, he can actively flex past 90 degrees. He does have weakness in that extremity especially with straight leg raise and hip flexion. Plantarflexion, dorsiflexion, EHL, FHL are intact. Sensory exam to light touch is intact throughout the extremity, skin is warm to touch Generalized swelling in that extremity, also the contralateral leg demonstrates edema. - Labs CBC & Chem 7: 09/19/24 07:36 09/19/24 07:36 Labs: Abnormal Lab Results - Last 24 Hours (Table) 09/18/24 09/18/24 09/18/24 Range/Units 05:22 15:45 16:40 RBC (4.30-5.90) m/uL Hgb (13.0-17.5) gm/dL Hct (39.0-53.0) % MCH (25.0-35.0) pg MCHC (31.0-37.0) g/dL RDW (11.5-15.5) % Neutrophils # (1.3-7.7) k/uL Lymphocytes # (1.0-4.8) k/uL Carbon Dioxide (22-30) mmol/L Creatinine (0.66-1.25) mg/dL Glucose (74-99) mg/dL POC Glucose (mg/dL) 161 H 147 H (70-110) mg/dL Calcium (8.4-10.2) mg/dL Alkaline Phosphatase (38-126) U/L NT-Pro-B Natriuret Pep 3176 H (0-125) pg/mL Total Protein (6.3-8.2) g/dL Albumin (3.5-5.0) g/dL 09/18/24 09/19/24 09/19/24 Range/Units 20:49 07:36 07:36 RBC 3.83 L (4.30-5.90) m/uL Hgb 8.4 L (13.0-17.5) gm/dL Hct 30.9 L (39.0-53.0) % MCH 22.0 L (25.0-35.0) pg MCHC 27.3 L (31.0-37.0) g/dL RDW 19.8 H (11.5-15.5) % Neutrophils # 7.9 H (1.3-7.7) k/uL Lymphocytes # 0.6 L (1.0-4.8) k/uL Carbon Dioxide 39 H (22-30) mmol/L Creatinine 0.65 L (0.66-1.25) mg/dL Glucose 105 H (74-99) mg/dL POC Glucose (mg/dL) 146 H (70-110) mg/dL Calcium 8.0 L (8.4-10.2) mg/dL Alkaline Phosphatase 154 H (38-126) U/L NT-Pro-B Natriuret Pep (0-125) pg/mL Total Protein 5.8 L (6.3-8.2) g/dL Albumin 2.8 L (3.5-5.0) g/dL 09/19/24 Range/Units 11:12 RBC (4.30-5.90) m/uL Hgb (13.0-17.5) gm/dL Hct (39.0-53.0) % MCH (25.0-35.0) pg MCHC (31.0-37.0) g/dL RDW (11.5-15.5) % Neutrophils # (1.3-7.7) k/uL Lymphocytes # (1.0-4.8) k/uL Carbon Dioxide (22-30) mmol/L Creatinine (0.66-1.25) mg/dL Glucose (74-99) mg/dL POC Glucose (mg/dL) 135 H (70-110) mg/dL Calcium (8.4-10.2) mg/dL Alkaline Phosphatase (38-126) U/L NT-Pro-B Natriuret Pep (0-125) pg/mL Total Protein (6.3-8.2) g/dL Albumin (3.5-5.0) g/dL Microbiology - Last 24 Hours (Table) 09/17/24 11:40 Anaerobic Culture - Preliminary Knee - Left 09/17/24 11:40 Gram Stain - Preliminary Knee - Left Body Fluid Culture - Preliminary 09/16/24 08:08 Blood Culture - Preliminary Blood Assessment and Plan Assessment: Left knee pain History of left total knee arthroplasty Possible periprosthetic left knee infectionn Possible gouty arthropathy left knee Bacteremia with sepsis Bilateral lower extremity wounds Morbid obesity Multiple medical comorbidities Plan: Final anaerobic and aerobic cultures are pending, preliminary results demonstrates no growth Lower concern for septic arthropathy at this time, considering a additional aspiration on 09/20/2024 depending on patient's symptoms and initial culture/sensitivity results Patient may benefit from antigout medication, internal medicine recommendations appreciated Recommend holding transfer based on orthopedic standpoint currently Orthopedically okay to resume anticoagulant PT/OT, recommend weight-bear as tolerated with walker. Patient does demonstrate generalized debility/weakness GI and DVT prophylaxis per primary medical service Other medical specialty recommendations appreciated We will continue to follow patient during hospital stay, orthopedically recommending subacute rehab placement at discharge Time with Patient: Less than 30
--- NOTE | 2024-09-19 14:19 | P.PN ---
Subjective Progress Note Date: 09/19/24 Principal diagnosis: Reason for follow-up is left knee cellulitis and bacteremia 1Patient is a 69-year-old male with a past medical history significant for diabetes mellitus hypertension hyperlipidemia osteoarthritis atrial fibrillation he did have a left knee replacement about a year and a half ago by Dr. Reynolds. now presenting to the hospital concerning for his left knee gave out on him and has been complaining of more pain and swelling to left knee area patient has been in the hospital with cellulitis blood cultures are coming back positive with Streptococcus agalactiae On today's evaluation that is 09/19/2024,the patient remains to be afebrile, patient is on 3 L current oxygen did have a sitter at the bedside reported some confusion patient denies any chest pain no new osteopenia female no vomiting or diarrhea has been chronic. Patient white count normalized to 9.5 creatinine 0.65 blood cultures currently pending blood culture repeat so far negative Objective - Vital Signs Vital signs: Vital Signs Temp 98.5 F 09/19/24 09:05 Pulse 120 H 09/19/24 11:28 Resp 20 09/19/24 11:28 BP 131/76 09/19/24 11:28 Pulse Ox 95 09/19/24 11:28 FiO2 Intake & Output 09/18/24 09/19/24 09/19/24 18:59 06:59 18:59 Intake Total 250 240 Output Total 3000 Balance -3000 250 240 Weight 160 kg Intake: IV 10 Invasive Line 5 10 Oral 240 240 Output: Urine 3000 Other: Voiding Method External Catheter External Catheter External Catheter # Bowel Movements 1 - Exam GENERAL DESCRIPTION: An elderly male up in bed in no distress RESPIRATORY SYSTEM: Unlabored breathing , decreased breath sounds at bases HEART: S1 S2 regular rate and rhythm , ABDOMEN: Soft , no tenderness EXTREMITIES: Left knee swelling versus redness slightly decreased no drainage from the wound to the left leg - Labs CBC & Chem 7: 09/19/24 07:36 09/19/24 07:36 Labs: Abnormal Lab Results - Last 24 Hours (Table) 09/18/24 09/18/24 09/18/24 Range/Units 05:22 15:45 16:40 RBC (4.30-5.90) m/uL Hgb (13.0-17.5) gm/dL Hct (39.0-53.0) % MCH (25.0-35.0) pg MCHC (31.0-37.0) g/dL RDW (11.5-15.5) % Neutrophils # (1.3-7.7) k/uL Lymphocytes # (1.0-4.8) k/uL Carbon Dioxide (22-30) mmol/L Creatinine (0.66-1.25) mg/dL Glucose (74-99) mg/dL POC Glucose (mg/dL) 161 H 147 H (70-110) mg/dL Calcium (8.4-10.2) mg/dL Alkaline Phosphatase (38-126) U/L NT-Pro-B Natriuret Pep 3176 H (0-125) pg/mL Total Protein (6.3-8.2) g/dL Albumin (3.5-5.0) g/dL 09/18/24 09/19/24 09/19/24 Range/Units 20:49 07:36 07:36 RBC 3.83 L (4.30-5.90) m/uL Hgb 8.4 L (13.0-17.5) gm/dL Hct 30.9 L (39.0-53.0) % MCH 22.0 L (25.0-35.0) pg MCHC 27.3 L (31.0-37.0) g/dL RDW 19.8 H (11.5-15.5) % Neutrophils # 7.9 H (1.3-7.7) k/uL Lymphocytes # 0.6 L (1.0-4.8) k/uL Carbon Dioxide 39 H (22-30) mmol/L Creatinine 0.65 L (0.66-1.25) mg/dL Glucose 105 H (74-99) mg/dL POC Glucose (mg/dL) 146 H (70-110) mg/dL Calcium 8.0 L (8.4-10.2) mg/dL Alkaline Phosphatase 154 H (38-126) U/L NT-Pro-B Natriuret Pep (0-125) pg/mL Total Protein 5.8 L (6.3-8.2) g/dL Albumin 2.8 L (3.5-5.0) g/dL 09/19/24 Range/Units 11:12 RBC (4.30-5.90) m/uL Hgb (13.0-17.5) gm/dL Hct (39.0-53.0) % MCH (25.0-35.0) pg MCHC (31.0-37.0) g/dL RDW (11.5-15.5) % Neutrophils # (1.3-7.7) k/uL Lymphocytes # (1.0-4.8) k/uL Carbon Dioxide (22-30) mmol/L Creatinine (0.66-1.25) mg/dL Glucose (74-99) mg/dL POC Glucose (mg/dL) 135 H (70-110) mg/dL Calcium (8.4-10.2) mg/dL Alkaline Phosphatase (38-126) U/L NT-Pro-B Natriuret Pep (0-125) pg/mL Total Protein (6.3-8.2) g/dL Albumin (3.5-5.0) g/dL Microbiology - Last 24 Hours (Table) 09/17/24 11:40 Anaerobic Culture - Preliminary Knee - Left 09/17/24 11:40 Gram Stain - Preliminary Knee - Left Body Fluid Culture - Preliminary 09/16/24 08:08 Blood Culture - Preliminary Blood Assessment and Plan (1) Sepsis Current Visit: Yes Status: Acute Code(s): A41.9 - SEPSIS, UNSPECIFIED ORGANISM SNOMED Code(s): 52419652 (2) Cellulitis Current Visit: Yes Status: Acute Code(s): L03.90 - CELLULITIS, UNSPECIFIED SNOMED Code(s): 241233464 (3) Bacteremia Current Visit: Yes Status: Acute Code(s): R78.81 - BACTEREMIA SNOMED Code(s): 3004793 (4) Septic arthritis Current Visit: Yes Status: Acute Code(s): M00.9 - PYOGENIC ARTHRITIS, UNSPECIFIED SNOMED Code(s): 285251417 Plan: 1patient presented hospital with sepsis in this patient who did have tachycardia elevated white count elevated lactic acid meeting criteria for SIRS source is likely left knee cellulitis and concern for possible left knee septic arthritis likely from gram-positive skin justin 2patient has been evaluated by orthopedic and did have aspiration of purulent material concerning for septic arthritis cultures obtained, orthopedic is recommended transfer to tertiary care 3patient did have elevated inflammatory markers and blood culture positive for Streptococcus agalactiae, repeat blood culture have been negative 4local wound care to the wound to the left leg with dry Aquacel dressing change q. 48-hour 5patient is afebrile white count has normalized we will treat with cefazolin and monitor clinical course closely Dictation was produced using [employer] dictation software. please excuse any grammatical, word or spelling errors. Time with Patient: Less than 30
[2024-09-19 15:18] LABS: % Iron Saturation 3.32 (15.00-50.00); Chol/HDL Ratio 4.32 Ratio; Ferritin 54.3 ng/mL (22.0-322.0); Iron 13 UG/DL (65-175); LDL Cholesterol,Calculated 49.4 mg/dL (0.0-131.0); Total Iron Binding Capacity 392 UG/DL (228-460); VLDL Calculation 19.04 mg/dL (5.00-40.00)
[2024-09-19 16:15] LABS: Glucose,Whole Blood 144 mg/dL (70-110)
[2024-09-19 20:15] LABS: Glucose,Whole Blood 137 mg/dL (70-110)
--- NOTE | 2024-09-19 20:35 | P.PN ---
Subjective Progress Note Date: 09/19/24 69-year-old male came in because he is unable to take care of himself and infection and legs patient has a wound in the left mid dunlap area which appeared to be infected and also cellulitis of the right lower extremity denied any history of MRSA in the past patient does have history of atrial fibrillation patient was hypotensive patient has swelling in bilateral lower extremities but chest x-ray is within normal limits does not appear to be in CHF patient has elevated BNP of 3200 does have history of atrial fibrillation on anticoagulation with Eliquis. Patient lives by himself lately he is unable to take care of himself patient was started on vancomycin here. Patient is obese with history of sleep apnea. Using his CPAP machine presently on oxygen does not usually use any oxygen. 09/16/2024 Patient is seen in follow-up today with no acute overnight issues noted. Infectious disease following and patient is maintained on antibiotics in the form of cefazolin 3 g every 8 hours.. Blood cultures positive for Streptococcus and there is concerns of significant knee swelling and possible septic a rthritis. Will consult orthopedics and appreciate input and recommendations. If undergoing needle aspiration, strongly recommend sending for cultures. Patient is afebrile although white count remains elevated at 29, slightly improved from yesterday. Will follow-up on repeat labs. Patient with s ignificant weakness recommend PT/OT therapy evaluation. Patient will likely need ECF on discharge. 09/17/2024 Patient is seen in follow-up today being continued on IV antibiotics with infectious disease following. Awaiting orthopedics evaluation with concerns of left knee swelling and possible source of infection. Orthopedics did evaluate and is status post aspiration of the left knee and was noted to be significantly purulent and was sent to the lab. Currently there is no orthopedic that would be able to provide surgical intervention and recommending tertiary transfer. Patient is agreeable if necessary and transfer was initiated to [facility]. Patient was accepted currently awaiting a bed. Patient is afebrile and white count remains elevated although trending down. Will follow-up on repeat labs. Eliquis on hold and will continue heparin subcu. 09/18/2024 Patient is seen in follow-up this morning continues on IV antibiotics with infectious disease following. On exam patient is diaphoretic and confused is following commands and answering some questions appropriately although mentation is definitely of concern. Ct brain ordered and negative for acute process. Patient with sepsis and concerns for lower extremity cellulitis as well as left knee septic arthritis. Limited coverage for orthopedics at this time, although did undergo left knee aspiration and was noted to have crystals concerning for gout. Patient is pending a transfer to [facility] for tertiary treatment given our limited coverage. No bed available. Patient is also wearing oxygen and continues to remove nasal cannula with concerns of hypoxia. Pulmonary consulted for possible ICU eval although stable and will be moved to [address] [place] [address] for closer monitoring. Patient is trying to get out of bed and is at increased risk of falls. Recommend abg although patient is refusing. 09/19/2024 Patient has been moved to the 3 . unit for closer monitoring on examination today he is more awake alert and oriented and he is answering questions appropriately. He appears less congested after receiving a dose of IV Lasix. He continues on IV cefazolin with concern for septic arthritis of the left knee and left lower extremity cellulitis. Patient had a brain CT with no acute findings. He was evaluated in consultation today by pulmonary and cardiology services. Cardiology recommending to resume Eliquis today and monitor hemoglobin. Monitor QT interval. EKG was repeated with QT QTc of 312 and 375. Patient remains in atrial fibrillation with rapid ventricular rate at times. Repeat blood culture is negative so far. His labs today reveal a white blood cell count of 9.5, hemoglobin 8.4, sodium of 140 potassium 4.4, BUN of 17 creatinine of 0.65, blood glucose is well-controlled. His calcium level was 8.0 magnesium 2.1 iron of 13 TIBC of 392% saturation of 3.32 and transferrin level 280 ferritin level was 54.3. These findings are consistent with a mild iron deficiency anemia. proBNP was found to be elevated at 3176. His lipid panel reveals triglyceride level of 95 cholesterol level of 89, LDL of 49.4 and HDL of 20.60. Patient was noted to have monosodium urate Crystals on aspiration of the left knee. Although concern remains for septic arthritis. Orthopedics was recommending starting patient medication for gout such as allopurinol or colchicine although at this time would recommend to hold off and patient is not a candidate for steroids at this time secondary to severe sepsis. Review of systems: unable to completely assess given mentation All medications have been reviewed PHYSICAL EXAMINATION: GENERAL: The patient is alert and oriented x1, confused, anxious, restless. Well developed, well nourished. Morbidly obese HEENT: Pupils are round and equally reacting to light. EOMI. No scleral icterus. No conjunctival pallor. Normocephalic, atraumatic. No pharyngeal erythema. No t hyromegaly. CARDIOVASCULAR: S1 and S2 muffled PULMONARY: Diminished breath sounds bilaterally, faint crackles noted. ABDOMEN: Soft, morbidly obese nontender, nondistended, normoactive bowel sounds. No palpable organomegaly. MUSCULOSKELETAL: left knee joint swelling , no deformity. EXTREMITIES: No cyanosis, clubbing, . Bilateral lower extremity swelling, left knee swelling noted NEUROLOGICAL: Gross neurological examination did not reveal any focal deficits. Diffusely weak, confused and anxious today SKIN: Bilateral lower extremity edema with a circumferential cellulitis in the left lower extremity , and left lower leg ulcer below the mid dunlap area which appear to be infected. Assessment: -Bilateral lower extremity wounds with cellulitis, present on admission -Bilateral lower extremity wounds -History of left knee total arthroplasty with concern for periprosthetic left knee infection and septic arthritis possible gouty arthropathy of the left knee -Streptococcus bacteremia -Hypotension probably secondary to sepsis continue with IV fluids -Bilateral lower extremity edema appears to be pretty moderate in CHF patient will continue on fluids for now because of hypotension and lactic acidosis -Morbid obesity with obstructive sleep apnea patient will continue on CPAP machine. -History of atrial fibrillation paroxysmal, presently rate controlled on anticoagulation and rate control medications , eliquis held per transfer team in the event of surgery -Type 2 diabetes mellitus uncontrolled with hyper and hypoglycemia: Continue on sliding scale insulin Generalized weakness: PT and OT evaluation DVT prophylaxis: Heparin subcu and will hold Eliquis per transfer team in the event patient requiring surgical intervention full code Plan: Patient being followed by infectious disease and orthopedics evaluated recommending tertiary transfer for possible surgical intervention of the left knee. Needle aspiration was done of copious amounts of purulent drainage and was sent to the lab for analysis. Unfortunately there is no orthopedic surgeon covering at this time and recommending transfer for tertiary treatment and possible surgical intervention of the left knee. Transfer was initiated and patient was accepted by Dr. Arrington of [facility] in [place]. Currently awaiting a bed and transfer team will contact the unit once a bed is available. No bed available today. Will call daily. Wound cultures showing staphylococcus aureus and patient remains on IV cefazolin Orthopedics considering a follow up knee aspirate on 09/20. Blood cultures positive for Streptococcus and awaiting repeat blood cultures to monitor for clearance of bacteremia Patients mentation has shown improvement he has product safety test engineer at the bedside. Continue monitoring Accu-Cheks before meals and at bedtime and will continue with sliding scale and also add long-acting. Adjust accordingly Follow up CBC, BMP The impression and plan of care has been dictated by Swapna Alvarez, Nurse Practitioner as directed. Dr. Paige MD I have performed a history and examination and MDM of this patient, discussed the same with the dictator, and agree with the dictator's assessment and plan as written ,documented as a scribe. Based on total visit time, I have performed more than 50% of the visit. Objective - Vital Signs Vital signs: Vital Signs Temp 97.6 F 09/19/24 16:18 Pulse 111 H 09/19/24 16:18 Resp 20 09/19/24 16:18 BP 126/90 09/19/24 16:18 Pulse Ox 98 09/19/24 16:18 FiO2 Intake & Output 09/19/24 09/19/24 09/20/24 06:59 18:59 06:59 Intake Total 250 600 Output Total 350 Balance 250 250 Weight 160 kg Intake: IV 10 Invasive Line 5 10 Oral 240 600 Output: Urine 350 Other: Voiding Method External Catheter External Catheter # Bowel Movements 1 - Labs CBC & Chem 7: 09/19/24 07:36 09/19/24 07:36 Labs: Abnormal Lab Results - Last 24 Hours (Table) 09/18/24 09/19/24 09/19/24 Range/Units 20:49 07:36 07:36 RBC 3.83 L (4.30-5.90) m/uL Hgb 8.4 L (13.0-17.5) gm/dL Hct 30.9 L (39.0-53.0) % MCH 22.0 L (25.0-35.0) pg MCHC 27.3 L (31.0-37.0) g/dL RDW 19.8 H (11.5-15.5) % Neutrophils # 7.9 H (1.3-7.7) k/uL Lymphocytes # 0.6 L (1.0-4.8) k/uL Carbon Dioxide 39 H (22-30) mmol/L Creatinine 0.65 L (0.66-1.25) mg/dL Glucose 105 H (74-99) mg/dL POC Glucose (mg/dL) 146 H (70-110) mg/dL Calcium 8.0 L (8.4-10.2) mg/dL Iron (65-175) UG/DL % Saturation (15.00-50.00) Alkaline Phosphatase 154 H (38-126) U/L Total Protein 5.8 L (6.3-8.2) g/dL Albumin 2.8 L (3.5-5.0) g/dL HDL Cholesterol (40.00-60.00) mg/dL 09/19/24 09/19/24 09/19/24 Range/Units 07:36 11:12 16:10 RBC (4.30-5.90) m/uL Hgb (13.0-17.5) gm/dL Hct (39.0-53.0) % MCH (25.0-35.0) pg MCHC (31.0-37.0) g/dL RDW (11.5-15.5) % Neutrophils # (1.3-7.7) k/uL Lymphocytes # (1.0-4.8) k/uL Carbon Dioxide (22-30) mmol/L Creatinine (0.66-1.25) mg/dL Glucose (74-99) mg/dL POC Glucose (mg/dL) 135 H 144 H (70-110) mg/dL Calcium (8.4-10.2) mg/dL Iron 13 L (65-175) UG/DL % Saturation 3.32 L (15.00-50.00) Alkaline Phosphatase (38-126) U/L Total Protein (6.3-8.2) g/dL Albumin (3.5-5.0) g/dL HDL Cholesterol 20.60 L (40.00-60.00) mg/dL 09/19/24 Range/Units 20:13 RBC (4.30-5.90) m/uL Hgb (13.0-17.5) gm/dL Hct (39.0-53.0) % MCH (25.0-35.0) pg MCHC (31.0-37.0) g/dL RDW (11.5-15.5) % Neutrophils # (1.3-7.7) k/uL Lymphocytes # (1.0-4.8) k/uL Carbon Dioxide (22-30) mmol/L Creatinine (0.66-1.25) mg/dL Glucose (74-99) mg/dL POC Glucose (mg/dL) 137 H (70-110) mg/dL Calcium (8.4-10.2) mg/dL Iron (65-175) UG/DL % Saturation (15.00-50.00) Alkaline Phosphatase (38-126) U/L Total Protein (6.3-8.2) g/dL Albumin (3.5-5.0) g/dL HDL Cholesterol (40.00-60.00) mg/dL Microbiology - Last 24 Hours (Table) 09/16/24 08:08 Blood Culture - Preliminary Blood 09/17/24 11:40 Anaerobic Culture - Preliminary Knee - Left 09/17/24 11:40 Gram Stain - Preliminary Knee - Left Body Fluid Culture - Preliminary Assessment and Plan Time with Patient: Less than 30
[2024-09-20 05:51] LABS: Glucose,Whole Blood 151 mg/dL (70-110)
[2024-09-20 07:01] LABS: Anisocytosis Slight; Basophils % (A) 0 %; Eosinophils # (A) 0.1 k/uL (0-0.7); Eosinophils % (A) 1 %; HCT 31.3 % (39.0-53.0); HGB 8.6 gm/dL (13.0-17.5); Hypochromasia Marked; Lymphocytes # (A) 0.4 k/uL (1.0-4.8); Lymphocytes % (A) 4 %; MCH 22.6 pg (25.0-35.0); MCHC 27.6 g/dL (31.0-37.0); MCV 81.9 fL (80.0-100.0); Mean Platelet Volume 7.1; Microcytosis Slight; Monocytes % (A) 10 %; Neutrophils # (A) 8.7 k/uL (1.3-7.7); Neutrophils % (A) 84 %; Platelet Count 406 k/uL (150-450); Poikilocytosis Slight; RBC 3.82 m/uL (4.30-5.90); WBC 10.3 k/uL (3.8-10.6)
[2024-09-20 07:05] LABS: African American GFR (CKD) >90 (>60 ml/min/1.73 sqM); Anion Gap 4 mmol/L; Blood Urea Nitrogen 13 mg/dL (9-20); Calcium 7.9 mg/dL (8.4-10.2); Carbon Dioxide 39 mmol/L (22-30); Chloride 96 mmol/L (98-107); Glucose 103 mg/dL (74-99); Non-African American GFR(CKD) >90 (>60 ml/min/1.73 sqM); Potassium 4.7 mmol/L (3.5-5.1); Sodium 139 mmol/L (137-145)
[2024-09-20] MEDS ORDERED: HEPARIN SODIUM 1,000 UN/ML (10ML VL) IV PRN (09:17)
[2024-09-20 09:48] LABS: Anisocytosis Slight; Basophils % (A) 0 %; Eosinophils # (A) 0.1 k/uL (0-0.7); Eosinophils % (A) 2 %; HGB 8.8 gm/dL (13.0-17.5); Hypochromasia Marked; Lymphocytes # (A) 0.5 k/uL (1.0-4.8); Lymphocytes % (A) 5 %; MCH 22.4 pg (25.0-35.0); MCHC 27.6 g/dL (31.0-37.0); MCV 81.1 fL (80.0-100.0); Mean Platelet Volume 7.1; Microcytosis Slight; Monocytes # (A) 0.8 k/uL (0-1.0); Monocytes % (A) 8 %; Neutrophils # (A) 8.2 k/uL (1.3-7.7); Neutrophils % (A) 83 %; Platelet Count 391 k/uL (150-450); Poikilocytosis Slight; RBC 3.95 m/uL (4.30-5.90); RDW 19.9 % (11.5-15.5); WBC 9.9 k/uL (3.8-10.6)
[2024-09-20 10:00] LABS: INR 1.2 (<1.2); Partial Thromboplastin Time 28.2 sec (22.0-30.0)
[2024-09-20] MEDS: FUROSEMIDE 10 MG/ML 4 ML VIAL IV STA (10:03)
[2024-09-20] MEDS: HEPARIN SOD,PORK IN 0.45% NACL 25,000 UNIT in 0.45% NACL 1 250ML.BAG IV SCH (10:03)
[2024-09-20] MEDS: METOPROLOL TARTRATE 50 MG TAB PO STA (10:03)
[2024-09-20] MEDS: SODIUM FERRIC GLUCONAT-SUCROSE 125 MG in SODIUM CHLORIDE 0.9% 100 ML IVPB SCH (10:13)
[2024-09-20 11:38] LABS: Glucose,Whole Blood 118 mg/dL (70-110)
--- NOTE | 2024-09-20 11:43 | P.PN ---
Subjective Progress Note Date: 09/20/24 Principal diagnosis: Left knee pain, history of left total knee arthroplasty, bacteremia, bilateral lower extremity wounds Patient was examined at bedside, confusion is noted compared to yesterday. He denies any left knee pain at this time, no acute skin changes noted. Patient is being followed by internal medicine, cardiology, pulmonology and infectious disease at this time. Discussed with nursing and PT staff today at bedside ok for patient to up with assistance and walker. Cultures of left knee joint fluid remain negative at this time. Objective - Vital Signs Vital signs: Vital Signs Temp 97.9 F 09/20/24 08:00 Pulse 144 H 09/20/24 08:00 Resp 18 09/20/24 08:00 BP 131/93 09/20/24 08:00 Pulse Ox 93 L 09/20/24 08:00 FiO2 Intake & Output 09/19/24 09/20/24 09/20/24 18:59 06:59 18:59 Intake Total 600 540 120 Output Total 907 878 3953 Balance 250 240 -980 Weight 160 kg 160 kg Intake: Oral 600 540 120 Output: Urine 084 226 3333 Other: Voiding Method External Catheter External Catheter External Catheter # Bowel Movements 1 1 - Exam Left lower extremity: Incision over the anterior aspect of the knee is well-healed, there is no areas of erythema or skin openings. Effusion present on the left knee. No significant tenderness with palpation along the medial and lateral joint line into the suprapatellar region. Passive range of motion of the knee with extension and flexion reproduces essentially no pain, he can actively flex past 90 degrees. He does have w eakness in that extremity especially with straight leg raise and hip flexion. Plantarflexion, dorsiflexion, EHL, FHL are intact. Sensory exam to light touch is intact throughout the extremity, skin is warm to touch Generalized swelling in that extremity, also the contralateral leg demonstrates edema. - Labs CBC & Chem 7: 09/20/24 09:36 09/20/24 06:30 Labs: Abnormal Lab Results - Last 24 Hours (Table) 09/19/24 09/19/24 09/19/24 Range/Units 07:36 16:10 20:13 RBC (4.30-5.90) m/uL Hgb (13.0-17.5) gm/dL Hct (39.0-53.0) % MCH (25.0-35.0) pg MCHC (31.0-37.0) g/dL RDW (11.5-15.5) % Neutrophils # (1.3-7.7) k/uL Lymphocytes # (1.0-4.8) k/uL PT (10.0-12.5) sec INR (<1.2) Chloride (98-107) mmol/L Carbon Dioxide (22-30) mmol/L Creatinine (0.66-1.25) mg/dL Glucose (74-99) mg/dL POC Glucose (mg/dL) 144 H 137 H (70-110) mg/dL Calcium (8.4-10.2) mg/dL Iron 13 L (65-175) UG/DL % Saturation 3.32 L (15.00-50.00) HDL Cholesterol 20.60 L (40.00-60.00) mg/dL 09/20/24 09/20/24 09/20/24 Range/Units 05:44 06:30 06:30 RBC 3.82 L (4.30-5.90) m/uL Hgb 8.6 L (13.0-17.5) gm/dL Hct 31.3 L (39.0-53.0) % MCH 22.6 L (25.0-35.0) pg MCHC 27.6 L (31.0-37.0) g/dL RDW 20.0 H (11.5-15.5) % Neutrophils # 8.7 H (1.3-7.7) k/uL Lymphocytes # 0.4 L (1.0-4.8) k/uL PT (10.0-12.5) sec INR (<1.2) Chloride 96 L (98-107) mmol/L Carbon Dioxide 39 H (22-30) mmol/L Creatinine 0.54 L (0.66-1.25) mg/dL Glucose 103 H (74-99) mg/dL POC Glucose (mg/dL) 151 H (70-110) mg/dL Calcium 7.9 L (8.4-10.2) mg/dL Iron (65-175) UG/DL % Saturation (15.00-50.00) HDL Cholesterol (40.00-60.00) mg/dL 09/20/24 09/20/24 Range/Units 09:36 09:36 RBC 3.95 L (4.30-5.90) m/uL Hgb 8.8 L (13.0-17.5) gm/dL Hct 32.0 L (39.0-53.0) % MCH 22.4 L (25.0-35.0) pg MCHC 27.6 L (31.0-37.0) g/dL RDW 19.9 H (11.5-15.5) % Neutrophils # 8.2 H (1.3-7.7) k/uL Lymphocytes # 0.5 L (1.0-4.8) k/uL PT 13.0 H (10.0-12.5) sec INR 1.2 H (<1.2) Chloride (98-107) mmol/L Carbon Dioxide (22-30) mmol/L Creatinine (0.66-1.25) mg/dL Glucose (74-99) mg/dL POC Glucose (mg/dL) (70-110) mg/dL Calcium (8.4-10.2) mg/dL Iron (65-175) UG/DL % Saturation (15.00-50.00) HDL Cholesterol (40.00-60.00) mg/dL Microbiology - Last 24 Hours (Table) 09/17/24 11:40 Gram Stain - Preliminary Knee - Left Body Fluid Culture - Preliminary 09/16/24 08:08 Blood Culture - Preliminary Blood 09/17/24 11:40 Anaerobic Culture - Preliminary Knee - Left Assessment and Plan Assessment: History of left total knee arthroplasty Gouty arthropathy left knee Bacteremia with sepsis, improving Bilateral lower extremity wounds Confusion Afib Morbid obesity Multiple medical comorbidities Plan: Final anaerobic and aerobic cultures should be finalized today, preliminary results demonstrates no growth, cell count and crystal analysis demonstrated high likelihood of gouty arthropathy . Low concern for septic arthropathy at this time, will hold off on additional aspiration at this time. Still recommend antigout medicaitons if he can tolerate medically Conservative measures to include icing/elevating, working with PT/OT PT/OT, recommend weight-bear as tolerated with walker. Patient does demonstrate generalized debility/weakness GI and DVT prophylaxis per primary medical service Other medical specialty recommendations appreciated Discussed with nursing and internal medicine our recommendations, patient is not a emergent/urgent need for transfer based on current orthopedic issue. Time with Patient: Less than 30
--- NOTE | 2024-09-20 13:38 | P.PN ---
Subjective Progress Note Date: 09/20/24 Principal diagnosis: Cellulitis. Patient is a 69-year-old male with past medical history significant for atrial fibrillation, hypertension, hyperlipidemia, diabetes mellitus, obesity, obstructive sleep apnea, GI bleed, seizures, bipolar/depression, and left knee total arthroplasty. Hospitalized back on 09/14/2024 with left leg weakness and cellulitis. Left knee x-ray does not show any knee hardware complication. There is moderate joint effusion and diffuse soft tissue swelling/edema. Did undergo left knee aspiration. Left knee joint aspirate not showing growth at 24 hours. Cultures positive for MSSA from chronic left leg wound and strep group B bacteremia. Patient currently covered on cefazolin. Infectious disease is on board. Most recent labs from yesterday includes a CBC with an improvement in his WBC count down to 14, hemoglobin 8.6 g/dL, platelets 381. CMP: Sodium 140, potassium 5.1, chloride 103, serum bicarb 31, BUN 14.3, creatinine 0.7, glucose 117. NT proBNP 3176. Viral screen done on admission negative for influenza, RSV, COVID. Previous chest x-ray did not show any acute cardiopulmonary process. Rapid response was called yesterday afternoon for worsening mentation and agitation. Did receive a dose of Haldol 2 mg once. He is refusing his psych meds. Brain CT did not show any acute intracranial bleeding or mass effect. Patient was transferred to the cardiac stepdown unit. An ICU consult was placed for evaluation concerning his worsening mentation and sepsis. Patient is currently being evaluated on the cardiac stepdown unit. He is alert and oriented. He is impulsive and attempts to get out of bed. A bedside sitter is present. He is tachycardic and diaphoretic. He did refuse his medications earlier, including metoprolol. Blood pressure is normotensive. Afebrile. Normal saline infusing at 75 mm/h. Bilateral lower extremities are wrapped. Good range of motion of left knee, without pain, crepitus, erythema, edema. I did speak to him about the importance of medication adherence, and he is agreeable to take his medications now. Current vital signs: Temperature 97.7 F, heart rate 131 bpm, blood pressure 132/80 mmHg, nontachypneic, SpO2 recorded as 96% on 3 L/min nasal cannula. Progress note dated September 20, 2024. 69-year-old male seen in consultation yesterday. Please see the note above. The patient is seen today in room 357. The patient appears to be doing reasonably well. He is on saline at 20 cc an hour, and nasal O2 at 3 L. He is receiving IV Ancef. Current laboratory data includes a white count 9.9, hemoglobin 8.8, hematocrit 32, and platelet count of 391,000. Sodium 139, potassium 4.7, chloride 96, CO2 39, BUN 13, creatinine 0.54. Glucose was 118. Calcium is 7.9. Wound cultures, are positive for Staph aureus, blood cultures are positive for group B strep. Objective - Vital Signs Vital signs: Vital Signs Temp 97.9 F 09/20/24 08:00 Pulse 118 H 09/20/24 12:40 Resp 20 09/20/24 12:40 BP 137/88 09/20/24 12:00 Pulse Ox 94 L 09/20/24 12:00 FiO2 Intake & Output 09/19/24 09/20/24 09/20/24 18:59 06:59 18:59 Intake Total 600 540 240 Output Total 945 309 3289 Balance 250 240 -1610 Weight 160 kg 160 kg Intake: Oral 600 540 240 Output: Urine 623 561 3061 Other: Voiding Method External Catheter External Catheter External Catheter # Voids 1 # Bowel Movements 1 1 - Exam No acute distress, oriented 3. Patient is currently on 3 L of oxygen. HEENT examination is grossly unremarkable. Mucous membranes are moist. No oral lesions. Neck supple. Full range of motion. No adenopathy thyromegaly or neck vein distention. Cardiovascular examination reveals regular rhythm rate. S1-S2 normal. No S3 or S4. No discernible murmur noted. Lungs reveal clear breath sounds. Her sounds are equal bilaterally. No adventitious lung sounds including wheezes rhonchi or crackles. Abdomen soft bowel sounds are heard. No masses or tenderness. Extremities are intact. Bilateral lower extremity edema is noted. Lower extremities are wrapped. Skin is without rash or lesion. Neurologic examination is brief but nonfocal. - Labs CBC & Chem 7: 09/20/24 09:36 09/20/24 06:30 Labs: Abnormal Lab Results - Last 24 Hours (Table) 09/19/24 09/19/24 09/19/24 Range/Units 07:36 16:10 20:13 RBC (4.30-5.90) m/uL Hgb (13.0-17.5) gm/dL Hct (39.0-53.0) % MCH (25.0-35.0) pg MCHC (31.0-37.0) g/dL RDW (11.5-15.5) % Neutrophils # (1.3-7.7) k/uL Lymphocytes # (1.0-4.8) k/uL PT (10.0-12.5) sec INR (<1.2) Chloride (98-107) mmol/L Carbon Dioxide (22-30) mmol/L Creatinine (0.66-1.25) mg/dL Glucose (74-99) mg/dL POC Glucose (mg/dL) 144 H 137 H (70-110) mg/dL Calcium (8.4-10.2) mg/dL Iron 13 L (65-175) UG/DL % Saturation 3.32 L (15.00-50.00) HDL Cholesterol 20.60 L (40.00-60.00) mg/dL 09/20/24 09/20/24 09/20/24 Range/Units 05:44 06:30 06:30 RBC 3.82 L (4.30-5.90) m/uL Hgb 8.6 L (13.0-17.5) gm/dL Hct 31.3 L (39.0-53.0) % MCH 22.6 L (25.0-35.0) pg MCHC 27.6 L (31.0-37.0) g/dL RDW 20.0 H (11.5-15.5) % Neutrophils # 8.7 H (1.3-7.7) k/uL Lymphocytes # 0.4 L (1.0-4.8) k/uL PT (10.0-12.5) sec INR (<1.2) Chloride 96 L (98-107) mmol/L Carbon Dioxide 39 H (22-30) mmol/L Creatinine 0.54 L (0.66-1.25) mg/dL Glucose 103 H (74-99) mg/dL POC Glucose (mg/dL) 151 H (70-110) mg/dL Calcium 7.9 L (8.4-10.2) mg/dL Iron (65-175) UG/DL % Saturation (15.00-50.00) HDL Cholesterol (40.00-60.00) mg/dL 09/20/24 09/20/24 09/20/24 Range/Units 09:36 09:36 11:37 RBC 3.95 L (4.30-5.90) m/uL Hgb 8.8 L (13.0-17.5) gm/dL Hct 32.0 L (39.0-53.0) % MCH 22.4 L (25.0-35.0) pg MCHC 27.6 L (31.0-37.0) g/dL RDW 19.9 H (11.5-15.5) % Neutrophils # 8.2 H (1.3-7.7) k/uL Lymphocytes # 0.5 L (1.0-4.8) k/uL PT 13.0 H (10.0-12.5) sec INR 1.2 H (<1.2) Chloride (98-107) mmol/L Carbon Dioxide (22-30) mmol/L Creatinine (0.66-1.25) mg/dL Glucose (74-99) mg/dL POC Glucose (mg/dL) 118 H (70-110) mg/dL Calcium (8.4-10.2) mg/dL Iron (65-175) UG/DL % Saturation (15.00-50.00) HDL Cholesterol (40.00-60.00) mg/dL Microbiology - Last 24 Hours (Table) 09/17/24 11:40 Gram Stain - Preliminary Knee - Left Body Fluid Culture - Preliminary 09/16/24 08:08 Blood Culture - Preliminary Blood 09/17/24 11:40 Anaerobic Culture - Preliminary Knee - Left Assessment and Plan Assessment: Left leg cellulitis, wound culture positive for MSSA. Group B strep bacteremia. The patient meets SIRS/sepsis criteria Rule out septic left knee arthritis. Acute leukocytosis, improving. Atrial fibrillation, with rapid ventricular response. Anemia, monitor for acute blood loss. Acute hypoxemic respiratory failure on 3 L/min nasal cannula. Hypertension. History of hyperlipidemia. Diabetes mellitus type 2. Morbid obesity with a BMI of 44.9 kg/m. History of obstructive sleep apnea. History of GI bleed. History of gastritis. History of seizure. Bipolar/depression. Plan: Plan dated September 20, 2024. The patient is seen today in room 357. He is currently on 3 L of oxygen. The patient continues on Ancef, as per infectious diseases. The patient is getting saline at 20 cc an hour. The patient is much more cooperative. No respiratory distress. We will continue to follow make recommendations along the way. All labs, x-rays, and medications are reviewed. The patient is overall prognosis remains guarded. Dictation was produced using [employer] dictation software. Please excuse any grammatical, word or spelling errors. Time with Patient: Less than 30
--- NOTE | 2024-09-20 15:07 | P.PN ---
Subjective Progress Note Date: 09/20/24 Principal diagnosis: Reason for follow-up is left knee cellulitis and bacteremia 1Patient is a 69-year-old male with a past medical history significant for diabetes mellitus hypertension hyperlipidemia osteoarthritis atrial fibrillation he did have a left knee replacement about a year and a half ago by Dr. Reynolds. now presenting to the hospital concerning for his left knee gave out on him and has been complaining of more pain and swelling to left knee area patient has been in the hospital with cellulitis blood cultures are coming back positive with Streptococcus agalactiae On today's evaluation that is 09/20/2024, the patient continues to be afebrile, the patient is on 3 L nasal oxygen and breathing comfortably, the Pt denies having any chest pain or cough, the patient denies having any abdominal pain no vomiting or any diarrhea and pain to the left knee has decreased in intensity. The patient white count is 9.9 creatinine 0.54 left knee cultures pending blood culture repeat negative so far Objective - Vital Signs Vital signs: Vital Signs Temp 97.9 F 09/20/24 08:00 Pulse 118 H 09/20/24 12:40 Resp 20 09/20/24 12:40 BP 137/88 09/20/24 12:00 Pulse Ox 94 L 09/20/24 12:00 FiO2 Intake & Output 09/19/24 09/20/24 09/20/24 18:59 06:59 18:59 Intake Total 600 540 240 Output Total 471 973 1312 Balance 250 240 -1610 Weight 160 kg 160 kg Intake: Oral 600 540 240 Output: Urine 023 949 9520 Other: Voiding Method External Catheter External Catheter External Catheter # Voids 1 # Bowel Movements 1 1 - Exam GENERAL DESCRIPTION: An elderly male up in bed in no distress RESPIRATORY SYSTEM: Unlabored breathing , decreased breath sounds at bases HEART: S1 S2 regular rate and rhythm , ABDOMEN: Soft , no tenderness EXTREMITIES: Left knee swelling versus redness slightly decreased no drainage from the wound to the left leg - Labs CBC & Chem 7: 09/20/24 09:36 09/20/24 06:30 Labs: Abnormal Lab Results - Last 24 Hours (Table) 09/19/24 09/19/24 09/19/24 Range/Units 07:36 16:10 20:13 RBC (4.30-5.90) m/uL Hgb (13.0-17.5) gm/dL Hct (39.0-53.0) % MCH (25.0-35.0) pg MCHC (31.0-37.0) g/dL RDW (11.5-15.5) % Neutrophils # (1.3-7.7) k/uL Lymphocytes # (1.0-4.8) k/uL PT (10.0-12.5) sec INR (<1.2) Chloride (98-107) mmol/L Carbon Dioxide (22-30) mmol/L Creatinine (0.66-1.25) mg/dL Glucose (74-99) mg/dL POC Glucose (mg/dL) 144 H 137 H (70-110) mg/dL Calcium (8.4-10.2) mg/dL Iron 13 L (65-175) UG/DL % Saturation 3.32 L (15.00-50.00) HDL Cholesterol 20.60 L (40.00-60.00) mg/dL 09/20/24 09/20/24 09/20/24 Range/Units 05:44 06:30 06:30 RBC 3.82 L (4.30-5.90) m/uL Hgb 8.6 L (13.0-17.5) gm/dL Hct 31.3 L (39.0-53.0) % MCH 22.6 L (25.0-35.0) pg MCHC 27.6 L (31.0-37.0) g/dL RDW 20.0 H (11.5-15.5) % Neutrophils # 8.7 H (1.3-7.7) k/uL Lymphocytes # 0.4 L (1.0-4.8) k/uL PT (10.0-12.5) sec INR (<1.2) Chloride 96 L (98-107) mmol/L Carbon Dioxide 39 H (22-30) mmol/L Creatinine 0.54 L (0.66-1.25) mg/dL Glucose 103 H (74-99) mg/dL POC Glucose (mg/dL) 151 H (70-110) mg/dL Calcium 7.9 L (8.4-10.2) mg/dL Iron (65-175) UG/DL % Saturation (15.00-50.00) HDL Cholesterol (40.00-60.00) mg/dL 09/20/24 09/20/24 09/20/24 Range/Units 09:36 09:36 11:37 RBC 3.95 L (4.30-5.90) m/uL Hgb 8.8 L (13.0-17.5) gm/dL Hct 32.0 L (39.0-53.0) % MCH 22.4 L (25.0-35.0) pg MCHC 27.6 L (31.0-37.0) g/dL RDW 19.9 H (11.5-15.5) % Neutrophils # 8.2 H (1.3-7.7) k/uL Lymphocytes # 0.5 L (1.0-4.8) k/uL PT 13.0 H (10.0-12.5) sec INR 1.2 H (<1.2) Chloride (98-107) mmol/L Carbon Dioxide (22-30) mmol/L Creatinine (0.66-1.25) mg/dL Glucose (74-99) mg/dL POC Glucose (mg/dL) 118 H (70-110) mg/dL Calcium (8.4-10.2) mg/dL Iron (65-175) UG/DL % Saturation (15.00-50.00) HDL Cholesterol (40.00-60.00) mg/dL Microbiology - Last 24 Hours (Table) 09/17/24 11:40 Gram Stain - Preliminary Knee - Left Body Fluid Culture - Preliminary 09/16/24 08:08 Blood Culture - Preliminary Blood 09/17/24 11:40 Anaerobic Culture - Preliminary Knee - Left Assessment and Plan (1) Sepsis Current Visit: Yes Status: Acute Code(s): A41.9 - SEPSIS, UNSPECIFIED ORGANISM SNOMED Code(s): 33169180 (2) Cellulitis Current Visit: Yes Status: Acute Code(s): L03.90 - CELLULITIS, UNSPECIFIED SNOMED Code(s): 412705717 (3) Bacteremia Current Visit: Yes Status: Acute Code(s): R78.81 - BACTEREMIA SNOMED Code(s): 0870166 (4) Septic arthritis Current Visit: Yes Status: Acute Code(s): M00.9 - PYOGENIC ARTHRITIS, UNS PECIFIED SNOMED Code(s): 086334098 Plan: 1patient presented hospital with sepsis in this patient who did have tachycardia elevated white count elevated lactic acid meeting criteria for SIRS source is likely left knee cellulitis and concern for possible left knee septic arthritis likely from gram-positive skin justin 2patient has been evaluated by orthopedic and did have aspiration of purulent material concerning for septic arthritis cultures obtained, orthopedic is recommended transfer to tertiary care 3patient did have elevated inflammatory markers and blood culture positive for Streptococcus agalactiae, repeat blood culture have been negative 4local wound care to the wound to the left leg with dry Aquacel dressing change q. 48-hour 5patient is afebrile white count has normalized currently being treated with the cefazolin await finalization of the left knee culture Dictation was produced using [employer] dictation software. please excuse any grammatical, word or spelling errors. Time with Patient: Less than 30
[2024-09-20 16:18] LABS: Glucose,Whole Blood 139 mg/dL (70-110)
--- NOTE | 2024-09-20 20:34 | P.PN ---
Subjective Progress Note Date: 09/20/24 HISTORY OF PRESENTING ILLNESS: 69-year-old with past medical history of atrial fibrillation hypertension d yslipidemia diabetes obesity, obstructive sleep apnea, GI bleeding, bipolar disorder, seizure disorder. Left knee arthroplasty. He was hospitalized 1 week ago with left leg weakness and cellulitis. There was moderate joint effusion. He did undergo left knee aspiration. There is also some concerns of possible left leg cellulitis with MSSA and strep B bacteremia. He has been treated for sepsis and metabolic encephalopathy along with hypoxic respiratory failure. Cardiology was consulted for atrial fibrillation with RVR which was noticed yesterday on 09/18/2024 evening. At the time of evaluation today at bedside he is in somewhat appropriately controlled atrial fibrillation with heart rate ranging around 100 110 bpm. He is otherwise hemodynamically stable. Denies any chest pain chest pressure. Appears to be confused, EKG from admission shows atrial fibrillation. It is unclear if patient was on anticoagulation prior to the admission. His home medication does list Eliquis as one of the medications. Prior cardiac testing: Stress test from 2022 shows mild reversibility in anterior inferior wall with stress. Progress note 09/20/2024 Patient is continuing to be in atrial fibrillation with RVR with heart rates around 110 bpm. Blood pressure 130/93, appears to be mildly confused. Metabolic encephalopathy. Awaiting transfer to [facility]. Anticipate knee aspiration procedure. PHYSICAL EXAMINATION: Lungs: Diminished breath sounds with poor inspiratory effort, mild crackles bilateral bases Heart: Irregularly irregular, S1-S2, , mild systolic murmur audible Abdomen: Soft nontender, positive bowel sounds. Extremities: 1+ pitting edema bilateral legs, left knee swelling Neuro: Drowsy, not following commands at this time, appears confused detailed neuro exam was not performed. ASSESSMENT: # Atrial fibrillation with RVR. History of chronic atrial fibrillation # Left leg cellulitis with MSSA # S/p left knee aspiration, concerns of septic arthritis # Metabolic encephalopathy, multifactorial because of above # Anemia, prior history of GI bleeding # Acute hypoxic respiratory failure # Hypertension # Type 2 diabetes # Morbid obesity # HANNY PLAN: Increase metoprolol to 100 mg twice daily Give 1 dose of IV Lasix 40 mg Ferritin and iron saturation is low suggestive of iron deficiency anemia. Give 3 dose of IV iron Hold Eliquis in view of knee aspiration or any other procedures. Continue IV heparin in the interim Obtain echocardiogram Overall prognosis is guarded Objective - Vital Signs Vital signs: Vital Signs Temp 98.2 F 09/20/24 16:00 Pulse 122 H 09/20/24 16:00 Resp 18 09/20/24 16:00 BP 140/81 09/20/24 16:00 Pulse Ox 98 09/20/24 16:00 FiO2 Intake & Output 09/20/24 09/20/24 09/21/24 06:59 18:59 06:59 Intake Total 540 525.217 Output Total 300 1850 Balance 240 -1324.783 Weight 160 kg 160 kg Intake: Intake, IV Titration 165.217 Amount Heparin Sod,Pork in 0.45% 165.217 NaCl 25,000 unit In 0.45 % NaCl 1 250ml.bag @ 14. 375 UNITS/KG/HR 23 mls/hr IV .[id number] [facility] Rx#: [id number] Oral 540 360 Output: Urine 300 1850 Other: Voiding Method External Catheter External Catheter # Voids 1 # Bowel Movements 1 - Labs CBC & Chem 7: 09/20/24 09:36 09/20/24 06:30 Labs: Abnormal Lab Results - Last 24 Hours (Table) 09/20/24 09/20/24 09/20/24 Range/Units 05:44 06:30 06:30 RBC 3.82 L (4.30-5.90) m/uL Hgb 8.6 L (13.0-17.5) gm/dL Hct 31.3 L (39.0-53.0) % MCH 22.6 L (25.0-35.0) pg MCHC 27.6 L (31.0-37.0) g/dL RDW 20.0 H (11.5-15.5) % Neutrophils # 8.7 H (1.3-7.7) k/uL Lymphocytes # 0.4 L (1.0-4.8) k/uL PT (10.0-12.5) sec INR (<1.2) APTT (22.0-30.0) sec Chloride 96 L (98-107) mmol/L Carbon Dioxide 39 H (22-30) mmol/L Creatinine 0.54 L (0.66-1.25) mg/dL Glucose 103 H (74-99) mg/dL POC Glucose (mg/dL) 151 H (70-110) mg/dL Calcium 7.9 L (8.4-10.2) mg/dL 09/20/24 09/20/24 09/20/24 Range/Units 09:36 09:36 11:37 RBC 3.95 L (4.30-5.90) m/uL Hgb 8.8 L (13.0-17.5) gm/dL Hct 32.0 L (39.0-53.0) % MCH 22.4 L (25.0-35.0) pg MCHC 27.6 L (31.0-37.0) g/dL RDW 19.9 H (11.5-15.5) % Neutrophils # 8.2 H (1.3-7.7) k/uL Lymphocytes # 0.5 L (1.0-4.8) k/uL PT 13.0 H (10.0-12.5) sec INR 1.2 H (<1.2) APTT (22.0-30.0) sec Chloride (98-107) mmol/L Carbon Dioxide (22-30) mmol/L Creatinine (0.66-1.25) mg/dL Glucose (74-99) mg/dL POC Glucose (mg/dL) 118 H (70-110) mg/dL Calcium (8.4-10.2) mg/dL 09/20/24 09/20/24 Range/Units 15:44 16:15 RBC (4.30-5.90) m/uL Hgb (13.0-17.5) gm/dL Hct (39.0-53.0) % MCH (25.0-35.0) pg MCHC (31.0-37.0) g/dL RDW (11.5-15.5) % Neutrophils # (1.3-7.7) k/uL Lymphocytes # (1.0-4.8) k/uL PT (10.0-12.5) sec INR (<1.2) APTT 105.4 H* (22.0-30.0) sec Chloride (98-107) mmol/L Carbon Dioxide (22-30) mmol/L Creatinine (0.66-1.25) mg/dL Glucose (74-99) mg/dL POC Glucose (mg/dL) 139 H (70-110) mg/dL Calcium (8.4-10.2) mg/dL Microbiology - Last 24 Hours (Table) 09/17/24 11:40 Gram Stain - Preliminary Knee - Left Body Fluid Culture - Preliminary 09/16/24 08:08 Blood Culture - Preliminary Blood
[2024-09-20 20:42] LABS: Glucose,Whole Blood 132 mg/dL (70-110)
[2024-09-20] MEDS: METOPROLOL TARTRATE 50 MG TAB PO SCH (20:48)
[2024-09-21 02:51] LABS: Anisocytosis Moderate; Basophils % (A) 0 %; Eosinophils # (A) 0.1 k/uL (0-0.7); Eosinophils % (A) 1 %; HCT 30.2 % (39.0-53.0); HGB 8.6 gm/dL (13.0-17.5); Hypochromasia Marked; Lymphocytes # (A) 0.5 k/uL (1.0-4.8); Lymphocytes % (A) 6 %; MCH 22.7 pg (25.0-35.0); MCHC 28.5 g/dL (31.0-37.0); MCV 79.6 fL (80.0-100.0); Mean Platelet Volume 7.5; Microcytosis Slight; Monocytes % (A) 11 %; Neutrophils % (A) 81 %; Platelet Count 336 k/uL (150-450); Poikilocytosis Slight; RDW 20.1 % (11.5-15.5); WBC 8.7 k/uL (3.8-10.6)
[2024-09-21 06:06] LABS: Glucose,Whole Blood 126 mg/dL (70-110)
--- NOTE | 2024-09-21 07:58 | P.PN ---
Subjective Progress Note Date: 09/20/24 69-year-old male came in because he is unable to take care of himself and infection and legs patient has a wound in the left mid dunlap area which appeared to be infected and also cellulitis of the right lower extremity denied any history of MRSA in the past patient does have history of atrial fibrillation patient was hypotensive patient has swelling in bilateral lower extremities but chest x-ray is within normal limits does not appear to be in CHF patient has elevated BNP of 3200 does have history of atrial fibrillation on anticoagulation with Eliquis. Patient lives by himself lately he is unable to take care of himself patient was started on vancomycin here. Patient is obese with history of sleep apnea. Using his CPAP machine presently on oxygen does not usually use any oxygen. 09/16/2024 Patient is seen in follow-up today with no acute overnight issues noted. Infectious disease following and patient is maintained on antibiotics in the form of cefazolin 3 g every 8 hours.. Blood cultures positive for Streptococcus and there is concerns of significant knee swelling and possible septic arthritis. Will consult orthopedics and appreciate input and recommendations. If undergoing needle aspiration, strongly recommend sending for cultures. Patient is afebrile although white count remains elevated at 29, slightly improved from yesterday. Will follow-up on repeat labs. Patient with significant weakness recommend PT/OT therapy evaluation. Patient will likely need ECF on discharge. 09/17/2024 Patient is seen in follow-up today being continued on IV antibiotics with infectious disease following. Awaiting orthopedics evaluation with concerns of left knee swelling and possible source of infection. Orthopedics did evaluate and is status post aspiration of the left knee and was noted to be significantly purulent and was sent to the lab. Currently there is no orthopedic that would be able to provide surgical intervention and recommending tertiary transfer. Patient is agreeable if necessary and transfer was initiated to [facility]. Patient was accepted currently awaiting a bed. Patient is afebrile and white count remains elevated although trending down. Will follow-up on repeat labs. Eliquis on hold and will continue heparin subcu. 09/18/2024 Patient is seen in follow-up this morning continues on IV antibiotics with infectious disease following. On exam patient is diaphoretic and confused is following commands and answering some questions appropriately although mentation is definitely of concern. Ct brain ordered and negative for acute process. Patient with sepsis and concerns for lower extremity cellulitis as well as left knee septic arthritis. Limited coverage for orthopedics at this time, although did undergo left knee aspiration and was noted to have crystals concerning for gout. Patient is pending a transfer to [facility] for tertiary treatment given our limited coverage. No bed available. Patient is also wearing oxygen and continues to remove nasal cannula with concerns of hypoxia. Pulmonary consulted for possible ICU eval although stable and will be moved to [address] [place] [address] for closer monitoring. Patient is trying to get out of bed and is at increased risk of falls. Recommend abg although patient is refusing. 09/19/2024 Patient has been moved to the 3 . unit for closer monitoring on examination today he is more awake alert and oriented and he is answering questions appropriately. He appears less congested after receiving a dose of IV Lasix. He continues on IV cefazolin with concern for septic arthritis of the left knee and left lower extremity cellulitis. Patient had a brain CT with no acute findings. He was evaluated in consultation today by pulmonary and cardiology services. Cardiology recommending to resume Eliquis today and monitor hemoglobin. Monitor QT interval. EKG was repeated with QT QTc of 312 and 375. Patient remains in atrial fibrillation with rapid ventricular rate at times. Repeat blood culture is negative so far. His labs today reveal a white blood cell count of 9.5, hemoglobin 8.4, sodium of 140 potassium 4.4, BUN of 17 creatinine of 0.65, blood glucose is well-controlled. His calcium level was 8.0 magnesium 2.1 iron of 13 TIBC of 392% saturation of 3.32 and transferrin level 280 ferritin level was 54.3. These findings are consistent with a mild iron deficiency anemia. proBNP was found to be elevated at 3176. His lipid panel reveals triglyceride level of 95 cholesterol level of 89, LDL of 49.4 and HDL of 20.60. Patient was noted to have monosodium urate Crystals on aspiration of the left knee. Although concern remains for septic arthritis. Orthopedics was recommending starting patient medication for gout such as allopurinol or colchicine although at this time would recommend to hold off and patient is not a candidate for steroids at this time secondary to severe sepsis. 09/20/2024 Patient is seen in follow-up today with multiple consultations following including infectious disease, and now cardiology. Patient with chronic history of A-fib with Eliquis being held due to possible surgical intervention and awaiting a transfer to [facility]. Patient had been accepted by Dr. Arrington internal medicine with Ortho on consult. Patient is status post knee aspiration on the left and cultures thus far negative. Patient with A-fib RVR transferred to [facility] for closer monitoring is maintained on IV heparin and will continue for now. Metoprolol being adjusted and increased per cardiology. 2D echo is ordered and pending. Mentation is improved today and at baseline. Review of systems: Constitutional: No reports of fatigue, fever, or chills Cardiovascular: No reports of chest pain or palpitations Respiratory: No reports of worsening shortness of breath or cough GI: No reports of nausea, vomiting, or diarrhea : No reports of dysuria or retention Neurovascular: reports of generalized weakness and continued left knee pain All medications have been reviewed PHYSICAL EXAMINATION: GENERAL: The patient is alert and oriented x 23, less confused, much more alert today. Well developed, well nourished. Morbidly obese HEENT: Pupils are round and equally reacting to light. EOMI. No scleral icterus. No conjunctival pallor. Normocephalic, atraumatic. No pharyngeal erythema. No thyromegaly. CARDIOVASCULAR: S1 and S2 muffled, irregular, A-fib PULMONARY: Diminished breath sounds bilaterally, faint crackles noted. ABDOMEN: Soft, morbidly obese nontender, nondistended, normoactive bowel sounds. No palpable organomegaly. MUSCULOSKELETAL: left knee joint swelling , no deformity. EXTREMITIES: No cyanosis, clubbing, . Bilateral lower extremity swelling, left knee swelling noted NEUROLOGICAL: Gross neurological examination did not reveal any focal deficits. Diffusely weak, confused and anxious today SKIN: Bilateral lower extremity edema with a circumferential cellulitis in the left lower extremity , and left lower leg ulcer below the mid dunlap area which appear to be infected. Assessment: -Bilateral lower extremity wounds with cellulitis, present on admission -A-fib with RVR, history of paroxysmal A-fib maintained on Eliquis, currently held and maintained on IV heparin for now -History of left knee total arthroplasty with concern for periprosthetic left knee infection and septic arthritis possible gouty arthropathy of the left knee -Streptococcus bacteremia -Acute metabolic encephalopathy secondary to sepsis, improving -Hypotension secondary to sepsis continue with IV fluids, improving -Bilateral lower extremity edema appears to be pretty moderate in CHF patient will continue on fluids for now because of hypotension and lactic acidosis, 2D echo ordered and pending -Morbid obesity with obstructive sleep apnea patient will continue on CPAP vickie mckinnon. -History of atrial fibrillation paroxysmal, maintained on Eliquis outpatient -Type 2 diabetes mellitus uncontrolled with hyper and hypoglycemia: Continue on sliding scale insulin -Generalized weakness and gait dysfunction DVT prophylaxis: IV heparin GI prophylaxis full code Plan: Patient being followed by infectious disease and orthopedics evaluated recommending tertiary transfer for possible surgical intervention of the left knee. Needle aspiration was done of copious amounts of purulent drainage and was sent to the lab for analysis. Unfortunately there is no orthopedic surgeon covering at this time and recommending transfer for tertiary treatment and possible surgical intervention of the left knee. Transfer was initiated and patient was accepted by Dr. Arrington of [facility] in [place]. Currently awaiting a bed and transfer team will contact the unit once a bed is available. No bed available today. Will call daily. Wound cultures showing staphylococcus aureus and patient remains on IV cefazolin with infectious disease following. Blood cultures were positive for Streptoc occus and repeat blood cultures thus far negative Continue monitoring Accu-Cheks before meals and at bedtime and will continue with sliding scale and also add long-acting. Adjust accordingly Follow up CBC, BMP in the a.m. The impression and plan of care has been dictated by So Tian, Nurse Practitioner as directed. Dr. Paige MD I have performed a history and examination and MDM of this patient, discussed the same with the dictator, and agree with the dictator's assessment and plan as written ,documented as a scribe. Based on total visit time, I have performed more than 50% of the visit. Objective - Vital Signs Vital signs: Vital Signs Temp 97.9 F 09/19/24 20:00 Pulse 132 H 09/20/24 03:42 Resp 18 09/20/24 03:42 BP 137/79 09/20/24 03:42 Pulse Ox 97 09/20/24 03:42 FiO2 Intake & Output 09/19/24 09/20/24 09/20/24 18:59 06:59 18:59 Intake Total 600 540 120 Output Total 350 300 Balance 250 240 120 Weight 160 kg Intake: Oral 600 540 120 Output: Urine 350 300 Other: Voiding Method External Catheter External Catheter # Bowel Movements 1 1 - Labs CBC & Chem 7: 03/08/25 01:31 09/20/24 06:30 Labs: Abnormal Lab Results - Last 24 Hours (Table) 09/19/24 09/19/24 09/19/24 Range/Units 07:36 11:12 16:10 RBC (4.30-5.90) m/uL Hgb (13.0-17.5) gm/dL Hct (39.0-53.0) % MCH (25.0-35.0) pg MCHC (31.0-37.0) g/dL RDW (11.5-15.5) % Neutrophils # (1.3-7.7) k/uL Lymphocytes # (1.0-4.8) k/uL Chloride (98-107) mmol/L Carbon Dioxide (22-30) mmol/L Creatinine (0.66-1.25) mg/dL Glucose (74-99) mg/dL POC Glucose (mg/dL) 135 H 144 H (70-110) mg/dL Calcium (8.4-10.2) mg/dL Iron 13 L (65-175) UG/DL % Saturation 3.32 L (15.00-50.00) HDL Cholesterol 20.60 L (40.00-60.00) mg/dL 09/19/24 09/20/24 09/20/24 Range/Units 20:13 05:44 06:30 RBC 3.82 L (4.30-5.90) m/uL Hgb 8.6 L (13.0-17.5) gm/dL Hct 31.3 L (39.0-53.0) % MCH 22.6 L (25.0-35.0) pg MCHC 27.6 L (31.0-37.0) g/dL RDW 20.0 H (11.5-15.5) % Neutrophils # 8.7 H (1.3-7.7) k/uL Lymphocytes # 0.4 L (1.0-4.8) k/uL Chloride (98-107) mmol/L Carbon Dioxide (22-30) mmol/L Creatinine (0.66-1.25) mg/dL Glucose (74-99) mg/dL POC Glucose (mg/dL) 137 H 151 H (70-110) mg/dL Calcium (8.4-10.2) mg/dL Iron (65-175) UG/DL % Saturation (15.00-50.00) HDL Cholesterol (40.00-60.00) mg/dL 09/20/24 Range/Units 06:30 RBC (4.30-5.90) m/uL Hgb (13.0-17.5) gm/dL Hct (39.0-53.0) % MCH (25.0-35.0) pg MCHC (31.0-37.0) g/dL RDW (11.5-15.5) % Neutrophils # (1.3-7.7) k/uL Lymphocytes # (1.0-4.8) k/uL Chloride 96 L (98-107) mmol/L Carbon Dioxide 39 H (22-30) mmol/L Creatinine 0.54 L (0.66-1.25) mg/dL Glucose 103 H (74-99) mg/dL POC Glucose (mg/dL) (70-110) mg/dL Calcium 7.9 L (8.4-10.2) mg/dL Iron (65-175) UG/DL % Saturation (15.00-50.00) HDL Cholesterol (40.00-60.00) mg/dL Microbiology - Last 24 Hours (Table) 09/17/24 11:40 Gram Stain - Preliminary Knee - Left Body Fluid Culture - Preliminary 09/16/24 08:08 Blood Culture - Preliminary Blood 09/17/24 11:40 Anaerobic Culture - Preliminary Knee - Left
[2024-09-21 08:35] LABS: African American GFR (CKD) >90 (>60 ml/min/1.73 sqM); Blood Urea Nitrogen 10 mg/dL (9-20); Calcium 8.3 mg/dL (8.4-10.2); Chloride 95 mmol/L (98-107); Glucose 116 mg/dL (74-99); Non-African American GFR(CKD) >90 (>60 ml/min/1.73 sqM); Potassium 4.2 mmol/L (3.5-5.1); Sodium 140 mmol/L (137-145)
[2024-09-21 08:41] LABS: Anion Gap 6 mmol/L
[2024-09-21 08:57] LABS: Carbon Dioxide 39 mmol/L (22-30)
[2024-09-21 11:16] LABS: Glucose,Whole Blood 156 mg/dL (70-110)
--- NOTE | 2024-09-21 11:45 | P.PN ---
Subjective 69-year-old male came in because he is unable to take care of himself and infection and legs patient has a wound in the left mid dunlap area which appeared to be infected and also cellulitis of the right lower extremity denied any history of MRSA in the past patient does have history of atrial fibrillation patient was hypotensive patient has swelling in bilateral lower extremities but chest x-ray is within normal limits does not appear to be in CHF patient has elevated BNP of 3200 does have history of atrial fibrillation on anticoagulation with Eliquis. Patient lives by himself lately he is unable to take care of himself patient was started on vancomycin here. Patient is obese with history of sleep apnea. Using his CPAP machine presently on oxygen does not usually use any oxygen. 09/16/2024 Patient is seen in follow-up today with no acute overnight issues noted. Infectious disease following and patient is maintained on antibiotics in the form of cefazolin 3 g every 8 hours.. Blood cultures positive for Streptococcus and there is concerns of significant knee swelling and possible septic arthritis. Will consult orthopedics and appreciate input and recommendations. If undergoing needle aspiration, strongly recommend sending for cultures. Patient is afebrile although white count remains elevated at 29, slightly improved from yesterday. Will follow-up on repeat labs. Patient with significant weakness recommend PT/OT therapy evaluation. Patient will likely need ECF on discharge. 09/17/2024 Patient is seen in follow-up today being continued on IV antibiotics with infectious disease following. Awaiting orthopedics evaluation with concerns of left knee swelling and possible source of infection. Orthopedics did evaluate and is status post aspiration of the left knee and was noted to be significantly purulent and was sent to the lab. Currently there is no orthopedic that would be able to provide surgical intervention and recommending tertiary transfer. Patient is agreeable if necessary and transfer was initiated to [facility]. Patient was accepted currently awaiting a bed. Patient is afebrile and white count remains elevated although trending down. Will follow-up on repeat labs. Eliquis on hold and will continue heparin subcu. 09/18/2024 Patient is seen in follow-up this morning continues on IV antibiotics with infectious disease following. On exam patient is diaphoretic and confused is following commands and answering some questions appropriately although mentation is definitely of concern. Ct brain ordered and negative for acute process. Patient with sepsis and concerns for lower extremity cellulitis as well as left knee septic arthritis. Limited coverage for orthopedics at this time, although did undergo left knee aspiration and was noted to have crystals concerning for gout. Patient is pending a transfer to [facility] for tertiary treatment given our limited coverage. No bed available. Patient is also wearing oxygen and continues to remove nasal cannula with concerns of hypoxia. Pulmonary consulted for possible ICU eval although stable and will be moved to [address] [place] [address] for closer monitoring. Patient is trying to get out of bed and is at increased risk of falls. Recommend abg although patient is refusing. 09/19/2024 Patient has been moved to the 3 . unit for closer monitoring on examination today he is more awake alert and oriented and he is answering questions appropriately. He appears less congested after receiving a dose of IV Lasix. He continues on IV cefazolin with concern for septic arthritis of the left knee and left lower extremity cellulitis. Patient had a brain CT with no acute findings. He was evaluated in consultation today by pulmonary and cardiology services. Cardiology recommending to resume Eliquis today and monitor hemoglobin. Monitor QT interval. EKG was repeated with QT QTc of 312 and 375. Patient remains in atrial fibrillation with rapid ventricular rate at times. Repeat blood culture is negative so far. His labs today reveal a white blood cell count of 9.5, hemoglobin 8.4, sodium of 140 potassium 4.4, BUN of 17 creatinine of 0.65, blood glucose is well-controlled. His calcium level was 8.0 magnesium 2.1 iron of 13 TIBC of 392% saturation of 3.32 and transferrin level 280 ferritin level was 54.3. These findings are consistent with a mild iron deficiency anemia. proBNP was found to be elevated at 3176. His lipid panel reveals triglyceride level of 95 cholesterol level of 89, LDL of 49.4 and HDL of 20.60. Patient was noted to have monosodium urate Crystals on aspiration of the left knee. Although concern remains for septic arthritis. Orthopedics was recommending starting patient medication for gout such as allopurinol or colchicine although at this time would recommend to hold off and patient is not a candidate for steroids at this time secondary to severe sepsis. 09/20/2024 Patient is seen in follow-up today with multiple consultations following including infectious disease, and now cardiology. Patient with chronic history of A-fib with Eliquis being held due to possible surgical intervention and awaiting a transfer to [facility]. Patient had been accepted by Dr. Arrington internal medicine with Ortho on consult. Patient is status post knee aspiration on the left and cultures thus far negative. Patient with A-fib RVR transferred to [facility] for closer monitoring is maintained on IV heparin and will continue for now. Metoprolol being adjusted and increased per cardiology. 2D echo is ordered and pending. Mentation is improved today and at baseline. 09/21 pt is sleepy , on nasal cannula at 3 ml per min He is tachycardic 129, since admission, mildly tachypneic. Breathing looks like with sleep apnea pt is obese , has bilateral pitting leg edema Left knee is warm and swollen Sitter at bedside Is on heparin drip and cefazolin Objective - Vital Signs Vital signs: Vital Signs Temp 98.4 F 09/21/24 08:10 Pulse 129 H 09/21/24 08:10 Resp 20 09/21/24 08:10 BP 121/74 09/21/24 08:10 Pulse Ox 98 09/21/24 08:10 FiO2 Intake & Output 09/20/24 09/21/24 09/21/24 18:59 06:59 18:59 Intake Total 781.070 0410.407 253.439 Output Total 1850 900 Balance -5194.226 2001.407 -646.561 Weight 160 kg 160 kg Intake: Intake, IV Titration 165.217 249.407 73.439 Amount Heparin Sod,Pork in 0.45% 165.217 249.407 73.439 NaCl 25,000 unit In 0.45 % NaCl 1 250ml.bag @ 14. 375 UNITS/KG/HR 23 mls/hr IV .[id number] [facility] Rx#: [id number] Oral 360 1080 180 Output: Urine 1850 900 Other: Voiding Method External Catheter External Catheter External Catheter # Voids 1 - Exam -GENERAL: The patient is sleepy, not in any acute distress. Well developed, well nourished. Obese HEENT: Pupils are round and equally reacting to light. EOMI. No scleral icterus. No conjunctival pallor. Normocephalic, atraumatic. No pharyngeal erythema. No thyromegaly. CARDIOVASCULAR: S1 and S2 present. No murmurs, rubs, or gallops. PULMONARY: Chest is clear to auscultation, no wheezing , no crackles. ABDOMEN: Soft, nontender, nondistended, normoactive bowel sounds. No palpable organomegaly. MUSCULOSKELETAL: No joint swelling or deformity. -EXTREMITIES: No cyanosis, clubbing,. Bilateral pitting leg edema, 2+. Left knee is swollen and warm NEUROLOGICAL: Gross neurological examination did not reveal any focal deficits. SKIN: No rashes. no petechiae. - Labs CBC & Chem 7: 09/21/24 01:31 09/21/24 06:57 Labs: Abnormal Lab Results - Last 24 Hours (Table) 09/20/24 09/20/24 09/20/24 Range/Units 15:44 16:15 20:39 RBC (4.30-5.90) m/uL Hgb (13.0-17.5) gm/dL Hct (39.0-53.0) % MCV (80.0-100.0) fL MCH (25.0-35.0) pg MCHC (31.0-37.0) g/dL RDW (11.5-15.5) % Lymphocytes # (1.0-4.8) k/uL APTT 105.4 H* (22.0-30.0) sec Chloride (98-107) mmol/L Carbon Dioxide (22-30) mmol/L Creatinine (0.66-1.25) mg/dL Glucose (74-99) mg/dL POC Glucose (mg/dL) 139 H 132 H (70-110) mg/dL Calcium (8.4-10.2) mg/dL 09/21/24 09/21/24 09/21/24 Range/Units 01:31 01:31 06:04 RBC 3.80 L (4.30-5.90) m/uL Hgb 8.6 L (13.0-17.5) gm/dL Hct 30.2 L (39.0-53.0) % MCV 79.6 L (80.0-100.0) fL MCH 22.7 L (25.0-35.0) pg MCHC 28.5 L (31.0-37.0) g/dL RDW 20.1 H (11.5-15.5) % Lymphocytes # 0.5 L (1.0-4.8) k/uL APTT 188.8 H* (22.0-30.0) sec Chloride (98-107) mmol/L Carbon Dioxide (22-30) mmol/L Creatinine (0.66-1.25) mg/dL Glucose (74-99) mg/dL POC Glucose (mg/dL) 126 H (70-110) mg/dL Calcium (8.4-10.2) mg/dL 09/21/24 09/21/24 09/21/24 Range/Units 06:57 09:58 11:15 RBC (4.30-5.90) m/uL Hgb (13.0-17.5) gm/dL Hct (39.0-53.0) % MCV (80.0-100.0) fL MCH (25.0-35.0) pg MCHC (31.0-37.0) g/dL RDW (11.5-15.5) % Lymphocytes # (1.0-4.8) k/uL APTT 90.4 H (22.0-30.0) sec Chloride 95 L (98-107) mmol/L Carbon Dioxide 39 H (22-30) mmol/L Creatinine 0.64 L (0.66-1.25) mg/dL Glucose 116 H (74-99) mg/dL POC Glucose (mg/dL) 156 H (70-110) mg/dL Calcium 8.3 L (8.4-10.2) mg/dL Microbiology - Last 24 Hours (Table) 09/17/24 11:40 Gram Stain - Final Knee - Left Body Fluid Culture - Final Assessment and Plan Assessment: -Acute non-ST elevation IA: Patient was started on IV heparin cardiology was evaluating the patient in the past the recommended medical management with because of chronic coronary occlusive disease patient had CABG and multiple stents in the past -Acute hypoxic respiratory failure, secondary to acute on chronic heart failure with preserved EF -Acute on chronic congestive heart failure with preserved EF -History of severe peripheral artery disease with recent bilateral lower extremity intervention -Coronary disease with previous CABG as mentioned above in subsequent stenting -Acute renal failure on chronic kidney disease stage II acute renal failure secondary to excessive diuresis IV Lasix will be discontinued -Hypertension -Hyperlipidemia -COPD without any acute exacerbation -History of carotid stenosis in the past -Morbid obesity with a BMI of 41.6, will need a sleep study as an outpatient Type 2 diabetes mellitus: Resumed on his long-acting insulin at half a dose Plan: Continue with heparin drip, with plan to switch to Xarelto/Eliquis after 48 hours per qualification engineer, currently on hold Continue with cefazolin Cardiology pulmonary and ID team following closely Wound culture reviewed DVT prophylaxis: Patient is on IV heparin and will transition to Xarelto GI prophylaxis Full code
--- NOTE | 2024-09-21 13:58 | P.PN ---
Subjective Progress Note Date: 09/21/24 Principal diagnosis: Cellulitis. Patient is a 69-year-old male with past medical history significant for atrial fibrillation, hypertension, hyperlipidemia, diabetes mellitus, obesity, obstructive sleep apnea, GI bleed, seizures, bipolar/depression, and left knee total arthroplasty. Hospitalized back on 09/14/2024 with left leg weakness and cellulitis. Left knee x-ray does not show any knee hardware complication. There is moderate joint effusion and diffuse soft tissue swelling/edema. Did undergo left knee aspiration. Left knee joint aspirate not showing growth at 24 hours. Cultures positive for MSSA from chronic left leg wound and strep group B bacteremia. Patient currently covered on cefazolin. Infectious disease is on board. Most recent labs from yesterday includes a CBC with an improvement in his WBC count down to 14, hemoglobin 8.6 g/dL, platelets 381. CMP: Sodium 140, potassium 5.1, chloride 103, serum bicarb 31, BUN 14.3, creatinine 0.7, glucose 117. NT proBNP 3176. Viral screen done on admission negative for influenza, RSV, COVID. Previous chest x-ray did not show any acute cardiopulmonary process. Rapid response was called yesterday afternoon for worsening mentation and agitation. Did receive a dose of Haldol 2 mg once. He is refusing his psych meds. Brain CT did not show any acute intracranial bleeding or mass effect. Patient was transferred to the cardiac stepdown unit. An ICU consult was placed for evaluation concerning his worsening mentation and sepsis. Patient is currently being evaluated on the cardiac stepdown unit. He is alert and oriented. He is impulsive and attempts to get out of bed. A bedside sitter is present. He is tachycardic and diaphoretic. He did refuse his medications earlier, including metoprolol. Blood pressure is normotensive. Afebrile. Normal saline infusing at 75 mm/h. Bilateral lower extremities are wrapped. Good range of motion of left knee, without pain, crepitus, erythema, edema. I did speak to him about the importance of medication adherence, and he is agreeable to take his medications now. Current vital signs: Temperature 97.7 F, heart rate 131 bpm, blood pressure 132/80 mmHg, nontachypneic, SpO2 recorded as 96% on 3 L/min nasal cannula. Progress note dated September 20, 2024. 69-year-old male seen in consultation yesterday. Please see the note above. The patient is seen today in room 357. The patient appears to be doing reasonably well. He is on saline at 20 cc an hour, and nasal O2 at 3 L. He is receiving IV Ancef. Current laboratory data includes a white count 9.9, hemoglobin 8.8, hematocrit 32, and platelet count of 391,000. Sodium 139, potassium 4.7, chloride 96, CO2 39, BUN 13, creatinine 0.54. Glucose was 118. Calcium is 7.9. Wound cultures, are positive for Staph aureus, blood cultures are positive for group B strep. Progress note dated September 21, 2024. 69-year-old male seen in consultation a few days ago. The patient was admitted with a diagnosis of cellulitis. Currently he is seen in room 357. He is on IV heparin. He is getting nasal O2 3 L. He is receiving saline at 20 cc an hour. He does have a sitter in the room. Current labs include a PTT of 90.4, sodium 140, potassium 4.2, chloride 95, CO2 39, BUN 10, creatinine 0.64. Glucose is 156. Calcium is 8.3. Wound cultures of the left leg were positive for Staphylococcus aureus. Blood cultures were positive for group B streptococci. Patient continues on cefazolin. Objective - Vital Signs Vital signs: Vital Signs Temp 98.4 F 09/21/24 08:10 Pulse 129 H 09/21/24 08:10 Resp 20 09/21/24 08:10 BP 121/74 09/21/24 08:10 Pulse Ox 98 09/21/24 08:10 FiO2 Intake & Output 09/20/24 09/21/24 09/21/24 18:59 06:59 18:59 Intake Total 539.547 2481.407 253.439 Output Total 1850 900 Balance -3002.080 8038.407 -646.561 Weight 160 kg 160 kg Intake: Intake, IV Titration 165.217 249.407 73.439 Amount Heparin Sod,Pork in 0.45% 165.217 249.407 73.439 NaCl 25,000 unit In 0.45 % NaCl 1 250ml.bag @ 14. 375 UNITS/KG/HR 23 mls/hr IV .[id number] [facility] Rx#: [id number] Oral 360 1080 180 Output: Urine 1850 900 Other: Voiding Method External Catheter External Catheter External Catheter # Voids 1 - Exam No acute distress, oriented 3. Patient is currently on 3 L of oxygen. HEENT examination is grossly unremarkable. Mucous membranes are moist. No oral lesions. Neck supple. Full range of motion. No adenopathy thyromegaly or neck vein distention. Cardiovascular examination reveals regular rhythm rate. S1-S2 normal. No S3 or S4. No discernible murmur noted. Lungs reveal clear breath sounds. Her sounds are equal bilaterally. No adv entitious lung sounds including wheezes rhonchi or crackles. Abdomen soft bowel sounds are heard. No masses or tenderness. Extremities are intact. Bilateral lower extremity edema is noted. Lower extremities are wrapped. Skin is without rash or lesion. Neurologic examination is brief but nonfocal. - Labs CBC & Chem 7: 09/21/24 01:31 09/21/24 06:57 Labs: Abnormal Lab Results - Last 24 Hours (Table) 09/20/24 09/20/24 09/20/24 Range/Units 15:44 16:15 20:39 RBC (4.30-5.90) m/uL Hgb (13.0-17.5) gm/dL Hct (39.0-53.0) % MCV (80.0-100.0) fL MCH (25.0-35.0) pg MCHC (31.0-37.0) g/dL RDW (11.5-15.5) % Lymphocytes # (1.0-4.8) k/uL APTT 105.4 H* (22.0-30.0) sec Chloride (98-107) mmol/L Carbon Dioxide (22-30) mmol/L Creatinine (0.66-1.25) mg/dL Glucose (74-99) mg/dL POC Glucose (mg/dL) 139 H 132 H (70-110) mg/dL Calcium (8.4-10.2) mg/dL 09/21/24 09/21/24 09/21/24 Range/Units 01:31 01:31 06:04 RBC 3.80 L (4.30-5.90) m/uL Hgb 8.6 L (13.0-17.5) gm/dL Hct 30.2 L (39.0-53.0) % MCV 79.6 L (80.0-100.0) fL MCH 22.7 L (25.0-35.0) pg MCHC 28.5 L (31.0-37.0) g/dL RDW 20.1 H (11.5-15.5) % Lymphocytes # 0.5 L (1.0-4.8) k/uL APTT 188.8 H* (22.0-30.0) sec Chloride (98-107) mmol/L Carbon Dioxide (22-30) mmol/L Creatinine (0.66-1.25) mg/dL Glucose (74-99) mg/dL POC Glucose (mg/dL) 126 H (70-110) mg/dL Calcium (8.4-10.2) mg/dL 09/21/24 09/21/24 09/21/24 Range/Units 06:57 09:58 11:15 RBC (4.30-5.90) m/uL Hgb (13.0-17.5) gm/dL Hct (39.0-53.0) % MCV (80.0-100.0) fL MCH (25.0-35.0) pg MCHC (31.0-37.0) g/dL RDW (11.5-15.5) % Lymphocytes # (1.0-4.8) k/uL APTT 90.4 H (22.0-30.0) sec Chloride 95 L (98-107) mmol/L Carbon Dioxide 39 H (22-30) mmol/L Creatinine 0.64 L (0.66-1.25) mg/dL Glucose 116 H (74-99) mg/dL POC Glucose (mg/dL) 156 H (70-110) mg/dL Calcium 8.3 L (8.4-10.2) mg/dL Microbiology - Last 24 Hours (Table) 09/17/24 11:40 Gram Stain - Final Knee - Left Body Fluid Culture - Final Assessment and Plan Assessment: Left leg cellulitis, wound culture positive for MSSA. Group B strep bacteremia. The patient meets SIRS/sepsis criteria Rule out septic left knee arthritis. Acute leukocytosis, improving. Atrial fibrillation, with rapid ventricular response. Anemia, monitor for acute blood loss. Acute hypoxemic respiratory failure on 3 L/min nasal cannula. Hypertension. History of hyperlipidemia. Diabetes mellitus type 2. Morbid obesity with a BMI of 44.9 kg/m. History of obstructive sleep apnea. History of GI bleed. History of gastritis. History of seizure. Bipolar/depression. Plan: Plan dated September 20, 2024. The patient is seen today in room 357. He is currently on 3 L of oxygen. The patient continues on Ancef, as per infectious diseases. The patient is getting saline at 20 cc an hour. The patient is much more cooperative. No respiratory distress. We will continue to follow make recommendations along the way. All labs, x-rays, and medications are reviewed. The patient is overall prognosis remains guarded. Dictation was produced using [employer] software. Please excuse any grammatical, word or spelling errors. Plan dated September 21, 2024. The patient is seen today in room 357. He continues on O2 at 3 L. The patient continues on Ancef. He is getting IV heparin. He is also getting saline at 20 cc an hour. The patient is much more cooperative. He is taking his medications. We will continue to follow make recommendations along the way. Prognosis is guarded. Dictation was produced using [employer] software. Please excuse any grammatical, word or spelling errors. Time with Patient: Less than 30
--- NOTE | 2024-09-21 14:45 | P.PN ---
Subjective Progress Note Date: 09/21/24 Principal diagnosis: Reason for follow-up is left knee cellulitis and bacteremia 1Patient is a 69-year-old male with a past medical history significant for diabetes mellitus hypertension hyperlipidemia osteoarthritis atrial fibrillation he did have a left knee replacement about a year and a half ago by Dr. Reynolds. now presenting to the hospital concerning for his left knee gave out on him and has been complaining of more pain and swelling to left knee area patient has been in the hospital with cellulitis blood cultures are coming back positive with Streptococcus agalactiae On today's evaluation that is 09/21/2024, patient did not have any fever and denies any chills, patient is breathing comfortably on 3 L nasal cannula oxygen, patient with no chest pain or cough patient did not have any abdominal pain nausea vomiting or any loose stools pain to the left knee is currently controlled. Patient white count is 8.7, creatinine 0.64 Objective - Vital Signs Vital signs: Vital Signs Temp 98.3 F 09/21/24 12:20 Pulse 99 09/21/24 12:20 Resp 20 09/21/24 12:20 BP 150/94 09/21/24 12:20 Pulse Ox 98 09/21/24 12:20 FiO2 Intake & Output 09/20/24 09/21/24 09/21/24 18:59 06:59 18:59 Intake Total 048.671 2488.407 253.439 Output Total 1850 900 Balance -7015.269 2655.407 -646.561 Weight 160 kg 160 kg Intake: Intake, IV Titration 165.217 249.407 73.439 Amount Heparin Sod,Pork in 0.45% 165.217 249.407 73.439 NaCl 25,000 unit In 0.45 % NaCl 1 250ml.bag @ 14. 375 UNITS/KG/HR 23 mls/hr IV .[id number] [facility] Rx#: [id number] Oral 360 1080 180 Output: Urine 1850 900 Other: Voiding Method External Catheter External Catheter External Catheter # Voids 1 - Exam GENERAL DESCRIPTION: An elderly male up in bed in no distress RESPIRATORY SYSTEM: Unlabored breathing , decreased breath sounds at bases HEART: S1 S2 regular rate and rhythm , ABDOMEN: Soft , no tenderness EXTREMITIES: Left knee swelling versus redness slightly decreased no drainage from the wound to the left leg - Labs CBC & Chem 7: 09/21/24 01:31 09/21/24 06:57 Labs: Abnormal Lab Results - Last 24 Hours (Table) 09/20/24 09/20/24 09/20/24 Range/Units 15:44 16:15 20:39 RBC (4.30-5.90) m/uL Hgb (13.0-17.5) gm/dL Hct (39.0-53.0) % MCV (80.0-100.0) fL MCH (25.0-35.0) pg MCHC (31.0-37.0) g/dL RDW (11.5-15.5) % Lymphocytes # (1.0-4.8) k/uL APTT 105.4 H* (22.0-30.0) sec Chloride (98-107) mmol/L Carbon Dioxide (22-30) mmol/L Creatinine (0.66-1.25) mg/dL Glucose (74-99) mg/dL POC Glucose (mg/dL) 139 H 132 H (70-110) mg/dL Calcium (8.4-10.2) mg/dL 09/21/24 09/21/24 09/21/24 Range/Units 01:31 01:31 06:04 RBC 3.80 L (4.30-5.90) m/uL Hgb 8.6 L (13.0-17.5) gm/dL Hct 30.2 L (39.0-53.0) % MCV 79.6 L (80.0-100.0) fL MCH 22.7 L (25.0-35.0) pg MCHC 28.5 L (31.0-37.0) g/dL RDW 20.1 H (11.5-15.5) % Lymphocytes # 0.5 L (1.0-4.8) k/uL APTT 188.8 H* (22.0-30.0) sec Chloride (98-107) mmol/L Carbon Dioxide (22-30) mmol/L Creatinine (0.66-1.25) mg/dL Glucose (74-99) mg/dL POC Glucose (mg/dL) 126 H (70-110) mg/dL Calcium (8.4-10.2) mg/dL 09/21/24 09/21/24 09/21/24 Range/Units 06:57 09:58 11:15 RBC (4.30-5.90) m/uL Hgb (13.0-17.5) gm/dL Hct (39.0-53.0) % MCV (80.0-100.0) fL MCH (25.0-35.0) pg MCHC (31.0-37.0) g/dL RDW (11.5-15.5) % Lymphocytes # (1.0-4.8) k/uL APTT 90.4 H (22.0-30.0) sec Chloride 95 L (98-107) mmol/L Carbon Dioxide 39 H (22-30) mmol/L Creatinine 0.64 L (0.66-1.25) mg/dL Glucose 116 H (74-99) mg/dL POC Glucose (mg/dL) 156 H (70-110) mg/dL Calcium 8.3 L (8.4-10.2) mg/dL Microbiology - Last 24 Hours (Table) 09/17/24 11:40 Anaerobic Culture - Preliminary Knee - Left 09/17/24 11:40 Gram Stain - Final Knee - Left Body Fluid Culture - Final Assessment and Plan (1) Sepsis Current Visit: Yes Status: Acute Code(s): A41.9 - SEPSIS, UNSPECIFIED ORGANISM SNOMED Code(s): 74224440 (2) Cellulitis Current Visit: Yes Status: Acute Code(s): L03.90 - CELLULITIS, UNSPECIFIED SNOMED Code(s): 797033502 (3) Bacteremia Current Visit: Yes Status: Acute Code(s): R78.81 - BACTEREMIA SNOMED Code(s): 1542928 (4) Septic arthritis Current Visit: Yes Status: Acute Code(s): M00.9 - PYOGENIC ARTHRITIS, UNSPECIFIED SNOMED Code(s): 490216938 Plan: 1patient presented hospital with sepsis in this patient who did have tachycardia elevated white count elevated lactic acid meeting criteria for SIRS source is likely left knee cellulitis and concern for possible left knee septic arthritis likely from gram-positive skin justin 2patient has been evaluated by orthopedic and did have aspiration of purulent material concerning for septic arthritis cultures obtained, orthopedic is rachna mmended transfer to tertiary care 3patient did have elevated inflammatory markers and blood culture positive for Streptococcus agalactiae, repeat blood culture have been negative 4local wound care to the wound to the left leg with dry Aquacel dressing change q. 48-hour 5patient is afebrile white count has normalized we will continue patient on cefazolin and monitor clinical course closely Dictation was produced using [employer] dictation software. please excuse any grammatical, word or spelling errors. Time with Patient: Less than 30
--- NOTE | 2024-09-21 15:04 | CT ---
EXAMINATION TYPE: CT brain wo con DATE OF EXAM: 09/21/2024 2:46 PM COMPARISON: CT head study dated 09/18/2024. CLINICAL INDICATION: Male, 69 years old with history of [possIble AMS], [possIble AMS] TECHNIQUE: Brain: Axial CT images of the brain were obtained with coronal and sagittal reformats created and rev iewed. Contrast used: None. Oral contrast used: None. CT DLP: 1226.4 mGycm, Automated exposure control for dose reduction was used. FINDINGS: Brain: Extra-axial spaces: No abnormal extra-axial fluid collections. Ventricular system: Dilatation in proportion to cerebral atrophy. Cerebral parenchyma: No acute intraparenchymal hemorrhage or mass effect. The hudson-white junction is well differentiated. Scattered hypoattenuating areas are seen within the white matter. Cerebellum: Unremarkable. Mass effect: No evidence of midline shift. Intracranial vasculature: unremarkable Soft tissues: Normal. Calvarium/osseous structures: No depressed skull fracture. Paranasal sinuses and mastoid air cells: Mild scattered paranasal sinus disease. Visualized orbits: Orbital contents are intact. IMPRESSION: No acute intracranial process. [facility], , 09/21/2024 3:01 PM
[2024-09-21 16:21] LABS: Glucose,Whole Blood 122 mg/dL (70-110)
[2024-09-21 20:12] LABS: Glucose,Whole Blood 136 mg/dL (70-110)
[2024-09-22 04:17] LABS: Glucose,Whole Blood 113 mg/dL (70-110)
[2024-09-22 05:06] LABS: ABG Base Excess 15.7 mmol/L; ABG Oxygen Saturation 99.4 % (94-97); ABG PCO2 64 mmHg (35-45); ABG PH 7.43 (7.35-7.45); ABG PO2 121 mmHg (83-108); ABG TCO2 44 mmol/L (19-24); Allen Test Performed? Yes
[2024-09-22 05:32] LABS: ABG HCO3 42 mmol/L (21-25)
[2024-09-22 06:24] LABS: Glucose,Whole Blood 94 mg/dL (70-110)
--- NOTE | 2024-09-22 06:27 | CA ---
Transthoracic Echo Report Name: Nando Dunn Age: 69 Gender: M : 1955 Exam Date: 09/21/2024 13:47 Exam Location: [facility] Ht (in): 74 Wt (lb): 352 Ordering Physician: Reggie Pelaez MD ([email or web address]) Attending/Referring Phys: Manager Financial Services Funmilayo Marroquin RDCS Procedure CPT: Indications: chf exacerbation, Afib Cardiac Hx: Technical Quality: Technically difficult study Contrast 1: Definity Total Dose (mL): 2 Contrast 2: Total Dose (mL): MEASUREMENTS (Male / Female) Normal Values 2D ECHO LV Diastolic Diameter PLAX 5.4 cm 4.2 - 5.9 / 3.9 - 5.3 cm LV Systolic Diameter PLAX 3.9 cm IVS Diastolic Thickness 1.4 cm 0.6 - 1.0 / 0.6 - 0.9 cm LVPW Diastolic Thickness 1.3 cm 0.6 - 1.0 / 0.6 - 0.9 cm LV Relative Wall Thickness 0.5 RV Internal Dim ED PLAX 3.4 cm LVOT Diameter 1.9 cm LA Volume 100.2 cm??? 18 - 58 / 22 - 52 cm??? LA Volume Index 33.9 cm???/m??? 16 - 28 cm???/m??? M-MODE Aortic Root Diameter MM 3.3 cm LA Systolic Diameter MM 5.0 cm LA Ao Ratio MM 1.5 AV Cusp Separation MM 1.9 cm DOPPLER LVOT Peak Velocity 62.7 cm/s LVOT Peak Gradient 1.6 mmHg LVOT Velocity Time Integral 10.5 cm LVOT Stroke Volume 28.7 cm??? LVOT Stroke Volume Index 10.4 ml/m??? LVOT Cardiac Index 1065.1 cm???/min???m??? MV Area PHT 2.7 cm??? Mitral E Point Velocity 99.5 cm/s Mitral A Point Velocity 0.1 cm/s Mitral E to A Ratio 783.6 MV Deceleration Time 277.5 ms TR Peak Velocity 264.4 cm/s TR Peak Gradient 28.0 mmHg Right Ventricular Systolic Press 33.0 mmHg FINDINGS Left Ventricle Mildly increased left ventricular wall thickness. Left ventricular cavity size normal. No obvious regional wall motion abnormalities. Left ventricular ejection fraction is estimated at 50-55 %. Right Ventricle Moderate right ventricular dilatation. Right Atrium Mild right atrial dilatation. Left Atrium Mildly increased left atrial volume. Mildly increased left atrial area. Mitral Valve Structurally normal mitral valve. Mild mitral regurgitation. Aortic Valve Trileaflet aortic valve. No aortic regurgitation. No aortic stenosis. Aortic valve sclerosis. Tricuspid Valve Structurally normal tricuspid valve. Mild tricuspid regurgitation. Pulmonic Valve Structurally normal pulmonic valve. Pericardium No pericardial effusion. Aorta Normal size aortic root and proximal ascending aorta. CONCLUSIONS Technically difficult study. Left ventricular ejection fraction is estimated at 50-55 %. Mildly increased left ventricular wall thickness. Moderate right ventricular dilatation. Mild biatrial dilatation. Mild mitral regurgitation. Mild tricuspid regurgitation. Previewed by: Dr Reggie Pelaez (Electronically Signed) Final Date: 22 September 2024 06:26
[2024-09-22] MEDS: FUROSEMIDE 10 MG/ML 4 ML VIAL IV STA (07:02)
[2024-09-22] MEDS: DEXTROSE 5% IN WATER 100 ML with AMIODARONE 150 MG IV ONE (07:03)
[2024-09-22] MEDS: AMIODARONE 360 MG in DEXTROSE 5% IN WATER 200 ML IV ONE (07:39)
[2024-09-22] MEDS: SPIRONOLACTONE 25 MG TAB PO SCH (08:52)
[2024-09-22] MEDS: MAGNESIUM SULFATE-D5W PMX 1 GM in DEXTROSE/WATER 1 100ML.BAG IVPB SCH (08:53)
[2024-09-22 11:44] LABS: Glucose,Whole Blood 108 mg/dL (70-110)
--- NOTE | 2024-09-22 12:36 | P.PN ---
Subjective 69-year-old male came in because he is unable to take care of himself and infection and legs patient has a wound in the left mid dunlap area which appeared to be infected and also cellulitis of the right lower extremity denied any history of MRSA in the past patient does have history of atrial fibrillation patient was hypotensive patient has swelling in bilateral lower extremities but chest x-ray is within normal limits does not appear to be in CHF patient has elevated BNP of 3200 does have history of atrial fibrillation on anticoagulation with Eliquis. Patient lives by himself lately he is unable to take care of himself patient was started on vancomycin here. Patient is obese with history of sleep apnea. Using his CPAP machine presently on oxygen does not usually use any oxygen. 09/16/2024 Patient is seen in follow-up today with no acute overnight issues noted. Infectious disease following and patient is maintained on antibiotics in the form of cefazolin 3 g every 8 hours.. Blood cultures positive for Streptococcus and there is concerns of significant knee swelling and possible septic arthritis. Will consult orthopedics and appreciate input and recommendations. If undergoing needle aspiration, strongly recommend sending for cultures. Patient is afebrile although white count remains elevated at 29, slightly improved from yesterday. Will follow-up on repeat labs. Patient with significant weakness recommend PT/OT therapy evaluation. Patient will likely need ECF on discharge. 09/17/2024 Patient is seen in follow-up today being continued on IV antibiotics with infectious disease following. Awaiting orthopedics evaluation with concerns of left knee swelling and possible source of infection. Orthopedics did evaluate and is status post aspiration of the left knee and was noted to be significantly purulent and was sent to the lab. Currently there is no orthopedic that would be able to provide surgical intervention and recommending tertiary transfer. Patient is agreeable if necessary and transfer was initiated to [facility]. Patient was accepted currently awaiting a bed. Patient is afebrile and white count remains elevated although trending down. Will follow-up on repeat labs. Eliquis on hold and will continue heparin subcu. 09/18/2024 Patient is seen in follow-up this morning continues on IV antibiotics with infectious disease following. On exam patient is diaphoretic and confused is following commands and answering some questions appropriately although mentation is definitely of concern. Ct brain ordered and negative for acute process. Patient with sepsis and concerns for lower extremity cellulitis as well as left knee septic arthritis. Limited coverage for orthopedics at this time, although did undergo left knee aspiration and was noted to have crystals concerning for gout. Patient is pending a transfer to [facility] for tertiary treatment given our limited coverage. No bed available. Patient is also wearing oxygen and continues to remove nasal cannula with concerns of hypoxia. Pulmonary consulted for possible ICU eval although stable and will be moved to [address] [place] [address] for closer monitoring. Patient is trying to get out of bed and is at increased risk of falls. Recommend abg although patient is refusing. 09/19/2024 Patient has been moved to the 3 . unit for closer monitoring on examination today he is more awake alert and oriented and he is answering questions appropriately. He appears less congested after receiving a dose of IV Lasix. He continues on IV cefazolin with concern for septic arthritis of the left knee and left lower extremity cellulitis. Patient had a brain CT with no acute findings. He was evaluated in consultation today by pulmonary and cardiology services. Cardiology recommending to resume Eliquis today and monitor hemoglobin. Monitor QT interval. EKG was repeated with QT QTc of 312 and 375. Patient remains in atrial fibrillation with rapid ventricular rate at times. Repeat blood culture is negative so far. His labs today reveal a white blood cell count of 9.5, hemoglobin 8.4, sodium of 140 potassium 4.4, BUN of 17 creatinine of 0.65, blood glucose is well-controlled. His calcium level was 8.0 magnesium 2.1 iron of 13 TIBC of 392% saturation of 3.32 and transferrin level 280 ferritin level was 54.3. These findings are consistent with a mild iron deficiency anemia. proBNP was found to be elevated at 3176. His lipid panel reveals triglyceride level of 95 cholesterol level of 89, LDL of 49.4 and HDL of 20.60. Patient was noted to have monosodium urate Crystals on aspiration of the left knee. Although concern remains for septic arthritis. Orthopedics was recommending starting patient medication for gout such as allopurinol or colchicine although at this time would recommend to hold off and patient is not a candidate for steroids at this time secondary to severe sepsis. 09/20/2024 Patient is seen in follow-up today with multiple consultations following including infectious disease, and now cardiology. Patient with chronic history of A-fib with Eliquis being held due to possible surgical intervention and awaiting a transfer to [facility]. Patient had been accepted by Dr. Arrington internal medicine with Ortho on consult. Patient is status post knee aspiration on the left and cultures thus far negative. Patient with A-fib RVR transferred to [facility] for closer monitoring is maintained on IV heparin and will continue for now. Metoprolol being adjusted and increased per cardiology. 2D echo is ordered and pending. Mentation is improved today and at baseline. 09/21 pt is sleepy , on nasal cannula at 3 ml per min He is tachycardic 129, since admission, mildly tachypneic. Breathing looks like with sleep apnea pt is obese , has bilateral pitting leg edema Left knee is warm and swollen Sitter at bedside Is on heparin drip and cefazolin 09/22 Patient is still very lethargic on BiPAP He had CT of the brain done yesterday which showed no acute process, I reviewed the CT by myself and agree with it Also he has paroxysmal A-fib , with heart rate went up to 124, currently 114 and currently on metoprolol 100 mg and amiodarone drip was added. Eliquis is on hold and currently on heparin drip Echocardiogram reviewed by me showing ejection fraction 50 to 55% with moderate right ventricular dilatation, there is multiple mild valvular heart disease Patient continued on cefazolin for his wound infection and possible left knee periprosthetic infection versus crystal induced arthropathy. His left knee is still swollen but not as warm as yesterday. Also was treated for bacteremia His leg swelling looks better, he received 1 dose of IV Lasix. Sugar looks controlled Active Medications Generic Name Dose Route Start Last Admin Trade Name Nikoq PRN Reason Stop Dose Admin Acetaminophen 650 mg 09/15/24 04:26 09/16/24 17:57 Acetaminophen Tab 325 Mg Tab PO 650 mg Q6HR PRN Administration Mild Pain or Fever > 100.5 Al Hydroxide/Mg Hydroxide 15 ml 09/15/24 00:26 Mag Hydrox/Al Hydrox/Simeth 30 Ml Cup PO Q6HR PRN Indigestion Calcium Carbonate/Glycine 1,000 mg 09/15/24 00:26 Calcium Carbonate 500 Mg Chewable PO Q4HR PRN Dyspepsia Dextrose/Water 25 ml 09/15/24 11:21 Dextrose 50% Syringe 50 Ml IVP PER PROTOCOL PRN Hypoglycemia Protocol Dextrose/Water 50 ml 09/15/24 11:21 Dextrose 50% Syringe 50 Ml IVP PER PROTOCOL PRN Hypoglycemia Protocol Famotidine 20 mg 09/15/24 09:00 09/22/24 08:52 Famotidine 20 Mg Tab PO 20 mg BID ARIES Administration Heparin Sodium (Porcine) 0 unit 09/20/24 09:17 Heparin Sodium 1,000 Un/Ml (10ml Vl) IV PER PROTOCOL PRN Low PTT Protocol Cefazolin Sodium 3 gm/ Sodium 100 mls @ 200 mls/hr 09/16/24 18:00 09/22/24 09:00 Chloride IVPB 200 mls/hr Q8H ARIES Administration Ferric Sodium Gluconate 125 mg 110 mls @ 100 mls/hr 09/20/24 10:00 09/22/24 11:07 / Sodium Chloride IVPB 09/23/24 09:59 100 mls/hr DAILY ARIES Administration Heparin Sodium/Sodium Chloride 250 mls @ 23 mls/hr 09/20/24 09:30 09/22/24 03:13 25,000 unit/ Sodium Chloride IV 6.38 units/kg/hr .[id number] ARIES 10.208 mls/hr Titration Protocol 14.375 UNITS/KG/HR Amiodarone HCl 450 mg/ 250 mls @ 16.667 mls/hr 09/22/24 13:30 Dextrose/Water IV 09/23/24 07:29 .Q15H ARIES Protocol 0.5 MG/MIN Amiodarone HCl 360 mg/ 200 mls @ 33.333 mls/hr 09/22/24 07:15 09/22/24 07:39 Dextrose/Water IV 09/22/24 13:14 1 mg/min .Q6H ONE 33.333 mls/hr Administration Protocol 1 MG/MIN Insulin Human Lispro 0 unit 09/15/24 12:30 09/22/24 06:26 Insulin Lispro (Humalog) 100 Unit/Ml 10 Ml Vl SQ Not Given ACHS ARIES Protocol [place] Carbonate 1,200 mg 09/15/24 21:00 09/21/24 20:15 [place] Carbonate 300 Mg Cap PO 1,200 mg HS ARIES Administration Melatonin 5 mg 09/15/24 00:45 09/21/24 20:16 Melatonin 5 Mg Tablet PO 5 mg HS ARIES Administration Metoprolol Tartrate 100 mg 09/20/24 21:00 09/22/24 08:52 Metoprolol Tartrate 50 Mg Tab PO 100 mg BID ARIES Administration Naloxone HCl 0.2 mg 09/15/24 00:26 Naloxone 0.4 Mg/Ml 1 Ml Vial IV Q2M PRN Opioid Reversal Olanzapine 7.5 mg 09/15/24 21:00 09/21/24 20:15 Olanzapine 7.5 Mg Tab PO 7.5 mg HS ARIES Administration Ondansetron HCl 4 mg 09/18/24 20:49 Ondansetron 4 Mg/2 Ml Vial IVP Q6H PRN Nausea And Vomiting Pantoprazole Sodium 40 mg 09/18/24 21:00 09/22/24 08:52 Pantoprazole 40 Mg/10 Ml Vial IVP 40 mg BID ARIES Administration Quetiapine Fumarate 25 mg 09/18/24 21:00 09/21/24 20:16 Quetiapine 25 Mg Tab PO 25 mg HS ARIES Administration Spironolactone 12.5 mg 09/22/24 09:00 09/22/24 08:52 Spironolactone 25 Mg Tab PO 12.5 mg DAILY ARIES Administration With RVR and heart rate went up to 124, currently 114 Objective - Vital Signs Vital signs: Vital Signs Temp 97.1 F L 09/22/24 07:33 Pulse 114 H 09/22/24 08:50 Resp 14 09/22/24 08:50 BP 144/88 09/22/24 07:33 Pulse Ox 96 09/22/24 07:33 FiO2 40 09/22/24 11:59 Intake & Output 09/21/24 09/22/24 09/22/24 17:59 06:59 18:59 Intake Total Output Total Balance Weight Intake: Intake, IV Titration Amount Heparin Sod,Pork in 0.45% NaCl 25,000 unit In 0.45 % NaCl 1 250ml.bag @ 14. 375 UNITS/KG/HR 23 mls/hr IV .[id number] ARIES Rx#: [id number] Oral Output: Urine Other: Voiding Method External Catheter - Exam -GENERAL: The patient is sleepy, not in any acute distress. Well developed, well nourished. Obese HEENT: Pupils are round and equally reacting to light. EOMI. No scleral icterus. No conjunctival pallor. Normocephalic, atraumatic. No pharyngeal erythema. No thyromegaly. CARDIOVASCULAR: S1 and S2 present. No murmurs, rubs, or gallops. PULMONARY: Chest is clear to auscultation, no wheezing , no crackles. ABDOMEN: Soft, nontender, nondistended, normoactive bowel sounds. No palpable organomegaly. MUSCULOSKELETAL: No joint swelling or deformity. -EXTREMITIES: No cyanosis, clubbing,. Bilateral pitting leg edema, 2+. Left knee is swollen and warm NEUROLOGICAL: Gross neurological examination did not reveal any focal deficits. SKIN: No rashes. no petechiae. - Labs CBC & Chem 7: 09/21/24 01:31 09/21/24 06:57 Labs: Abnormal Lab Results - Last 24 Hours (Table) 09/21/24 09/21/24 09/21/24 Range/Units 16:19 17:19 20:10 APTT 106.3 H* (22.0-30.0) sec ABG pCO2 (35-45) mmHg ABG pO2 (83-108) mmHg ABG HCO3 (21-25) mmol/L ABG Total CO2 (19-24) mmol/L ABG O2 Saturation (94-97) % Hemoglobin (13.0-17.5) gm/dL POC Glucose (mg/dL) 122 H 136 H (70-110) mg/dL 09/22/24 09/22/24 09/22/24 Range/Units 01:43 04:15 05:02 APTT 40.9 H (22.0-30.0) sec ABG pCO2 64 H (35-45) mmHg ABG pO2 121 H (83-108) mmHg ABG HCO3 42 H* (21-25) mmol/L ABG Total CO2 44 H (19-24) mmol/L ABG O2 Saturation 99.4 H (94-97) % Hemoglobin 8.6 L (13.0-17.5) gm/dL POC Glucose (mg/dL) 113 H (70-110) mg/dL Microbiology - Last 24 Hours (Table) 09/16/24 08:08 Blood Culture - Final Blood 09/17/24 11:40 Anaerobic Culture - Preliminary Knee - Left 09/17/24 11:40 Gram Stain - Final Knee - Left Body Fluid Culture - Final Assessment and Plan Assessment: -Acute non-ST elevation UT: Patient was started on IV heparin cardiology was evaluating the patient in the past the recommended medical management with because of chronic coronary occlusive disease patient had CABG and multiple stents in the past -Acute hypoxic respiratory failure, secondary to acute on chronic heart failure with preserved EF -Acute on chronic congestive heart failure with preserved EF -A-fib and RVR -Metabolic/toxic encephalopathy - mild to moderate dilatation of the right ventricular -History of severe peripheral artery disease with recent bilateral lower extremity intervention -Coronary disease with previous CABG as mentioned above in subsequent stenting -Acute renal failure on chronic kidney disease stage II acute renal failure secondary to excessive diuresis IV Lasix will be discontinued -Hypertension -Hyperlipidemia -COPD without any acute exacerbation -History of carotid stenosis in the past -Morbid obesity with a BMI of 41.6, will need a sleep study as an outpatient Type 2 diabetes mellitus: Resumed on his long-acting insulin at half a dose Plan: Continue with heparin drip, with plan to switch to Xarelto/Eliquis after 48 hours per camera tuning engineer, currently on hold Continue with metoprolol and amiodarone drip CT of the brain is reviewed, echocardiogram is reviewed. Patient has preserved ejection fraction with mild to moderate dilatation of the right ventricular Continue with cefazolin Cardiology pulmonary and ID team following closely Wound culture reviewed DVT prophylaxis: Patient is on IV heparin and will transition to Xarelto GI prophylaxis Full code
--- NOTE | 2024-09-22 13:04 | P.PN ---
Subjective Progress Note Date: 09/22/24 Principal diagnosis: Cellulitis. Patient is a 69-year-old male with past medical history significant for atrial fibrillation, hypertension, hyperlipidemia, diabetes mellitus, obesity, obstructive sleep apnea, GI bleed, seizures, bipolar/depression, and left knee total arthroplasty. Hospitalized back on 09/14/2024 with left leg weakness and cellulitis. Left knee x-ray does not show any knee hardware complication. There is moderate joint effusion and diffuse soft tissue swelling/edema. Did undergo left knee aspiration. Left knee joint aspirate not showing growth at 24 hours. Cultures positive for MSSA from chronic left leg wound and strep group B bacteremia. Patient currently covered on cefazolin. Infectious disease is on board. Most recent labs from yesterday includes a CBC with an improvement in his WBC count down to 14, hemoglobin 8.6 g/dL, platelets 381. CMP: Sodium 140, potassium 5.1, chloride 103, serum bicarb 31, BUN 14.3, creatinine 0.7, glucose 117. NT proBNP 3176. Viral screen done on admission negative for influenza, RSV, COVID. Previous chest x-ray did not show any acute cardiopulmonary process. Rapid response was called yesterday afternoon for worsening mentation and agitation. Did receive a dose of Haldol 2 mg once. He is refusing his psych meds. Brain CT did not show any acute intracranial bleeding or mass effect. Patient was transferred to the cardiac stepdown unit. An ICU consult was placed for evaluation concerning his worsening mentation and sepsis. Patient is currently being evaluated on the cardiac stepdown unit. He is alert and oriented. He is impulsive and attempts to get out of bed. A bedside sitter is present. He is tachycardic and diaphoretic. He did refuse his medications earlier, including metoprolol. Blood pressure is normotensive. Afebrile. Normal saline infusing at 75 mm/h. Bilateral lower extremities are wrapped. Good range of motion of left knee, without pain, crepitus, erythema, edema. I did speak to him about the importance of medication adherence, and he is agreeable to take his medications now. Current vital signs: Temperature 97.7 F, heart rate 131 bpm, blood pressure 132/80 mmHg, nontachypneic, SpO2 recorded as 96% on 3 L/min nasal cannula. Progress note dated September 20, 2024. 69-year-old male seen in consultation yesterday. Please see the note above. The patient is seen today in room 357. The patient appears to be doing reasonably well. He is on saline at 20 cc an hour, and nasal O2 at 3 L. He is receiving IV Ancef. Current laboratory data includes a white count 9.9, hemoglobin 8.8, hematocrit 32, and platelet count of 391,000. Sodium 139, potassium 4.7, chloride 96, CO2 39, BUN 13, creatinine 0.54. Glucose was 118. Calcium is 7.9. Wound cultures, are positive for Staph aureus, blood cultures are positive for group B strep. Progress note dated September 21, 2024. 69-year-old male seen in consultation a few days ago. The patient was admitted with a diagnosis of cellulitis. Currently he is seen in room 357. He is on IV heparin. He is getting nasal O2 3 L. He is receiving saline at 20 cc an hour. He does have a sitter in the room. Current labs include a PTT of 90.4, sodium 140, potassium 4.2, chloride 95, CO2 39, BUN 10, creatinine 0.64. Glucose is 156. Calcium is 8.3. Wound cultures of the left leg were positive for Staphylococcus aureus. Blood cultures were positive for group B streptococci. Patient continues on cefazolin. Progress note dated September 22, 2024. 69-year-old male seen today in room 357. The patient was initially admitted with a diagnosis of cellulitis. Currently, the patient is on amiodarone at 1 mg/min, heparin via weight-based protocol and saline at 20 cc an hour. In addition, he is on BiPAP, with settings of 14/6, and 40%. The patient continues in atrial fibrillation. Blood cultures were positive for group B streptococci. Wound cultures were positive for Staphylococcus aureus. Current labs include a blood gas showing a pO2 of 121, pCO2 of 64, and a pH of 7.43. Glucose is 108. PTT is 40.9. Ammonia level is 26. Brain CT shows no acute intracranial process. Objective - Vital Signs Vital signs: Vital Signs Temp 97.1 F L 09/22/24 07:33 Pulse 114 H 09/22/24 08:50 Resp 14 09/22/24 08:50 BP 144/88 09/22/24 07:33 Pulse Ox 96 09/22/24 07:33 FiO2 40 09/22/24 11:59 Intake & Output 09/21/24 09/22/24 09/22/24 17:59 06:59 18:59 Intake Total Output Total Balance Weight Intake: Intake, IV Titration Amount Heparin Sod,Pork in 0.45% NaCl 25,000 unit In 0.45 % NaCl 1 250ml.bag @ 14. 375 UNITS/KG/HR 23 mls/hr IV .[id number] [facility] Rx#: [id number] Oral Output: Urine Other: Voiding Method External Catheter - Exam No acute distress, oriented 3. Patient is currently on BiPAP ventilation. HEENT examination is grossly unremarkable. Mucous membranes are moist. No oral lesions. Neck supple. Full range of motion. No adenopathy thyromegaly or neck vein distention. Cardiovascular examination reveals an irregular rhythm and rate. S1-S2 normal. No S3 or S4. No discernible murmur noted. Lungs reveal clear breath sounds. Her sounds are equal bilaterally. No adventitious lung sounds including wheezes rhonchi or crackles. Abdomen soft bowel sounds are heard. No masses or tenderness. Extremities are intact. Bilateral lower extremity edema is noted. Lower extremities are wrapped. Skin is without rash or lesion. Neurologic examination is brief but nonfocal. - Labs CBC & Chem 7: 09/21/24 01:31 09/21/24 06:57 Labs: Abnormal Lab Results - Last 24 Hours (Table) 09/21/24 09/21/24 09/21/24 Range/Units 16:19 17:19 20:10 APTT 106.3 H* (22.0-30.0) sec ABG pCO2 (35-45) mmHg ABG pO2 (83-108) mmHg ABG HCO3 (21-25) mmol/L ABG Total CO2 (19-24) mmol/L ABG O2 Saturation (94-97) % Hemoglobin (13.0-17.5) gm/dL POC Glucose (mg/dL) 122 H 136 H (70-110) mg/dL 09/22/24 09/22/24 09/22/24 Range/Units 01:43 04:15 05:02 APTT 40.9 H (22.0-30.0) sec ABG pCO2 64 H (35-45) mmHg ABG pO2 121 H (83-108) mmHg ABG HCO3 42 H* (21-25) mmol/L ABG Total CO2 44 H (19-24) mmol/L ABG O2 Saturation 99.4 H (94-97) % Hemoglobin 8.6 L (13.0-17.5) gm/dL POC Glucose (mg/dL) 113 H (70-110) mg/dL Microbiology - Last 24 Hours (Table) 09/16/24 08:08 Blood Culture - Final Blood 09/17/24 11:40 Anaerobic Culture - Preliminary Knee - Left 09/17/24 11:40 Gram Stain - Final Knee - Left Body Fluid Culture - Final Assessment and Plan Assessment: Left leg cellulitis, wound culture positive for MSSA. Group B strep bacteremia. Acute on chronic hypoxemic and hypercapnic respiratory failure. Rule out septic left knee arthritis. Acute leukocytosis, improving. Atrial fibrillation, with rapid ventricular response. Anemia, monitor for acute blood loss. Hypertension. History of hyperlipidemia. Diabetes mellitus type 2. Morbid obesity with a BMI of 44.9 kg/m. History of obstructive sleep apnea. History of GI bleed. History of gastritis. History of seizure. Bipolar/depression. Plan: Plan dated September 20, 2024. The patient is seen today in room 357. He is currently on 3 L of oxygen. The patient continues on Ancef, as per infectious diseases. The patient is getting saline at 20 cc an hour. The patient is much more cooperative. No respiratory distress. We will continue to follow make recommendations along the way. All labs, x-rays, and medications are reviewed. The patient is overall prognosis remains guarded. Dictation was produced using [employer] software. Please excuse any grammatical, word or spelling errors. Plan dated September 21, 2024. The patient is seen today in room 357. He continues on O2 at 3 L. The patient continues on Ancef. He is getting IV heparin. He is also getting saline at 20 cc an hour. The patient is much more cooperative. He is taking his medications. We will continue to follow make recommendations along the way. Prognosis is guarded. Dictation was produced using [employer] software. Please excuse any grammatical, word or spelling errors. Plan dated September 22, 2024. The patient is seen today in room 357. The patient is currently on amiodarone at 1 mg/min, heparin via weight-based protocol, and saline at 20 cc an hour. The patient is also on BiPAP, with settings of 14/6, and 40%. Labs, x-rays, and all medications are reviewed. The patient's overall prognosis remains very guarded. We will continue to follow make recommendations. Currently, the patient remains in atrial fibrillation with a controlled ventricular response rate. We will continue to follow make recommendations. Prognosis is guarded. Dictation was produced using [employer] software. Please excuse any grammatical, word or spelling errors. Time with Patient: Less than 30
[2024-09-22] MEDS: AMIODARONE 450 MG in DEXTROSE 5% IN WATER 250 ML IV SCH (13:38)
--- NOTE | 2024-09-22 16:01 | P.PN ---
Subjective Progress Note Date: 09/22/24 Principal diagnosis: Reason for follow-up is left knee cellulitis and bacteremia 1Patient is a 69-year-old male with a past medical history significant for diabetes mellitus hypertension hyperlipidemia osteoarthritis atrial fibrillation he did have a left knee replacement about a year and a half ago by Dr. Reynolds. now presenting to the hospital concerning for his left knee gave out on him and has been complaining of more pain and swelling to left knee area patient has been in the hospital with cellulitis blood cultures are coming back positive with Streptococcus agalactiae On today's evaluation that is 09/22/2024, Patient is afebrile patient is currently on BiPAP seem to be lethargic unable to get any history hemodynamically stable no acute diarrhea and the changes reported by the nursing staff. No CBC was done today blood culture repeat remains to be negative Objective - Vital Signs Vital signs: Vital Signs Temp 98.3 F 09/22/24 11:05 Pulse 88 09/22/24 11:05 Resp 14 09/22/24 11:05 BP 129/86 09/22/24 11:05 Pulse Ox 100 09/22/24 11:05 FiO2 40 09/22/24 15:49 Intake & Output 09/21/24 09/22/24 09/22/24 17:59 06:59 18:59 Intake Total 3350 Output Total Balance 3350 Weight Intake: Intake, IV Titration 550 Amount Amiodarone 450 mg In 250 Dextrose 5% in Water 250 ml @ 0.5 MG/MIN 16.667 mls/hr IV .Q15H [facility] Rx#: [id number] Dextrose 5% in Water 100 100 ml @ 618 mls/hr IV .Q10M ONE with Amiodarone 150 mg Rx#:[id number] Heparin Sod,Pork in 0.45% NaCl 25,000 unit In 0.45 % NaCl 1 250ml.bag @ 14. 375 UNITS/KG/HR 23 mls/hr IV .[id number] [facility] Rx#: [id number] Sodium Ferric Gluconat- 100 Sucrose 125 mg In Sodium Chloride 0.9% 100 ml @ 100 mls/hr IVPB DAILY [facility] Rx#:[id number] ceFAZolin 3 gm In Sodium 100 Chloride 0.9% 100 ml @ 200 mls/hr IVPB Q8H [facility] Rx#:[id number] Oral 2800 Output: Urine Other: Voiding Method External Catheter - Exam GENERAL DESCRIPTION: An elderly male up in bed in no distress RESPIRATORY SYSTEM: Unlabored breathing , decreased breath sounds at bases HEART: S1 S2 regular rate and rhythm , ABDOMEN: Soft , no tenderness EXTREMITIES: Left knee swelling no redness bilateral extremity swelling - Labs CBC & Chem 7: 09/21/24 01:31 09/21/24 06:57 Labs: Abnormal Lab Results - Last 24 Hours (Table) 09/21/24 09/21/24 09/21/24 Range/Units 16:19 17:19 20:10 APTT 106.3 H* (22.0-30.0) sec ABG pCO2 (35-45) mmHg ABG pO2 (83-108) mmHg ABG HCO3 (21-25) mmol/L ABG Total CO2 (19-24) mmol/L ABG O2 Saturation (94-97) % Hemoglobin (13.0-17.5) gm/dL POC Glucose (mg/dL) 122 H 136 H (70-110) mg/dL 09/22/24 09/22/24 09/22/24 Range/Units 01:43 04:15 05:02 APTT 40.9 H (22.0-30.0) sec ABG pCO2 64 H (35-45) mmHg ABG pO2 121 H (83-108) mmHg ABG HCO3 42 H* (21-25) mmol/L ABG Total CO2 44 H (19-24) mmol/L ABG O2 Saturation 99.4 H (94-97) % Hemoglobin 8.6 L (13.0-17.5) gm/dL POC Glucose (mg/dL) 113 H (70-110) mg/dL Microbiology - Last 24 Hours (Table) 09/16/24 08:08 Blood Culture - Final Blood 09/17/24 11:40 Anaerobic Culture - Preliminary Knee - Left Assessment and Plan (1) Sepsis Current Visit: Yes Status: Acute Code(s): A41.9 - SEPSIS, UNSPECIFIED ORGANISM SNOMED Code(s): 20140578 (2) Cellulitis Current Visit: Yes Status: Acute Code(s): L03.90 - CELLULITIS, UNSPECIFIED SNOMED Code(s): 496842491 (3) Bacteremia Current Visit: Yes Status: Acute Code(s): R78.81 - BACTEREMIA SNOMED Code(s): 8668051 (4) Septic arthritis Current Visit: Yes Status: Acute Code(s): M00.9 - PYOGENIC ARTHRITIS, UNSPECIFIED SNOMED Code(s): 870248956 Plan: 1patient presented hospital with sepsis in this patient who did have tachycardia elevated white count elevated lactic acid meeting criteria for SIRS source is likely left knee cellulitis and concern for possible left knee septic arthritis likely from gram-positive skin justin 2patient has been evaluated by orthopedic and did have aspiration of purulent material concerning for septic arthritis cultures obtained, orthopedic is recommended transfer to tertiary care 3patient did have elevated inflammatory markers and blood culture positive for Streptococcus agalactiae, repeat blood culture have been negative 4local wound care to the wound to the left leg with dry Aquacel dressing change q. 48-hour 5patient is afebrile white count has normalized 6patient is currently being treated with cefazolin to continue will monitor his clinical course closely Dictation was produced using [employer] dictation software. please excuse any gra mmatical, word or spelling errors. Time with Patient: Less than 30
[2024-09-22 16:58] LABS: Glucose,Whole Blood 117 mg/dL (70-110)
--- NOTE | 2024-09-22 18:59 | P.PN ---
Subjective Progress Note Date: 09/21/24 HISTORY OF PRESENTING ILLNESS: 69-year-old with past medical history of atrial fibrillation hypertension d yslipidemia diabetes obesity, obstructive sleep apnea, GI bleeding, bipolar disorder, seizure disorder. Left knee arthroplasty. He was hospitalized 1 week ago with left leg weakness and cellulitis. There was moderate joint effusion. He did undergo left knee aspiration. There is also some concerns of possible left leg cellulitis with MSSA and strep B bacteremia. He has been treated for sepsis and metabolic encephalopathy along with hypoxic respiratory failure. Cardiology was consulted for atrial fibrillation with RVR which was noticed yesterday on 09/18/2024 evening. At the time of evaluation today at bedside he is in somewhat appropriately controlled atrial fibrillation with heart rate ranging around 100 110 bpm. He is otherwise hemodynamically stable. Denies any chest pain chest pressure. Appears to be confused, EKG from admission shows atrial fibrillation. It is unclear if patient was on anticoagulation prior to the admission. His home medication does list Eliquis as one of the medications. Prior cardiac testing: Stress test from 2022 shows mild reversibility in anterior inferior wall with stress. Progress note 09/20/2024 Patient is continuing to be in atrial fibrillation with RVR with heart rates around 110 bpm. Blood pressure 130/93, appears to be mildly confused. Metabolic encephalopathy. Awaiting transfer to [facility]. Anticipate knee aspiration procedure. 09/21/2024 Patient continues to be in atrial fibrillation with RVR with heart rate around 110 to 120 bpm. For this I will start him on amiodarone drip. He still appears volume overloaded. I will give him 1 dose of IV Lasix 40 mg. PHYSICAL EXAMINATION: Lungs: Diminished breath sounds with poor inspiratory effort, mild crackles bilateral bases Heart: Irregularly irregular, S1-S2, , mild systolic murmur audible Abdomen: Soft nontender, positive bowel sounds. Extremities: 1+ pitting edema bilateral legs, left knee swelling Neuro: Drowsy, not following commands at this time, appears confused detailed neuro exam was not performed. ASSESSMENT: # Atrial fibrillation with RVR. History of chronic atrial fibrillation # Left leg cellulitis with MSSA # S/p left knee aspiration, concerns of septic arthritis # Metabolic encephalopathy, multifactorial because of above # Anemia, prior history of GI bleeding # Acute hypoxic respiratory failure # Hypertension # Type 2 diabetes # Morbid obesity # HANNY Cardiac testing Echo shows EF 50 to 55%, moderate RV dilatation, mild biatrial dilatation, mild MR, mild TR, technically difficult study PLAN: Start amiodarone drip Continue metoprolol to 100 mg twice daily Give 1 dose of IV Lasix 40 mg Ferritin and iron saturation is low suggestive of iron deficiency anemia. Give 3 dose of IV iron Hold Eliquis in view of knee aspiration or any other procedures. Continue IV heparin in the interim Overall prognosis is guarded Objective - Vital Signs Vital signs: Vital Signs Temp 98.3 F 09/22/24 11:05 Pulse 100 09/22/24 16:20 Resp 16 09/22/24 16:20 BP 147/88 09/22/24 16:20 Pulse Ox 96 09/22/24 16:20 FiO2 50 09/22/24 16:20 Intake & Output 09/21/24 09/22/24 09/22/24 17:59 06:59 18:59 Intake Total 3398.828 Output Total 1600 Balance 1798.828 Weight Intake: Intake, IV Titration 598.828 Amount Amiodarone 450 mg In 250 Dextrose 5% in Water 250 ml @ 0.5 MG/MIN 16.667 mls/hr IV .Q15H [facility] Rx#: [id number] Dextrose 5% in Water 100 100 ml @ 618 mls/hr IV .Q10M [facility] with Amiodarone 150 mg Rx#:[id number] Heparin Sod,Pork in 0.45% 48.828 NaCl 25,000 unit In 0.45 % NaCl 1 250ml.bag @ 14. 375 UNITS/KG/HR 23 mls/hr IV .[id number] [facility] Rx#: [id number] Sodium Ferric Gluconat- 100 Sucrose 125 mg In Sodium Chloride 0.9% 100 ml @ 100 mls/hr IVPB DAILY [facility] Rx#:[id number] ceFAZolin 3 gm In Sodium 100 Chloride 0.9% 100 ml @ 200 mls/hr IVPB Q8H [facility] Rx#:[id number] Oral 2800 Output: Urine 1600 Other: Voiding Method External Catheter - Labs CBC & Chem 7: 09/21/24 01:31 09/21/24 06:57 Labs: Abnormal Lab Results - Last 24 Hours (Table) 09/21/24 09/21/24 09/22/24 Range/Units 17:19 20:10 01:43 APTT 106.3 H* 40.9 H (22.0-30.0) sec ABG pCO2 (35-45) mmHg ABG pO2 (83-108) mmHg ABG HCO3 (21-25) mmol/L ABG Total CO2 (19-24) mmol/L ABG O2 Saturation (94-97) % Hemoglobin (13.0-17.5) gm/dL POC Glucose (mg/dL) 136 H (70-110) mg/dL 09/22/24 09/22/24 09/22/24 Range/Units 04:15 05:02 16:56 APTT (22.0-30.0) sec ABG pCO2 64 H (35-45) mmHg ABG pO2 121 H (83-108) mmHg ABG HCO3 42 H* (21-25) mmol/L ABG Total CO2 44 H (19-24) mmol/L ABG O2 Saturation 99.4 H (94-97) % Hemoglobin 8.6 L (13.0-17.5) gm/dL POC Glucose (mg/dL) 113 H 117 H (70-110) mg/dL Microbiology - Last 24 Hours (Table) 09/16/24 08:08 Blood Culture - Final Blood 09/17/24 11:40 Anaerobic Culture - Preliminary Knee - Left
--- NOTE | 2024-09-22 19:01 | P.PN ---
Subjective Progress Note Date: 09/22/24 HISTORY OF PRESENTING ILLNESS: 69-year-old with past medical history of atrial fibrillation hypertension d yslipidemia diabetes obesity, obstructive sleep apnea, GI bleeding, bipolar disorder, seizure disorder. Left knee arthroplasty. He was hospitalized 1 week ago with left leg weakness and cellulitis. There was moderate joint effusion. He did undergo left knee aspiration. There is also some concerns of possible left leg cellulitis with MSSA and strep B bacteremia. He has been treated for sepsis and metabolic encephalopathy along with hypoxic respiratory failure. Cardiology was consulted for atrial fibrillation with RVR which was noticed yesterday on 09/18/2024 evening. At the time of evaluation today at bedside he is in somewhat appropriately controlled atrial fibrillation with heart rate ranging around 100 110 bpm. He is otherwise hemodynamically stable. Denies any chest pain chest pressure. Appears to be confused, EKG from admission shows atrial fibrillation. It is unclear if patient was on anticoagulation prior to the admission. His home medication does list Eliquis as one of the medications. Prior cardiac testing: Stress test from 2022 shows mild reversibility in anterior inferior wall with stress. Progress note 09/20/2024 Patient is continuing to be in atrial fibrillation with RVR with heart rates around 110 bpm. Blood pressure 130/93, appears to be mildly confused. Metabolic encephalopathy. Awaiting transfer to [facility]. Anticipate knee aspiration procedure. 09/21/2024 Patient continues to be in atrial fibrillation with RVR with heart rate around 110 to 120 bpm. For this I will start him on amiodarone drip. He still appears volume overloaded. I will give him 1 dose of IV Lasix 40 mg. 09/22/2024 Patient's heart rate is slightly better controlled with amiodarone however still continues to be in atrial fibrillation with slightly elevated heart rate. BP 128/86 PHYSICAL EXAMINATION: Lungs: Diminished breath sounds with poor inspiratory effort, mild crackles bilateral bases Heart: Irregularly irregular, S1-S2, , mild systolic murmur audible Abdomen: Soft nontender, positive bowel sounds. Extremities: 1+ pitting edema bilateral legs, left knee swelling Neuro: Drowsy, not following commands at this time, appears confused detailed neuro exam was not performed. ASSESSMENT: # Atrial fibrillation with RVR. History of chronic atrial fibrillation # Left leg cellulitis with MSSA # S/p left knee aspiration, concerns of septic arthritis # Metabolic encephalopathy, multifactorial because of above # Anemia, prior history of GI bleeding # Acute hypoxic respiratory failure # Hypertension # Type 2 diabetes # Morbid obesity # HANNY Cardiac testing Echo shows EF 50 to 55%, moderate RV dilatation, mild biatrial dilatation, mild MR, mild TR, technically difficult study PLAN: Continue amiodarone drip Continue metoprolol to 100 mg twice daily Give 1 dose of IV Lasix 40 mg Ferritin and iron saturation is low suggestive of iron deficiency anemia. Give 3 dose of IV iron Hold Eliquis in view of knee aspiration or any other procedures. Continue IV heparin in the interim Overall prognosis is guarded Objective - Vital Signs Vital signs: Vital Signs Temp 98.3 F 09/22/24 11:05 Pulse 100 09/22/24 16:20 Resp 16 09/22/24 16:20 BP 147/88 09/22/24 16:20 Pulse Ox 96 09/22/24 16:20 FiO2 50 09/22/24 16:20 Intake & Output 09/22/24 09/22/24 09/23/24 06:59 18:59 06:59 Intake Total 3398.828 Output Total 1600 Balance 1798.828 Weight Intake: Intake, IV Titration 598.828 Amount Amiodarone 450 mg In 250 Dextrose 5% in Water 250 ml @ 0.5 MG/MIN 16.667 mls/hr IV .Q15H [facility] Rx#: [id number] Dextrose 5% in Water 100 100 ml @ 618 mls/hr IV .Q10M [facility] with Amiodarone 150 mg Rx#:[id number] Heparin Sod,Pork in 0.45% 48.828 NaCl 25,000 unit In 0.45 % NaCl 1 250ml.bag @ 14. 375 UNITS/KG/HR 23 mls/hr IV .[id number] [facility] Rx#: [id number] Sodium Ferric Gluconat- 100 Sucrose 125 mg In Sodium Chloride 0.9% 100 ml @ 100 mls/hr IVPB DAILY [facility] Rx#:[id number] ceFAZolin 3 gm In Sodium 100 Chloride 0.9% 100 ml @ 200 mls/hr IVPB Q8H [facility] Rx#:[id number] Oral 2800 Output: Urine 1600 Other: Voiding Method External Catheter - Labs CBC & Chem 7: 09/21/24 01:31 09/21/24 06:57 Labs: Abnormal Lab Results - Last 24 Hours (Table) 09/21/24 09/21/24 09/22/24 Range/Units 17:19 20:10 01:43 APTT 106.3 H* 40.9 H (22.0-30.0) sec ABG pCO2 (35-45) mmHg ABG pO2 (83-108) mmHg ABG HCO3 (21-25) mmol/L ABG Total CO2 (19-24) mmol/L ABG O2 Saturation (94-97) % Hemoglobin (13.0-17.5) gm/dL POC Glucose (mg/dL) 136 H (70-110) mg/dL 09/22/24 09/22/24 09/22/24 Range/Units 04:15 05:02 16:56 APTT (22.0-30.0) sec ABG pCO2 64 H (35-45) mmHg ABG pO2 121 H (83-108) mmHg ABG HCO3 42 H* (21-25) mmol/L ABG Total CO2 44 H (19-24) mmol/L ABG O2 Saturation 99.4 H (94-97) % Hemoglobin 8.6 L (13.0-17.5) gm/dL POC Glucose (mg/dL) 113 H 117 H (70-110) mg/dL Microbiology - Last 24 Hours (Table) 09/16/24 08:08 Blood Culture - Final Blood 09/17/24 11:40 Anaerobic Culture - Preliminary Knee - Left
[2024-09-22 20:26] LABS: Glucose,Whole Blood 117 mg/dL (70-110)
[2024-09-23 06:03] LABS: Glucose,Whole Blood 96 mg/dL (70-110)
[2024-09-23] MEDS: DILTIAZEM ORAL 30 MG TAB PO SCH (09:39)
[2024-09-23] MEDS: AMIODARONE 200 MG TAB PO SCH (09:39)
[2024-09-23 11:45] LABS: Glucose,Whole Blood 105 mg/dL (70-110)
--- NOTE | 2024-09-23 13:01 | P.PN ---
Subjective Progress Note Date: 09/23/24 HISTORY OF PRESENTING ILLNESS: 69-year-old with past medical history of atrial fibrillation hypertension d yslipidemia diabetes obesity, obstructive sleep apnea, GI bleeding, bipolar disorder, seizure disorder. Left knee arthroplasty. He was hospitalized 1 week ago with left leg weakness and cellulitis. There was moderate joint effusion. He did undergo left knee aspiration. There is also some concerns of possible left leg cellulitis with MSSA and strep B bacteremia. He has been treated for sepsis and metabolic encephalopathy along with hypoxic respiratory failure. Cardiology was consulted for atrial fibrillation with RVR which was noticed yesterday on 09/18/2024 evening. At the time of evaluation today at bedside he is in somewhat appropriately controlled atrial fibrillation with heart rate ranging around 100 110 bpm. He is otherwise hemodynamically stable. Denies any chest pain chest pressure. Appears to be confused, EKG from admission shows atrial fibrillation. It is unclear if patient was on anticoagulation prior to the admission. His home medication does list Eliquis as one of the medications. Prior cardiac testing: Stress test from 2022 shows mild reversibility in anterior inferior wall with stress. Progress note 09/20/2024 Patient is continuing to be in atrial fibrillation with RVR with heart rates around 110 bpm. Blood pressure 130/93, appears to be mildly confused. Metabolic encephalopathy. Awaiting transfer to [facility]. Anticipate knee aspiration procedure. 09/21/2024 Patient continues to be in atrial fibrillation with RVR with heart rate around 110 to 120 bpm. For this I will start him on amiodarone drip. He still appears volume overloaded. I will give him 1 dose of IV Lasix 40 mg. 09/22/2024 Patient's heart rate is slightly better controlled with amiodarone however still continues to be in atrial fibrillation with slightly elevated heart rate. BP 128/86 09/23 Patient seen and examined. Patient has a public safety officer at the bedside. He is currently on a heparin drip and amiodarone drip. Blood pressure 125/76, heart rate 105, pulse ox 95% on 3 L nasal cannula. EKG atrial fibrillation at 108 bpm. PHYSICAL EXAMINATION: Lungs: Diminished breath sounds with poor inspiratory effort, mild crackles bilateral bases Heart: Irregularly irregular, S1-S2, , mild systolic murmur audible Abdomen: Soft nontender, positive bowel sounds. Extremities: 1+ pitting edema bilateral legs, left knee swelling Neuro: Drowsy, not following commands at this time, appears confused detailed neuro exam was not performed. ASSESSMENT: # Atrial fibrillation with RVR. History of chronic atrial fibrillation # Left leg cellulitis with MSSA # S/p left knee aspiration, concerns of septic arthritis # Metabolic encephalopathy, multifactorial because of above # Anemia, prior history of GI bleeding # Acute hypoxic respiratory failure # Hypertension # Type 2 diabetes # Morbid obesity # HANNY Cardiac testing Echo shows EF 50 to 55%, moderate RV dilatation, mild biatrial dilatation, mild MR, mild TR, technically difficult study PLAN: Transition IV amiodarone to oral 400 mg twice daily Start patient on Cardizem 30 mg 3 times daily Continue metoprolol to 100 mg twice daily Continue to hold Eliquis and continue IV heparin until final decision has been made regarding any procedure for the septic knee Overall prognosis is guarded Nurse practitioner note has been reviewed, I agree with documented findings and plan of care. Patient was seen and examined. Objective - Vital Signs Vital signs: Vital Signs Temp 98.5 F 09/23/24 03:59 Pulse 110 H 09/23/24 03:59 Resp 18 09/23/24 03:59 BP 144/102 09/23/24 03:59 Pulse Ox 96 09/23/24 03:59 FiO2 40 09/23/24 04:00 Intake & Output 09/22/24 09/23/24 09/23/24 18:59 06:59 18:59 Intake Total 3398.828 419.896 Output Total 1600 850 Balance 1798.828 -430.104 Weight 158 kg Intake: Intake, IV Titration 598.828 419.896 Amount Amiodarone 450 mg In 250 248.061 Dextrose 5% in Water 250 ml @ 0.5 MG/MIN 16.667 mls/hr IV .Q15H [facility] Rx#: [id number] Dextrose 5% in Water 100 100 ml @ 618 mls/hr IV .Q10M ONE with Amiodarone 150 mg Rx#:[id number] Heparin Sod,Pork in 0.45% 48.828 171.835 NaCl 25,000 unit In 0.45 % NaCl 1 250ml.bag @ 14. 375 UNITS/KG/HR 23 mls/hr IV .[id number] [facility] Rx#: [id number] Sodium Ferric Gluconat- 100 Sucrose 125 mg In Sodium Chloride 0.9% 100 ml @ 100 mls/hr IVPB DAILY [facility] Rx#:[id number] ceFAZolin 3 gm In Sodium 100 Chloride 0.9% 100 ml @ 200 mls/hr IVPB Q8H [facility] Rx#:[id number] Oral 2800 Output: Urine 1600 850 Other: Voiding Method External Catheter External Catheter - Labs CBC & Chem 7: 09/21/24 01:31 09/21/24 06:57 Labs: Abnormal Lab Results - Last 24 Hours (Table) 09/22/24 09/22/24 Range/Units 16:56 20:24 POC Glucose (mg/dL) 117 H 117 H (70-110) mg/dL
--- NOTE | 2024-09-23 15:29 | P.PN ---
Subjective Progress Note Date: 09/23/24 On today's evaluations of 09/23/2024, the patient remains altered and confused. Oral intake is minimal and the patient has a sitter at the bedside. He is on 2 L of oxygen by nasal cannula. No signs of any significant respiratory distress at rest. The patient is currently on 3 L of O2 nasal cannula. Remains on IV cefazolin. Remains on amiodarone drip and IV heparin drip regarding his atrial fibrillation. Rate is under better control for now. The patient is obese with a BMI of 44.7. He has chronic atrial fibrillation. The patient also has hypertension hyperlipidemia and diabetes mellitus in addition to bipolar disorder and previous history of seizure disorder. He has undergone previous left knee arthroplasty. He does have swelling in lower extremities bilaterally and moderate amount of joint effusion in the left knee. Aspiration of the fluid from the left knee was done it was positive for Staph aureus. Meanwhile, the patient's blood culture was positive for strep. The patient remains on IV cefazolin. Awaiting an orthopedic evaluation. ID is on the case. The possibility of left septic knee arthritis cannot be completely ruled out. He is afebrile. His white cell count has normalized from as high as 32. His most recent blood gas from yesterday showed a pH of 7.43 with a pCO2 of 64 and pO2 121 and this was done FiO2 of 32%. The patient however remains encephalopathic.Chest x-ray shows small left-sided pleural effusion and cardiomegaly and interstitial edema on 09/18/2024. Echocardiogram from 09/21/2024 showed a preserved LV function with an ejection fraction of 50 to 55%. Moderate RV dilatation. Objective - Vital Signs Vital signs: Vital Signs Temp 97.3 F L 09/23/24 08:00 Pulse 95 09/23/24 11:23 Resp 20 09/23/24 11:23 BP 115/64 09/23/24 11:23 Pulse Ox 99 09/23/24 11:23 FiO2 40 09/23/24 04:00 Intake & Output 09/22/24 09/23/24 09/23/24 18:59 06:59 18:59 Intake Total 3398.828 419.896 96.125 Output Total 1600 850 Balance 1798.828 -430.104 96.125 Weight 158 kg Intake: Intake, IV Titration 598.828 419.896 96.125 Amount Amiodarone 450 mg In 250 248.061 Dextrose 5% in Water 250 ml @ 0.5 MG/MIN 16.667 mls/hr IV .Q15H [facility] Rx#: [id number] Dextrose 5% in Water 100 100 ml @ 618 mls/hr IV .Q10M ONE with Amiodarone 150 mg Rx#:[id number] Heparin Sod,Pork in 0.45% 48.828 171.835 96.125 NaCl 25,000 unit In 0.45 % NaCl 1 250ml.bag @ 14. 375 UNITS/KG/HR 23 mls/hr IV .[id number] [facility] Rx#: [id number] Sodium Ferric Gluconat- 100 Sucrose 125 mg In Sodium Chloride 0.9% 100 ml @ 100 mls/hr IVPB DAILY [facility] Rx#:[id number] ceFAZolin 3 gm In Sodium 100 Chloride 0.9% 100 ml @ 200 mls/hr IVPB Q8H [facility] Rx#:[id number] Oral 2800 Output: Urine 1600 850 Other: Voiding Method External Catheter External Catheter External Catheter - Exam No acute distress, encephalopathic, confused currently on 2 L of oxygen by nasal cannula. Not utilizing BiPAP. HEENT examination is grossly unremarkable. Mucous membranes are moist. No oral lesions. Neck supple. Full range of motion. No adenopathy thyromegaly or neck vein distention. Cardiovascular examination reveals an irregular rhythm and rate. S1-S2 normal. No S3 or S4. No discernible murmur noted. Lungs reveal clear breath sounds. Her sounds are equal bilaterally. No adventitious lung sounds including wheezes rhonchi or crackles. Abdomen soft bowel sounds are heard. No masses or tenderness. Extremities are intact. Bilateral lower extremity edema is noted. Lower extremities are wrapped. Skin is without rash or lesion. Neurologic examination is brief but nonfocal. Patient remains confused. Able to move all 4 extremities without any limitation. - Labs CBC & Chem 7: 09/21/24 01:31 09/21/24 06:57 Labs: Abnormal Lab Results - Last 24 Hours (Table) 09/22/24 09/22/24 09/23/24 Range/Units 16:56 20:24 08:17 APTT 52.1 H (22.0-30.0) sec POC Glucose (mg/dL) 117 H 117 H (70-110) mg/dL Assessment and Plan Plan: Ongoing encephalopathy/confusion. Could be related to underlying sepsis. CAT scan of the brain done on 09/21/2024 showed no acute intracranial process. Neurologic exam remains nonfocal. Left leg septic arthritis with fluid aspirated being positive for staph aureus. Patient is status post left knee arthroplasty and there is increased suspicion for a left knee periprosthetic infection. He does have chronic edema lower extremities along with chronic wounds and cellulitis. Aspiration of the joint was done on 09/17/2024 and the synovial fluid was positive for Staph aureus. Group B strep bacteremia, most likely secondary to cellulitis Acute on chronic hypoxemic and hypercapnic respiratory failure, currently on 3 L of oxygen by nasal cannula Acute leukocytosis, improved Atrial fibrillation, with rapid ventricular response, rate is under better control Anemia, monitor for acute blood loss. Hypertension. History of hyperlipidemia. Diabetes mellitus type 2. Morbid obesity with a BMI of 44.9 kg/m. History of obstructive sleep apnea. History of GI bleed. History of gastritis. History of seizure. Bipolar/depression. Plan: Keep the patient on oxygen 3 L/min nasal cannula Preferred to utilize BiPAP overnight Continue IV cefazolin Orthopedic follow-up regarding the septic left knee arthritis Management of atrial fibrillation per cardiology. The patient remains on amiodarone drip and IV heparin with a better controlled rate Monitor mental status CAT scan of the brain showed no acute intracranial normalities Chest x-ray showed small left-sided pleural effusion along with cardiomegaly Echocardiogram shows a preserved LV function without any valvular abnormalities or significant pulm hypertension. Start the patient on metoprolol 100 mg p.o. twice daily and the patient can be transition also to oral amiodarone. This will be discussed with cardiology. Patient remains on Cardizem 30 mg p.o. 3 times daily. Continue Zyprexa Continue Seroquel Continue Aldactone Will follow Time with Patient: Greater than 30
[2024-09-23 16:47] LABS: Glucose,Whole Blood 135 mg/dL (70-110)
--- NOTE | 2024-09-23 18:26 | P.CNOR ---
History of Present Illness - [facility] Consult date: 09/23/24 Consult reason: other (Left knee pain and swelling) History of present illness: Patient is a 69-year-old male has been in the hospital for quite some time with regards to altered mental status, encephalopathy and other multiple medical comorbidities. Patient was initially evaluated by our service on 09/17/2024, t here was concern due to his bacteremia that the source was from his left knee. Patient has a history of a left total knee arthroplasty that was done in [address] Reynolds. Patient underwent a aspiration at bedside, fluid analysis was sent off for multiple labs. Initial concern was for possible septic arthropathy, but lab results have demonstrated no bacteria have grown from the anaerobic or aerobic cultures, positive for monosodium urate highly suggestive of gout. Patient's cell count also demonstrated similar findings. Orthopedic team was again consulted for reevaluation of this patient. The positive staff aureus culture was from the leg wounds not the left knee joint fluid. Patient evaluated at bedside today, he is resting comfortably with multiple [facility] present. His mental state seems about the same as when I saw him last week, he answers a lot of my questions correctly. We discussed the possibility of aspirating the knee a second time last week for symptomatic relief, I did hold off at that time. Patient seems about the same as when I last examined him, he is complaining of very minimal left knee discomfort at this time. He has swelling to the bilateral lower extremities, there is an effusion present on the left knee. There is no acute changes to the incision, this to include erythema. Patient has bilateral leg wounds that are currently wrapped. He has multiple family members present at bedside today. Review of Systems Constitutional: Reports as per HPI Past Medical History Past Medical History: Atrial Fibrillation, Diabetes Mellitus, GERD/Reflux, Hyperlipidemia, Hypertension, Osteoarthritis (OA), Sleep Apnea/CPAP/BIPAP Additional Past Medical History / Comment(s): seizure two yrs ago from major depressive disorder, hemorrhoids, herniated disc, TOOTH ACHE AT PRESENT Cellulitis and abscess of mouth. Mediastinitis secondary to mouth abscess; IV antibiotic therapy History of Any Multi-Drug Resistant Organisms: None Reported Past Surgical History: Adenoidectomy, Hernia Repair, Tonsillectomy Additional Past Surgical History / Comment(s): epidural. Abscessed teeth pulled at [facility]. Chest tube drain. Past Anesthesia/Blood Transfusion Reactions: No Reported Reaction Past Psychological History: Depression Smoking Status: Current some day smoker Past Alcohol Use History: Rare Past Drug Use History: None Reported - Past Family History Mother Family Medical History: No Reported History Medications and Allergies Home Medications Medication Instructions Recorded Confirmed Type Baraga Carbonate 1,200 mg PO HS 08/02/17 09/15/24 History Apixaban [Eliquis] 5 mg PO BID 10/16/20 09/15/24 History OLANZapine [ZyPREXA] 7.5 mg PO HS 07/01/24 09/15/24 History Venlafaxine HCl [Effexor XR] 225 mg PO DAILY 07/01/24 09/15/24 History Glucosam/Max-Msm1/C/Conor/Bosw 1 tab PO DAILY 09/15/24 09/15/24 History [Glucosamine-Chondroitin Tablet] Krill/Om-3/Dha/Epa/Phospho/Ast 1 cap PO DAILY 09/15/24 09/15/24 History [Krill Oil 600 mg Softgel] Losartan/Hydrochlorothiazide 1 tab PO DAILY 09/15/24 09/15/24 History [Hyzaar 100-12.5 Tablet] Turmeric Root Extract [Turmeric] 500 mg PO DAILY 09/15/24 09/15/24 History Allergies Allergy/AdvReac Type Severity Reaction Status Date / Time No Known Allergies Allergy Verified 09/15/24 10:04 Physical Examination Left lower extremity: Incision over the anterior aspect of the knee is well-healed, there is no areas of erythema or skin openings. Effusion present on the left knee. No significant tenderness with palpation along the medial and lateral joint line into the suprapatellar region. Passive range of motion of the knee with extension and flexion reproduces essentially no pain, he can actively flex past 90 degrees. He does have weakness in that extremity especially with straight leg raise and hip flexion. Plantarflexion, dorsiflexion, EHL, FHL are intact. Sensory exam to light touch is intact throughout the extremity, skin is warm to touch Generalized swelling in that extremity, also the contralateral leg demonstrates edema. Results - Labs Labs: Abnormal Lab Results - Last 24 Hours (Table) 09/22/24 09/23/24 09/23/24 Range/Units 20:24 08:17 16:45 APTT 52.1 H (22.0-30.0) sec POC Glucose (mg/dL) 117 H 135 H (70-110) mg/dL H & H 09/14/24 09/16/24 09/17/24 Range/Units 22:56 08:08 06:30 Hgb 9.3 L 8.9 L 8.8 L (13.0-17.5) gm/dL Hct 32.1 L 32.3 L 31.0 L (39.0-53.0) % 09/18/24 09/19/24 09/20/24 Range/Units 05:22 07:36 06:30 Hgb 8.6 L 8.4 L 8.6 L (13.0-17.5) gm/dL Hct 31.1 L 30.9 L 31.3 L (39.0-53.0) % 09/20/24 09/21/24 Range/Units 09:36 01:31 Hgb 8.8 L 8.6 L (13.0-17.5) gm/dL Hct 32.0 L 30.2 L (39.0-53.0) % Coagulation 09/14/24 09/20/24 Range/Units 22:56 09:36 INR 1.3 H 1.2 H (<1.2) Result Diagrams: 09/21/24 01:31 09/21/24 06:57 Assessment and Plan Assessment: History of left total knee arthroplasty Gouty arthropathy left knee Bacteremia with sepsis, resolved Bilateral lower extremity wounds Confusion Afib Morbid obesity Multiple medical comorbidities Plan: Initial aerobic and anaerobic cultures have shown no growth, positive monosodium urate crystals were noted on fluid analysis, patient's cell count also was highly suggestive of gouty arthropathy. Discussed with both the patient and family today at bedside I would consider another aspiration of the left knee fluid for symptomatic relief. Lab analysis of the fluid will also be obtained. Planning for 09/24/2024 Conservative measures to include icing/elevating, working with PT/OT PT/OT, recommend weight-bear as tolerated with walker. Patient does demonstrate generalized debility/weakness GI and DVT prophylaxis per primary medical service Other medical specialty recommendations appreciated Will continue to follow this patient
[2024-09-23 20:05] LABS: Glucose,Whole Blood 173 mg/dL (70-110)
--- NOTE | 2024-09-23 23:40 | P.PN ---
Subjective Progress Note Date: 09/23/24 69-year-old male came in because he is unable to take care of himself and infection and legs patient has a wound in the left mid dunlap area which appeared to be infected and also cellulitis of the right lower extremity denied any history of MRSA in the past patient does have history of atrial fibrillation patient was hypotensive patient has swelling in bilateral lower extremities but chest x-ray is within normal limits does not appear to be in CHF patient has elevated BNP of 3200 does have history of atrial fibrillation on anticoagulation with Eliquis. Patient lives by himself lately he is unable to take care of himself patient was started on vancomycin here. Patient is obese with history of sleep apnea. Using his CPAP machine presently on oxygen does not usually use any oxygen. 09/16/2024 Patient is seen in follow-up today with no acute overnight issues noted. Infectious disease following and patient is maintained on antibiotics in the form of cefazolin 3 g every 8 hours.. Blood cultures positive for Streptococcus and there is concerns of significant knee swelling and possible septic arthritis. Will consult orthopedics and appreciate input and recommendations. If undergoing needle aspiration, strongly recommend sending for cultures. Patient is afebrile although white count remains elevated at 29, slightly improved from yesterday. Will follow-up on repeat labs. Patient with significant weakness recommend PT/OT therapy evaluation. Patient will likely need ECF on discharge. 09/17/2024 Patient is seen in follow-up today being continued on IV antibiotics with infectious disease following. Awaiting orthopedics evaluation with concerns of left knee swelling and possible source of infection. Orthopedics did evaluate and is status post aspiration of the left knee and was noted to be significantly purulent and was sent to the lab. Currently there is no orthopedic that would be able to provide surgical intervention and recommending tertiary transfer. Patient is agreeable if necessary and transfer was initiated to [facility]. Patient was accepted currently awaiting a bed. Patient is afebrile and white count remains elevated although trending down. Will follow-up on repeat labs. Eliquis on hold and will continue heparin subcu. 09/18/2024 Patient is seen in follow-up this morning continues on IV antibiotics with infectious disease following. On exam patient is diaphoretic and confused is following commands and answering some questions appropriately although mentation is definitely of concern. Ct brain ordered and negative for acute process. Patient with sepsis and concerns for lower extremity cellulitis as well as left knee septic arthritis. Limited coverage for orthopedics at this time, although did undergo left knee aspiration and was noted to have crystals concerning for gout. Patient is pending a transfer to [facility] for tertiary treatment given our limited coverage. No bed available. Patient is also wearing oxygen and continues to remove nasal cannula with concerns of hypoxia. Pulmonary consulted for possible ICU eval although stable and will be moved to [address] [place] [address] for closer monitoring. Patient is trying to get out of bed and is at increased risk of falls. Recommend abg although patient is refusing. 09/19/2024 Patient has been moved to the 3 . unit for closer monitoring on examination today he is more awake alert and oriented and he is answering questions appropriately. He appears less congested after receiving a dose of IV Lasix. He continues on IV cefazolin with concern for septic arthritis of the left knee and left lower extremity cellulitis. Patient had a brain CT with no acute findings. He was evaluated in consultation today by pulmonary and cardiology services. Cardiology recommending to resume Eliquis today and monitor hemoglobin. Monitor QT interval. EKG was repeated with QT QTc of 312 and 375. Patient remains in atrial fibrillation with rapid ventricular rate at times. Repeat blood culture is negative so far. His labs today reveal a white blood cell count of 9.5, hemoglobin 8.4, sodium of 140 potassium 4.4, BUN of 17 creatinine of 0.65, blood glucose is well-controlled. His calcium level was 8.0 magnesium 2.1 iron of 13 TIBC of 392% saturation of 3.32 and transferrin level 280 ferritin level was 54.3. These findings are consistent with a mild iron deficiency anemia. proBNP was found to be elevated at 3176. His lipid panel reveals triglyceride level of 95 cholesterol level of 89, LDL of 49.4 and HDL of 20.60. Patient was noted to have monosodium urate Crystals on aspiration of the left knee. Although concern remains for septic arthritis. Orthopedics was recommending starting patient medication for gout such as allopurinol or colchicine although at this time would recommend to hold off and patient is not a candidate for steroids at this time secondary to severe sepsis. 09/20/2024 Patient is seen in follow-up today with multiple consultations following including infectious disease, and now cardiology. Patient with chronic history of A-fib with Eliquis being held due to possible surgical intervention and awaiting a transfer to [facility]. Patient had been accepted by Dr. Arrington internal medicine with Ortho on consult. Patient is status post knee aspiration on the left and cultures thus far negative. Patient with A-fib RVR transferred to [facility] for closer monitoring is maintained on IV heparin and will continue for now. Metoprolol being adjusted and increased per cardiology. 2D echo is ordered and pending. Mentation is improved today and at baseline. 09/21 pt is sleepy , on nasal cannula at 3 ml per min He is tachycardic 129, since admission, mildly tachypneic. Breathing looks like with sleep apnea pt is obese , has bilateral pitting leg edema Left knee is warm and swollen Sitter at bedside Is on heparin drip and cefazolin 09/22 Patient is still very lethargic on BiPAP He had CT of the brain done yesterday which showed no acute process, I reviewed the CT by myself and agree with it Also he has paroxysmal A-fib , with heart rate went up to 124, currently 114 and currently on metoprolol 100 mg and amiodarone drip was added. Eliquis is on hold and currently on heparin drip Echocardiogram reviewed by me showing ejection fraction 50 to 55% with moderate right ventricular dilatation, there is multiple mild valvular heart disease Patient continued on cefazolin for his wound infection and possible left knee periprosthetic infection versus crystal induced arthropathy. His left knee is still swollen but not as warm as yesterday. Also was treated for bacteremia His leg swelling looks better, he received 1 dose of IV Lasix. Sugar looks controlled 09/23/2024 Patient is seen in follow-up today continues to be encephalopathic although mentation is slightly improved from previous. Patient being followed by multiple consultations and orthopedics consulted once again with concerns of ongoing sepsis. Patient being followed by cardiology as well making adjustments to medications, currently rate controlled and patient is maintained on IV heparin. Plan was for transfer for tertiary treatment and currently awaiting a bed at [facility]. Patient has been accepted although no beds available today. Orthopedics discussing possible knee aspiration for symptomatic relief. Infectious disease following as well and patient will continue on current antibiotic regimen. Review of systems: Constitutional: No reports of fatigue, fever, or chills Cardiovascular: No reports of chest pain or palpitations Respiratory: No reports of worsening shortness of breath or cough GI: No reports of nausea, vomiting, or diarrhea : No reports of dysuria or retention Neurovascular: reports of generalized weakness and continued left knee pain All medications have been reviewed PHYSICAL EXAMINATION: GENERAL: The patient is alert and oriented x 23, less confused, much more alert today although continues to be somewhat encephalopathic. Impulsive requiring a director safety at bedside. Well developed, well nourished. Morbidly obese HEENT: Pupils are round and equally reacting to light. EOMI. No scleral icterus. No conjunctival pallor. Normocephalic, atraumatic. No pharyngeal erythema. No thyromegaly. CARDIOVASCULAR: S1 and S2 muffled, irregular, A-fib PULMONARY: Diminished breath sounds bilaterally, faint crackles noted. ABDOMEN: Soft, morbidly obese nontender, nondistended, normoactive bowel sounds. No palpable organomegaly. MUSCULOSKELETAL: left knee joint swelling , no deformity. EXTREMITIES: No cyanosis, clubbing, . Bilateral lower extremity swelling, left knee swelling noted, dressings of lower extremity wounds noted that are dry and intact NEUROLOGICAL: Gross neurological examination did not reveal any focal deficits. Diffusely weak, mildly anxious SKIN: Bilateral lower extremity edema with a circumferential cellulitis in the left lower extremity , and left lower leg ulcer below the mid dunlap area which appear to be infected. Assessment: -Bilateral lower extremity wounds with cellulitis, present on admission -Sepsis, present on admission multifactorial, possibly secondary to bilateral lower extremity cellulitis as well as concerns for possible septic arthritis -Bacteremia, streptococcal secondary to above -A-fib with RVR, history of paroxysmal A-fib maintained on Eliquis, currently held and maintained on IV heparin for now -History of left knee total arthroplasty with concern for periprosthetic left knee infection and septic arthritis possible gouty arthropathy of the left knee -Acute metabolic encephalopathy secondary to sepsis, improving -Hypotension secondary to sepsis continue with IV fluids, improving -Bilateral lower extremity edema appears to be pretty moderate in CHF patient will continue on fluids for now because of hypotension and lactic acidosis, 2D echo ordered and pending -Morbid obesity with obstructive sleep apnea patient will continue on CPAP machine. -History of atrial fibrillation paroxysmal, maintained on Eliquis outpatient -Type 2 diabetes mellitus uncontrolled with hyper and hypoglycemia: Continue on sliding scale insulin -Generalized weakness and gait dysfunction DVT prophylaxis: IV heparin GI prophylaxis full code Plan: Patient being followed by infectious disease and orthopedics evaluated recommending tertiary transfer for possible surgical intervention of the left knee. Needle aspiration was done of copious amounts of purulent drainage and was sent to the lab for analysis. Per orthopedic, concerns for gouty arthropathy rather than septic arthritis. Patient continues to have encephalopathy and ongoing sepsis, will have orthopedics we re-evaluate as patient is clinically not improving. Unfortunately there is no orthopedic surgeon covering at this time and recommending transfer for tertiary treatment and possible surgical intervention of the left knee. Transfer was initiated and patient was accepted by Dr. Arrington of [facility] in [place]. Currently awai ting a bed and transfer team will contact the unit once a bed is available. No bed available today. Will call daily. Currently looking into a bed with telemetry monitoring per [facility] transfer team as they have no cardiac stepdown unit. Wound cultures showing staphylococcus aureus and patient remains on IV cefazolin with infectious disease following. Blood cultures were positive for Streptoc occus and repeat blood cultures thus far negative Continue monitoring Accu-Cheks before meals and at bedtime and will continue with sliding scale and also add long-acting. Adjust accordingly Follow up CBC, BMP, repeat procalcitonin, ammonia in the a.m. The impression and plan of care has been dictated by So Tian, Nurse Practitioner as directed. Dr. Paige MD I have performed a history and examination and MDM of this patient, discussed the same with the dictator, and agree with the dictator's assessment and plan as written ,documented as a scribe. Based on total visit time, I have performed more than 50% of the visit. Objective - Vital Signs Vital signs: Vital Signs Temp 98.5 F 09/23/24 03:59 Pulse 110 H 09/23/24 03:59 Resp 18 09/23/24 03:59 BP 144/102 09/23/24 03:59 Pulse Ox 96 09/23/24 03:59 FiO2 40 09/23/24 04:00 Intake & Output 09/22/24 09/23/24 09/23/24 18:59 06:59 18:59 Intake Total 3398.828 419.896 Output Total 1600 850 Balance 1798.828 -430.104 Weight 158 kg Intake: Intake, IV Titration 598.828 419.896 Amount Amiodarone 450 mg In 250 248.061 Dextrose 5% in Water 250 ml @ 0.5 MG/MIN 16.667 mls/hr IV .Q15H [facility] Rx#: [id number] Dextrose 5% in Water 100 100 ml @ 618 mls/hr IV .Q10M ONE with Amiodarone 150 mg Rx#:[id number] Heparin Sod,Pork in 0.45% 48.828 171.835 NaCl 25,000 unit In 0.45 % NaCl 1 250ml.bag @ 14. 375 UNITS/KG/HR 23 mls/hr IV .[id number] [facility] Rx#: [id number] Sodium Ferric Gluconat- 100 Sucrose 125 mg In Sodium Chloride 0.9% 100 ml @ 100 mls/hr IVPB DAILY [facility] Rx#:[id number] ceFAZolin 3 gm In Sodium 100 Chloride 0.9% 100 ml @ 200 mls/hr IVPB Q8H [facility] Rx#:[id number] Oral 2800 Output: Urine 1600 850 Other: Voiding Method External Catheter External Catheter - Labs CBC & Chem 7: 09/21/24 01:31 09/21/24 06:57 Labs: Abnormal Lab Results - Last 24 Hours (Table) 09/22/24 09/22/24 09/23/24 Range/Units 16:56 20:24 08:17 APTT 52.1 H (22.0-30.0) sec POC Glucose (mg/dL) 117 H 117 H (70-110) mg/dL
[2024-09-24 06:05] LABS: Glucose,Whole Blood 95 mg/dL (70-110)
[2024-09-24 06:46] LABS: Anisocytosis Moderate; Basophils % (A) 0 %; Eosinophils # (A) 0.1 k/uL (0-0.7); Eosinophils % (A) 1 %; HCT 32.5 % (39.0-53.0); HGB 8.9 gm/dL (13.0-17.5); Hypochromasia Marked; Lymphocytes # (A) 0.7 k/uL (1.0-4.8); Lymphocytes % (A) 7 %; MCH 21.8 pg (25.0-35.0); MCHC 27.5 g/dL (31.0-37.0); MCV 79.2 fL (80.0-100.0); Mean Platelet Volume 7.7; Microcytosis Slight; Monocytes # (A) 0.6 k/uL (0-1.0); Monocytes % (A) 5 %; Neutrophils # (A) 8.7 k/uL (1.3-7.7); Neutrophils % (A) 84 %; Platelet Count 413 k/uL (150-450); Poikilocytosis Slight; RDW 21.6 % (11.5-15.5); WBC 10.3 k/uL (3.8-10.6)
[2024-09-24 07:07] LABS: ALT 9 U/L (4-49); AST 32 U/L (17-59); African American GFR (CKD) >90 (>60 ml/min/1.73 sqM); Alkaline Phosphatase 89 U/L (38-126); Blood Urea Nitrogen 10 mg/dL (9-20); Calcium 8.1 mg/dL (8.4-10.2); Chloride 96 mmol/L (98-107); Glucose 94 mg/dL (74-99); Magnesium 2.2 mg/dL (1.6-2.3); Non-African American GFR(CKD) >90 (>60 ml/min/1.73 sqM); Potassium 4.1 mmol/L (3.5-5.1); Sodium 138 mmol/L (137-145); Total Bilirubin 0.7 mg/dL (0.2-1.3); Total Protein 6.3 g/dL (6.3-8.2)
[2024-09-24 07:15] LABS: Anion Gap 4 mmol/L
[2024-09-24 07:19] LABS: Carbon Dioxide 38 mmol/L (22-30)
[2024-09-24 11:34] LABS: Glucose,Whole Blood 140 mg/dL (70-110)
--- NOTE | 2024-09-24 12:52 | P.PN ---
Subjective Progress Note Date: 09/24/24 HISTORY OF PRESENTING ILLNESS: 69-year-old with past medical history of atrial fibrillation hypertension d yslipidemia diabetes obesity, obstructive sleep apnea, GI bleeding, bipolar disorder, seizure disorder. Left knee arthroplasty. He was hospitalized 1 week ago with left leg weakness and cellulitis. There was moderate joint effusion. He did undergo left knee aspiration. There is also some concerns of possible left leg cellulitis with MSSA and strep B bacteremia. He has been treated for sepsis and metabolic encephalopathy along with hypoxic respiratory failure. Cardiology was consulted for atrial fibrillation with RVR which was noticed yesterday on 09/18/2024 evening. At the time of evaluation today at bedside he is in somewhat appropriately controlled atrial fibrillation with heart rate ranging around 100 110 bpm. He is otherwise hemodynamically stable. Denies any chest pain chest pressure. Appears to be confused, EKG from admission shows atrial fibrillation. It is unclear if patient was on anticoagulation prior to the admission. His home medication does list Eliquis as one of the medications. Prior cardiac testing: Stress test from 2022 shows mild reversibility in anterior inferior wall with stress. Progress note 09/20/2024 Patient is continuing to be in atrial fibrillation with RVR with heart rates around 110 bpm. Blood pressure 130/93, appears to be mildly confused. Metabolic encephalopathy. Awaiting transfer to [facility]. Anticipate knee aspiration procedure. 09/21/2024 Patient continues to be in atrial fibrillation with RVR with heart rate around 110 to 120 bpm. For this I will start him on amiodarone drip. He still appears volume overloaded. I will give him 1 dose of IV Lasix 40 mg. 09/22/2024 Patient's heart rate is slightly better controlled with amiodarone however still continues to be in atrial fibrillation with slightly elevated heart rate. BP 128/86 09/23 Patient seen and examined. Patient has a traffic safety administrator at the bedside. He is currently on a heparin drip and amiodarone drip. Blood pressure 125/76, heart rate 105, pulse ox 95% on 3 L nasal cannula. EKG atrial fibrillation at 108 bpm. 09/24 Patient seen and examined. Patient still has a traffic safety administrator at the bedside. Heart rate is running around 100. He is continued on heparin drip and yesterday we transition IV amiodarone to oral, added Cardizem 30 mg 3 times daily continue and continued Lopressor. Patient is waiting for procedure on his knee. Blood pressure 114/67, heart rate 100, pulse ox 97% on 3 L nasal cannula. Patient has been afebrile. WBC 10.3, hemoglobin 8.9. Creatinine 0.66. PHYSICAL EXAMINATION: Lungs: Diminished breath sounds with poor inspiratory effort, mild crackles bilateral bases Heart: Irregularly irregular, S1-S2, , mild systolic murmur audible Abdomen: Soft nontender, positive bowel sounds. Extremities: 1+ pitting edema bilateral legs, left knee swelling Neuro: Drowsy, not following commands at this time, appears confused detailed neuro exam was not performed. ASSESSMENT: # Atrial fibrillation with RVR. History of chronic atrial fibrillation # Left leg cellulitis with MSSA # S/p left knee aspiration, concerns of septic arthritis # Metabolic encephalopathy, multifactorial because of above # Anemia, prior history of GI bleeding # Acute hypoxic respiratory failure # Hypertension # Type 2 diabetes # Morbid obesity # HANNY Cardiac testing Echo shows EF 50 to 55%, moderate RV dilatation, mild biatrial dilatation, mild MR, mild TR, technically difficult study PLAN: Continue amiodarone 400 mg twice daily for 7 days, 200 mg twice daily for 7 days, 200 mg daily Continue patient on Cardizem 30 mg 3 times daily Continue metoprolol to 100 mg twice daily Continue to hold Eliquis and continue IV heparin until final decision has been made regarding any procedure for the septic knee Overall prognosis is guarded Nurse practitioner note has been reviewed, I agree with documented findings and plan of care. Patient was seen and examined. Objective - Vital Signs Vital signs: Vital Signs Temp 98.2 F 09/24/24 04:07 Pulse 100 09/24/24 04:07 Resp 18 09/24/24 04:07 BP 136/78 09/24/24 04:07 Pulse Ox 98 09/24/24 04:07 FiO2 35 09/24/24 00:20 Intake & Output 09/23/24 09/24/24 09/24/24 18:59 06:59 18:59 Intake Total 576.125 157.108 240 Output Total 825 1200 Balance -248.875 -1042.892 240 Weight 154 kg Intake: Intake, IV Titration 96.125 157.108 Amount Heparin Sod,Pork in 0.45% 96.125 157.108 NaCl 25,000 unit In 0.45 % NaCl 1 250ml.bag @ 14. 375 UNITS/KG/HR 23 mls/hr IV .[id number] [facility] Rx#: [id number] Oral 480 240 Output: Urine 825 1200 Other: Voiding Method External Catheter External Catheter - Labs CBC & Chem 7: 09/24/24 06:12 09/24/24 06:12 Labs: Abnormal Lab Results - Last 24 Hours (Table) 09/23/24 09/23/24 09/24/24 Range/Units 16:45 19:53 06:12 RBC (4.30-5.90) m/uL Hgb (13.0-17.5) gm/dL Hct (39.0-53.0) % MCV (80.0-100.0) fL MCH (25.0-35.0) pg MCHC (31.0-37.0) g/dL RDW (11.5-15.5) % Neutrophils # (1.3-7.7) k/uL Lymphocytes # (1.0-4.8) k/uL APTT 49.7 H (22.0-30.0) sec Chloride (98-107) mmol/L Carbon Dioxide (22-30) mmol/L POC Glucose (mg/dL) 135 H 173 H (70-110) mg/dL Calcium (8.4-10.2) mg/dL Albumin (3.5-5.0) g/dL 09/24/24 09/24/24 Range/Units 06:12 06:12 RBC 4.10 L (4.30-5.90) m/uL Hgb 8.9 L (13.0-17.5) gm/dL Hct 32.5 L (39.0-53.0) % MCV 79.2 L (80.0-100.0) fL MCH 21.8 L (25.0-35.0) pg MCHC 27.5 L (31.0-37.0) g/dL RDW 21.6 H (11.5-15.5) % Neutrophils # 8.7 H (1.3-7.7) k/uL Lymphocytes # 0.7 L (1.0-4.8) k/uL APTT (22.0-30.0) sec Chloride 96 L (98-107) mmol/L Carbon Dioxide 38 H (22-30) mmol/L POC Glucose (mg/dL) (70-110) mg/dL Calcium 8.1 L (8.4-10.2) mg/dL Albumin 3.0 L (3.5-5.0) g/dL
--- NOTE | 2024-09-24 13:20 | P.PN ---
Subjective Progress Note Date: 09/24/24 Principal diagnosis: Left knee pain, history of left total knee arthroplasty, bacteremia, bilateral lower extremity wounds Patient was examined at bedside, he denies any left knee pain at this time, no acute skin changes noted. Patient's mental state remains about the same as c ompared to yesterday. Patient is being followed by internal medicine, cardiology, pulmonology and infectious disease at this time. Objective - Vital Signs Vital signs: Vital Signs Temp 98.4 F 09/24/24 12:25 Pulse 101 H 09/24/24 12:25 Resp 18 09/24/24 12:25 BP 124/76 09/24/24 12:25 Pulse Ox 99 09/24/24 12:25 FiO2 35 09/24/24 11:47 Intake & Output 09/23/24 09/24/24 09/24/24 18:59 06:59 18:59 Intake Total 576.125 157.108 340 Output Total 825 1200 Balance -248.875 -1042.892 340 Weight 154 kg Intake: Intake, IV Titration 96.125 157.108 100 Amount Heparin Sod,Pork in 0.45% 96.125 157.108 NaCl 25,000 unit In 0.45 % NaCl 1 250ml.bag @ 14. 375 UNITS/KG/HR 23 mls/hr IV .[id number] [facility] Rx#: [id number] ceFAZolin 3 gm In Sodium 100 Chloride 0.9% 100 ml @ 200 mls/hr IVPB Q8H [facility] Rx#:[id number] Oral 480 240 Output: Urine 825 1200 Other: Voiding Method External Catheter External Catheter External Catheter - Exam Left lower extremity: Incision over the anterior aspect of the knee is well-healed, there is no areas of erythema or skin openings. Effusion present on the left knee. No significant tenderness with palpation along the medial and lateral joint line into the suprapatellar region. Passive range of motion of the knee with extension and flexion reproduces essentially no pain, he can actively flex past 90 degrees. He does have weakness in that extremity especially with straight leg raise and hip flexion. Plantarflexion, dorsiflexion, EHL, FHL are intact. Sensory exam to light touch is intact throughout the extremity, skin is warm to touch Generalized swelling in that extremity, also the contralateral leg demonstrates edema. - Labs CBC & Chem 7: 09/24/24 06:12 09/24/24 06:12 Labs: Abnormal Lab Results - Last 24 Hours (Table) 09/23/24 09/23/24 09/24/24 Range/Units 16:45 19:53 06:12 RBC (4.30-5.90) m/uL Hgb (13.0-17.5) gm/dL Hct (39.0-53.0) % MCV (80.0-100.0) fL MCH (25.0-35.0) pg MCHC (31.0-37.0) g/dL RDW (11.5-15.5) % Neutrophils # (1.3-7.7) k/uL Lymphocytes # (1.0-4.8) k/uL APTT 49.7 H (22.0-30.0) sec Chloride (98-107) mmol/L Carbon Dioxide (22-30) mmol/L POC Glucose (mg/dL) 135 H 173 H (70-110) mg/dL Calcium (8.4-10.2) mg/dL Albumin (3.5-5.0) g/dL 09/24/24 09/24/24 09/24/24 Range/Units 06:12 06:12 11:32 RBC 4.10 L (4.30-5.90) m/uL Hgb 8.9 L (13.0-17.5) gm/dL Hct 32.5 L (39.0-53.0) % MCV 79.2 L (80.0-100.0) fL MCH 21.8 L (25.0-35.0) pg MCHC 27.5 L (31.0-37.0) g/dL RDW 21.6 H (11.5-15.5) % Neutrophils # 8.7 H (1.3-7.7) k/uL Lymphocytes # 0.7 L (1.0-4.8) k/uL APTT (22.0-30.0) sec Chloride 96 L (98-107) mmol/L Carbon Dioxide 38 H (22-30) mmol/L POC Glucose (mg/dL) 140 H (70-110) mg/dL Calcium 8.1 L (8.4-10.2) mg/dL Albumin 3.0 L (3.5-5.0) g/dL Microbiology - Last 24 Hours (Table) 09/17/24 11:40 Anaerobic Culture - Preliminary Knee - Left Assessment and Plan Assessment: History of left total knee arthroplasty Gouty arthropathy left knee Bacteremia with sepsis, resolved Bilateral lower extremity wounds Confusion Afib Morbid obesity Multiple medical comorbidities Plan: After further discussion with my attending physician, we are recommending transfer to a tertiary care facility for further workup and management of the patient's left knee. Patient's left knee joint fluid cultures being negative for any acute growth and highly suggestive of gouty arthropathy, his history of bacteremia and current medical state could still represent a left knee septic arthropathy. Patient has remained on IV antibiotics since being in hospital. Will hold off on left knee aspiration at this time Conservative measures to include icing/elevating, working with PT/OT PT/OT, recommend weight-bear as tolerated with walker. Patient does demonstrate generalized debility/weakness GI and DVT prophylaxis per primary medical service Other medical specialty recommendations appreciated Please contact our service with any further questions regarding this patient Time with Patient: Less than 30
--- NOTE | 2024-09-24 14:19 | P.PN ---
Subjective Progress Note Date: 09/23/24 Principal diagnosis: Reason for follow-up is left knee cellulitis and bacteremia 1Patient is a 69-year-old male with a past medical history significant for diabetes mellitus hypertension hyperlipidemia osteoarthritis atrial fibrillation he did have a left knee replacement about a year and a half ago by Dr. Reynolds. now presenting to the hospital concerning for his left knee gave out on him and has been complaining of more pain and swelling to left knee area patient has been in the hospital with cellulitis blood cultures are coming back positive with Streptococcus agalactiae On today's evaluation that is 09/23/2024, the patient continues to be afebrile patient is sleepy lethargic underweight good historian currently on 3 L nasal oxygen no vomiting diarrhea and the changes reported. Patient did not have a CBC done today blood culture repeat has been negative Objective - Vital Signs Vital signs: Vital Signs Temp 97.3 F L 09/23/24 08:00 Pulse 95 09/23/24 11:23 Resp 20 09/23/24 11:23 BP 115/64 09/23/24 11:23 Pulse Ox 99 09/23/24 11:23 FiO2 40 09/23/24 04:00 Intake & Output 09/22/24 09/23/24 09/23/24 18:59 06:59 18:59 Intake Total 3398.828 419.896 96.125 Output Total 1600 850 Balance 1798.828 -430.104 96.125 Weight 158 kg Intake: Intake, IV Titration 598.828 419.896 96.125 Amount Amiodarone 450 mg In 250 248.061 Dextrose 5% in Water 250 ml @ 0.5 MG/MIN 16.667 mls/hr IV .Q15H [facility] Rx#: [id number] Dextrose 5% in Water 100 100 ml @ 618 mls/hr IV .Q10M [facility] with Amiodarone 150 mg Rx#:[id number] Heparin Sod,Pork in 0.45% 48.828 171.835 96.125 NaCl 25,000 unit In 0.45 % NaCl 1 250ml.bag @ 14. 375 UNITS/KG/HR 23 mls/hr IV .[id number] [facility] Rx#: [id number] Sodium Ferric Gluconat- 100 Sucrose 125 mg In Sodium Chloride 0.9% 100 ml @ 100 mls/hr IVPB DAILY [facility] Rx#:[id number] ceFAZolin 3 gm In Sodium 100 Chloride 0.9% 100 ml @ 200 mls/hr IVPB Q8H [facility] Rx#:[id number] Oral 2800 Output: Urine 1600 850 Other: Voiding Method External Catheter External Catheter External Catheter - Exam GENERAL DESCRIPTION: An elderly male up in bed in no distress RESPIRATORY SYSTEM: Unlabored breathing , decreased breath sounds at bases HEART: S1 S2 regular rate and rhythm , ABDOMEN: Soft , no tenderness EXTREMITIES: Left knee swelling no redness bilateral extremity swelling - Labs CBC & Chem 7: 09/24/24 06:12 09/24/24 06:12 Labs: Abnormal Lab Results - Last 24 Hours (Table) 09/22/24 09/22/24 09/23/24 Range/Units 16:56 20:24 08:17 APTT 52.1 H (22.0-30.0) sec POC Glucose (mg/dL) 117 H 117 H (70-110) mg/dL Assessment and Plan (1) Sepsis Current Visit: Yes Status: Acute Code(s): A41.9 - SEPSIS, UNSPECIFIED ORGANISM SNOMED Code(s): 79526964 (2) Cellulitis Current Visit: Yes Status: Acute Code(s): L03.90 - CELLULITIS, UNSPECIFIED SNOMED Code(s): 360235978 (3) Bacteremia Current Visit: Yes Status: Acute Code(s): R78.81 - BACTEREMIA SNOMED Code(s): 3492153 (4) Septic arthritis Current Visit: Yes Status: Acute Code(s): M00.9 - PYOGENIC ARTHRITIS, UNSPECIFIED SNOMED Code(s): 664775764 Plan: 1patient presented hospital with sepsis in this patient who did have tachycardia elevated white count elevated lactic acid meeting criteria for SIRS source is likely left knee cellulitis and concern for possible left knee septic arthritis likely from gram-positive skin justin 2patient has been evaluated by orthopedic and did have aspiration of purulent material concerning for septic arthritis cultures obtained, orthopedic is recommended transfer to tertiary care 3patient did have elevated inflammatory markers and blood culture positive for Streptococcus agalactiae, repeat blood culture have been negative 4local wound care to the wound to the left leg with dry Aquacel dressing change q. 48-hour 5patient is afebrile white count has normalized, will continue with the cefazolin await either possible transfer tertiary care or re evaluation by orthopedics Dictation was produced using [employer] dictation software. please excuse any grammatical, word or spelling errors. Time with Patient: Less than 30
--- NOTE | 2024-09-24 14:20 | P.PN ---
Subjective Progress Note Date: 09/24/24 Principal diagnosis: Reason for follow-up is left knee cellulitis and bacteremia 1Patient is a 69-year-old male with a past medical history significant for diabetes mellitus hypertension hyperlipidemia osteoarthritis atrial fibrillation he did have a left knee replacement about a year and a half ago by Dr. Reynolds. now presenting to the hospital concerning for his left knee gave out on him and has been complaining of more pain and swelling to left knee area patient has been in the hospital with cellulitis blood cultures are coming back positive with Streptococcus agalactiae On today's evaluation that is 09/24/2024, Patient is afebrile this morning patient seem to be breathing slightly comfortably currently on 3 L nasal current oxygen patient remains to be lethargic though responded to his name but elevated good historian no vomiting or diarrhea has been reported. Patient white count is 10.3 creatinine 0.66 blood culture repeat has been negative Objective - Vital Signs Vital signs: Vital Signs Temp 98.4 F 09/24/24 12:25 Pulse 101 H 09/24/24 12:25 Resp 18 09/24/24 12:25 BP 124/76 09/24/24 12:25 Pulse Ox 99 09/24/24 12:25 FiO2 35 09/24/24 11:47 Intake & Output 09/23/24 09/24/24 09/24/24 18:59 06:59 18:59 Intake Total 576.125 157.108 340 Output Total 825 1200 Balance -248.875 -1042.892 340 Weight 154 kg Intake: Intake, IV Titration 96.125 157.108 100 Amount Heparin Sod,Pork in 0.45% 96.125 157.108 NaCl 25,000 unit In 0.45 % NaCl 1 250ml.bag @ 14. 375 UNITS/KG/HR 23 mls/hr IV .[id number] [facility] Rx#: [id number] ceFAZolin 3 gm In Sodium 100 Chloride 0.9% 100 ml @ 200 mls/hr IVPB Q8H [facility] Rx#:[id number] Oral 480 240 Output: Urine 825 1200 Other: Voiding Method External Catheter External Catheter External Catheter - Exam GENERAL DESCRIPTION: An elderly male up in bed in no distress RESPIRATORY SYSTEM: Unlabored breathing , decreased breath sounds at bases HEART: S1 S2 regular rate and rhythm , ABDOMEN: Soft , no tenderness EXTREMITIES: Left knee swelling no redness bilateral extremity swelling - Labs CBC & Chem 7: 09/24/24 06:12 09/24/24 06:12 Labs: Abnormal Lab Results - Last 24 Hours (Table) 09/23/24 09/23/24 09/24/24 Range/Units 16:45 19:53 06:12 RBC (4.30-5.90) m/uL Hgb (13.0-17.5) gm/dL Hct (39.0-53.0) % MCV (80.0-100.0) fL MCH (25.0-35.0) pg MCHC (31.0-37.0) g/dL RDW (11.5-15.5) % Neutrophils # (1.3-7.7) k/uL Lymphocytes # (1.0-4.8) k/uL APTT 49.7 H (22.0-30.0) sec Chloride (98-107) mmol/L Carbon Dioxide (22-30) mmol/L POC Glucose (mg/dL) 135 H 173 H (70-110) mg/dL Calcium (8.4-10.2) mg/dL Albumin (3.5-5.0) g/dL 09/24/24 09/24/24 09/24/24 Range/Units 06:12 06:12 11:32 RBC 4.10 L (4.30-5.90) m/uL Hgb 8.9 L (13.0-17.5) gm/dL Hct 32.5 L (39.0-53.0) % MCV 79.2 L (80.0-100.0) fL MCH 21.8 L (25.0-35.0) pg MCHC 27.5 L (31.0-37.0) g/dL RDW 21.6 H (11.5-15.5) % Neutrophils # 8.7 H (1.3-7.7) k/uL Lymphocytes # 0.7 L (1.0-4.8) k/uL APTT (22.0-30.0) sec Chloride 96 L (98-107) mmol/L Carbon Dioxide 38 H (22-30) mmol/L POC Glucose (mg/dL) 140 H (70-110) mg/dL Calcium 8.1 L (8.4-10.2) mg/dL Albumin 3.0 L (3.5-5.0) g/dL Microbiology - Last 24 Hours (Table) 09/17/24 11:40 Anaerobic Culture - Preliminary Knee - Left Assessment and Plan (1) Sepsis Current Visit: Yes Status: Acute Code(s): A41.9 - SEPSIS, UNSPECIFIED ORGANISM SNOMED Code(s): 80839275 (2) Cellulitis Current Visit: Yes Status: Acute Code(s): L03.90 - CELLULITIS, UNSPECIFIED SNOMED Code(s): 697217364 (3) Bacteremia Current Visit: Yes Status: Acute Code(s): R78.81 - BACTEREMIA SNOMED Code(s): 9150807 (4) Septic arthritis Current Visit: Yes Status: Acute Code(s): M00.9 - PYOGENIC ARTHRITIS, UNSPECIFIED SNOMED Code(s): 116335803 Plan: 1patient presented hospital with sepsis in this patient who did have tachycardia elevated white count elevated lactic acid meeting criteria for SIRS source is likely left knee cellulitis and concern for possible left knee septic arthritis likely from gram-positive skin justin 2patient has been evaluated by orthopedic and did have aspiration of purulent material concerning for septic arthritis cultures obtained, orthopedic is recommended transfer to tertiary care 3patient did have elevated inflammatory markers and blood culture positive for Streptococcus agalactiae, repeat blood culture have been negative 4local wound care to the wound to the left leg with dry Aquacel dressing change q. 48-hour 5patient clinical computer is suggestive of left knee septic arthritis on the basis of elevated white count culture have been negative however those were done after the patient had been antibiotic for more than 48 hours and will benefit from surgical invention orthopedic recommended transfer to tertiary care continue cefazolin Dictation was produced using [employer] dictation software. please excuse any grammatical, word or spelling errors. Time with Patient: Less than 30
[2024-09-24 15:31] VITALS: BMI 43.5
[2024-09-24 16:20] LABS: Glucose,Whole Blood 124 mg/dL (70-110)
--- NOTE | 2024-09-24 16:32 | P.PN ---
Subjective Progress Note Date: 09/24/24 On today's evaluations of 09/23/2024, the patient remains altered and confused. Oral intake is minimal and the patient has a sitter at the bedside. He is on 2 L of oxygen by nasal cannula. No signs of any significant respiratory distress at rest. The patient is currently on 3 L of O2 nasal cannula. Remains on IV cefazolin. Remains on amiodarone drip and IV heparin drip regarding his atrial fibrillation. Rate is under better control for now. The patient is obese with a BMI of 44.7. He has chronic atrial fibrillation. The patient also has hypertension hyperlipidemia and diabetes mellitus in addition to bipolar disorder and previous history of seizure disorder. He has undergone previous left knee arthroplasty. He does have swelling in lower extremities bilaterally and moderate amount of joint effusion in the left knee. Aspiration of the fluid from the left knee was done it was positive for Staph aureus. Meanwhile, the patient's blood culture was positive for strep. The patient remains on IV cefazolin. Awaiting an orthopedic evaluation. ID is on the case. The possibility of left septic knee arthritis cannot be completely ruled out. He is afebrile. His white cell count has normalized from as high as 32. His most recent blood gas from yesterday showed a pH of 7.43 with a pCO2 of 64 and pO2 121 and this was done FiO2 of 32%. The patient however remains encephalopathic.Chest x-ray shows small left-sided pleural effusion and cardiomegaly and interstitial edema on 09/18/2024. Echocardiogram from 09/21/2024 showed a preserved LV function with an ejection fraction of 50 to 55%. Moderate RV dilatation. On 09/24/2024, the patient is being seen for a follow-up. Much more awake and alert compared to yesterday. He is showing no agitation. He is alert and oriented to self and place. The patient has no significant respiratory distress. On today's evaluation, he remains on 3 days of oxygen by nasal cannula. He remains in atrial fibrillation. The patient is on metoprolol 100 mg p.o. twice daily, Cardizem 30 mg p.o. 3 times daily and amiodarone 4 mg p.o. twice daily. He remains on IV heparin. Antibiotic coverage with IV cefazolin. Left knee remains quite swollen. The patient was evaluated by orthopedic surgery. Noted the patient has undergone a previous left knee arthroplasty and the plan is to continue antibiotics for now. According to the orthopedic davis rgeon, the findings are suggestive of a gouty arthropathy. No plans to aspirate the left knee at this point. The white cell count of 10.3 with a hemoglobin of 8.9 and a platelet count of 413. BUN is 10 with a creatinine of 0.6. Sodium is 138, potassium is at 4.1. Procalcitonin level is at 0.19. ID is still on the case. Patient's echocardiogram showed a preserved LV function with an ejection fraction of 50 to 55% with moderate RV dilatation. He has chronic hypoxic and hypercapnic respiratory failure which seems to be compensated on prior blood gases. Not utilizing BiPAP at this point. Objective - Vital Signs Vital signs: Vital Signs Temp 98.7 F 09/24/24 09:00 Pulse 100 09/24/24 09:00 Resp 18 09/24/24 09:00 BP 114/67 09/24/24 09:00 Pulse Ox 97 09/24/24 09:00 FiO2 35 09/24/24 00:20 Intake & Output 09/23/24 09/24/24 09/24/24 18:59 06:59 18:59 Intake Total 576.125 157.108 240 Output Total 825 1200 Balance -248.875 -1042.892 240 Weight 154 kg Intake: Intake, IV Titration 96.125 157.108 Amount Heparin Sod,Pork in 0.45% 96.125 157.108 NaCl 25,000 unit In 0.45 % NaCl 1 250ml.bag @ 14. 375 UNITS/KG/HR 23 mls/hr IV .[id number] [facility] Rx#: [id number] Oral 480 240 Output: Urine 825 1200 Other: Voiding Method External Catheter External Catheter External Catheter - Exam No acute distress, no agitation, currently on 3 L of oxygen by nasal cannula, alert and awake and communicating HEENT examination is grossly unremarkable. Mucous membranes are moist. No oral lesions. Neck supple. Full range of motion. No adenopathy thyromegaly or neck vein distention. Cardiovascular examination reveals an irregular rhythm and rate. S1-S2 normal. No S3 or S4. No discernible murmur noted. Lungs reveal clear breath sounds. Her sounds are equal bilaterally. No adventitious lung sounds including wheezes rhonchi or crackles. Abdomen soft bowel sounds are heard. No masses or tenderness. Extremities are intact. Bilateral lower extremity edema is noted. Lower extremities are wrapped. Left knee remains swollen. No significant erythema or pain. Skin is without rash or lesion. Neurologic examination is brief but nonfocal. Much more alert and communicative compared to yesterday and alert and oriented to self and place and able to move all 4 extremities without any limitation. - Labs CBC & Chem 7: 09/24/24 06:12 09/24/24 06:12 Labs: Abnormal Lab Results - Last 24 Hours (Table) 09/23/24 09/23/24 09/24/24 Range/Units 16:45 19:53 06:12 RBC (4.30-5.90) m/uL Hgb (13.0-17.5) gm/dL Hct (39.0-53.0) % MCV (80.0-100.0) fL MCH (25.0-35.0) pg MCHC (31.0-37.0) g/dL RDW (11.5-15.5) % Neutrophils # (1.3-7.7) k/uL Lymphocytes # (1.0-4.8) k/uL APTT 49.7 H (22.0-30.0) sec Chloride (98-107) mmol/L Carbon Dioxide (22-30) mmol/L POC Glucose (mg/dL) 135 H 173 H (70-110) mg/dL Calcium (8.4-10.2) mg/dL Albumin (3.5-5.0) g/dL 09/24/24 09/24/24 Range/Units 06:12 06:12 RBC 4.10 L (4.30-5.90) m/uL Hgb 8.9 L (13.0-17.5) gm/dL Hct 32.5 L (39.0-53.0) % MCV 79.2 L (80.0-100.0) fL MCH 21.8 L (25.0-35.0) pg MCHC 27.5 L (31.0-37.0) g/dL RDW 21.6 H (11.5-15.5) % Neutrophils # 8.7 H (1.3-7.7) k/uL Lymphocytes # 0.7 L (1.0-4.8) k/uL APTT (22.0-30.0) sec Chloride 96 L (98-107) mmol/L Carbon Dioxide 38 H (22-30) mmol/L POC Glucose (mg/dL) (70-110) mg/dL Calcium 8.1 L (8.4-10.2) mg/dL Albumin 3.0 L (3.5-5.0) g/dL Microbiology - Last 24 Hours (Table) 09/17/24 11:40 Anaerobic Culture - Preliminary Knee - Left Assessment and Plan Plan: encephalopathy/confusion, seem to be improved on today's evaluation. Consider metabolic encephalopathy. This could be related to underlying sepsis. CAT scan of the brain done on 09/21/2024 showed no acute intracranial process. Neurologic exam remains nonfocal. Left leg septic versus gouty arthritis with fluid aspirated and the fluid culture was negative. No suspicion for septic arthritis based on orthopedic evaluation Group B strep bacteremia, most likely secondary to cellulitis Acute on chronic hypoxemic and hypercapnic respiratory failure, currently on 3 L of oxygen by nasal cannula Acute leukocytosis, improved Atrial fibrillation, with rapid ventricular response, rate is under better control Anemia, monitor for acute blood loss. Hypertension. History of hyperlipidemia. Diabetes mellitus type 2. Morbid obesity with a BMI of 44.9 kg/m. History of obstructive sleep apnea. History of GI bleed. History of gastritis. History of seizure. Bipolar/depression. Plan: Keep the patient on oxygen 3 L/min nasal cannula Preferred to utilize BiPAP overnight Continue IV cefazolin Orthopedic follow-up regarding septic versus gouty arthritis of the left knee Management of atrial fibrillation per cardiology. The patient remains on amioda pardeep drip and IV heparin with a better controlled rate. Monitor mental status CAT scan of the brain showed no acute intracranial normalities Mental status is improving Chest x-ray showed small left-sided pleural effusion along with cardiomegaly Echocardiogram shows a preserved LV function without any valvular abnormalities or significant pulm hypertension. Continue metoprolol 100 mg p.o. twice daily and amiodarone 4 mg p.o. twice daily and Cardizem 30 mg p.o. 3 times daily. This will be discussed with cardiology. Continue Zyprexa Continue Seroquel Continue Aldactone Will follow Time with Patient: Greater than 30
--- NOTE | 2024-09-24 19:14 | P.DS ---
Providers Date of admission: 09/15/24 00:33 Expected date of discharge: 09/24/24 Attending physician: Arminda Macias MD Consults: 09/15/24 11:16 Consult Physician Routine Consulting Provider: Denzel Ware Consult Reason/Comments: cellulitis Do you want consulting provider notified?: Yes 09/17/24 00:58 Consult Physician Urgent Consulting Provider: Norman Reynolds Consult Reason/Comments: left knee swelling, infection, sepsis, [place] [address] Ryenolds Do you want consulting provider notified?: Yes 09/18/24 15:24 Consult Physician Urgent Consulting Provider: Gage Sun Consult Reason/Comments: hypoxia, ams, sepsis, may need ICU Do you want consulting provider notified?: Yes 09/18/24 20:04 Consult Physician Urgent Consulting Provider: Reggie Pelaez Consult Reason/Comments: afib, sepsis Do you want consulting provider notified?: Yes 09/23/24 13:00 Consult Physician Stat Consulting Provider: Norman Reynolds Consult Reason/Comments: left knee swelling, infection, sepsis, [place] [address] Reynolds Do you want consulting provider notified?: Yes Primary care physician: Cooper Donald MD Hospital Course: Final diagnosis -Bilateral lower extremity wounds with cellulitis, present on admission -Sepsis, present on admission multifactorial, possibly secondary to bilateral lower extremity cellulitis as well as concerns for possible septic arthritis -Bacteremia, streptococcal secondary to above -A-fib with RVR, history of paroxysmal A-fib maintained on Eliquis, currently held and maintained on IV heparin for now -History of left knee total arthroplasty with concern for periprosthetic left knee infection and septic arthritis possible gouty arthropathy of the left knee -Acute metabolic encephalopathy secondary to sepsis, improving -Hypotension secondary to sepsis continue with IV fluids, improving -Bilateral lower extremity edema appears to be pretty moderate in CHF patient will continue on fluids for now because of hypotension and lactic acidosis, 2D echo ordered and pending -Morbid obesity with obstructive sleep apnea patient will continue on CPAP machine. -History of atrial fibrillation paroxysmal, maintained on Eliquis outpatient -Type 2 diabetes mellitus uncontrolled with hyper and hypoglycemia: Continue on sliding scale insulin -Generalized weakness and gait dysfunction DVT prophylaxis: IV heparin GI prophylaxis full code Discharge disposition Patient is being transferred in stable condition with guarded prognosis to [facility] in [place] and has been accepted by Dr Macias. Total time taken is greater than 35 minutes. Hospital course 69-year-old male came in because he is unable to take care of himself and infection and legs patient has a wound in the left mid dunlap area which appeared to be infected and also cellulitis of the right lower extremity denied any history of MRSA in the past patient does have history of atrial fibrillation patient was hypotensive patient has swelling in bilateral lower extremities but chest x-ray is within normal limits does not appear to be in CHF patient has elevated BNP of 3200 does have history of atrial fibrillation on anticoagulation with Eliquis. Patient lives by himself lately he is unable to take care of himself patient was started on vancomycin here. Patient is obese with history of sleep apnea. Using his CPAP machine presently on oxygen does not usually use any oxygen. 09/16/2024 Patient is seen in follow-up today with no acute overnight issues noted. Infectious disease following and patient is maintained on antibiotics in the form of cefazolin 3 g every 8 hours.. Blood cultures positive for Streptococcus and there is concerns of significant knee swelling and possible septic arthritis. Will consult orthopedics and appreciate input and recommendations. If undergoing needle aspiration, strongly recommend sending for cultures. Patient is afebrile although white count remains elevated at 29, slightly improved from yesterday. Will follow-up on repeat labs. Patient with significant weakness recommend PT/OT therapy evaluation. Patient will likely need ECF on discharge. 09/17/2024 Patient is seen in follow-up today being continued on IV antibiotics with infectious disease following. Awaiting orthopedics evaluation with concerns of left knee swelling and possible source of infection. Orthopedics did evaluate and is status post aspiration of the left knee and was noted to be significantly purulent and was sent to the lab. Currently there is no orthopedic that would be able to provide surgical intervention and recommending tertiary transfer. Patient is agreeable if necessary and transfer was initiated to [facility]. Lizeth nails was accepted currently awaiting a bed. Patient is afebrile and white count remains elevated although trending down. Will follow-up on repeat labs. Eliquis on hold and will continue heparin subcu. 09/18/2024 Patient is seen in follow-up this morning continues on IV antibiotics with infectious disease following. On exam patient is diaphoretic and confused is following commands and answering some questions appropriately although mentation is definitely of concern. Ct brain ordered and negative for acute process. Patient with sepsis and concerns for lower extremity cellulitis as well as left knee septic arthritis. Limited coverage for orthopedics at this time, although did undergo left knee aspiration and was noted to have crystals concerning for gout. Patient is pending a transfer to [facility] for tertiary treatment given our limited coverage. No bed available. Patient is also wearing oxygen and continues to remove nasal cannula with concerns of hypoxia. Pulmonary consulted for possible ICU eval although stable and will be moved to [address] [place] [address] for closer monitoring. Patient is trying to get out of bed and is at increased risk of falls. Recommend abg although patient is refusing. 09/19/2024 Patient has been moved to the 3 . unit for closer monitoring on examination today he is more awake alert and oriented and he is answering questions appropriately. He appears less congested after receiving a dose of IV Lasix. He continues on IV cefazolin with concern for septic arthritis of the left knee and left lower extremity cellulitis. Patient had a brain CT with no acute fin dings. He was evaluated in consultation today by pulmonary and cardiology services. Cardiology recommending to resume Eliquis today and monitor hemoglobin. Monitor QT interval. EKG was repeated with QT QTc of 312 and 375. Patient remains in atrial fibrillation with rapid ventricular rate at times. Repeat blood culture is negative so far. His labs today reveal a white blood cell count of 9.5, hemoglobin 8.4, sodium of 140 potassium 4.4, BUN of 17 creatinine of 0.65, blood glucose is well-controlled. His calcium level was 8.0 magnesium 2.1 iron of 13 TIBC of 392% saturation of 3.32 and transferrin level 280 ferritin level was 54.3. These findings are consistent with a mild iron deficiency anemia. proBNP was found to be elevated at 3176. His lipid panel reveals triglyceride level of 95 cholesterol level of 89, LDL of 49.4 and HDL of 20.60. Patient was noted to have monosodium urate Crystals on aspiration of the left knee. Although concern remains for septic arthritis. Orthopedics was recommending starting patient medication for gout such as allopurinol or colchicine although at this time would recommend to hold off and patient is not a candidate for steroids at this time secondary to severe sepsis. 09/20/2024 Patient is seen in follow-up today with multiple consultations following including infectious disease, and now cardiology. Patient with chronic history of A-fib with Eliquis being held due to possible surgical intervention and awaiting a transfer to [facility]. Patient had been accepted by Dr. Arrington internal medicine with Ortho on consult. Patient is status post knee aspiration on the left and cultures thus far negative. Patient with A-fib RVR transferred to [facility] for closer monitoring is maintained on IV heparin and will continue for now. Metoprolol being adjusted and increased per cardiology. 2D echo is ordered and pending. Mentation is improved today and at baseline. 09/21 pt is sleepy , on nasal cannula at 3 ml per min He is tachycardic 129, since admission, mildly tachypneic. Breathing looks like with sleep apnea pt is obese , has bilateral pitting leg edema Left knee is warm and swollen Sitter at bedside Is on heparin drip and cefazolin 09/22 Patient is still very lethargic on BiPAP He had CT of the brain done yesterday which showed no acute process, I reviewed the CT by myself and agree with it Also he has paroxysmal A-fib , with heart rate went up to 124, currently 114 and currently on metoprolol 100 mg and amiodarone drip was added. Eliquis is on hold and currently on heparin drip Echocardiogram reviewed by me showing ejection fraction 50 to 55% with moderate right ventricular dilatation, there is multiple mild valvular heart disease Patient continued on cefazolin for his wound infection and possible left knee periprosthetic infection versus crystal induced arthropathy. His left knee is still swollen but not as warm as yesterday. Also was treated for bacteremia His leg swelling looks better, he received 1 dose of IV Lasix. Sugar looks controlled 09/23/2024 Patient is seen in follow-up today continues to be encephalopathic although mentation is slightly improved from previous. Patient being followed by maico patino consultations and orthopedics consulted once again with concerns of ongoing sepsis. Patient being followed by cardiology as well making adjustments to medications, currently rate controlled and patient is maintained on IV heparin. Plan was for transfer for tertiary treatment and currently awaiting a bed at [facility]. Patient has been accepted although no beds available today. Orthopedics discussing possible knee aspiration for symptomatic relief. Infectious disease following as well and patient will continue on current antibiotic regimen. 09/24/2024 [facility] transfer team notified there is a bed available and needs to reconference with provider to provider. Patient has been accepted by internal medicine Dr. Macias and will consult orthopedics as our orthopedics covering rachna mmends tertiary treatment transfer for possible surgical intervention regarding this left knee. Patient most recent blood cultures are negative and white count has normalized and patient is afebrile patient maintained on IV antibiotics with infectious disease following as well as IV heparin as patient has a history of atrial fibrillation, currently rate controlled. Patient continues on cefazolin per infectious disease and will continue. Patient per our orthopedics may need total knee arthroplasty including antibiotic beads and washout of previous hardware which is unable to be done at our facility. Patient is agreeable to the transfer and transfer team will call for nursing report and bed assignment to the unit. PHYSICAL EXAMINATION: GENERAL: The patient is alert and oriented x 23, less confused, much more alert today although continues to be somewhat encephalopathic. Impulsive requiring a fire and safety helper at bedside. Well developed, well nourished. Morbidly obese HEENT: Pupils are round and equally reacting to light. EOMI. No scleral icterus. No conjunctival pallor. Normocephalic, atraumatic. No pharyngeal erythema. No thyromegaly. CARDIOVASCULAR: S1 and S2 muffled, irregular, A-fib PULMONARY: Diminished breath sounds bilaterally, faint crackles noted. ABDOMEN: Soft, morbidly obese nontender, nondistended, normoactive bowel sounds. No palpable organomegaly. MUSCULOSKELETAL: left knee joint swelling , no deformity. EXTREMITIES: No cyanosis, clubbing, . Bilateral lower extremity swelling, left knee swelling noted, dressings of lower extremity wounds noted that are dry and intact NEUROLOGICAL: Gross neurological examination did not reveal any focal deficits. Diffusely weak, mildly anxious SKIN: Bilateral lower extremity edema with a circumferential cellulitis in the left lower extremity , and left lower leg ulcer below the mid dunlap area which appear to be infected. Please refer to medication reconciliation sheet for a list of medications. The impression and plan of care has been dictated by So Tian, Nurse Practitioner as directed. Dr. Paige MD I have performed a history and examination and MDM of this patient, discussed t he same with the dictator, and agree with the dictator's assessment and plan as written ,documented as a scribe. Based on total visit time, I have performed more than 50% of the visit. Patient Condition at Discharge: Stable Plan - Discharge Summary Discharge Rx Participant: No New Discharge Prescriptions: New Spironolactone [Aldactone] 12.5 mg PO DAILY tab INSULIN LISPRO (HumaLOG) [HumaLOG] 0 unit SQ ACHS each Famotidine [Pepcid] 20 mg PO BID tab QUEtiapine [SEROquel] 25 mg PO HS tab Diltiazem Oral [Cardizem*] 30 mg PO TID tab Amiodarone [Cordarone] 400 mg PO BID tab Metoprolol Tartrate [Lopressor] 100 mg PO BID tab Mag Hydrox/Al Hydrox/Simeth [Maalox] 15 ml PO Q6HR PRN ml PRN Reason: Indigestion Melatonin 5 mg PO HS tab Calcium Carbonate [Tums] 1,000 mg PO Q4HR PRN tab PRN Reason: Dyspepsia Acetaminophen Tab [Tylenol] 650 mg PO Q6HR PRN tab PRN Reason: Mild Pain Or Fever > 100.5 Continue Braden Carbonate 1,200 mg PO HS OLANZapine [ZyPREXA] 7.5 mg PO HS Turmeric Root Extract [Turmeric] 500 mg PO DAILY Krill/Om-3/Dha/Epa/Phospho/Ast [Krill Oil 600 mg Softgel] 1 cap PO DAILY Glucosam/Max-Msm1/C/Conor/Bosw [Glucosamine-Chondroitin Tablet] 1 tab PO DAILY Discontinued Apixaban [Eliquis] 5 mg PO BID Venlafaxine HCl [Effexor XR] 225 mg PO DAILY Losartan/Hydrochlorothiazide [Hyzaar 100-12.5 Tablet] 1 tab PO DAILY Discharge Medication List Braden Carbonate 1,200 mg PO HS 08/02/17 [History] OLANZapine [ZyPREXA] 7.5 mg PO HS 07/01/24 [History] Glucosam/Max-Msm1/C/Conor/Bosw [Glucosamine-Chondroitin Tablet] 1 tab PO DAILY 09/15/24 [History] Krill/Om-3/Dha/Epa/Phospho/Ast [Krill Oil 600 mg Softgel] 1 cap PO DAILY 09/15/24 [History] Turmeric Root Extract [Turmeric] 500 mg PO DAILY 09/15/24 [History] Acetaminophen Tab [Tylenol] 650 mg PO Q6HR PRN tab 09/24/24 [Rx] Amiodarone [Cordarone] 400 mg PO BID tab 09/24/24 [Rx] Calcium Carbonate [Tums] 1,000 mg PO Q4HR PRN tab 09/24/24 [Rx] Diltiazem Oral [Cardizem*] 30 mg PO TID tab 09/24/24 [Rx] Famotidine [Pepcid] 20 mg PO BID tab 09/24/24 [Rx] INSULIN LISPRO (HumaLOG) [HumaLOG] 0 unit SQ ACHS each 09/24/24 [Rx] Mag Hydrox/Al Hydrox/Simeth [Maalox] 15 ml PO Q6HR PRN ml 09/24/24 [Rx] Melatonin 5 mg PO HS tab 09/24/24 [Rx] Metoprolol Tartrate [Lopressor] 100 mg PO BID tab 09/24/24 [Rx] QUEtiapine [SEROquel] 25 mg PO HS tab 09/24/24 [Rx] Spironolactone [Aldactone] 12.5 mg PO DAILY tab 09/24/24 [Rx] Follow up Appointment(s)/Referral(s): Cooper Donald MD [Primary Care Provider] - 1-2 days
[2024-09-24 20:08] LABS: Glucose,Whole Blood 126 mg/dL (70-110)
[2024-09-24 20:46] VITALS: BP 124/77; PULSE 88; RESP 19; TEMP 97.8
== END 2024-09-24 20:28 | DRG 559 ==
LOC: EC 22:03 → 6NMEDSUR 09-15 00:33 → OBSVTOIN 09-15 00:33 → 5NMEDONC 09-15 04:43 → 3SCARD 09-18 16:10
PROVIDERS: ADMIT Internal Medicine; ATTEND Internal Medicine
PROC: 0S9D3ZX Drainage of Left Knee Joint, Percutaneous Approach, Diagnostic (ICD-10-PCS; principal; 2024-09-17)
PROC: 5A09457 Assistance with Respiratory Ventilation, 24-96 Consecutive Hours, Continuous Positive Airway Pressure (ICD-10-PCS; 2024-09-19)
DX: T84.54XA Infection and inflammatory reaction due to internal left knee prosthesis, initial encounter (principal); A41.01 Sepsis due to Methicillin susceptible Staphylococcus aureus; G93.41 Metabolic encephalopathy; J96.01 Acute respiratory failure with hypoxia; I50.33 Acute on chronic diastolic (congestive) heart failure; J96.21 Acute and chronic respiratory failure with hypoxia; J96.22 Acute and chronic respiratory failure with hypercapnia; R65.20 Severe sepsis without septic shock; M00.062 Staphylococcal arthritis, left knee; I13.0 Hypertensive heart and chronic kidney disease with heart failure and stage 1 through stage 4 chronic kidney disease, or unspecified chronic kidney disease; E66.01 Morbid (severe) obesity due to excess calories; E11.65 Type 2 diabetes mellitus with hyperglycemia; F31.9 Bipolar disorder, unspecified; J44.9 Chronic obstructive pulmonary disease, unspecified; G40.909 Epilepsy, unspecified, not intractable, without status epilepticus; D50.9 Iron deficiency anemia, unspecified; D50.0 Iron deficiency anemia secondary to blood loss (chronic); I08.1 Rheumatic disorders of both mitral and tricuspid valves; I48.20 Chronic atrial fibrillation, unspecified; Z68.41 Body mass index [BMI] 40.0-44.9, adult; M00.212 Other streptococcal arthritis, left shoulder; E87.20 Acidosis, unspecified; L03.115 Cellulitis of right lower limb; L03.116 Cellulitis of left lower limb; N17.9 Acute kidney failure, unspecified; J98.11 Atelectasis; I48.0 Paroxysmal atrial fibrillation; E11.22 Type 2 diabetes mellitus with diabetic chronic kidney disease; E11.51 Type 2 diabetes mellitus with diabetic peripheral angiopathy without gangrene; E11.649 Type 2 diabetes mellitus with hypoglycemia without coma; G47.30 Sleep apnea, unspecified; Z79.01 Long term (current) use of anticoagulants; G47.33 Obstructive sleep apnea (adult) (pediatric); R60.0 Localized edema; Y83.1 Surgical operation with implant of artificial internal device as the cause of abnormal reaction of the patient, or of later complication, without mention of misadventure at the time of the procedure; D64.9 Anemia, unspecified; E78.5 Hyperlipidemia, unspecified; M10.9 Gout, unspecified; N18.2 Chronic kidney disease, stage 2 (mild); Z79.899 Other long term (current) drug therapy; Z91.81 History of falling; Z95.1 Presence of aortocoronary bypass graft; F17.210 Nicotine dependence, cigarettes, uncomplicated; R63.6 Underweight; Z87.19 Personal history of other diseases of the digestive system; K29.70 Gastritis, unspecified, without bleeding
CPT/HCPCS: 36415; 36600; 70450; 71045; 71046; 80048; 80053; 80061; 80178; 82140; 82728; 82805; 83036; 83540; 83550; 83605; 83735; 83880; 84145; 84443; 84484; 85025; 85027; 85610; 85652; 85730; 86140; 87040; 87070; 87075; 87077; 87102; 87186; 87205; 87636; 89050; 89060; 93005; 93306; 94660; 94760; 96361; 96365; 96366; 96367; 96368; 99291

== ENCOUNTER 2024-10-31 15:06 | Inpatient (IN) | payer MEDICARE, OTHER ==
--- NOTE | 2024-10-31 15:46 | ED ---
General Adult HPI - General Chief complaint: Recheck/Abnormal Lab/Rx Stated complaint: abn labs, confusion Time Seen by Provider: 10/31/24 15:18 Source: patient, EMS Mode of arrival: EMS Limitations: altered mental status, physical limitation - History of Present Illness Initial comments: Dictation was produced using [employer] dictation software. please excuse any grammatical, word or spelling errors. Chief Complaint: 69-year-old male with history of encephalopathy presents to the ER for altered mental status, elevated lithium levels and increased tremors History of Present Illness: Patient 69-year-old male with multiple comorbidities. His comorbidities include A-fib, diabetes, dyslipidemia hypertension and encephalopathy. Patient takes p.o. lithium. He had labs drawn at skilled nursing. Is found to have a lithium level of 3.4. According to jori roberts documentation patient allegedly has been having worsening mental status changes along with increase in tremors. Patient denies any other bedside. The ROS documented in this emergency department record has been reviewed and confirmed by me. Those systems with pertinent positive or negative responses have been documented in the HPI. All other systems are other negative and/or noncontributory. - Related Data Home Medications Medication Instructions Recorded Confirmed [place] Carbonate 1,200 mg PO HS 08/02/17 10/31/24 Acetaminophen [Tylenol 8 Hour] 650 mg PO Q6H PRN 10/31/24 10/31/24 Amiodarone [Cordarone] 200 mg PO DAILY 10/31/24 10/31/24 Apixaban [Eliquis] 5 mg PO BID 10/31/24 10/31/24 Cholecalciferol [Vitamin D3 (25 50 mcg PO DAILY 10/31/24 10/31/24 Mcg = 1000 Iu)] Diltiazem Oral [Cardizem*] 30 mg PO TID@0500,1300,2100 10/31/24 10/31/24 Losartan Potassium [Cozaar] 100 mg PO DAILY 10/31/24 10/31/24 Metoprolol Tartrate [Lopressor] 100 mg PO BID 10/31/24 10/31/24 Multivitamins, Thera [Multivitamin 1 tab PO DAILY 10/31/24 10/31/24 (formulary)] OLANZapine [ZyPREXA] 2.5 mg PO HS 10/31/24 10/31/24 Pantoprazole [Protonix] 40 mg PO DAILY 10/31/24 10/31/24 Venlafaxine HCl [Effexor] 225 mg PO DAILY 10/31/24 10/31/24 Previous Rx's Medication Instructions Recorded Melatonin 5 mg PO HS tab 09/24/24 Allergies Allergy/AdvReac Type Severity Reaction Status Date / Time No Known Allergies Allergy Verified 10/31/24 16:04 Review of Systems ROS Statement: Those systems with pertinent positive or pertinent negative responses have been documented in the HPI. ROS Other: All systems not noted in ROS Statement are negative. Past Medical History Past Medical History: Atrial Fibrillation, Diabetes Mellitus, GERD/Reflux, H yperlipidemia, Hypertension, Osteoarthritis (OA), Sleep Apnea/CPAP/BIPAP Additional Past Medical History / Comment(s): seizure two yrs ago from major depressive disorder, hemorrhoids, herniated disc, TOOTH ACHE AT PRESENT Cellulitis and abscess of mouth. Mediastinitis secondary to mouth abscess; IV antibiotic therapy History of Any Multi-Drug Resistant Organisms: None Reported Past Surgical History: Adenoidectomy, Hernia Repair, Tonsillectomy Additional Past Surgical History / Comment(s): epidural. Abscessed teeth pulled at [place] [id number]. Chest tube drain. Past Anesthesia/Blood Transfusion Reactions: No Reported Reaction Past Psychological History: Depression Smoking Status: Current some day smoker Past Alcohol Use History: Rare Past Drug Use History: None Reported - Past Family History Mother Family Medical History: No Reported History General Exam - General Exam Comments Initial Comments: PHYSICAL EXAM: General Impression: Alert and oriented x3, for extremity tremors, confused tangential speech HEENT: Normocephalic atraumatic, extra-ocular movements intact, pupils equal and reactive to light bilaterally, mucous membranes moist. Cardiovascular: Heart regular rate and rhythm Chest: Able to complete full sentences, no retractions, no tachypnea Abdomen: abdomen soft, non-tender, non-distended, no organomegaly Musculoskeletal: Pulses present and equal in all extremities, no peripheral edema Motor: no focal deficits noted Neurological: CN II-XII grossly intact, no focal motor or sensory deficits noted Skin: Intact with no visualized rashes Psych: Normal affect and mood Limitations: altered mental status, physical limitation Course Vital Signs 10/31/24 10/31/24 10/31/24 15:16 16:00 16:30 Temperature 98.4 F Pulse Rate 94 95 95 Respiratory 20 16 21 Rate Blood Pressure 109/76 118/77 124/77 O2 Sat by Pulse 94 L 96 95 Oximetry 10/31/24 17:00 Temperature Pulse Rate 97 Respiratory 22 Rate Blood Pressure 103/74 O2 Sat by Pulse 96 Oximetry - Reevaluation(s) Reevaluation #1: 10/31/24 16:58 Case discussed with nephrology recommends recheck lithium level at 530 to decide on dialysis Reevaluation #2: 10/31/24 17:09 Case discussed with poison control did not recommend urgent dialysis at this ti me they recommended repeat lithium level in 6 hours. They did recommend stat dialysis if patient's mentation declined or started to experience cardiac or GI effects. Reevaluation #3: 10/31/24 18:[address] Ulloa again she would like patient to have dialysis initiated. Case discussed with vascular surgery who will place temporary d ialysis catheter. EKG Findings - EKG Comments: EKG Findings:: My EKG interpretation: Ventricular rate 94, A-flutter, QRS 107, QTc 436. No [place] prolongation, no QTC prolongation, no ST or T-wave changes noted. EKG compared to September 19, 2024 showing no changes. Overall, this EKG is unremarkable Medical Decision Making - Medical Decision Making Was pt. sent in by a medical professional or institution (, PA, ORDER SELECTOR, urgent care, hospital, or skilled nursing...) When possible be specific @ -No Did you speak to anyone other than the patient for history (EMS, parent, family, police, friend...)? What history was obtained from this source @ -Part of patent prosecution attorney at the bedside along with transfer documentation Did you review nursing and triage notes (agree or disagree)? Why? @ -I reviewed and agree with nursing and triage notes Were old charts reviewed (outside hosp., previous admission, EMS record, old EKG, old radiological studies, urgent care reports/EKG's, skilled nursing records)? Report findings @ -detention notes Differential Diagnosis (chest pain, altered mental status, abdominal pain women, abdominal pain men, vaginal bleeding, musculoskeletal, weakness, fever, dyspnea, syncope, headache, dizziness, GI bleed, back pain, seizure, CVA, palpatations, mental health)? @ -Differential Altered Mental Status: Hypoglycemia, DKA, hypercapnia, ETOH, overdose, CO poisoning, trauma, myxedema coma, HTN encephalopathy, infection, encephalitis, psychosis, intercranial hemorrhage, hepatic encephalopathy, meningitis, CVA, this is not meant to be an all-inclusive list EKG interpreted by me (3pts min.). @ -See above X-rays interpreted by me (1pt min.). @ -None done CT interpreted by me (1pt min.). @ -CT brain is nonacute U/S interpreted by me (1pt. min.). @ -None done What testing was considered but not performed or refused? (CT, X-rays, U/S, labs)? Why? @ -None What meds were considered but not given or refused? Why? @ -None Was smoking cessation discussed for >3mins.? @ -No Were there social determinants of health that impacted care today? How? (Homelessness, low income, unemployed, alcoholism, drug addiction, transportation, low edu. Level, literacy, decrease access to med. care, long-term, rehab)? @ -No Was there de-escalation of care discussed even if they declined (Discuss DNR or withdrawal of care, Hospice)? DNR status @ -No What co-morbidities impacted this encounter? (DM, HTN, Smoking, COPD, CAD, Cancer, CVA, ARF, Chemo, Hep., AIDS, mental health diagnosis, sleep apnea, morbid obesity)? @ -[place] use Was patient admitted / discharged? Hospital course, mention meds given and route, prescriptions, significant lab abnormalities, going to OR and other pertinent info. @ -69-year-old male presents with lithium toxicity. He had elevated outpatient lithium levels. Patient having neurologic toxicity symptoms. He however is in no acute distress. Stable. See above for discussion with specialist. Aside from lithium levels labs are within acceptable limits. Patient will be admitted with vascular surgery placing temporary dialysis catheter and nephrology performing dialysis. Case discussed with smalltalk developer Dr. Sun who did not feel that patient requires ICU admission. Did you discuss the management of the patient with other professionals (professionals i.e. , PA, ORDER SELECTOR, lab, RT, psych nurse, social services specialist, pathology assistant, te acher, facility security officer, case mgr)? Give summary @ -As above Was critical care preformed (if so, how long)? @ -Yes, 77 minutes Undiagnosed new problem with uncertain prognosis? @ -No Drug Therapy requiring intensive monitoring for toxicity (Heparin, Nitro, Insulin, Cardizem)? @ -No Were any procedures done? @ -No Diagnosis/symptom? Acute, or Chronic, or Acute on Chronic? Uncomplicated (wi thout systemic symptoms) or Complicated (systemic symptoms)? @ -[place] toxicity Side effects of treatment? @ -No Exacerbation, Progression, or Severe Exacerbation? @ -No Poses a threat to life or bodily function? How? (Chest pain, [place], [place], pneumonia, PE, COPD, DKA, ARF, appy, cholecystitis, CVA, Diverticulitis, Homicidal, Suicidal, threat to staff... and all critical care pts) @ -yes - Lab Data Result diagrams: 10/31/24 15:38 10/31/24 15:38 Lab Results 10/31/24 10/31/24 10/31/24 Range/Units 15:38 15:38 16:26 WBC 11.10 H (4.50-10.00) 10*3/uL RBC 4.73 (4.40-5.60) 10*6/uL Hgb 12.5 L (13.0-17.0) g/dL Hct 40.0 (39.6-50.0) % MCV 84.6 (80.0-97.0) fL MCH 26.4 L (27.0-32.0) pg MCHC 31.3 L (32.0-37.0) g/dL Plt Count 248 (140-440) 10*3/uL MPV 10.2 (9.5-12.2) fL Immature Gran % (Auto) 0.5 % Neutrophils % 86.1 % Lymphocytes % 6.0 % Monocytes % 6.5 % Eosinophils % 0.5 % Basophils % 0.4 % Immature Gran # 0.05 H (0.00-0.04) 10*3/uL Neutrophils # 9.57 H (1.80-7.70) 10*3/uL Lymphocytes # 0.67 L (0.90-5.00) 10*3/uL Monocytes # 0.72 (0.20-1.00) 10*3/uL Eosinophils # 0.05 (0.04-0.35) 10*3/uL Basophils # 0.04 (0.00-0.10) 10*3/uL Manual Slide Review Performed Anisocytosis (manual) Present Sodium 136 L (137-145) mmol/L Potassium 4.6 (3.5-5.1) mmol/L Chloride 104 (98-107) mmol/L Carbon Dioxide 24 (22-30) mmol/L Anion Gap 8 mmol/L BUN 29 H (9-20) mg/dL Creatinine 1.52 H (0.66-1.25) mg/dL Est GFR (CKD-EPI)AfAm 54 (>60 ml/min/1.73 sqM) Est GFR (CKD-EPI)NonAf 46 (>60 ml/min/1.73 sqM) Glucose 102 H (74-99) mg/dL Calcium 10.2 (8.4-10.2) mg/dL Magnesium 2.0 (1.6-2.3) mg/dL Total Bilirubin 0.9 (0.2-1.3) mg/dL AST 29 (17-59) U/L ALT 29 (4-49) U/L Alkaline Phosphatase 162 H (38-126) U/L Total Protein 7.3 (6.3-8.2) g/dL Albumin 4.0 (3.5-5.0) g/dL Urine Color Yellow Urine Appearance Clear (Clear) Urine pH 6.0 (5.0-8.0) Ur Specific [place] 1.025 (1.001-1.035) Urine Protein 1+ H (Negative) Urine Glucose (UA) Negative (Negative) Urine Ketones Trace H (Negative) Urine Blood Negative (Negative) Urine Nitrite Negative (Negative) Urine Bilirubin 1+ H (Negative) Urine Urobilinogen 3.0 (<2.0) mg/dL Ur Leukocyte Esterase Small H (Negative) Urine RBC 1 (0-5) /hpf Urine WBC 13 H (0-5) /hpf Hyaline Casts 10 H (0-2) /lpf Urine Mucus Occasional H (None) /hpf [place] 3.3 H* mmol/L / Range/Units 17:27 WBC (4.50-10.00) 10*3/uL RBC (4.40-5.60) 10*6/uL Hgb (13.0-17.0) g/dL Hct (39.6-50.0) % MCV (80.0-97.0) fL MCH (27.0-32.0) pg MCHC (32.0-37.0) g/dL Plt Count (140-440) 10*3/uL MPV (9.5-12.2) fL Immature Gran % (Auto) % Neutrophils % % Lymphocytes % % Monocytes % % Eosinophils % % Basophils % % Immature Gran # (0.00-0.04) 10*3/uL Neutrophils # (1.80-7.70) 10*3/uL Lymphocytes # (0.90-5.00) 10*3/uL Monocytes # (0.20-1.00) 10*3/uL Eosinophils # (0.04-0.35) 10*3/uL Basophils # (0.00-0.10) 10*3/uL Manual Slide Review Anisocytosis (manual) Sodium (137-145) mmol/L Potassium (3.5-5.1) mmol/L Chloride (98-107) mmol/L Carbon Dioxide (22-30) mmol/L Anion Gap mmol/L BUN (9-20) mg/dL Creatinine (0.66-1.25) mg/dL Est GFR (CKD-EPI)AfAm (>60 ml/min/1.73 sqM) Est GFR (CKD-EPI)NonAf (>60 ml/min/1.73 sqM) Glucose (74-99) mg/dL Calcium (8.4-10.2) mg/dL Magnesium (1.6-2.3) mg/dL Total Bilirubin (0.2-1.3) mg/dL AST (17-59) U/L ALT (4-49) U/L Alkaline Phosphatase (38-126) U/L Total Protein (6.3-8.2) g/dL Albumin (3.5-5.0) g/dL Urine Color Urine Appearance (Clear) Urine pH (5.0-8.0) Ur Specific [place] (1.001-1.035) Urine Protein (Negative) Urine Glucose (UA) (Negative) Urine Ketones (Negative) Urine Blood (Negative) Urine Nitrite (Negative) Urine Bilirubin (Negative) Urine Urobilinogen (<2.0) mg/dL Ur Leukocyte Esterase (Negative) Urine RBC (0-5) /hpf Urine WBC (0-5) /hpf Hyaline Casts (0-2) /lpf Urine Mucus (None) /hpf [place] 3.2 H* mmol/L Disposition Clinical Impression: [place] toxicity Disposition: ADMITTED IP TO THIS HOSP Condition: Critical Referrals: Enrrique Shanks DO [Primary Care Provider] - 1-2 days Decision Time: 18:52
[2024-10-31 15:57] LABS: Basophils # (A) 0.04 10*3/uL (0.00-0.10); Basophils % (A) 0.4 %; Eosinophils # (A) 0.05 10*3/uL (0.04-0.35); Eosinophils % (A) 0.5 %; HGB 12.5 g/dL (13.0-17.0); Lymphocytes # (A) 0.67 10*3/uL (0.90-5.00); MCH 26.4 pg (27.0-32.0); MCHC 31.3 g/dL (32.0-37.0); MCV 84.6 fL (80.0-97.0); Mean Platelet Volume 10.2 fL (9.5-12.2); Monocytes # (A) 0.72 10*3/uL (0.20-1.00); Monocytes % (A) 6.5 %; Neutrophils # (A) 9.57 10*3/uL (1.80-7.70); Neutrophils % (A) 86.1 %; Platelet Count 248 10*3/uL (140-440); RBC 4.73 10*6/uL (4.40-5.60)
[2024-10-31 16:18] LABS: ALT 29 U/L (4-49); AST 29 U/L (17-59); African American GFR (CKD) 54 (>60 ml/min/1.73 sqM); Alkaline Phosphatase 162 U/L (38-126); Anion Gap 8 mmol/L; Blood Urea Nitrogen 29 mg/dL (9-20); Calcium 10.2 mg/dL (8.4-10.2); Carbon Dioxide 24 mmol/L (22-30); Chloride 104 mmol/L (98-107); Glucose 102 mg/dL (74-99); Non-African American GFR(CKD) 46 (>60 ml/min/1.73 sqM); Potassium 4.6 mmol/L (3.5-5.1); Sodium 136 mmol/L (137-145); Total Bilirubin 0.9 mg/dL (0.2-1.3); Total Protein 7.3 g/dL (6.3-8.2)
--- NOTE | 2024-10-31 16:28 | CT ---
EXAMINATION TYPE: CT brain wo con DATE OF EXAM: 10/31/2024 COMPARISON: 325 CLINICAL INDICATION: Male, 69 years old with history of ams; PHH, confusion and tremors CT DLP: 1182.4 mGycm Automated exposure control for dose reduction was used. Findings: The ventricles, basal cisterns and sulci over the convexities are moderately enlarged consistent with moderate generalized atrophy. There is mild decreased density in the periventricular white matter consistent with mild chronic isch emic white matter demyelination. There is no acute intra or extra-axial hemorrhage. There is no mass effect or shift of midline structures. The posterior fossa including the brainstem, fourth ventricle and cerebellar pontine angles appear no rmal. Intraorbital contents appear normal and symmetric. There are mild chronic inflammatory changes in the maxillary sinus and possible superimposed acute si nusitis within the left maxillary sinus and sphenoid sinus. The mastoid air cells are well aerated. The calvarium is intact. IMPRESSION: 1. No acute bleed or mass effect. 2. Stable moderate senescent changes. 3. Sinusitis as described above. [facility], , 10/31/2024 4:26 PM
[2024-10-31 16:39] LABS: Lithium 3.3 mmol/L
[2024-10-31 16:54] LABS: Appearance,Urine Clear (Clear); Bilirubin,Urine 1+ (Negative); Blood,Urine Negative (Negative); Color,Urine Yellow; Glucose,Urine (UA) Negative (Negative); Hyaline Casts,Urine 10 /lpf (0-2); Ketones,Urine Trace (Negative); Leukocyte Esterase,Urine Small (Negative); Mucus,Urine Occasional /hpf; Nitrite,Urine Negative (Negative); Protein,Urine 1+ (Negative); RBC,Urine 1 /hpf (0-5); Specific Gravity,Urine 1.025 (1.001-1.035); WBC,Urine 13 /hpf (0-5)
[2024-10-31 17:07] LABS: Anisocytosis (M) Present
[2024-10-31] MEDS: SODIUM CHLORIDE 0.9% 2,000 ML IV STA (17:21)
[2024-10-31] MEDS: SODIUM CHLORIDE 0.9% 1,000 ML IV STA (18:28)
[2024-10-31] MEDS ORDERED: NALOXONE 0.4 MG/ML 1 ML VIAL IV PRN (18:47)
[2024-10-31] MEDS: LIDOCAINE 1% INJ 10MG/ML (20 ML MDV) SQ ONE (20:07)
[2024-10-31] MEDS: MIDAZOLAM 2 MG/2 ML VIAL IVP ONE (20:10)
--- NOTE | 2024-10-31 21:00 | IR ---
EXAMINATION TYPE: IR cvc insert non tunneled DATE OF EXAM: 10/31/2024 8:41 PM COMPARISON: None. CLINICAL INDICATION: Male, 69 years old with history of URGENT DIALYSIS, LITHIUM OVERDOSE; TECHNIQUE: IR cvc insert non tunneled, multiple fluoroscopic images provided for procedure. Total fluoroscopy time: 5.48 seconds Total submitted images to PACS: 6 DAP: 1.9 mGym2 Gycm2 uGym2 cGycm2 or equivalent. FINDINGS: Fluoroscopic images during angiography demonstrated no evidence for extravasation of contrast. Cathet er visualized coursing superiorly through the right pelvis. Osseous structures appear intact. IMPRESSION: 1. Fluoroscopic views of the right hemipelvis as above. 2. Please see the operative/procedural note for further details. [facility], , 10/31/2024 8:58 PM
--- NOTE | 2024-10-31 23:48 | CONS ---
DATE OF CONSULTATION: 10/31/2024 HISTORY OF PRESENT ILLNESS: This is a 69-year-old gentleman, who came to the emergency room who had lithium poisoning, consulted for placement of urgent dialysis catheter. MEDICAL HISTORY: History of bipolar disorder; history of AFib, on Eliquis; history of hypertension and diabetes. PHYSICAL EXAMINATION: GENERAL: On examination, the patient was seen in the emergency room. NECK: Supple. No bruit appreciated. CHEST: Few crackles at the lung bases. HEART: First and second sounds present. ABDOMEN: Soft, nontender. VASCULAR: Femorals are 1+ bilaterally. PLAN: Placement of a dialysis catheter, right femoral approach. Risks and complications discussed. MMODL / IJN: [id number] / MTDD
[2024-11-01] MEDS: LORazepam 1 MG/0.5 ML VIAL IV STA ×2 (02:30→11:22)
[2024-11-01] MEDS: PANTOPRAZOLE 40 MG TABLET PO SCH (05:30)
[2024-11-01 06:09] LABS: Glucose,Whole Blood 111 mg/dL (70-110)
[2024-11-01] MEDS: HYDROmorphone 2 MG/ML 1 ML SYRINGE IVP STA (07:49)
[2024-11-01] MEDS: LOSARTAN 50 MG TAB PO SCH (07:58)
[2024-11-01] MEDS: MULTIVITAMINS, THERA 1 EACH TAB PO SCH (07:59)
[2024-11-01] MEDS: CHOLECALCIFEROL 25 MCG (1000 IU) TABLET PO SCH (07:59)
[2024-11-01] MEDS: METOPROLOL TARTRATE 50 MG TAB PO SCH (07:59)
[2024-11-01] MEDS: VENLAFAXINE HCL 75 MG TAB PO SCH (07:59)
[2024-11-01] MEDS: DILTIAZEM ORAL 30 MG TAB PO SCH (07:59)
[2024-11-01] MEDS: AMIODARONE 200 MG TAB PO SCH (07:59)
[2024-11-01] MEDS: APIXABAN 5 MG TAB PO SCH (07:59)
[2024-11-01 09:56] LABS: African American GFR (CKD) >90 (>60 ml/min/1.73 sqM); Anion Gap 3 mmol/L; Blood Urea Nitrogen 15 mg/dL (9-20); Calcium 8.8 mg/dL (8.4-10.2); Carbon Dioxide 28 mmol/L (22-30); Chloride 104 mmol/L (98-107); Glucose 109 mg/dL (74-99); Non-African American GFR(CKD) 88 (>60 ml/min/1.73 sqM); Potassium 3.9 mmol/L (3.5-5.1); Sodium 135 mmol/L (137-145)
[2024-11-01 10:02] LABS: Lithium 2.1 mmol/L
--- NOTE | 2024-11-01 10:46 | P.NPCON ---
History of Present Illness - History of Present Illness Patient is a 69-year-old male with history of A-fib, dyslipidemia, type 2 jesus betes, bipolar disorder who is maintained on lithium. He is admitted to the hospital with elevated lithium level and mental status changes with increased jerking movements in all extremities. [place] level was 3.2 on admission with repeat level 3.1 but 3 hours later. Due to significant mental status changes and impaired renal function with creatinine of 1.5 patient was dialyzed yesterday. Repeat lithium level was down to 1.8 yesterday. Mentation has improved to some degree however patient continues to have significant jerky movements. Repeat lithium level from this morning is 2.1. Patient has been voiding Past Medical History Past Medical History: Atrial Fibrillation, Diabetes Mellitus, GERD/Reflux, Hyperlipidemia, Hypertension, Osteoarthritis (OA), Sleep Apnea/CPAP/BIPAP Additional Past Medical History / Comment(s): seizure two yrs ago from major depressive disorder, hemorrhoids, herniated disc, TOOTH ACHE AT PRESENT Cellulitis and abscess of mouth. Mediastinitis secondary to mouth abscess; IV antibiotic therapy History of Any Multi-Drug Resistant Organisms: None Reported Past Surgical History: Adenoidectomy, Hernia Repair, Tonsillectomy Additional Past Surgical History / Comment(s): epidural. Abscessed teeth pulled at [place] [id number]. Chest tube drain. Past Anesthesia/Blood Transfusion Reactions: No Reported Reaction Past Psychological History: Depression Additional Psychological History / Comment(s): "OK now" Smoking Status: Current some day smoker Past Alcohol Use History: Rare Additional Past Alcohol Use History / Comment(s): hasnt drank alcohol in 2 years Past Drug Use History: None Reported Additional Drug Use History / Comment(s): no current use - Past Family History Mother Family Medical History: No Reported History Medications and Allergies Home Medications Medication Instructions Recorded Confirmed Type [place] Carbonate 1,200 mg PO HS 08/02/17 10/31/24 History Melatonin 5 mg PO HS tab 09/24/24 10/31/24 Rx Acetaminophen [Tylenol 8 Hour] 650 mg PO Q6H PRN 10/31/24 10/31/24 History Amiodarone [Cordarone] 200 mg PO DAILY 10/31/24 10/31/24 History Apixaban [Eliquis] 5 mg PO BID 10/31/24 10/31/24 History Cholecalciferol [Vitamin D3 (25 50 mcg PO DAILY 10/31/24 10/31/24 History Mcg = 1000 Iu)] Diltiazem Oral [Cardizem*] 30 mg PO TID@0500,1300,2100 10/31/24 10/31/24 History Losartan Potassium [Cozaar] 100 mg PO DAILY 10/31/24 10/31/24 History Metoprolol Tartrate [Lopressor] 100 mg PO BID 10/31/24 10/31/24 History Multivitamins, Thera [Multivitamin 1 tab PO DAILY 10/31/24 10/31/24 History (formulary)] OLANZapine [ZyPREXA] 2.5 mg PO HS 10/31/24 10/31/24 History Pantoprazole [Protonix] 40 mg PO DAILY 10/31/24 10/31/24 History Venlafaxine HCl [Effexor] 225 mg PO DAILY 10/31/24 10/31/24 History Allergies Allergy/AdvReac Type Severity Reaction Status Date / Time No Known Allergies Allergy Verified 10/31/24 16:04 Physical Exam Vitals: Vital Signs Temp Pulse Pulse Resp BP BP Pulse Ox 11/01/24 07:49 99 11/01/24 07:29 97.6 F 111 H 18 132/68 100 11/01/24 05:52 98.6 F 71 16 129/81 11/01/24 04:00 94 20 104/69 96 10/31/24 23:47 98 20 123/78 98 10/31/24 21:07 98.6 F 92 18 159/91 99 10/31/24 19:50 98 144/87 98 10/31/24 19:30 97.9 F 101 H 25 H 143/104 98 10/31/24 19:00 101 H 22 94/58 96 10/31/24 18:00 100 22 123/67 96 10/31/24 17:00 97 22 103/74 96 10/31/24 16:30 95 21 124/77 95 10/31/24 16:00 95 16 118/77 96 10/31/24 15:16 98.4 F 94 20 109/76 94 L Intake and Output 10/31/24 11/01/24 11/01/24 22:59 06:59 14:59 Intake Total 500 Output Total 500 Balance 0 Intake: Oral 0 Hemodialysis 500 Output: Hemodialysis 500 Hemodialysis Net Amount 0 Other: Voiding Method Urinal Urinal # Voids 1 1 Weight 133.81 kg Patient is awake, comfortable, no acute distress. Answers questions with remains confused on and off Examination of the heart S1 and S2 Examination of the lungs bilateral breath sounds are heard Abdomen is soft nontender Examination of lower extremities shows no edema [employer]ELOPER exam shows patient has jerky movements upper and lower extremities. He has been confused. Results - Lab Results Most recent lab results Calcium 8.8 mg/dL (8.4-10.2) 11/01/24 09:27 Magnesium 2.0 mg/dL (1.6-2.3) 10/31/24 15:38 10/31/24 15:38 11/01/24 09:27 Assessment and Plan Assessment: 1. [place] toxicity with impaired renal function and mental status changes status post hemodialysis yesterday. [place] level was down to 1.8 last night and is 2.1 today. Mentation has improved to some degree 2. Myoclonic jerks, neurology will be consulted 3. Bipolar disorder maintained on lithium 4. Acute kidney injury secondary to lithium toxicity and possible volume depletion 5. History of A-fib 6. Hypertension maintained on angiotensin receptor blockers, controlled Plan: Add IV fluids Repeat lithium level later on today Consult neurology. We will continue to monitor for further need for dialysis. Thank you for the consultation. We will continue to follow the patient with you during his hospitalization.
[2024-11-01] MEDS: SODIUM CHLORIDE 0.9% 1,000 ML IV SCH (11:21)
[2024-11-01 11:37] LABS: Hepatitis B Surface Antigen Nonreactive (Nonreactive)
[2024-11-01 11:39] LABS: Hepatitis B Surface AB- Quant 3.5 mIU/mL
[2024-11-01 11:40] LABS: Glucose,Whole Blood 98 mg/dL (70-110)
--- NOTE | 2024-11-01 14:17 | P.CN ---
Psychiatric Consult - . Consult date: 11/01/24 Consult:: 11/01/24 13:40 IDENTIFYING DATA: This patient is a 69-year-old male REASON FOR REFERRAL: Psychiatry was consulted for lithium toxicity HISTORY OF PRESENT ILLNESS: The patient presented to the hospital with lithium toxicity with lithium levels being 3.3, elevated creatinine at 1.5. Patient did receive hemodialysis yesterday with creatinine returned to normal with lithium levels trending down with it being 2.1 today. EKG revealed atrial flutter, QTc WNL. Patient seen and evaluated with Sister Tena at bedside to which patient agree to speak with her in the room. Patient was a poor historian, A&Ox2. Patient was somnolent. The majority of the history was provided by sister who expressed patient is normally well-functioning and that this altered mentation is new. She states patient has a history of bipolar disorder and follows with [facility] however he recently has been staying at [facility] after recent hospitalization last month and they have been prescribing his medications. She states prior to patient was living independently. At this time patient denies any suicidal or homicidal ideations, intent or plan. Patient denies any auditory, visual hallucinations and denies any paranoia or delusions. PAST PSYCHIATRIC HISTORY: Patient has a history of bipolar disorder. Patient is currently prescribed lithium 1200 mg at bedtime, Zyprexa 2.5 mg at bedtime, Effexor 225 mg daily. Patient was last hospitalized on the [facility] back in 06/2015. Patient sees Dr. Ware at [facility]. Patient denies any history of suicide attempts in the past. PAST MEDICAL HISTORY: A-fib, diabetes, dyslipidemia, hypertension. ALLERGIES: as per EMR. CHEMICAL DEPENDENCY HISTORY: as per HPI. FAMILY PSYCHIATRIC/SUBSTANCE USE HISTORY: Denies SOCIAL HISTORY: Patient is single and has no children. He was living independently however has been staying at [facility] for the past few weeks MENTAL STATUS EXAM: General Appearance: Patient appears to be stated age is somnolent. Patient appears to have questionable hygiene and grooming wearing hospital gown with poor eye contact. Behavior: Patient is calmly lying in bed without any agitated behavior. Speech: Patient's speech is brief. Mood/Affect: Patient reports their mood is "okay", affect is congruent, constricted Suicidality/Homicidality: Patient denies having any suicidal or homicidal ideation intent or plan. Perceptions: Patient denies any visual hallucinations and denies any auditory hallucinations Though content/process: There is no evidence of any delusional thought content and thought process is superficially linear and goal-directed. Memory and concentration: AOX2, concentration poor Judgment and insight: Fair IMPRESSIONS: [place] toxicity History of bipolar disorder PLAN: -At this time patient DOES NOT meet criteria for inpatient psychiatric admis mela. -Would recommend the following medication changes/additions: Continue holding lithium given toxicity, will increase Zyprexa to 5 mg at bedtime for bipolar disorder/mood stabilization, start Ativan 1 mg twice daily as needed for tremors, continue Effexor XR 225 mg daily, melatonin 5 mg at bedtime. Order TSH for thyroid monitoring. Strongly consider changing losartan to a different blood pressure medication given its propensity to exacerbate lithium toxicity -Communicated plan to patient's nurse -Will continue to follow along -Please contact with any questions.
[2024-11-01 16:36] LABS: Glucose,Whole Blood 108 mg/dL (70-110)
--- NOTE | 2024-11-01 17:36 | P.HPIM ---
History of Present Illness H&P Date: 11/01/24 Chief Complaint: Abnormal movement 69-year-old patient, brought in from [facility]. Being followed by Dr. Shanks. Per the EMS report patient is found to have a increased lithium level of 3.1. Patient is having increased confusion agitation and unco ntrollable tremors. Patient was given IV fluids. At baseline is AO x 3 on EMS arrival he was AO x 1. Patient is afebrile. Yesterday evening Dr. Martin Tovar from vascular placed the dialysis catheter. And this morning patient underwent hemodialysis. Patient seen by home care manager Dr. Ulloa. Patient's creatinine on admission was 1.2. Subsequently 0.88 this morning. This morning following dialysis patient was still a bit fidgety. Not really oriented. When I came to see the patient. Is getting EEG. Had received Ativan. Review of systems: Patient sedated as above Social history: History of smoking. Prior use drinking alcohol 2 years prior. Currently at [facility] Physical examination: VITAL SIGNS: 97.6, 111, 18, 132 x 68, 100% 3 L GENERAL: BMI 37.9, laying in bed eyes closed. Received Ativan. EYES: Pupils equal. Conjunctiva marla l. HEENT: External appearance of nose and ears normal, oral cavity grossly normal. NECK: JVD not raised; masses not palpable. HEART: First and second heart sounds are normal; no edema. LUNGS: Respiratory rate normal; clear to auscultation. ABDOMEN: Soft, nontender, liver spleen not palpable, no masses palpable. PSYCH: Sedated l. MUSCULOSKELETAL:No Clubbing/cyanosis;muscles-grossly intact NEUROLOGICAL: Cranial nerves grossly intact; no facial asymmetry, power and sensation grossly intact. LYMPHATICS: No lymph nodes palpable in the axilla and neck INVESTIGATIONS, reviewed in the clinical context: November 01, 2024: Sodium 135 potassium 3.9 creatinine 0.88 lithium 2.1 TSH 4.0 October 31: White count 9.1 hemoglobin 12.5 platelets 248 sodium 136 potassium 4.6 BUN 29 creatinine 1.52 [place]: 3.3, 3.2, 3.1 EKG tracing personally reviewed by me-possible variable AV block Assessment and plan: - [place] toxicity. Patient managed testing with altered mentation. Tremors. Acute kidney injury. Patient was emergently dialyzed. Consultation to vascular for dialysis access. Nephrology. - Paroxysmal atrial fibrillation Amiodarone. Cardizem. Lopressor - Depression Patient has been on lithium. Effexor. Psychiatry consulted - Acute metabolic encephalopathy from lithium toxicity - Abnormal EKG. Telemetry. Repeat EKG later Consultation to vascular, nephrology, psychiatry, neurology. Telemetry Past Medical History Past Medical History: Atrial Fibrillation, Diabetes Mellitus, GERD/Reflux, Hyperlipidemia, Hypertension, Osteoarthritis (OA), Sleep Apnea/CPAP/BIPAP Additional Past Medical History / Comment(s): seizure two yrs ago from major depressive disorder, hemorrhoids, herniated disc, TOOTH ACHE AT PRESENT Cellulitis and abscess of mouth. Mediastinitis secondary to mouth abscess; IV antibiotic therapy History of Any Multi-Drug Resistant Organisms: None Reported Past Surgical History: Adenoidectomy, Hernia Repair, Tonsillectomy Additional Past Surgical History / Comment(s): epidural. Abscessed teeth pulled at [place] - 2019. Chest tube drain. Past Anesthesia/Blood Transfusion Reactions: No Reported Reaction Past Psychological History: Depression Additional Psychological History / Comment(s): "OK now" Smoking Status: Current some day smoker Past Alcohol Use History: Rare Additional Past Alcohol Use History / Comment(s): hasnt drank alcohol in 2 years Past Drug Use History: None Reported Additional Drug Use History / Comment(s): no current use - Past Family History Mother Family Medical History: No Reported History Medications and Allergies Home Medications Medication Instructions Recorded Confirmed Type [place] Carbonate 1,200 mg PO HS 08/02/17 10/31/24 History Melatonin 5 mg PO HS tab 09/24/24 10/31/24 Rx Acetaminophen [Tylenol 8 Hour] 650 mg PO Q6H PRN 10/31/24 10/31/24 History Amiodarone [Cordarone] 200 mg PO DAILY 10/31/24 10/31/24 History Apixaban [Eliquis] 5 mg PO BID 10/31/24 10/31/24 History Cholecalciferol [Vitamin D3 (25 50 mcg PO DAILY 10/31/24 10/31/24 History Mcg = 1000 Iu)] Diltiazem Oral [Cardizem*] 30 mg PO TID@0500,1300,2100 10/31/24 10/31/24 History Losartan Potassium [Cozaar] 100 mg PO DAILY 10/31/24 10/31/24 History Metoprolol Tartrate [Lopressor] 100 mg PO BID 10/31/24 10/31/24 History Multivitamins, Thera [Multivitamin 1 tab PO DAILY 10/31/24 10/31/24 History (formulary)] OLANZapine [ZyPREXA] 2.5 mg PO HS 10/31/24 10/31/24 History Pantoprazole [Protonix] 40 mg PO DAILY 10/31/24 10/31/24 History Venlafaxine HCl [Effexor] 225 mg PO DAILY 10/31/24 10/31/24 History Allergies Allergy/AdvReac Type Severity Reaction Status Date / Time No Known Allergies Allergy Verified 10/31/24 16:04 Physical Exam Vitals: Vital Signs Temp Pulse Pulse Resp BP BP Pulse Ox 11/01/24 07:49 99 11/01/24 07:29 97.6 F 111 H 18 132/68 100 11/01/24 05:52 98.6 F 71 16 129/81 11/01/24 04:00 94 20 104/69 96 10/31/24 23:47 98 20 123/78 98 10/31/24 21:07 98.6 F 92 18 159/91 99 10/31/24 19:50 98 144/87 98 10/31/24 19:30 97.9 F 101 H 25 H 143/104 98 10/31/24 19:00 101 H 22 94/58 96 10/31/24 18:00 100 22 123/67 96 10/31/24 17:00 97 22 103/74 96 10/31/24 16:30 95 21 124/77 95 10/31/24 16:00 95 16 118/77 96 10/31/24 15:16 98.4 F 94 20 109/76 94 L Intake and Output 10/31/24 11/01/24 11/01/24 22:59 06:59 14:59 Intake Total 500 Output Total 500 Balance 0 Intake: Oral 0 Hemodialysis 500 Output: Hemodialysis 500 Hemodialysis Net Amount 0 Other: Voiding Method Urinal Urinal # Voids 1 1 Weight 133.81 kg Results CBC & Chem 7: 10/31/24 15:38 11/01/24 09:27 Labs: Abnormal Lab Results - Last 24 Hours (Table) 10/31/24 10/31/2425 Range/Units 15:38 15:38 16:26 WBC 11.10 H (4.50-10.00) 10*3/uL Hgb 12.5 L (13.0-17.0) g/dL MCH 26.4 L (27.0-32.0) pg MCHC 31.3 L (32.0-37.0) g/dL Immature Gran # 0.05 H (0.00-0.04) 10*3/uL Neutrophils # 9.57 H (1.80-7.70) 10*3/uL Lymphocytes # 0.67 L (0.90-5.00) 10*3/uL Sodium 136 L (137-145) mmol/L BUN 29 H (9-20) mg/dL Creatinine 1.52 H (0.66-1.25) mg/dL Glucose 102 H (74-99) mg/dL POC Glucose (mg/dL) (70-110) mg/dL Alkaline Phosphatase 162 H (38-126) U/L Urine Protein 1+ H (Negative) Urine Ketones Trace H (Negative) Urine Bilirubin 1+ H (Negative) Ur Leukocyte Esterase Small H (Negative) Urine WBC 13 H (0-5) /hpf Hyaline Casts 10 H (0-2) /lpf Urine Mucus Occasional H (None) /hpf [place] 3.3 H* mmol/L 10/31/24 10/31/24 11/01/24 Range/Units 17:27 22:20 06:08 WBC (4.50-10.00) 10*3/uL Hgb (13.0-17.0) g/dL MCH (27.0-32.0) pg MCHC (32.0-37.0) g/dL Immature Gran # (0.00-0.04) 10*3/uL Neutrophils # (1.80-7.70) 10*3/uL Lymphocytes # (0.90-5.00) 10*3/uL Sodium (137-145) mmol/L BUN (9-20) mg/dL Creatinine (0.66-1.25) mg/dL Glucose (74-99) mg/dL POC Glucose (mg/dL) 111 H (70-110) mg/dL Alkaline Phosphatase (38-126) U/L Urine Protein (Negative) Urine Ketones (Negative) Urine Bilirubin (Negative) Ur Leukocyte Esterase (Negative) Urine WBC (0-5) /hpf Hyaline Casts (0-2) /lpf Urine Mucus (None) /hpf [place] 3.2 H* 3.1 H* mmol/L Thrombosis Risk Factor Assmnt - Choose All That Apply Any of the Below Risk Factors Present?: Yes Each Factor Represents 1 point: Obesity (BMI >25), Swollen legs (current) Other Risk Factors: Yes Each Risk Factor Represents 2 Points: Age 61-74 years Other congenital or acquired thrombophilia - If yes, enter type in comment: No Thrombosis Risk Factor Assessment Total Risk Factor Score: 4 Thrombosis Risk Factor Assessment Level: Moderate Risk
[2024-11-01] MEDS: MELATONIN 5 MG TABLET PO SCH (19:46)
[2024-11-01] MEDS: LORazepam 1 MG/0.5 ML VIAL IV PRN (19:54)
[2024-11-01] MEDS: OLANZapine 5 MG TAB PO SCH (20:18)
[2024-11-01] MEDS ORDERED: OLANZapine 2.5 MG TAB PO SCH (21:00)
--- NOTE | 2024-11-02 02:06 | EEG ---
ELECTROENCEPHALOGRAM REPORT PREAMBLE: This is a 69-year-old male having increased body tremors and jerking. The patient is getting dialysis. CURRENT MEDICATIONS: 1. Zyprexa. 2. Protonix. 3. Effexor. 4. Eliquis. 5. Cordarone. 6. Cozaar. 7. Midodrine. EEG FINDINGS: This is a 21-channel digital EEG recorded with video component, utilizing 10/20 international system with referential and bipolar montage. Background consists of moderately well-developed, but somewhat poorly regulated, mixed frequencies of 6 to 7 Hz theta, intermixed with some 2-3 Hz [id number] amplitude delta activity seen in bihemispheric region. Infrequent generalized spikes were seen, associated with some myoclonic twitching of the facial region, all the body. No electrographic seizure was recorded. Different stages of sleep were not seen. Photic driving response was not seen. IMPRESSION: This is an abnormal EEG due to: 1. Background slowing of at least moderate degree. This is suggestive of generalized cerebral dysfunction as can be seen with toxic metabolic encephalopathy or related to diffuse structural brain abnormality. Clinical correlation is recommended. 2. Presence of sporadic generalized spikes associated with some myoclonic twitch of the facial region or the torso. No electrographic seizure was recorded. MMODL / IJN: [id number] / [facility]
--- NOTE | 2024-11-02 07:07 | P.CNNES ---
History of Present Illness Consult date: 11/01/24 Requesting physician: Irish Ulloa Reason for Consult: Increased shakiness History of Present Illness: Patient is a 69-year-old male with history of atrial fibrillation, diabetes, depression, currently resides at [facility], was brought to the hospital by ambulance for increased confusion going on for 1 week. Patient has confusion with saying random numbers therefore as well radicular high carbon dioxide level. Patient does take lithium for psychiatric reason. Patient's sister has mentioned that patient is normally well functioning and that this altered mentation is new. Patient's sister has mentioned that patient has history of bipolar disorder and has been staying at [facility] after recent hospitalization last month. Prior patient was living independently. Patient has developed increased confusion, agitation and uncontrollable tremors. As per EMS flow sheet in that eye. Patient was in care of staff reported the patient has increased lithium level III.1, increased confusion agitation and uncontroll able tremors. They had 22-gauge IV fluids running prior but patient had pulled it out. Patient was alert and oriented 1 although at baseline is alert and oriented 3. EKG showed atrial fibrillation. Patient's vitals at the scene was blood pressure 102/57, pulse rate 86, respirations 16 and saturation 97% temperature 98.9 and blood sugar 118. Patient's blood tests showed WBC 11.1, hemoglobin 12.5, platelets 248. Sodium 136, BUN 29 and creatinine 1.52. Calcium 10.2. UA is negative. [place] level was 3.3. TSH normal 4.060. Hepatitis B panel negative. Patient has received hemodialysis 1, and his renal functions have normalized with BUN 15 and creatinine 0.88. His lithium level has come down to 2.1. EKG showed atrial flutter/tachycardia. CT head revealed no acute bleed or mass effect. Stable moderate senescent changes. Sinusitis. I personally review CT head, agree with the findings. On my review, there is mild left sphenoid sinusitis. Patient denies headache at this time. He keeps on repeating random numbers like 19, 20, 20, 14, 22. 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 The nurse reported that his tremors is about 50% better since he underwent dialysis. He is more alert now. He continues to say random numbers out of nowhere. Patient's previous MRI of the lumbar spine from 06/30/2024 showed grade 1 spondylolisthesis of L3 anterior to L4. Moderate foraminal narrowing bilaterally at L5-S1. Moderate to severe bilateral foraminal narrowing from facet hypertrophy L4-L5. Severe right and moderate to severe left foraminal stenosis present at L3-L4. Patient had a 2-D echo on 09/20/2024, which revealed LVEF 50-55%. No obvious regional wall motion abnormalities. Mildly increased left atrial volume. Home medications include amiodarone 200 mg daily, diltiazem 30 mg 3 times a day losartan Eliquis 5 mg twice a day, metoprolol 100 mg twice a day Zyprexa 2.5 mg at bedtime, Protonix Effexor and lithium carbonate 1200 mg at bedtime. Review of Systems Some review of systems mentioned in the HPI, but is unreliable. Patient is very confused as per examination. ROS unobtainable: due to mental status Past Medical History Past Medical History: Atrial Fibrillation, Diabetes Mellitus, GERD/Reflux, Hyperlipidemia, Hypertension, Osteoarthritis (OA), Sleep Apnea/CPAP/BIPAP Additional Past Medical History / Comment(s): seizure two yrs ago from major depressive disorder, hemorrhoids, herniated disc, TOOTH ACHE AT PRESENT Cellulitis and abscess of mouth. Mediastinitis secondary to mouth abscess; IV antibiotic therapy History of Any Multi-Drug Resistant Organisms: None Reported Past Surgical History: Adenoidectomy, Hernia Repair, Tonsillectomy Additional Past Surgical History / Comment(s): epidural. Abscessed teeth pulled at [place] 2019. Chest tube drain. Past Anesthesia/Blood Transfusion Reactions: No Reported Reaction Past Psychological History: Depression Additional Psychological History / Comment(s): "OK now" Smoking Status: Current some day smoker Past Alcohol Use History: Rare Additional Past Alcohol Use History / Comment(s): hasnt drank alcohol in 2 years Past Drug Use History: None Reported Additional Drug Use History / Comment(s): no current use - Past Family History Mother Family Medical History: No Reported History Medications and Allergies Home Medications Medication Instructions Recorded Confirmed Type [place] Carbonate 1,200 mg PO HS 08/02/17 10/31/24 History Melatonin 5 mg PO HS tab 09/24/24 10/31/24 Rx Acetaminophen [Tylenol 8 Hour] 650 mg PO Q6H PRN 10/31/24 10/31/24 History Amiodarone [Cordarone] 200 mg PO DAILY 10/31/24 10/31/24 History Apixaban [Eliquis] 5 mg PO BID 10/31/24 10/31/24 History Cholecalciferol [Vitamin D3 (25 50 mcg PO DAILY 10/31/24 10/31/24 History Mcg = 1000 Iu)] Diltiazem Oral [Cardizem*] 30 mg PO TID@0500,1300,2100 10/31/24 10/31/24 History Losartan Potassium [Cozaar] 100 mg PO DAILY 10/31/24 10/31/24 History Metoprolol Tartrate [Lopressor] 100 mg PO BID 10/31/24 10/31/24 History Multivitamins, Thera [Multivitamin 1 tab PO DAILY 10/31/24 10/31/24 History (formulary)] OLANZapine [ZyPREXA] 2.5 mg PO HS 10/31/24 10/31/24 History Pantoprazole [Protonix] 40 mg PO DAILY 10/31/24 10/31/24 History Venlafaxine HCl [Effexor] 225 mg PO DAILY 10/31/24 10/31/24 History Allergies Allergy/AdvReac Type Severity Reaction Status Date / Time No Known Allergies Allergy Verified 10/31/24 16:04 Physical Examination - Vital Signs Vital Signs: Vital Signs Temp Pulse Pulse Resp BP BP Pulse Ox 11/01/24 11:38 60 16 107/70 95 11/01/24 07:49 99 11/01/24 07:29 97.6 F 111 H 18 132/68 100 11/01/24 05:52 98.6 F 71 16 129/81 11/01/24 04:00 94 20 104/69 96 10/31/24 23:47 98 20 123/78 98 10/31/24 21:07 98.6 F 92 18 159/91 99 10/31/24 19:50 98 144/87 98 10/31/24 19:30 97.9 F 101 H 25 H 143/104 98 10/31/24 19:00 101 H 22 94/58 96 10/31/24 18:00 100 22 123/67 96 10/31/24 17:00 97 22 103/74 96 10/31/24 16:30 95 21 124/77 95 Intake and Output 11/01/24 11/01/24 11/01/24 06:59 14:59 22:59 Intake Total 500 Output Total 500 Balance 0 Intake: Oral 0 Hemodialysis 500 Output: Hemodialysis 500 Hemodialysis Net Amount 0 Other: Voiding Method Urinal Diaper # Voids 1 1 Patient is an elderly male, who is very tremulous, shaking in the arms and legs. Patient is alert awake, but he appears somewhat encephalopathic. Speech is clear, but patient not able to tell what month or year is it, as he starts saying random numbers like "14, 20, 21, 22, 19, 14". Patient knows his name and age. Patient able to name objects presented. Attention, concentration and fund of knowledge are all severely limited at this time. On cranial nerve examination, pupils are equal, round and reacting to light, visual delgado are full on confrontation, with no neglect on double simultaneous stimulation. Extraocular muscles are intact with no nystagmus. Face is symmetric, tongue protrudes to the midline. Palatal elevation and sensation normal, hearing and shoulder shrug normal, facial sensation normal. On muscle strength testing, there is no pronator drift and the strength is marla l in arms and legs distally and proximally. patient is very shaky in the arms and legs. Deep tendon reflexes are symmetric , 1+ and plantars are flat. Patient's skin is very dry of the feet. Sensory to touch is equal. Cerebellar function showed no ataxia for [id number] testing. No dysdiadoc hokinesia. No ataxia for [id number] testing on either side. Tone and bulk of muscles normal. Gait deferred.. On general examination, there is no carotid bruit or murmur, S1-S2 audible. Chest is clear on consultation. Abdomen is soft nontender. No organomegaly, bowel sounds present. Peripheral pulses are present. No peripheral edema. Results - Laboratory Findings CBC and BMP: 10/31/24 15:38 11/01/24 09:27 Abnormal Lab Findings: Abnormal Labs 10/31/24 10/31/24 10/31/24 15:38 15:38 16:26 WBC 11.10 H Hgb 12.5 L MCH 26.4 L MCHC 31.3 L Immature Gran # 0.05 H Neutrophils # 9.57 H Lymphocytes # 0.67 L Sodium 136 L BUN 29 H Creatinine 1.52 H Glucose 102 H POC Glucose (mg/dL) Alkaline Phosphatase 162 H Urine Protein 1+ H Urine Ketones Trace H Urine Bilirubin 1+ H Ur Leukocyte Esterase Small H Urine WBC 13 H Hyaline Casts 10 H Urine Mucus Occasional H [place] 3.3 H* 10/31/24 10/31/24 11/01/24 17:27 22:20 06:08 WBC Hgb MCH MCHC Immature Gran # Neutrophils # Lymphocytes # Sodium BUN Creatinine Glucose POC Glucose (mg/dL) 111 H Alkaline Phosphatase Urine Protein Urine Ketones Urine Bilirubin Ur Leukocyte Esterase Urine WBC Hyaline Casts Urine Mucus [place] 3.2 H* 3.1 H* 11/01/24 09:27 WBC Hgb MCH MCHC Immature Gran # Neutrophils # Lymphocytes # Sodium 135 L BUN Creatinine Glucose 109 H POC Glucose (mg/dL) Alkaline Phosphatase Urine Protein Urine Ketones Urine Bilirubin Ur Leukocyte Esterase Urine WBC Hyaline Casts Urine Mucus [place] 2.1 H* Assessment and Plan Assessment: * Altered mental status, likely due to toxic metabolic encephalopathy. Reasons multifactorial as below. * Coarse tremors, myoclonic jerks, likely related to acute metabolic encephalopathy, lithium toxicity. * Acute lithium toxicity * Acute kidney injury * Atrial flutter/fibrillation * Hypertension Plan: * Patient had an EEG performed today, which was abnormal due to background slowing of at least moderate degree. This is suggestive of generalized cerebral dysfunction as can be seen with toxic metabolic encephalopathy or related to diffuse structural brain abnormality. Clinical correlation recommended. Presence of sporadic generalized spikes associated with some myoclonic twitch of the facial region or torso. No electrographic seizure was recorded. * Keppra 500 mg twice a day, until patient has metabolic encephalopathy. Once it has resolved, then Keppra can be weaned off. * Ativan 1 mg IV twice a day when necessary tremors. * Patient's tremors, myoclonic jerks could be partly related to lithium toxicity, can also be associated with amiodarone, Olanzapine. * Patient's lithium level is improving and the most recent is 2.1, still elevated. Patient's renal functions back to normal. * Continue Eliquis 5 mg twice a day for atrial fibrillation. * Neurology will follow clinically. Thank you for the consult.
[2024-11-02] MEDS: levETIRAcetam IV 500 MG/5 ML VIAL IVP SCH (08:36)
[2024-11-02] MEDS ORDERED: ZINC OXIDE PASTE (Z-GUARD) 1 APPLIC TOPICAL PRN (08:42)
--- NOTE | 2024-11-02 08:58 | P.PN ---
Subjective Patient is seen in follow-up for lithium toxicity and acute kidney injury. Status post hemodialysis October 31, 2024. Labs from today pending. Has been voiding. Incontinent. Vital signs are stable. General: No acute distress. HEENT: Head exam is unremarkable. On nasal cannula. LUNGS: No audible rhonchi or wheezes. HEART: Rate and Rhythm are regular. ABDOMEN: Abdominal exam reveals normal bowel sounds. Non-tender and non- distended. Obese, nontender. EXTREMITITES: No edema. Objective - Vital Signs Vital signs: Vital Signs Temp 97.5 F L 11/02/24 08:21 Pulse 103 H 11/02/24 08:21 Resp 20 11/02/24 08:21 BP 107/59 11/02/24 08:21 Pulse Ox 96 11/02/24 08:21 FiO2 Intake & Output 11/01/24 11/02/24 11/02/24 18:59 06:59 18:59 Intake Total 720 540 Output Total 1 Balance 719 540 Weight 125.5 kg Intake: IV 720 Sodium Chloride 0.9% 1, 720 000 ml @ 60 mls/hr IV . [id number] [facility] Rx#:[id number] Oral 540 Output: Urine 1 Other: Voiding Method Diaper Diaper # Voids 1 1 # Bowel Movements 1 1 - Labs CBC & Chem 7: 10/31/24 15:38 11/01/24 09:27 Labs: Abnormal Lab Results - Last 24 Hours (Table) 11/01/24 Range/Units 09:27 Sodium 135 L (137-145) mmol/L Glucose 109 H (74-99) mg/dL [place] 2.1 H* mmol/L Assessment and Plan Plan: Assessment: 1. Acute lithium toxicity status post hemodialysis October 31, 2024. [place] lev el 2.1 yesterday. 2. Acute kidney injury secondary to ATN secondary to hypovolemia and lithium toxicity. Improved. 3. Benign hypertension. Currently on the lower side. 4. History of bipolar disorder. Plan: Maintain IV fluids. Stop losartan. Check labs today and also lithium level. If lithium level trending up, we will do another round of dialysis today.
[2024-11-02 09:27] LABS: African American GFR (CKD) >90 (>60 ml/min/1.73 sqM); Anion Gap 4 mmol/L; Blood Urea Nitrogen 14 mg/dL (9-20); Calcium 9.2 mg/dL (8.4-10.2); Carbon Dioxide 28 mmol/L (22-30); Chloride 104 mmol/L (98-107); Glucose 125 mg/dL (74-99); Lithium 1.8 mmol/L; Magnesium 1.8 mg/dL (1.6-2.3); Non-African American GFR(CKD) >90 (>60 ml/min/1.73 sqM); Potassium 4.2 mmol/L (3.5-5.1); Sodium 136 mmol/L (137-145)
--- NOTE | 2024-11-02 14:37 | P.PN ---
Subjective Progress Note Date: 11/02/24 Interval History: 69-year-old patient, brought in from [facility]. Being followed by Dr. Shanks. Per the EMS report patient is found to have a increased lithium level of 3.1. Patient is having increased confusion agitation and uncontrollable tremors. Patient was given IV fluids. At baseline is AO x 3 on EMS arrival he was AO x 1. Patient is afebrile. Yesterday evening Dr. Martin Tovar from vascular placed the dialysis catheter. And this morning patient underwent hemodialysis. Patient seen by scallop cutter Dr. Ulloa. Patient's creatinine on admission was 1.2. Subsequently 0.88 this morning. This morning following dialysis patient was still a bit fidgety. Not really oriented. When I came to see the patient. Is getting EEG. Had received Ativan. 11/02--patient was seen and examined today. Alert oriented x 3, answering questions appropriately, drowsy but arousable. Nephrology following, recommended to maintain IV fluids, stop losartan, lithium level trending down, holding on further hemodialysis. Neurology and psychiatry has been consulted. Holding any lithium, will monitor lithium levels. Patient on as needed Ativan for tremors. Assessment and plan: Acute toxic encephalopathy: Acute lithium toxicity: Coarse tremorsmyoclonic jerks secondary to encephalopathy, lithium toxicity BELLE Atrial flutter/fibrillation Hypertension Acute toxic encephalopathy Acute lithium toxicity Coarse tremors: Admitted for encephalopathy secondary to acute lithium toxicity, neurology and psychiatry consulted. EEG showed background slowing.Per neurology continue Keppra 500 twice daily, once encephalopathy resolved, Keppra to be weaned off, Ativan twice daily for tremors Continue Eliquis, amiodarone, Cardizem, metoprolol for atrial fibrillation Nephrology following, underwent hemodialysis initially, now trending lithium lev els, right femoral line in place Psychiatry consulted. Paroxysmal atrial fibrillation: HTN: Amiodarone, Cardizem, Lopressor Eliquis Depression: Hold lithium Continue Effexor Psychiatry consulted Consults: Nephrology, vascular surgery, neurology, psychiatry. DVT prophylaxis: Anticoagulated Monitor vital signs and labs Labs and medication were reviewed. Continue same treatment. Further recommendations as per clinical course of the patient PHYSICAL EXAMINATION: GENERAL: The patient is A&O x3, NAD HEENT: EOMI, Sclerae anicteric, Moist Mucous membranes Neck: Supple, Non tender, No JVD PULMONARY: Equal breath souds B/L, No wheezing, No crackles. CARDIOVASCULAR: S1, S2 present. No murmurs, rubs, or gallops. ABDOMEN: Soft, nontender, nondistended, normoactive bowel sounds. No guarding or rebound tenderness. MUSCULOSKELETAL: No edema, No cyanosis. No clubbing. Normal ROM. Intact per ipheral pulses. NEUROLOGICAL: CN 2-12 grossly intact. No FND Skin: No Rash REVIEW OF SYSTEMS: CONSTITUTIONAL: No fever or chills. CARDIOVASCULAR: No chest pain, palpitations or syncope. PULMONARY: No shortness of breath, no cough, sore throat. GASTROINTESTINAL: No nausea, vomiting, diarrhea, abdominal pain. : No Dysuria, urgency, frequency. Extremities: No edema. NEUROLOGICAL: No headaches, no weakness, or numbness Dictation was produced using [employer] dictation software. please excuse any grammatical, word or spelling errors. Objective - Vital Signs Vital signs: Vital Signs Temp 98.1 F 11/02/24 12:17 Pulse 62 11/02/24 13:10 Resp 20 11/02/24 12:17 BP 96/58 11/02/24 12:17 Pulse Ox 97 11/02/24 12:17 FiO2 Intake & Output 11/01/24 11/02/24 11/02/24 18:59 06:59 18:59 Intake Total 720 540 Output Total 1 Balance 719 540 Weight 125.5 kg Intake: IV 720 Sodium Chloride 0.9% 1, 720 000 ml @ 60 mls/hr IV . [id number] [facility] Rx#:[id number] Oral 540 Output: Urine 1 Other: Voiding Method Diaper Diaper Diaper External Catheter # Voids 1 1 1 # Bowel Movements 1 1 - Labs CBC & Chem 7: 10/31/24 15:38 11/02/24 08:54 Labs: Abnormal Lab Results - Last 24 Hours (Table) 11/02/24 Range/Units 08:54 Sodium 136 L (137-145) mmol/L Glucose 125 H (74-99) mg/dL
--- NOTE | 2024-11-02 16:40 | P.CN ---
Psychiatric Consult - . Consult date: 11/02/24 Consult:: 11/02/24 16:38 The patient was not awake so I talked with the nursing staff who said that the patient is in and out of awareness but is the same in his prison. He is recovering from a lithium overrdose No psychiatric issues or need to change meds at this point.
[2024-11-03 07:29] LABS: African American GFR (CKD) >90 (>60 ml/min/1.73 sqM); Anion Gap 5 mmol/L; Blood Urea Nitrogen 11 mg/dL (9-20); Calcium 9.1 mg/dL (8.4-10.2); Carbon Dioxide 25 mmol/L (22-30); Chloride 105 mmol/L (98-107); Glucose 101 mg/dL (74-99); Magnesium 1.8 mg/dL (1.6-2.3); Non-African American GFR(CKD) >90 (>60 ml/min/1.73 sqM); Potassium 4.4 mmol/L (3.5-5.1); Sodium 135 mmol/L (137-145)
--- NOTE | 2024-11-03 07:35 | P.PN ---
Subjective Progress Note Date: 11/02/24 Patient was seen for a follow-up. A sitter was present by the bedside. He continues to be shaky, continues to have obsession about counting numbers. No seizures noted. Still has [place] jerks. However better than yesterday. Patient denies any headache or dizziness. Objective - Vital Signs Vital signs: Vital Signs Temp 98.1 F 11/02/24 12:17 Pulse 62 11/02/24 13:10 Resp 20 11/02/24 12:17 BP 96/58 11/02/24 12:17 Pulse Ox 97 11/02/24 12:17 FiO2 Intake & Output 11/01/24 11/02/24 11/02/24 18:59 06:59 18:59 Intake Total 720 540 Output Total 1 Balance 719 540 Weight 125.5 kg Intake: IV 720 Sodium Chloride 0.9% 1, 720 000 ml @ 60 mls/hr IV . [id number] [facility] Rx#:[id number] Oral 540 Output: Urine 1 Other: Voiding Method Diaper Diaper Diaper External Catheter # Voids 1 1 1 # Bowel Movements 1 1 - Exam Patient continues to be somewhat delirious. Still having some [place] jerks although better than yesterday. Rest of the examination unchanged. Patient continues to say random numbers. - Labs CBC & Chem 7: 10/31/24 15:38 11/02/24 08:54 Labs: Abnormal Lab Results - Last 24 Hours (Table) 11/02/24 Range/Units 08:54 Sodium 136 L (137-145) mmol/L Glucose 125 H (74-99) mg/dL Assessment and Plan Assessment: * Altered mental status, likely due to toxic metabolic encephalopathy. Reasons multifactorial as below. * Coarse tremors, myoclonic jerks, likely related to acute metabolic encephalopathy, lithium toxicity. * Acute lithium toxicity * Acute kidney injury * Atrial flutter/fibrillation * Hypertension Plan: * EEG on 11/01/2024 was abnormal due to background slowing of at least moderate degree. This is suggestive of generalized cerebral dysfunction as can be seen with toxic metabolic encephalopathy or related to diffuse structural brain abnormality. Clinical correlation recommended. Presence of sporadic generalized spikes associated with some myoclonic twitch of the facial region or torso. No electrographic seizure was recorded. * Continue Keppra 500 mg twice a day, until patient has metabolic ence phalopathy. Once it has resolved, then Keppra can be weaned off. * Ativan 1 mg IV twice a day when necessary tremors. * Patient's tremors, myoclonic jerks could be partly related to lithium toxicity, can also be associated with amiodarone, Olanzapine. * Patient's lithium level is improving and the most recent is 1.8, still elevated. Patient's renal functions back to normal. * TSH normal 4.06, hemoglobin A1c 5.8, B12 is borderline 307. We will start B12 replacement. * Continue Eliquis 5 mg twice a day for atrial fibrillation.
[2024-11-03 08:10] LABS: Lithium 1.5 mmol/L
[2024-11-03] MEDS: CYANOCOBALAMIN 500 MCG TAB PO SCH (08:42)
--- NOTE | 2024-11-03 10:25 | P.PN ---
Subjective Patient is seen in follow-up for lithium toxicity and acute kidney injury. Status post hemodialysis October 31, 2024. Renal function at baseline. [place] level trending down. Has been voiding. Incontinent. Vital signs are stable. General: No acute distress. HEENT: Head exam is unremarkable. On nasal cannula. LUNGS: No audible rhonchi or wheezes. HEART: Rate and Rhythm are regular. ABDOMEN: Obese, nontender. EXTREMITITES: No edema. Objective - Vital Signs Vital signs: Vital Signs Temp 97.6 F 11/03/24 08:40 Pulse 77 11/03/24 08:40 Resp 18 11/03/24 08:40 BP 113/72 11/03/24 08:40 Pulse Ox 99 11/03/24 08:40 FiO2 Intake & Output 11/02/24 11/03/24 11/03/24 18:59 06:59 18:59 Intake Total 540 Output Total 250 200 200 Balance -250 340 -200 Weight 127 kg Intake: Oral 540 Output: Urine 250 200 200 Other: Voiding Method Diaper Diaper Diaper External Catheter External Catheter External Catheter # Voids 1 1 - Labs CBC & Chem 7: 10/31/24 15:38 11/03/24 05:56 Labs: Abnormal Lab Results - Last 24 Hours (Table) 11/03/24 Range/Units 05:56 Sodium 135 L (137-145) mmol/L Glucose 101 H (74-99) mg/dL Assessment and Plan Plan: Assessment: 1. Acute lithium toxicity status post hemodialysis October 31, 2024. [place] level 1.5. 2. Acute kidney injury secondary to ATN secondary to hypovolemia and lithium toxicity. Resolved. 3. Benign hypertension. Controlled. 4. History of bipolar disorder. Plan: Maintain IV fluids. Discontinue dialysis catheter.
--- NOTE | 2024-11-03 13:18 | P.PN ---
Subjective Interval History: 69-year-old patient, brought in from [facility]. Being followed by Dr. Shanks. Per the EMS report patient is found to have a increased lithium level of 3.1. Patient is having increased confusion agitation and uncontrollable tremors. Patient was given IV fluids. At baseline is AO x 3 on EMS arrival he was AO x 1. Patient is afebrile. Yesterday evening Dr. Martin Tovar from vascular placed the dialysis catheter. And this morning patient underwent hemodialysis. Patient seen by residential finish carpenter Dr. Ulloa. Patient's creatinine on admission was 1.2. Subsequently 0.88 this morning. This morning following dialysis patient was still a bit fidgety. Not really oriented. When I came to see the patient. Is getting EEG. Had received Ativan. 11/02--patient was seen and examined today. Alert oriented x 3, answering questions appropriately, drowsy but arousable. Nephrology following, recommended to maintain IV fluids, stop losartan, lithium level trending down, holding on further hemodialysis. Neurology and psychiatry has been consulted. Holding any lithium, will monitor lithium levels. Patient on as needed Ativan for tremors. C. difficile negative. 11/03--patient was seen and examined today. Family at bedside. No issues overnight. [place] level is trending down, 1.5 today. Nephrology following. No further need of hemodialysis. Nephrology recommended to continue IV fluids, okay to discontinue dialysis catheter. Sodium 135 potassium 4.4 chloride 105, BUN 11 creatinine 0.80. Calcium 9.1, magnesium 1.8. [place] level trending down 1.5. Assessment and plan: Acute toxic encephalopathy: Acute lithium toxicity: Coarse tremorsmyoclonic jerks secondary to encephalopathy, lithium toxicity BELLE Atrial flutter/fibrillation Hypertension Acute toxic encephalopathy Acute lithium toxicity Coarse tremors: Admitted for encephalopathy secondary to acute lithium toxicity, neurology and psychiatry consulted. EEG showed background slowing.Per neurology continue Keppra 500 twice daily, once encephalopathy resolved, Keppra to be weaned off, Ativan twice daily for tremors Continue Eliquis, amiodarone, Cardizem, metoprolol for atrial fibrillation Nephrology following, underwent hemodialysis initially, now trending lithium levels, right femoral line in place Psychiatry consulted. Paroxysmal atrial fibrillation: HTN: Amiodarone, Cardizem, Lopressor Eliquis Depression: Hold lithium Continue Effexor Psychiatry consulted Consults: Nephrology, vascular surgery, neurology, psychiatry. DVT prophylaxis: Anticoagulated Disposition: PT/OT consulted. Monitor vital signs and labs Labs and medication were reviewed. Continue same treatment. Further recommendations as per clinical course of the patient PHYSICAL EXAMINATION: GENERAL: The patient is A&O x3, NAD HEENT: EOMI, Sclerae anicteric, Moist Mucous membranes Neck: Supple, Non tender, No JVD PULMONARY: Equal breath souds B/L, No wheezing, No crackles. CARDIOVASCULAR: S1, S2 present. No murmurs, rubs, or gallops. ABDOMEN: Soft, nontender, nondistended, normoactive bowel sounds. No guarding or rebound tenderness. MUSCULOSKELETAL: No edema, No cyanosis. No clubbing. Normal ROM. Intact peripheral pulses. NEUROLOGICAL: CN 2-12 grossly intact. No FND Skin: No Rash REVIEW OF SYSTEMS: CONSTITUTIONAL: No fever or chills. CARDIOVASCULAR: No chest pain, palpitations or syncope. PULMONARY: No shortness of breath, no cough, sore throat. GASTROINTESTINAL: No nausea, vomiting, diarrhea, abdominal pain. : No Dysuria, urgency, frequency. Extremities: No edema. NEUROLOGICAL: No headaches, no weakness, or numbness Dictation was produced using [employer] dictation software. please excuse any grammatical, word or spelling errors. Objective - Vital Signs Vital signs: Vital Signs Temp 97.6 F 11/03/24 08:40 Pulse 51 L 11/03/24 12:10 Resp 16 11/03/24 12:10 BP 112/66 11/03/24 12:10 Pulse Ox 98 11/03/24 12:10 FiO2 Intake & Output 11/02/24 11/03/24 11/03/24 18:59 06:59 18:59 Intake Total 540 420 Output Total 250 200 400 Balance -250 340 20 Weight 127 kg Intake: Oral 540 420 Output: Urine 250 200 400 Other: Voiding Method Diaper Diaper Diaper External Catheter External Catheter External Catheter # Voids 1 1 - Labs CBC & Chem 7: 10/31/24 15:38 11/03/24 05:56 Labs: Abnormal Lab Results - Last 24 Hours (Table) 11/03/24 Range/Units 05:56 Sodium 135 L (137-145) mmol/L Glucose 101 H (74-99) mg/dL
[2024-11-03] MEDS: ACETAMINOPHEN TAB 325 MG TAB PO PRN (13:32)
--- NOTE | 2024-11-03 14:49 | P.PN ---
Subjective Progress Note Date: 11/03/24 Patient was seen for a follow-up. A sitter was present by the bedside. She mentions that patient continues to be shaky, restless. He has jerks when he is using some utensils and he gets short of to the target. Like drinking or eating, he will bring the cup to the chin rather than the mouth. Some problem with coordination. He is still talking in numbers. He can stand, and was in chair earlier. He is not shaking when stands. He is steady on the feet. Objective - Vital Signs Vital signs: Vital Signs Temp 97.6 F 11/03/24 08:40 Pulse 51 L 11/03/24 12:10 Resp 16 11/03/24 12:10 BP 112/66 11/03/24 12:10 Pulse Ox 98 11/03/24 12:10 FiO2 Intake & Output 11/02/24 11/03/24 11/03/24 18:59 06:59 18:59 Intake Total 540 420 Output Total 250 200 400 Balance -250 340 20 Weight 127 kg Intake: Oral 540 420 Output: Urine 250 200 400 Other: Voiding Method Diaper Diaper Diaper External Catheter External Catheter External Catheter # Voids 1 1 - Exam Patient is sleeping at this time. Did not wake him up. No jerks at this time. - Labs CBC & Chem 7: 10/31/24 15:38 11/03/24 05:56 Labs: Abnormal Lab Results - Last 24 Hours (Table) 11/03/24 Range/Units 05:56 Sodium 135 L (137-145) mmol/L Glucose 101 H (74-99) mg/dL Assessment and Plan Assessment: * Altered mental status, likely due to toxic metabolic encephalopathy. Reasons multifactorial as below. * Coarse tremors, myoclonic jerks, likely related to acute metabolic encephalopathy, lithium toxicity. * Acute lithium toxicity * Acute kidney injury * Atrial flutter/fibrillation * Hypertension Plan: * EEG on 11/01/2024 was abnormal due to background slowing of at least moderate degree. This is suggestive of generalized cerebral dysfunction as can be seen with toxic metabolic encephalopathy or related to diffuse structural brain abnormality. Clinical correlation recommended. Presence of sporadic gene ralized spikes associated with some myoclonic twitch of the facial region or torso. No electrographic seizure was recorded. * Repeat EEG in the morning. * Continue Keppra 500 mg twice a day, until patient has metabolic encephalopathy. Once it has resolved, then Keppra can be weaned off. * Ativan 1 mg IV twice a day when necessary tremors. * Patient's tremors, myoclonic jerks could be partly related to lithium toxicity, can also be associated with amiodarone, Olanzapine. * Patient's lithium level is improving and the most recent is 1.5, still elevated. Patient's renal functions back to normal. * TSH normal 4.06, hemoglobin A1c 5.8, B12 is borderline 307. We will start B12 replacement. * Continue Eliquis 5 mg twice a day for atrial fibrillation. * Dr. Barrett Sun to resume neurology service in the morning.
[2024-11-04 06:39] LABS: African American GFR (CKD) >90 (>60 ml/min/1.73 sqM); Anion Gap 5 mmol/L; Blood Urea Nitrogen 8 mg/dL (9-20); Calcium 9.3 mg/dL (8.4-10.2); Carbon Dioxide 26 mmol/L (22-30); Chloride 106 mmol/L (98-107); Glucose 98 mg/dL (74-99); Magnesium 1.8 mg/dL (1.6-2.3); Non-African American GFR(CKD) >90 (>60 ml/min/1.73 sqM); Potassium 3.9 mmol/L (3.5-5.1); Sodium 137 mmol/L (137-145)
--- NOTE | 2024-11-04 08:17 | OP ---
OPERATIVE REPORT DATE OF SERVICE : PREOPERATIVE DIAGNOSIS: [place] poisoning. POSTOPERATIVE DIAGNOSIS: [place] poisoning. PROCEDURE PERFORMED: Ultrasound-guided 20 cm dialysis catheter placement with right femoral approach. DESCRIPTION OF PROCEDURE: The patient was brought to the label machine operator. Right groin was prepped and draped in the usual sterile manner. 1% lidocaine infiltrated in the groin area with IV sedation. Ultrasound-guided micropuncture introduced into the right femoral vein. Micropuncture guidewire was passed and 4-Faroese dilator advanced on top of the guidewire. Then, we passed a regular guidewire. On the top of it, we placed a triple-lumen 20 cm dialysis catheter. Guidewire was removed, flushed with heparin saline and hep-locked, secured with 3-0 nylon. The patient tolerated the procedure well. MMODL / IJN: [id number] /
--- NOTE | 2024-11-04 09:52 | P.PN ---
Subjective Patient is seen in follow-up for lithium toxicity and acute kidney injury. Status post hemodialysis October 31, 2024. Renal function at baseline. Has been voiding. Incontinent. Confused. Sitter at bedside. Vital signs are stable. General: No acute distress. HEENT: Head exam is unremarkable. On nasal cannula. LUNGS: No audible rhonchi or wheezes. HEART: Rate and Rhythm are regular. ABDOMEN: Obese. EXTREMITITES: No edema. Objective - Vital Signs Vital signs: Vital Signs Temp 98.6 F 11/04/24 08:00 Pulse 61 11/04/24 08:00 Resp 16 11/04/24 08:00 BP 110/62 11/04/24 08:00 Pulse Ox 99 11/04/24 08:00 FiO2 Intake & Output 11/03/24 11/04/24 11/04/24 18:59 06:59 18:59 Intake Total 1020 Output Total 500 Balance 520 Weight 124 kg Intake: Oral 1020 Output: Urine 500 Other: Voiding Method Diaper Diaper External Catheter # Voids 1 - Labs CBC & Chem 7: 10/31/24 15:38 11/04/24 05:36 Labs: Abnormal Lab Results - Last 24 Hours (Table) 11/04/24 Range/Units 05:36 BUN 8 L (9-20) mg/dL Assessment and Plan Plan: Assessment: 1. Acute lithium toxicity status post hemodialysis October 31, 2024. [place] level 1.5. 2. Acute kidney injury secondary to ATN secondary to hypovolemia and lithium toxicity. Resolved. 3. Benign hypertension. Controlled. 4. History of bipolar disorder. Plan: Maintain IV fluids. Discontinue dialysis catheter. To be removed today. I will sign off. Please call with any questions or concerns.
--- NOTE | 2024-11-04 13:21 | P.PCN ---
Operative Findings: Patient was seen in his room this patient has a right femoral dialysis catheter patient is done with the dialysis stitches were removed and right femoral dialysis cath were removed pressure dressing applied patient tarted the procedure well
--- NOTE | 2024-11-04 14:07 | P.PN ---
Progress Note - Text Progress Note Date: 11/04/24 IDENTIFYING DATA: Patient is a 69-year-old male, recently staying at [facility] REASON FOR CONSULT: [place] toxicity INTERVAL HISTORY: Patient seen and evaluated with sitter at bedside. Patient's lithium level has been downtrending with the most recent being 1.5 yesterday. Creatinine WNL status post hemodialysis last week. Patient seen however was drowsy today. He was A&Ox2 to self and location not time. He did not recall speaking to sports writer last week. His sister did visit him over the weekend however was not present today. Patient denied any SI/HI or AVH. MENTAL STATUS EXAM: General Appearance: Patient appears to be stated age. Patient appears to have fair hygiene and grooming wearing hospital gown with poor eye contact. Behavior: Patient is calmly lying in bed without any agitated behavior. Speech: Speech is brief however low volume and tone Mood/Affect: Mood is "all right" and affect is constricted Suicidality/Homicidality: Patient denies any suicidal homicidal ideations Perceptions: There are no perceptual abnormalities Though content/process: Thought content was devoid of any delusions, superficially linear Judgment and insight: Fair IMPRESSIONS: [place] toxicity History of bipolar disorder PLAN: -At this time patient DOES NOT meet criteria for inpatient psychiatric admission. -Would recommend the following medication changes/additions: Continue Zyprexa 5 mg at bedtime for bipolar disorder/mood stabilization, Ativan 1 mg twice daily IV for tremors, Effexor XR 225 mg daily, melatonin 5 mg at bedtime. Ordered repeat lithium level to be completed tomorrow. TSH WNL. Patient to follow-up with his outpatient psychiatrist Dr. Ware at [facility] regarding further medication adjustments however will continue holding lithium during this admission. -Will continue to follow along -Please contact with any questions.
--- NOTE | 2024-11-04 14:59 | P.PN ---
Subjective Progress Note Date: 11/04/24 Seeing the patient for the first time during this hospital visit. Please refer to Dr. Ford for further details. According to his sitter was at bedside the patient just fell asleep and briefly waking up patient is not providing great information and he just wants to go back to sleep. Objective - Vital Signs Vital signs: Vital Signs Temp 98.6 F 11/04/24 08:00 Pulse 52 L 11/04/24 11:57 Resp 16 11/04/24 11:57 BP 106/69 11/04/24 11:57 Pulse Ox 98 11/04/24 11:57 FiO2 Intake & Output 11/03/24 11/04/24 11/04/24 18:59 06:59 18:59 Intake Total 1020 Output Total 500 Balance 520 Weight 124 kg Intake: Oral 1020 Output: Urine 500 Other: Voiding Method Diaper Diaper Diaper External Catheter # Voids 1 - Exam General: Lying in bed and is not in acute distress. Neuro: Very limited since the patient wants to be left alone in the sleep. He is oriented to self as well as place. He follows a few simple commands. No aphasia from limited language No facial droop. No dysarthria. - Labs CBC & Chem 7: 10/31/24 15:38 11/04/24 05:36 Labs: Abnormal Lab Results - Last 24 Hours (Table) 11/04/24 Range/Units 05:36 BUN 8 L (9-20) mg/dL Assessment and Plan Assessment: * Altered mental status, likely due to toxic metabolic encephalopathy. Reasons multifactorial as below. * Coarse tremors, myoclonic jerks, likely related to acute metabolic encephalopathy, lithium toxicity. * Acute lithium toxicity * Acute kidney injury * Atrial flutter/fibrilla Plan: * EEG on 11/01/2024 was abnormal due to background slowing of at least moderate degree. This is suggestive of generalized cerebral dysfunction as can be seen with toxic metabolic encephalopathy or related to diffuse structural brain abnormality. Clinical correlation recommended. Presence of sporadic generalized spikes associated with some myoclonic twitch of the facial region or torso. No electrographic seizure was recorded. * Repeat EEG today: Preliminary is negative for seizure. * On Keppra 500 mg twice a day, until patient has metabolic encephalopathy. Per Dr. Ford, once it has resolved, then Keppra can be weaned off. * Ativan 1 mg IV twice a day when necessary tremors. * Patient's tremors, myoclonic jerks could be partly related to lithium toxicity, can also be associated with amiodarone, Olanzapine. * Patient's lithium level is improving and the most recent is 1.5, still elevated. Patient's renal functions back to normal. * TSH normal 4.06, hemoglobin A1c 5.8, B12 is borderline 307. We will start B12 replacement. * Continue Eliquis 5 mg twice a day for atrial fibrillation. Time with Patient: Less than 30
--- NOTE | 2024-11-04 21:49 | EEG ---
ELECTROENCEPHALOGRAM REPORT CLINICAL HISTORY: This is a 69-year-old gentleman with altered mental status. The video EEG is obtained to evaluate for seizure epileptiform activity. RELEVANT MEDICATION: Keppra. EEG TYPE: This is a routine 21-channel EEG with video using the 10/20 electrode placement system. DESCRIPTION: The background consists of [id number] voltage of 6 to 6.5 hertz activity and at times intermixed with delta activity. There is no focal slowing. There is no physiological stage 2 sleep architecture. There is diffuse myogenic artifact predominantly over the left temporal that is mild to moderate in severity. Interictal and ictal is none. ACTIVATION PROCEDURE: Photic stimulation and hyperventilation are not performed. CLINICAL INTERPRETATION: This is an abnormal routine EEG. The background slowing is suggestive of mild to moderate encephalopathy likely due to toxic metabolic derangement. Otherwise, there is no focal slowing, epileptiform discharge, or seizure on the EEG. Lack of epileptiform discharge does not rule out underlying epilepsy. Clinical correlation is recommended. MMNINI / IJN: [id number] /
--- NOTE | 2024-11-04 23:13 | P.PN ---
Subjective Progress Note Date: 11/04/24 69-year-old patient, brought in from [facility]. Being followed by Dr. Shanks. Per the EMS report patient is found to have a increased lithium level of 3.1. Patient is having increased confusion agitation and uncontrollable tremors. Patient was given IV fluids. At baseline is AO x 3 on EMS arrival he was AO x 1. Patient is afebrile. Yesterday evening Dr. Martin Tovar from vascular placed the dialysis catheter. And this morning patient underwent hemodialysis. Patient seen by tobacco dipper Dr. Ulloa. Patient's creatinine on admission was 1.2. Subsequently 0.88 this morning. This morning following dialysis patient was still a bit fidgety. Not really oriented. When I came to see the patient. Is getting EEG. Had received Ativan. 11/02--patient was seen and examined today. Alert oriented x 3, answering questions appropriately, drowsy but arousable. Nephrology following, recommended to maintain IV fluids, stop losartan, lithium level trending down, holding on further hemodialysis. Neurology and psychiatry has been consulted. Holding any lithium, will monitor lithium levels. Patient on as needed Ativan for tremors. C. difficile negative. 11/03--patient was seen and examined today. Family at bedside. No issues overnight. [place] level is trending down, 1.5 today. Nephrology following. No further need of hemodialysis. Nephrology recommended to continue IV fluids, okay to discontinue dialysis catheter. Sodium 135 potassium 4.4 chloride 105, BUN 11 creatinine 0.80. Calcium 9.1, magnesium 1.8. [place] level trending down 1.5. 11/04/2024 Patient is seen and evaluated in follow-up this morning with no acute overnight issues noted. Patient continues to have confusion but is much more awake and alert per nursing staff. Patient being followed by vascular surgery and nephrology and is having dialysis catheter removed today. Patient does have sig nificant history of A-fib and per sister at the bedside, patient was scheduled to receive an event monitor or Holter monitor although is now currently hospitalized. Will discuss with cardiology if this can be placed prior to discharge. Patient will be returning to [facility] on discharge. Patient was evaluated by psychiatry recommending to continue with current medications and close monitoring of lithium level. Yesterday's was 1.5 and lithium level is scheduled for a.m. REVIEW OF SYSTEMS: CONSTITUTIONAL: No fever or chills. CARDIOVASCULAR: No chest pain, palpitations or syncope. PULMONARY: No shortness of breath, no cough, sore throat. GASTROINTESTINAL: No nausea, vomiting, diarrhea, abdominal pain. Reports tolerating diet : No Dysuria, urgency, frequency. Extremities: No edema. NEUROLOGICAL: No headaches, reports of generalized weakness, or numbness PHYSICAL EXAMINATION: GENERAL: The patient is A&O x 2-3, baseline, well-developed, appears older than stated age, obese HEENT: EOMI, Sclerae anicteric, Moist Mucous membranes Neck: Supple, Non tender, No JVD PULMONARY: Equal breath souds B/L, No wheezing, No crackles. CARDIOVASCULAR: S1, S2 muffled ABDOMEN: Soft, obese, nontender, nondistended, normoactive bowel sounds. No guarding or rebound tenderness. MUSCULOSKELETAL: No edema, No cyanosis. No clubbing. Normal ROM. Intact peripheral pulses. NEUROLOGICAL: CN 2-12 grossly intact. No FND, diffusely weak Skin: No Rash Assessment: Acute toxic encephalopathy secondary to acute lithium toxicity Coarse tremorsmyoclonic jerks secondary to encephalopathy, lithium toxicity BELLE with acute renal failure, requiring hemodialysis, improved and dialysis catheter is being removed today 11/04/2024 Atrial flutter/fibrillation, paroxysmal Hypertension History of depression GI prophylaxis DVT prophylaxis Full code Plan: Patient being followed by multiple consultations including nephrology and neurology. [place] level is 1.5 and scheduled for repeat in a.m. [place] currently on hold the patient has been evaluated by psychiatry Plan will be for return to [facility] on discharge and will discuss with case management regarding discharge planning Nephrology following and vascular surgery has been consulted to remove temporary dialysis catheter. Kidney functions have improved Repeat labs in the a.m. Possible discharge planning in the next 24 to 48 hours The impression and plan of care has been dictated by Nurse Tiffanie Dover as directed. Dr. Paige MD I have performed a history and examination and MDM of this patient, discussed the same with the dictator, and agree with the dictator's assessment and plan as written ,documented as a scribe. Based on total visit time, I have performed more than 50% of the visit. Objective - Vital Signs Vital signs: Vital Signs Temp 97.5 F L 11/03/24 19:45 Pulse 78 11/04/24 04:50 Resp 18 11/04/24 04:50 BP 119/86 11/04/24 04:50 Pulse Ox 98 11/04/24 04:50 FiO2 Intake & Output 11/03/24 11/04/24 11/04/24 18:59 06:59 18:59 Intake Total 1020 Output Total 500 Balance 520 Weight 124 kg Intake: Oral 1020 Output: Urine 500 Other: Voiding Method Diaper Diaper External Catheter # Voids 1 - Labs CBC & Chem 7: 10/31/24 15:38 11/04/24 05:36 Labs: Abnormal Lab Results - Last 24 Hours (Table) 11/04/24 Range/Units 05:36 BUN 8 L (9-20) mg/dL
[2024-11-05 08:13] LABS: African American GFR (CKD) >90 (>60 ml/min/1.73 sqM); Anion Gap 13 mmol/L; Blood Urea Nitrogen 6 mg/dL (9-20); Calcium 9.2 mg/dL (8.4-10.2); Carbon Dioxide 23 mmol/L (22-30); Chloride 106 mmol/L (98-107); Glucose 96 mg/dL (74-99); Non-African American GFR(CKD) >90 (>60 ml/min/1.73 sqM); Potassium 4.2 mmol/L (3.5-5.1); Sodium 142 mmol/L (137-145)
[2024-11-05 09:56] LABS: Basophils # (A) 0.03 10*3/uL (0.00-0.10); Basophils % (A) 0.3 %; Eosinophils % (A) 3.4 %; HCT 39.4 % (39.6-50.0); HGB 12.4 g/dL (13.0-17.0); Lymphocytes # (A) 1.38 10*3/uL (0.90-5.00); Lymphocytes % (A) 15.8 %; MCH 27.1 pg (27.0-32.0); MCHC 31.5 g/dL (32.0-37.0); MCV 86.2 fL (80.0-97.0); Mean Platelet Volume 10.5 fL (9.5-12.2); Monocytes # (A) 0.65 10*3/uL (0.20-1.00); Monocytes % (A) 7.4 %; Neutrophils # (A) 6.34 10*3/uL (1.80-7.70); Neutrophils % (A) 72.8 %; Platelet Count 223 10*3/uL (140-440); RBC 4.57 10*6/uL (4.40-5.60); WBC 8.73 10*3/uL (4.50-10.00)
--- NOTE | 2024-11-05 10:25 | P.PN ---
Subjective Patient is seen in follow-up for lithium toxicity and acute kidney injury. Status post hemodialysis October 31, 2024. Renal function at baseline. Has been voiding. Dialysis catheter removed yesterday. Off IV fluids. Vital signs are stable. General: No acute distress. HEENT: Head exam is unremarkable. On nasal cannula. LUNGS: No audible rhonchi or wheezes. HEART: Rate and Rhythm are regular. ABDOMEN: Obese. EXTREMITITES: No edema. Objective - Vital Signs Vital signs: Vital Signs Temp 98.4 F 11/05/24 08:08 Pulse 89 11/05/24 08:30 Resp 18 11/05/24 08:30 BP 102/58 11/05/24 08:08 Pulse Ox 94 L 11/05/24 04:45 FiO2 Intake & Output 11/04/24 11/05/24 11/05/24 18:59 06:59 18:59 Intake Total 240 Output Total 150 Balance -150 240 Intake: Oral 240 Output: Urine 150 Other: Voiding Method Diaper Diaper Diaper # Voids 1 2 - Labs CBC & Chem 7: 11/05/24 06:20 11/05/24 06:20 Labs: Abnormal Lab Results - Last 24 Hours (Table) 11/05/24 11/05/24 Range/Units 06:20 06:20 Hgb 12.4 L (13.0-17.0) g/dL Hct 39.4 L (39.6-50.0) % MCHC 31.5 L (32.0-37.0) g/dL BUN 6 L (9-20) mg/dL Assessment and Plan Plan: Assessment: 1. Acute lithium toxicity status post hemodialysis October 31, 2024. [place] level 1.5 dated November 03, 2024.. 2. Acute kidney injury secondary to ATN secondary to hypovolemia and lithium toxicity. Resolved. 3. Benign hypertension. Controlled. 4. History of bipolar disorder. Plan: Encouraged oral intake. Dialysis catheter removed yesterday. I will sign off. Please call with any questions or concerns.
--- NOTE | 2024-11-05 12:04 | P.PN ---
Subjective Progress Note Date: 11/05/24 I am following up with the patient and he feels she is doing better. Objective - Vital Signs Vital signs: Vital Signs Temp 98.4 F 11/05/24 08:08 Pulse 89 11/05/24 08:30 Resp 18 11/05/24 08:30 BP 102/58 11/05/24 08:08 Pulse Ox 94 L 11/05/24 04:45 FiO2 Intake & Output 11/04/24 11/05/24 11/05/24 18:59 06:59 18:59 Intake Total 240 Output Total 150 Balance -150 240 Intake: Oral 240 Output: Urine 150 Other: Voiding Method Diaper Diaper Diaper # Voids 1 2 - Exam General: Lying in bed and is not in acute distress. Neuro: Patient is awake alert oriented to self and with options he states he is in the hospital. He follows simple commands. During the examination he is drowsy and wants to sleep. No facial weakness. No dysarthria. - Labs CBC & Chem 7: 11/05/24 06:20 11/05/24 06:20 Labs: Abnormal Lab Results - Last 24 Hours (Table) 11/05/24 11/05/24 Range/Units 06:20 06:20 Hgb 12.4 L (13.0-17.0) g/dL Hct 39.4 L (39.6-50.0) % MCHC 31.5 L (32.0-37.0) g/dL BUN 6 L (9-20) mg/dL Assessment and Plan Assessment: * Altered mental status, likely due to toxic metabolic encephalopathy. Reasons multifactorial as below. * Coarse tremors, myoclonic jerks, likely related to acute metabolic encephalopathy, lithium toxicity. * Acute lithium toxicity * Acute kidney injury * Atrial flutter/fibrilla Plan: * EEG on 11/01/2024 was abnormal due to background slowing of at least moderate degree. This is suggestive of generalized cerebral dysfunction as can be seen with toxic metabolic encephalopathy or related to diffuse structural brain abnormality. Clinical correlation recommended. Presence of sporadic generalized spikes associated with some myoclonic twitch of the facial region or torso. No electrographic seizure was recorded. * Repeat EEG: Is abnormal. The background slowing is suggestive of mild to moderate encephalopathy likely due to toxic metabolic derangement. Otherwise there is no focal slowing, [employer] discharges or seizure on the EEG. Lack of epileptiform discharges does not rule out underlying epilepsy. * During this hospital visit Dr. Ford started him on Keppra 500 mg twice a day and she recommended once his confusion improves to go down on the Keppra. I will go down on Keppra from 500 twice a day to 250 twice a day since his repeat EEG is negative for any seizure or discharges and I think this is all due to his toxic metabolic derangement especially with the lithium toxicity. * Ativan 1 mg IV twice a day when necessary tremors. * Patient's tremors, myoclonic jerks could be partly related to lithium toxicity, can also be associated with amiodarone, Olanzapine. * Patient's lithium level is improving and the most recent is 1.5, still elevated. Patient's renal functions back to normal. * TSH normal 4.06, hemoglobin A1c 5.8, B12 is borderline 307. We will start B12 replacement. * Continue Eliquis 5 mg twice a day for atrial fibrillation. Discussed with the patient's nurse. Time with Patient: Less than 30
[2024-11-05 13:40] LABS: Lithium 0.9 mmol/L
[2024-11-05] MEDS: levETIRAcetam IV 500 MG/5 ML VIAL IVP SCH (19:55)
--- NOTE | 2024-11-06 05:54 | P.PN ---
Subjective Progress Note Date: 11/05/24 69-year-old patient, brought in from [facility]. Being followed by Dr. Shanks. Per the EMS report patient is found to have a increased lithium level of 3.1. Patient is having increased confusion agitation and uncontrollable tremors. Patient was given IV fluids. At baseline is AO x 3 on EMS arrival he was AO x 1. Patient is afebrile. Yesterday evening Dr. Martin Tovar from vascular placed the dialysis catheter. And this morning patient underwent hemodialysis. Patient seen by community service director Dr. Ulloa. Patient's creatinine on admission was 1.2. Subsequently 0.88 this morning. This morning following dialysis patient was still a bit fidgety. Not really oriented. When I came to see the patient. Is getting EEG. Had received Ativan. 11/02--patient was seen and examined today. Alert oriented x 3, answering questions appropriately, drowsy but arousable. Nephrology following, recommended to maintain IV fluids, stop losartan, lithium level trending down, holding on further hemodialysis. Neurology and psychiatry has been consulted. Holding any lithium, will monitor lithium levels. Patient on as needed Ativan for tremors. C. difficile negative. 11/03--patient was seen and examined today. Family at bedside. No issues overnight. [place] level is trending down, 1.5 today. Nephrology following. No further need of hemodialysis. Nephrology recommended to continue IV fluids, okay to discontinue dialysis catheter. Sodium 135 potassium 4.4 chloride 105, BUN 11 creatinine 0.80. Calcium 9.1, magnesium 1.8. [place] level trending down 1.5. 11/04/2024 Patient is seen and evaluated in follow-up this morning with no acute overnight issues noted. Patient continues to have confusion but is much more awake and alert per nursing staff. Patient being followed by vascular surgery and nephrology and is having dialysis catheter removed today. Patient does have sig nificant history of A-fib and per sister at the bedside, patient was scheduled to receive an event monitor or Holter monitor although is now currently hospitalized. Will discuss with cardiology if this can be placed prior to discharge. Patient will be returning to [facility] on discharge. Patient was evaluated by psychiatry recommending to continue with current medications and close monitoring of lithium level. Yesterday's was 1.5 and lithium level is scheduled for a.m. 11/05/2024 Patient seen in follow-up and mentation is back to baseline. Awaiting lithium level and lithium has been on hold. According to sister, primary care provider ordered Holter monitor although was unable to receive as patient was hospitalized here. Will place order to have a Holter monitor placed per Dr. Shanks and will follow-up with cardiology in the outpatient setting. Patient will be returning to [facility] and requires insurance authorization. Discussed with case management and will submit for insurance Auth this was pending at this time. REVIEW OF SYSTEMS: CONSTITUTIONAL: No fever or chills. CARDIOVASCULAR: No chest pain, palpitations or syncope. PULMONARY: No shortness of breath, no cough, sore throat. GASTROINTESTINAL: No nausea, vomiting, diarrhea, abdominal pain. Reports tolerating diet : No Dysuria, urgency, frequency. Extremities: No edema. NEUROLOGICAL: No headaches, reports of generalized weakness, or numbness PHYSICAL EXAMINATION: GENERAL: The patient is A&O x 2-3, baseline, well-developed, appears older than stated age, obese HEENT: EOMI, Sclerae anicteric, Moist Mucous membranes Neck: Supple, Non tender, No JVD PULMONARY: Equal breath souds B/L, No wheezing, No crackles. CARDIOVASCULAR: S1, S2 muffled ABDOMEN: Soft, obese, nontender, nondistended, normoactive bowel sounds. No guarding or rebound tenderness. MUSCULOSKELETAL: No edema, No cyanosis. No clubbing. Normal ROM. Intact peripheral pulses. NEUROLOGICAL: CN 2-12 grossly intact. No FND, diffusely weak Skin: No Rash Assessment: Acute toxic encephalopathy secondary to acute lithium toxicity, improving Coarse tremorsmyoclonic jerks secondary to encephalopathy, lithium toxicity BELLE with acute renal failure, requiring hemodialysis, improved and dialysis catheter is being removed 11/04/2024 Atrial flutter/fibrillation, paroxysmal Hypertension History of depression Obesity with a BMI 35.1 GI prophylaxis DVT prophylaxis Full code Plan: Patient being followed by multiple consultations including nephrology and neurology. [place] level is 1.5 and repeat is pending this morning. [place] currently on hold the patient has been evaluated by psychiatry Plan will be for return to [facility] on discharge and will discuss with case management regarding discharge planning. Apparently patient requires insurance authorization which will need to be submitted Nephrology following and vascular surgery has removed temporary dialysis catheter. Kidney functions have improved Repeat labs in the a.m. Possible discharge planning in the next 24 hours to [facility] once insurance authorization is obtained Patient was scheduled to receive a Holter monitor in the outpatient setting and is being arranged to have one placed prior to discharge The impression and plan of care has been dictated by So Tian, Nurse Practitioner as directed. Dr. Paige MD I have performed a history and examination and MDM of this patient, discussed the same with the dictator, and agree with the dictator's assessment and plan as written ,documented as a scribe. Based on total visit time, I have performed more than 50% of the visit. Objective - Vital Signs Vital signs: Vital Signs Temp 98.4 F 11/05/24 08:08 Pulse 89 11/05/24 08:30 Resp 18 11/05/24 08:30 BP 102/58 11/05/24 08:08 Pulse Ox 94 L 11/05/24 04:45 FiO2 Intake & Output 11/04/24 11/05/24 11/05/24 18:59 06:59 18:59 Intake Total 240 Output Total 150 Balance -150 240 Intake: Oral 240 Output: Urine 150 Other: Voiding Method Diaper Diaper Diaper # Voids 1 2 - Labs CBC & Chem 7: 11/05/24 06:20 11/05/24 06:20 Labs: Abnormal Lab Results - Last 24 Hours (Table) 11/05/24 Range/Units 06:20 BUN 6 L (9-20) mg/dL
--- NOTE | 2024-11-06 09:55 | P.DS ---
Providers Date of admission: 10/31/24 18:49 Expected date of discharge: 11/06/24 Attending physician: Charan Sutton Consults: 10/31/24 18:02 Consult Physician Routine Consulting Provider: Irish Ulloa Consult Reason/Comments: lithium toxicity Do you want consulting provider notified?: Already Contacted 10/31/24 18:45 Consult Physician Routine Consulting Provider: Salvatore Tovar Consult Reason/Comments: HD cath placement Do you want consulting provider notified?: Already Contacted 11/01/24 09:34 Consult Physician Routine Consulting Provider: Barrett Sun Consult Reason/Comments: increased shakiness Do you want consulting provider notified?: Yes 11/01/24 09:52 Consult Physician Urgent Consulting Provider: Enrrique Martinez Consult Reason/Comments: [place] toxicity Do you want consulting provider notified?: Yes 11/03/24 18:01 Consult Physician Routine Consulting Provider: Salvatore Tovar Consult Reason/Comments: Removal of HD cath Do you want consulting provider notified?: Yes Primary care physician: Enrrique Shanks Hospital Course: Final diagnosis Acute toxic encephalopathy secondary to acute lithium toxicity, improving Coarse tremorsmyoclonic jerks secondary to encephalopathy, lithium toxicity BELLE with acute renal failure, requiring hemodialysis, improved and dialysis catheter is being removed 11/04/2024 Atrial flutter/fibrillation, paroxysmal Hypertension History of depression Obesity with a BMI 35.1 GI prophylaxis DVT prophylaxis Full code Discharge disposition Patient is being discharged in a stable condition with guarded prognosis to [facility]. Patient will follow-up with Dr. Shanks in the outpatient setting upon discharge. Patient is to continue with oral Keppra 250 mg twice daily and recommend weaning over the next week. Patient to follow-up with psychiatry outpatient as scheduled. Continue holding lithium until follow-up. Repeat lithium level on 11/05/2024 at 0.9. Total time taken is greater than 35 minutes. Hospital course This is a 69-year-old male who was recently admitted with altered mental status with acute toxic/metabolic encephalopathy likely secondary to lithium toxicity. Patient evaluated by psychiatry and lithium has been on hold and levels were elevated and have been trending down. Patient also with acute renal failure requiring hemodialysis and has improved and dialysis catheter has been removed on 11/04/2024. Recommend outpatient follow-up with nephrology as well. Psychiatry evaluated the patient recommending to continue with Zyprexa at night as well as daytime and recommends to continue holding lithium until follow-up with his psychiatrist. Patient's mentation is baseline and will be returning to [facility]. Patient was scheduled to have a Holter monitor placed per PCP and is being arranged to have this placed prior to discharge. Patient will follow-up with Dr. Pelaez cardiology outpatient. Please refer to other consultation notes for further HPI. Currently no reports of chest pain, shortness of breath, or palpitations. Patient is afebrile. No reports of nausea or vomiting and patient is tolerating diet. Patient will be going to [facility] today. High risk for readmissions given significant comorbidities. Physical exam: Gen: This is a 69-year-old male who is alert and oriented x 2, baseline, well- developed, elderly appearing, obese, ill-appearing HEENT: Head is atraumatic, normocephalic. Pupils equal, round. Sclerae is anicteric. NECK: Supple. No JVD. No lymphadenopathy. No thyromegaly. LUNGS: Diminished breath sounds bilaterally with some scattered coarse rhonchi. No intercostal retractions. HEART: S1, S2 are muffled ABDOMEN: Soft. Obese, protuberant bowel sounds are present. No masses. No tenderness. EXTREMITIES: No pedal edema. No calf tenderness. NEUROLOGICAL: Patient is awake, alert and oriented x2. Cranial nerves 2 through 12 are grossly intact. Diffusely weak Please refer to medication reconciliation sheet for a list of medications. The impression and plan of care has been dictated by So Tian, Nurse Practitioner as directed. Dr. Paige MD I have performed a history and examination and MDM of this patient, discussed the same with the dictator, and agree with the dictator's assessment and plan as written ,documented as a scribe. Based on total visit time, I have performed more than 50% of the visit. Patient Condition at Discharge: Fair Plan - Discharge Summary Discharge Rx Participant: No New Discharge Prescriptions: No Action [place] Carbonate 1,200 mg PO HS Diltiazem Oral [Cardizem*] 30 mg PO TID@0500,1300,2100 Venlafaxine HCl [Effexor] 225 mg PO DAILY Pantoprazole [Protonix] 40 mg PO DAILY OLANZapine [ZyPREXA] 2.5 mg PO HS Cholecalciferol [Vitamin D3 (25 Mcg = 1000 Iu)] 50 mcg PO DAILY Acetaminophen [Tylenol 8 Hour] 650 mg PO Q6H PRN PRN Reason: Pain Melatonin 5 mg PO HS tab Metoprolol Tartrate [Lopressor] 100 mg PO BID Apixaban [Eliquis] 5 mg PO BID Multivitamins, Thera [Multivitamin (formulary)] 1 tab PO DAILY Losartan Potassium [Cozaar] 100 mg PO DAILY Amiodarone [Cordarone] 200 mg PO DAILY Discharge Medication List [place] Carbonate 1,200 mg PO HS 08/02/17 [History] Melatonin 5 mg PO HS tab 09/24/24 [Rx] Acetaminophen [Tylenol 8 Hour] 650 mg PO Q6H PRN 10/31/24 [History] Amiodarone [Cordarone] 200 mg PO DAILY 10/31/24 [History] Apixaban [Eliquis] 5 mg PO BID 10/31/24 [History] Cholecalciferol [Vitamin D3 (25 Mcg = 1000 Iu)] 50 mcg PO DAILY 10/31/24 [History] Diltiazem Oral [Cardizem*] 30 mg PO TID@0500,1300,2100 10/31/24 [History] Metoprolol Tartrate [Lopressor] 100 mg PO BID 10/31/24 [History] Multivitamins, Thera [Multivitamin (formulary)] 1 tab PO DAILY 10/31/24 [History] OLANZapine [ZyPREXA] 2.5 mg PO HS 10/31/24 [History] Pantoprazole [Protonix] 40 mg PO DAILY 10/31/24 [History] Venlafaxine HCl [Effexor] 225 mg PO DAILY 10/31/24 [History] Cyanocobalamin [Vitamin B-12] 1,000 mcg PO DAILY tab 11/06/24 [Rx] Follow up Appointment(s)/Referral(s): Enrrique Shanks DO [Primary Care Provider] - 1-2 days [facility], [NON-STAFF] - As Needed
--- NOTE | 2024-11-06 11:51 | P.PN ---
Subjective Progress Note Date: 11/06/24 I am following-up with patient and he feels he is doing better. Objective - Vital Signs Vital signs: Vital Signs Temp 97.9 F 11/06/24 11:24 Pulse 70 11/06/24 11:44 Resp 16 11/06/24 11:44 BP 116/52 11/06/24 11:44 Pulse Ox 95 11/06/24 11:44 FiO2 Intake & Output 11/05/24 11/06/24 11/06/24 18:59 06:59 18:59 Intake Total 240 Balance 240 Intake: Oral 240 Other: Voiding Method Diaper Diaper Diaper # Voids 1 3 1 - Exam General: Lying in bed and is not in acute distress. Neuro: Patient is more awake today and alert. Oriented to self and with options he states he is in the hospital. He correctly named objects correctly (pen and glasses). He follows simple commands. No aphasia. No facial weakness. No dysarthria. Motor: Lifting bilateral upper extremities above gravity equally and wiggle toes. Minimally has tremor of the right hand but is responsive during the episode. - Labs CBC & Chem 7: 11/05/24 06:20 11/05/24 06:20 Assessment and Plan Assessment: * Altered mental status, likely due to toxic metabolic encephalopathy. Reasons multifactorial as below. * Coarse tremors, myoclonic jerks, likely related to acute metabolic encephalopathy, lithium toxicity. * Acute lithium toxicity * Acute kidney injury * Atrial flutter/fibrilla Plan: * EEG on 11/01/2024 was abnormal due to background slowing of at least moderate degree. This is suggestive of generalized cerebral dysfunction as can be seen with toxic metabolic encephalopathy or related to diffuse structural brain abnormality. Clinical correlation recommended. Presence of sporadic generalized spikes associated with some myoclonic twitch of the facial region or torso. No electrographic seizure was recorded. * Repeat EEG: Is abnormal. The background slowing is suggestive of mild to moderate encephalopathy likely due to toxic metabolic derangement. Otherwise there is no focal slowing, OptiForm discharges or seizure on the EEG. Lack of epileptiform discharges does not rule out underlying epilepsy. * During this hospital visit Dr. Ford started him on Keppra 500 mg twice a day and she recommended once his confusion improves to go down on the Keppra. I will go down on Keppra from 500 twice a day to 250 twice a day yesterday since his repeat EEG is negative for any seizure or discharges and I think this is all due to his toxic metabolic derangement especially with the lithium toxicity. I will discontinue Keppra today. * Ativan 1 mg IV twice a day when necessary tremors. * Patient's tremors, myoclonic jerks could be partly related to lithium t oxicity, can also be associated with amiodarone, Olanzapine. * Patient's lithium level is improving and the most recent is 1.5, still elevated. Patient's renal functions back to normal. * TSH normal 4.06, hemoglobin A1c 5.8, B12 is borderline 307. We will start B12 replacement. * Continue Eliquis 5 mg twice a day for atrial fibrillation. * Recommend the patient to follow-up with neurologist as outpatient within 2-3 weeks. Time with Patient: Less than 30
[2024-11-07 11:41] LABS: Glucose,Whole Blood 129 mg/dL (70-110)
[2024-11-07 12:19] VITALS: BMI 35.1
--- NOTE | 2024-11-07 14:45 | P.PN ---
Subjective Progress Note Date: 11/07/24 I am following-up with patient and doing well. No new neurological issues. Objective - Vital Signs Vital signs: Vital Signs Temp 97.6 F 11/07/24 11:32 Pulse 84 11/07/24 12:55 Resp 18 11/07/24 12:55 BP 108/71 11/07/24 11:32 Pulse Ox 95 11/07/24 11:32 FiO2 Intake & Output 11/06/24 11/07/24 11/07/24 18:59 06:59 18:59 Intake Total 240 222 340 Balance 240 222 340 Weight 124 kg Intake: Oral 240 222 340 Other: Voiding Method Diaper External Catheter External Catheter # Voids 2 3 2 - Exam General: Lying in bed and is not in acute distress. Neuro: Patient is more awake today and alert. Oriented to self and with options he states he is in the hospital. He correctly named objects correctly (pen and glasses). He follows simple commands. No aphasia. No facial weakness. No dysarthria. Motor: Lifting bilateral upper extremities above gravity equally and wiggle toes. No tremor of extremities noted today. - Labs CBC & Chem 7: 11/05/24 06:20 11/05/24 06:20 Labs: Abnormal Lab Results - Last 24 Hours (Table) 11/07/24 Range/Units 11:35 POC Glucose (mg/dL) 129 H (70-110) mg/dL Assessment and Plan Assessment: * Altered mental status, likely due to toxic metabolic encephalopathy. Reasons multifactorial as below. * Coarse tremors, myoclonic jerks, likely related to acute metabolic encephalopathy, lithium toxicity. * Acute lithium toxicity * Acute kidney injury * Atrial flutter/fibrilla Plan: * EEG on 11/01/2024 was abnormal due to background slowing of at least moderate degree. This is suggestive of generalized cerebral dysfunction as can be seen with toxic metabolic encephalopathy or related to diffuse structural brain abnormality. Clinical correlation recommended. Presence of sporadic generalized spikes associated with some myoclonic twitch of the facial region or torso. No electrographic seizure was recorded. * Repeat EEG: Is abnormal. The background slowing is suggestive of mild to moderate encephalopathy likely due to toxic metabolic derangement. Otherwise there is no focal slowing, OptiForm discharges or seizure on the EEG. Lack of epileptiform discharges does not rule out underlying epilepsy. * During this hospital visit Dr. Ford started him on Keppra 500 mg twice a day and she recommended once his confusion improves to go down on the Keppra. I will go down on Keppra from 500 twice a day to 250 twice a day yesterday since his repeat EEG is negative for any seizure or discharges and I think this is all due to his toxic metabolic derangement especially with the lithium toxicity. Keppra discontinued yesterday. * Ativan 1 mg IV twice a day when necessary tremors. * Patient's tremors, myoclonic jerks could be partly related to lithium toxicity, can also be associated with amiodarone, Olanzapine. * Patient's lithium level is improving and the most recent is 1.5, still elevated. Patient's renal functions back to normal. * TSH normal 4.06, hemoglobin A1c 5.8, B12 is borderline 307. We will start B12 replacement. * Continue Eliquis 5 mg twice a day for atrial fibrillation. * Recommend the patient to follow-up with neurologist as outpatient within 2-3 weeks. There is no further neurological work-up. Will sign off. Please reconsult if needed. Time with Patient: Less than 30
--- NOTE | 2024-11-07 15:26 | P.DS ---
Providers Date of admission: 10/31/24 18:49 Attending physician: Charan Sutton Consults: 10/31/24 18:02 Consult Physician Routine Consulting Provider: Irish Ulloa Consult Reason/Comments: lithium toxicity Do you want consulting provider notified?: Already Contacted 10/31/24 18:45 Consult Physician Routine Consulting Provider: Salvatore Tovar Consult Reason/Comments: HD cath placement Do you want consulting provider notified?: Already Contacted 11/01/24 09:34 Consult Physician Routine Consulting Provider: Barrett Sun Consult Reason/Comments: increased shakiness Do you want consulting provider notified?: Yes 11/01/24 09:52 Consult Physician Urgent Consulting Provider: Enrrique Martinez Consult Reason/Comments: [place] toxicity Do you want consulting provider notified?: Yes 11/03/24 18:01 Consult Physician Routine Consulting Provider: Salvatore Tovar Consult Reason/Comments: Removal of HD cath Do you want consulting provider notified?: Yes Primary care physician: Enrrique Shanks [place] Hospital Course: Final diagnosis Acute toxic encephalopathy secondary to acute lithium toxicity, improving Coarse tremorsmyoclonic jerks secondary to encephalopathy, lithium toxicity [place] with acute renal failure, requiring hemodialysis, improved and dialysis catheter is being removed 11/04/2024 Atrial flutter/fibrillation, paroxysmal Hypertension History of depression Obesity with a BMI 35.1 GI prophylaxis DVT prophylaxis Full code Discharge disposition Patient is being discharged in a stable condition with guarded prognosis to [facility]. Patient will follow-up with Dr. Shanks in the outpatient setting upon discharge. Patient to follow-up with psychiatry outpatient as scheduled. Continue holding lithium until follow-up. Repeat lithium level on 11/05/2024 at 0.9. Total time taken is greater than 35 minutes. Keppra has been discontinued as recommended by the neurologist. He felt that the repeat EEG did not reveal any seizure epileptiform activity. Hospital course This is a 69-year-old male who was recently admitted with altered mental status with acute toxic/metabolic encephalopathy likely secondary to lithium toxicity. Patient evaluated by psychiatry and lithium has been on hold and levels were elevated and have been trending down. Patient also with acute renal failure requiring hemodialysis and has improved and dialysis catheter has been removed on 11/04/2024. Recommend outpatient follow-up with nephrology as well. Psychiatry evaluated the patient recommending to continue with Zyprexa at night as well as daytime and recommends to continue holding lithium until follow-up with his psychiatrist. Patient's mentation is baseline and will be returning to [facility]. Patient was scheduled to have a Holter monitor placed per PCP and is being arranged to have this placed prior to discharge. Patient will follow-up with Dr. Pelaez cardiology outpatient. Please refer to other consultation notes for further HPI. Currently no reports of chest pain, shortness of breath, or palpitations. Patient is afebrile. No reports of nausea or vomiting and patient is tolerating diet. Patient will be going to [facility] today. High risk for readmissions given significant comorbidities. Physical exam: Gen: This is a 69-year-old male who is alert and oriented x 2, baseline, well- developed, elderly appearing, obese, ill-appearing HEENT: Head is atraumatic, normocephalic. Pupils equal, round. Sclerae is anicteric. NECK: Supple. No JVD. No lymphadenopathy. No thyromegaly. LUNGS: Diminished breath sounds bilaterally with some scattered coarse rhonchi. No intercostal retractions. HEART: S1, S2 are muffled ABDOMEN: Soft. Obese, protuberant bowel sounds are present. No masses. No tenderness. EXTREMITIES: No pedal edema. No calf tenderness. NEUROLOGICAL: Patient is awake, alert and oriented x2. Cranial nerves 2 through 12 are grossly intact. Diffusely weak Please refer to medication reconciliation sheet for a list of medications. The impression and plan of care has been dictated by Swapna Alvarez, Nurse Practitioner as directed. Dr. Paige MD I have performed a history and physical examination and medical decision making of this patient, discussed the same with the dictator, and agree with the dictators assessment and plan as written, documented as a scribe. Based on total visit time, I have performed more than 50% of this visit. Patient Condition at Discharge: Fair Plan - Discharge Summary Discharge Rx Participant: No New Discharge Prescriptions: New Cyanocobalamin [Vitamin B-12] 1,000 mcg PO DAILY tab levETIRAcetam [Keppra] 250 mg PO Q12HR #30 tablet Continue [place] Carbonate 1,200 mg PO HS Diltiazem Oral [Cardizem*] 30 mg PO TID@0500,1300,2100 Venlafaxine HCl [Effexor] 225 mg PO DAILY Pantoprazole [Protonix] 40 mg PO DAILY OLANZapine [ZyPREXA] 2.5 mg PO HS Cholecalciferol [Vitamin D3 (25 Mcg = 1000 Iu)] 50 mcg PO DAILY Acetaminophen [Tylenol 8 Hour] 650 mg PO Q6H PRN PRN Reason: Pain Melatonin 5 mg PO HS tab Metoprolol Tartrate [Lopressor] 100 mg PO BID Apixaban [Eliquis] 5 mg PO BID Multivitamins, Thera [Multivitamin (formulary)] 1 tab PO DAILY Amiodarone [Cordarone] 200 mg PO DAILY Discontinued Losartan Potassium [Cozaar] 100 mg PO DAILY Discharge Medication List [place] Carbonate 1,200 mg PO HS 08/02/17 [History] Melatonin 5 mg PO HS tab 09/24/24 [Rx] Acetaminophen [Tylenol 8 Hour] 650 mg PO Q6H PRN 10/31/24 [History] Amiodarone [Cordarone] 200 mg PO DAILY 10/31/24 [History] Apixaban [Eliquis] 5 mg PO BID 10/31/24 [History] Cholecalciferol [Vitamin D3 (25 Mcg = 1000 Iu)] 50 mcg PO DAILY 10/31/24 [History] Diltiazem Oral [Cardizem*] 30 mg PO TID@0500,1300,2100 10/31/24 [History] Metoprolol Tartrate [Lopressor] 100 mg PO BID 10/31/24 [History] Multivitamins, Thera [Multivitamin (formulary)] 1 tab PO DAILY 10/31/24 [History] OLANZapine [ZyPREXA] 2.5 mg PO HS 10/31/24 [History] Pantoprazole [Protonix] 40 mg PO DAILY 10/31/24 [History] Venlafaxine HCl [Effexor] 225 mg PO DAILY 10/31/24 [History] Cyanocobalamin [Vitamin B-12] 1,000 mcg PO DAILY tab 11/06/24 [Rx] levETIRAcetam [Keppra] 250 mg PO Q12HR #30 tablet 11/06/24 [Rx] Follow up Appointment(s)/Referral(s): Reggie Pelaez MD [Medical Doctor] - 1 Week (holter monitor eval and read) Enrrique Shanks DO [Primary Care Provider] - 1-2 days [facility], [NON-STAFF] - As Needed Rohit Ware MD [REFERRING] - 1 Week (Psychiatry) Ambulatory/Diagnostic Orders: Comprehensive Metabolic Panel [LAB.AMB] Time Frame: 3 Days, Location: [facility] cted Activity/Diet/Wound Care/Special Instructions: Patient is going to [facility] Activity as tolerated Continue holding lithium until follow-up with psychiatry and/or primary care provider outpatient Continue Keppra 250 mg twice daily and wean over 1 week to discontinue. Per neurology Continue heart healthy diet Follow-up with nephrology outpatient Repeat labs in 2 to 3 days to monitor CMP and lithium level Discharge Disposition: TRANSFER TO SNF/ECF
[2024-11-07 16:15] VITALS: BP 131/86; PULSE 76; RESP 16; TEMP 98.1
== END 2024-11-07 16:30 | DRG 91 ==
LOC: EC 15:06 → 3SCARD 18:49
PROVIDERS: ADMIT Hospitalist; ATTEND Hospitalist
PROC: B5181ZA Fluoroscopy of Superior Vena Cava using Low Osmolar Contrast, Guidance (ICD-10-PCS; 2024-10-31)
PROC: B548ZZA Ultrasonography of Superior Vena Cava, Guidance (ICD-10-PCS; 2024-10-31)
PROC: 06HM33Z Insertion of Infusion Device into Right Femoral Vein, Percutaneous Approach (ICD-10-PCS; 2024-10-31)
PROC: 5A1D70Z Performance of Urinary Filtration, Intermittent, Less than 6 Hours Per Day (ICD-10-PCS; 2024-10-31)
PROC: 02HV33Z Insertion of Infusion Device into Superior Vena Cava, Percutaneous Approach (ICD-10-PCS; principal; 2024-10-31 19:43)
PROC: 4A10X4Z Monitoring of Central Nervous Electrical Activity, External Approach (ICD-10-PCS; 2024-11-01)
PROC: 06PYX3Z Removal of Infusion Device from Lower Vein, External Approach (ICD-10-PCS; 2024-11-04)
DX: G92.8 Other toxic encephalopathy (principal); N17.0 Acute kidney failure with tubular necrosis; I48.92 Unspecified atrial flutter; G25.3 Myoclonus; E11.9 Type 2 diabetes mellitus without complications; Z99.2 Dependence on renal dialysis; I48.0 Paroxysmal atrial fibrillation; J32.3 Chronic sphenoidal sinusitis; F31.9 Bipolar disorder, unspecified; I10 Essential (primary) hypertension; E66.9 Obesity, unspecified; E86.1 Hypovolemia; T46.0X5A Adverse effect of cardiac-stimulant glycosides and drugs of similar action, initial encounter; E78.5 Hyperlipidemia, unspecified; Z79.01 Long term (current) use of anticoagulants; M48.061 Spinal stenosis, lumbar region without neurogenic claudication; M47.816 Spondylosis without myelopathy or radiculopathy, lumbar region; F17.210 Nicotine dependence, cigarettes, uncomplicated; Z68.35 Body mass index [BMI] 35.0-35.9, adult; X58.XXXA Exposure to other specified factors, initial encounter; G25.2 Other specified forms of tremor; T43.591A Poisoning by other antipsychotics and neuroleptics, accidental (unintentional), initial encounter; Z79.899 Other long term (current) drug therapy; Z87.19 Personal history of other diseases of the digestive system
CPT/HCPCS: 36415; 36556; 70450; 80048; 80053; 80178; 81001; 83735; 84443; 85025; 86706; 87324; 87340; 90935; 93005; 93225; 95816; 96360; 96361; 99291